=== PATIENT | female | born 1940 | race Caucasian/White ===

== ENCOUNTER → 2021-03-25 06:36 | Outpatient (CLI) | payer MEDICARE, SELFPAY ==
[2021-03-27 18:38] LABS: SARS-CoV-2 RNA PCR Negative
== END ==
PROVIDERS: PCP Internal Medicine; Visit Provider Internal Medicine
DX: R68.89 Other general symptoms and signs (principal); Z20.822 Contact with and (suspected) exposure to COVID-19
CPT/HCPCS: C9803; U0003; U0005

== ENCOUNTER 2022-04-27 13:47 | Emergency (ER) | payer MEDICARE, SELFPAY ==
[2022-04-27 14:03] VITALS: BP 165/79; PULSE 91; RESP 18; TEMP 37.1; O2SAT 99
--- NOTE | 2022-04-27 14:03 | ED.UPPEXIN ---
HPI - Extremity Injury (Upper) General Chief Complaint: Wound/Laceration Stated Complaint: fall/right elbow pain Time Seen by Provider: 04/27/22 14:03 Source: patient and RN notes reviewed Mode of arrival: ambulatory Limitations: no limitations History of Present Illness HPI narrative: 81-year-old female presents to the [facility] for complaints of a skin tear to the right elbow. Patient states that she slipped and landed on her elbow on Saturday, 3 days ago. Patient states that she called for help when she slipped and fell, the fire department came helped her up and into the house. Patient walks around with a walker. No increased pain. Full range of motion of the elbow. Skin tear noted. Related Data Home Medications Medication Instructions Recorded Confirmed amlodipine 2.5 mg tablet 2.5 mg PO DAILY 04/27/22 04/27/22 amlodipine 5 mg tablet 5 mg PO DAILY 04/27/22 04/27/22 carvedilol 25 mg tablet 25 mg PO DAILY 04/27/22 04/27/22 latanoprost 0.005 % eye drops 1 drp ophthalmic (eye) DAILY 04/27/22 04/27/22 levothyroxine 75 mcg tablet 75 mcg PO DAILY 04/27/22 04/27/22 (Euthyrox) losartan 100 mg tablet 100 mg PO DAILY 04/27/22 04/27/22 potassium chloride 10 mEq 10 meq PO DAILY 04/27/22 04/27/22 tablet,extended release pravastatin 40 mg tablet 40 mg PO DAILY 04/27/22 04/27/22 tramadol 50 mg tablet 50 mg PO DAILY 04/27/22 04/27/22 triamcinolone acetonide 0.1 % 0.1 applic topical DAILY 04/27/22 04/27/22 topical cream Allergies Allergy/AdvReac Type Severity Reaction Status Date / Time Penicillins Allergy Mild RASH Verified 09/02/19 08:24 blue dye Allergy Unknown Other Verified 04/27/22 13:55 ciprofloxacin Allergy Unknown Other Unverified 04/27/22 13:55 Iodinated Contrast Media Allergy Unknown Other Verified 04/27/22 13:55 mesalamine Allergy Unknown Other Verified 04/27/22 13:55 moxifloxacin Allergy Unknown Other Unverified 04/27/22 13:55 nitrofurantoin Allergy Unknown Other Unverified 04/27/22 13:55 NSAIDS (Non-Steroidal Allergy Unknown Other Unverified 04/27/22 13:55 Anti-Inflamma piroxicam Allergy Unknown Other Verified 04/27/22 13:55 Review of Systems Review of Systems: All systems reviewed & are unremarkable except as noted in HPI and below Constitutional: Constitutional: Reports no additional constitutional complaints, Denies chills and Denies fever(s) Eyes: Eyes: Reports no additional eye complaints ENT: Reports system reviewed and no additional complaints, except as documented Cardiovascular: Cardiovascular: Reports no additional cardiovascular complaints Respiratory: Respiratory: Reports no additional respiratory complaints Gastrointestinal: Gastrointestinal: Reports no additional gastrointestinal complaints Musculoskeletal: Musculoskeletal: Reports no additional musculoskeletal complaints Integumentary/Breasts: Skin/Breast: Reports as per HPI Comments: Skin tear right elbow Neurologic: Reports system reviewed and no additional complaints, except as documented Psychiatric: Psychiatric: Reports no additional psychiatric complaints Allergic/Immunologic: Allergic/Immunologic: Reports no additional allergic/immunologic complaints PMFSH Past Medical History Medical History (Updated 04/27/22 @ 18:48 by Audra Giraldo APRN) High cholesterol History of high blood pressure Thyroid disease Social History Social History (Updated 04/27/22 @ 18:46 by Audra Giraldo APRN) Gender identity (if verbalized by the patient): Female Comments At the time of my signature, I reviewed and agree with the nursing past medical, surgical, social, and family history. There is no relevant family history pertinent to the patient complaint. Exam Const: General: healthy appearing, no acute distress and alert Nutritional Appearance: well nourished Orientation/consciousness: patient oriented x3 Limitations: no limitations HENMT: Head: normal to inspection Ears: external ears normal General nose exam: Norm
[2022-04-27 14:16] VITALS: BP 165/79; PULSE 91; RESP 18; TEMP 37.1; O2SAT 99
[2022-04-27 14:51] VITALS: BP 114/86; PULSE 70; RESP 18; TEMP 36.7; O2SAT 96
== END 2022-04-27 14:24 | disposition home or self-care (01) ==
PROVIDERS: Emergency Provider Nurse Practitioner
DX: S51.011A Laceration without foreign body of right elbow, initial encounter (principal); W01.0XXA Fall on same level from slipping, tripping and stumbling without subsequent striking against object, initial encounter; E78.00 Pure hypercholesterolemia, unspecified; I10 Essential (primary) hypertension; E07.9 Disorder of thyroid, unspecified
CPT/HCPCS: 99212; G0463

== ENCOUNTER 2023-01-05 11:56 | Inpatient (IN) | payer MEDICARE, SELFPAY ==
[2023-01-05] VITALS (16 sets, daily range): BP systolic 152–181; BP diastolic 70–100; PULSE 68–84; RESP 14–20; O2SAT 94–100
--- NOTE | ~2023-01-05 | CT_ITS ---
EXAMINATION: CT diagnostic chest wo con DATE: 01/05/2023 14:52 INDICATION: Abnormal chest x-ray TECHNIQUE: Computed tomography (CT) of the chest was performed without intravenous contrast. The dose -length product (DLP) was 135.91 mGy-cm. Automated exposure control and iterative reconstruction tech nique were employed. COMPARISON: Chest radiograph from today FINDINGS: There is atelectasis and scarring in the right lung apex. No suspicious mass is identified. No pleural effusion or pneumothorax. The heart size is normal. There are no pathologically enlarged thoracic lymph nodes. There are changes of right mastectomy and right axillary lymph node dissection. Calcified coronary artery atherosclerosis is noted. There is a dual-lead pacemaker of the left chest wall. There is severe thoracic spondylosis. Bilateral shoulder arthroplasties are noted. There is a 3.2 x 2.2 cm cystic lesion in the tail of the pancreas. IMPRESSION: 1. Atelectasis and scarring of the right lung apex corresponding to the radiographic finding in quest ion, possibly related to radiation treatment. 2. 3.2 cm cystic lesion in the tail of the pancreas. The differential diagnosis includes pseudocyst, intraductal papillary mucinous neoplasm (IPMN), mucinous cystic neoplasm (MCN), and the less common s erous cystadenoma and neuroendocrine tumor. Correlate for history of pancreatitis. Follow-up pancreas protocol MRI or CT with and without contrast is recommended in two years Reviewed, dictated and finalized at location F. ANGE SPECIALIST IMPRESSION: 1. Atelectasis and scarring of the right lung apex corresponding to the radiogr aphic finding in question, possibly related to radiation treatment. 2. 3.2 cm cystic lesion in the tail of the pancreas. The differential diagnosis includes pseudocyst, intraductal papillary mucinous neoplasm (IPMN), mucinous cystic neoplasm (MCN), and the less common serous cystadenoma and neuroendocrin e tumor. Correlate for history of pancreatitis. Follow-up pancreas protocol MRI or CT with and without contrast is recommended in two years
--- NOTE | ~2023-01-05 | CT_ITS ---
EXAMINATION: CT brain wo con DATE: 01/05/2023 12:38 INDICATION: Confusion. TECHNIQUE: Computed tomography (CT) of the head was performed without intravenous contrast. The mA wa s adjusted according to patient size. Iterative reconstruction technique was employed. The dose-lengt h product was 605.33 mGy-cm. COMPARISON: Head CT 10/11/2014 FINDINGS: There are scattered areas of low attenuation in the cerebral white matter. There is no intr acranial hemorrhage, acute infarction, or abnormal intracranial mass lesion. The ventricles are josiah l in size. There are likely changes of ocular lens replacement surgeries. There is mucosal thickening in the paranasal sinuses. There are small bilateral mastoid effusions. IMPRESSION: 1. Moderate nonspecific cerebral white matter disease, which likely represents chronic small vessel i schemic disease, worsened from 10/11/2014. Reviewed, dictated and finalized at location A. ILL MOULDER OPERATOR IMPRESSION: 1. Moderate nonspecific cerebral white matter disease, which likely represents chronic small vessel ischemic disease, worsened from 10/11/2014.
--- NOTE | ~2023-01-05 | XR_ITS ---
EXAMINATION: XR chest 1V portable DATE: 01/05/2023 12:47 INDICATION: Confusion. TECHNIQUE: A single frontal view of the chest was obtained. COMPARISON: Chest 2 views 06/30/2019 FINDINGS: There are airspace opacities at right lung apex. No pleural effusion or pneumothorax. The h eart size is normal. There is a left chest pacer with leads in right atrium, right ventricle, and cor onary sinus. There are surgical clips in right axilla. There are bilateral shoulder arthroplasties. IMPRESSION: 1. Worsened airspace opacities at right lung apex, consistent with granulomatous disease versus pneum onia versus malignancy. Chest CT with contrast is recommended. Reviewed, dictated and finalized at location A. HEATER IMPRESSION: 1. Worsened airspace opacities at right lung apex, consistent with granulomatou s disease versus pneumonia versus malignancy. Chest CT with contrast is recomme nded.
--- NOTE | ~2023-01-05 | US_ITS ---
EXAMINATION: US carotid duplex BI DATE: 01/06/2023 15:15 INDICATION: Confusion TECHNIQUE: Grayscale, color Doppler, and pulsed Doppler images of the cervical carotid arteries were obtained. The degree of vessel stenosis is placed in one of the following categories: normal, <50%, 5 0-69%, >=70% but less than near-occlusion, near-occlusion, or total occlusion. Note that percent sten osis relative to normal distal artery lumen diameter is indirectly measured from velocity measurement s as described by Michael, et al. Radiology 2003; [id number]:[id number]. COMPARISON: 10/11/2014 FINDINGS: RIGHT: The right common carotid artery (CCA) peak systolic velocity (PSV) is 88 cm/s. The right internal car otid artery (ICA) PSV is 57 cm/s. The right ICA end-diastolic velocity (EDV) is 10 cm/s. The right IC A/CCA PSV ratio is 0.6. Grayscale and color Doppler images yield an estimate of less than 50% diamete r reduction from plaque in the ICA. The external carotid artery (ECA) PSV is 51 cm/s. There is antegr mike flow in the right vertebral artery. LEFT: The left CCA PSV is 95 cm/s. The left ICA PSV is 57 cm/s. The left ICA EDV is 6 cm/s. The left ICA/CC A PSV ratio is 0.6. Grayscale and color Doppler images yield an estimate of less than 50% diameter re duction from plaque in the ICA. The ECA PSV is 55 cm/s. There is antegrade flow in the left vertebral artery. IMPRESSION: 1. <50% stenosis in the right internal carotid artery. 2. <50% stenosis in the left internal carotid artery. Reviewed, dictated and finalized at location F. LE DISPLAY PREPARER
--- NOTE | 2023-01-05 12:03 | ECG_ITS ---
Measurements Intervals [place] Rate: 71 P: 128 MO: 144 QRS: 151 QRSD: 139 T: 120 QT: 437 QTc: 477 Interpretive Statements ATRIAL SENSE- ELECTRONIC VENTRICULAR PACEMAKER BASELINE ARTIFACT- I, III, V2 NO FURTHER INTERPRETATION IS POSSIBLE ATYPICAL ECG NO PREVIOUS ECG AVAILABLE FOR COMPARISON Electronically Signed On 01-05-2023 14:38:31 INVESTIGATIVE SHOPPER by Maury Quiles D.O.
--- NOTE | 2023-01-05 12:10 | ED.AMS ---
HPI - Altered Mental Status General Chief Complaint: Altered Mental Status Stated Complaint: confusion Time Seen by Provider: 01/05/23 12:09 Source: patient and EMS History of Present Illness HPI narrative: Patient is 82 years old white female came to the emergency room by ambulance from home with a caregiver who started her new job today to take care of the patient. She is telling me that at 930 arrived to the patient home and she was doing okay, at 10 AM patient took all her medication including tramadol, she does not know if the tramadol is a new prescription or not. At 10:30 AM patient became slightly confused,, trouble getting some words out, until coming to the emergency room. The caregiver called 911. No family member at the bedside at this time. Patient is awake, alert and oriented x4 is telling me that she been feeling awful in the last week, week, tired, trouble verbalizes what she is thinking sometime for almost 1 year. Currently denies any numbness, tingling or focal neurodeficit. Also denies any fever, chills, nausea, vomiting, chest pain, shortness of breath, headache. Related Data Home Medications Medication Instructions Recorded Confirmed amlodipine 2.5 mg tablet 2.5 mg PO DAILY 04/27/22 04/27/22 amlodipine 5 mg tablet 5 mg PO DAILY 04/27/22 04/27/22 carvedilol 25 mg tablet 25 mg PO DAILY 04/27/22 04/27/22 latanoprost 0.005 % eye drops 1 drp ophthalmic (eye) DAILY 04/27/22 04/27/22 levothyroxine 75 mcg tablet 75 mcg PO DAILY 04/27/22 04/27/22 (Euthyrox) losartan 100 mg tablet 100 mg PO DAILY 04/27/22 04/27/22 potassium chloride 10 mEq 10 meq PO DAILY 04/27/22 04/27/22 tablet,extended release pravastatin 40 mg tablet 40 mg PO DAILY 04/27/22 04/27/22 tramadol 50 mg tablet 50 mg PO DAILY 04/27/22 04/27/22 triamcinolone acetonide 0.1 % 0.1 applic topical DAILY 04/27/22 04/27/22 topical cream Allergies Allergy/AdvReac Type Severity Reaction Status Date / Time Penicillins Allergy Mild RASH Verified 09/02/19 08:24 RICK Inhibitors Allergy Unknown Unverified 05/22/22 15:25 blue dye Allergy Unknown Other Verified 04/27/22 13:55 cat dander Allergy Unknown Unverified 05/22/22 15:25 cefuroxime Allergy Unknown Unverified 05/22/22 15:25 ciprofloxacin Allergy Unknown Other Unverified 04/27/22 13:55 clindamycin Allergy Unknown Unverified 05/22/22 15:25 cornflower Allergy Unknown Unverified 05/22/22 15:25 egg Allergy Unknown Unverified 05/22/22 15:25 gabapentin Allergy Unknown Unverified 05/22/22 15:25 hydralazine Allergy Unknown Unverified 05/22/22 15:25 hydroxyzine Allergy Unknown Unverified 05/22/22 15:25 Iodinated Contrast Media Allergy Unknown Other Verified 04/27/22 13:55 Iodine and Iodide Containing Allergy Unknown Unverified 05/22/22 15:25 Produc [Iodine and Iodide Containing Products] lactase Allergy Unknown Unverified 05/22/22 15:25 mesalamine Allergy Unknown Other Verified 04/27/22 13:55 moxifloxacin Allergy Unknown Other Unverified 04/27/22 13:55 nitrofurantoin Allergy Unknown Other Unverified 04/27/22 13:55 NSAIDS (Non-Steroidal Allergy Unknown Other Unverified 04/27/22 13:55 Anti-Inflamma piroxicam Allergy Unknown Other Verified 04/27/22 13:55 wheat Allergy Unknown Unverified 05/22/22 15:25 Yeast Allergy Unknown Unverified 05/22/22 15:25 chlorhexadine Allergy Unknown Uncoded 05/22/22 15:25 chlorine Allergy Unknown Uncoded 05/22/22 15:25 dairy Allergy Unknown Uncoded 05/22/22 15:25 sulfa Allergy Unknown Uncoded 05/22/22 15:25 Review of Systems Review of Systems: All systems reviewed & are unremarkable except as noted in HPI and below PMFSH Past Medical History Medical History (Updated 01/05/23 @ 14:31 by Kadi Slater PA-C) Anxiety Cancer of right breast Status post mastectomy and chemoradiation. Depression Glaucoma Hyperlipidemia Hypertension Hypothyroidism Left bundle branch block Osteoporosis Rheumatoid arthritis Surgical History Surgical History
[2023-01-05 13:20] LABS: Basophils Absolute Auto 0.1 K/mm3 (0.0-0.1); Basophils Percent Auto 0.7 % (0.2-1.2); Eosinophils Absolute Auto 0.2 K/mm3 (0-0.3); Hematocrit 39.6 % (37.0-47.0); Hemoglobin 13.4 g/dL (12.0-15.0); Immature Granulocyte Absolute 0.04 K/mm3 (0.00-0.031); Immature Granulocyte Percent A 0.5 % (0-0.5); Lymphocytes Percent Auto 7.9 % (18.3-44.2); Mean Corpuscular HGB Conc 33.8 g/dl (32-36); Mean Corpuscular Hemoglobin 35.8 pg (26-34); Mean Corpuscular Volume 105.9 fl (80-100); Mean Platelet Volume 8.2 fl (7.4-10.4); Monocytes Percent Auto 12.7 % (2.6-8.5); Neutrophils Absolute Auto 5.8 K/mm3 (1.3-6.7); Neutrophils Percent Auto 76.2 % (45.5-73.1); Platelet Count Result 171 k/mm3 (150-375); Red Blood Count 3.74 M/mm3 (4.2-5.4); White Blood Count 7.6 K/mm3 (4.5-10.0)
[2023-01-05] MEDS: SODIUM CHLORIDE 0.9% IV 1,000 ML 500 ML IV CONT (13:24)
[2023-01-05 13:30] LABS: Alanine Aminotransferase 46 U/L (6-35); Albumin Level 3.8 g/dL (3.5-5.1); Alkaline Phosphatase 46 U/L (38-126); Anion Gap 8 mmol/L (8-16); Aspartate Amino Transferase 35 U/L (14-36); Bilirubin,Total 0.8 mg/dL (0.2-1.3); Blood Urea Nitrogen 20 mg/dL (7-17); Carbon Dioxide 25 mmol/L (22-30); Chloride 97 mmol/L (98-107); Estimated Glomerular Filt Rate > 60; Glucose 113 mg/dL (65-110); Potassium 3.5 mmol/L (3.4-5.0); Sodium 130 mmol/L (137-145)
[2023-01-05 13:40] LABS: Appearance Urine Clear (Clear); Bacteria Urine 4+ /hpf; Bilirubin Urine Negative (Negative); Blood Urine Negative (Negative); Color Urine Yellow (Yellow); Glucose Urine UA Negative (Negative); Ketones Urine Trace mg/dL (Negative); Leukocyte Esterase Ur Trace LEU/UL (Negative); Need Manual Microscopic Reviewed; Nitrate Urine Positive (Negative); Protein Urine Trace mg/dL (Negative); RBC Urine 0-2 /hpf (0-2); Specific Grav Ur 1.026 (1.001-1.035); Squamous Epithelial Cell Urine None seen /hpf (Few); WBC Urine 21-50 /hpf; pH Urine 5.5 (5.0-9.0)
[2023-01-05 13:43] LABS: Add Urine Microscopic? YES
[2023-01-05 13:53] LABS: Amphetamine Screen Urine Negative (Negative); Barbiturate Screen Urine Negative (Negative); Benzodiazepines Screen Urine Negative (Negative); Cannabinoid Screen Urine Positive (Negative); Cocaine Screen Urine Negative (Negative); Methadone Screen Urine Negative (Negative); Opiate Screen Urine Negative (Negative); Phencyclidine Screen Urine Negative (Negative)
[2023-01-05] MEDS: ASPIRIN 325 MG TABLET PO (14:26)
--- NOTE | 2023-01-05 15:10 | PC.NURSE ---
attempted to call report at this time, advised that the nurse taking this patient is unavailable and will call back for any questions regarding patient care and report. Stevie charge nurse notified
--- NOTE | 2023-01-05 15:33 | PC.NURSE ---
EDYing Don aware of patient's blood pressure while in ER. Per HELLEN Dno, no further intervention needed.
--- NOTE | 2023-01-05 15:45 | PM.IMHP ---
H&P: HPI History of Present Illness Date/Time: 01/05/23 15:45 Chief Complaint: Confusion and difficulties speaking. Narrative: This is [id number] female with history of TIA, hypertension, cardiomyopathy status post PM/AICD, arthritis, hypothyroidism, and other comorbidities who presented to the emergency department via EMS from home for evaluation of confusion and difficulties speaking. Patient provides the following history. She felt in her usual state of health this morning and welcomed a new caregiver. While showing her around the home she began having difficulties coming up with the words that she wanted to say and the caregiver thought she seemed confused when compared to how she was acting just a couple of hours prior. There were concerns for possible TIA and she was brought to the ED. With further questioning the patient admits that within an hour so of taking her carvedilol and amlodipine every morning that she feels ?a little drunk? and wobbly. She also had tramadol with her medications this morning for her chronic arthritic pain. Her symptoms resolved within a couple of hours. Blood pressure on arrival to the ED was 156/100, the rest of her vital signs were stable. CMP and CBC were stable compared to previous lab draws. Her urine was nitrate and leukocyte esterase positive with 21 to 50 wbc's and 4+ bacteria (this was a catheterized urine). She has not however had any symptoms to suggest an active urinary tract infection and she goes on to say that she has had issues with recurrent UTIs over the years and what sounds like bacteriuria. Urine drug screen was positive for cannabinoids and she does admit that she takes marijuana gummies at night to help sleep and help with her arthritic pain. Brain CT showed moderate nonspecific cerebral white matter disease, likely representing chronic small-vessel ischemic disease. Chest x-ray showed worsened airspace opacities the right lung apex which could be granulomatous disease versus pneumonia versus malignancy. She denies symptoms to suggest active pneumonia. A subsequent CT revealed that this area was likely atelectasis and scarring from previous radiation for breast cancer. A 3.2 cm cystic lesion was noted in the tail of the pancreas and with further questioning she does admit that she has intermittent issues with epigastric discomfort of which she is not very specific and occasional nausea. She is on a strict diet due to multiple allergies and states she does not eat dairy or much in the way of fried foods. She has no history of gallbladder or pancreatic disease and denies history of pancreatitis. She has lost about 20 lb in the last 6 months or so unintentionally. She has not had a mammogram for several years but has not noticed any lumps or bumps. She also denies fever, chills, sweats, sinus congestion, sore throat, chest and pleuritic pain, palpitations, shortness breath, vomiting, diarrhea, and dysuria. No vertigo, focal weakness, paresthesias, facial droop, or difficulty swallowing. She does ambulate with walker and reports that she has mild but ongoing balance issues. Review of Systems Review of Systems: Twelve systems were reviewed and are negative except for as per HPI. [facility] Past Medical History Medical History (Updated 01/05/23 @ 21:15 by Kadi Slater PA-C) Anxiety Cancer of right breast Status post mastectomy and chemoradiation. Chronic hyponatremia Collagenous colitis Depression Glaucoma Hyperlipidemia Hypertension Hypothyroidism Left bundle branch block Osteoporosis Surgical History Surgical History (Updated 01/05/23 @ 21:05 by Kadi Slater PA-C) History of arthroplasty of both shoulders History of arthroscopy of right knee History of cardiac catheterization History of dilation and curettage History of right knee joint replacement History of right mastectomy History of tonsillectomy History of umbilical hernia repair Presence of combination internal cardiac defibri
--- NOTE | 2023-01-05 16:29 | PC.NURSE ---
This patient, Alice Bass, was admitted to [facility] Surg Room 325-01. Patient/family oriented to hospital policies and general routines including ID bracelet, bed and alarms, visiting hours, pain management, procedures, bathroom and other care routines, personal items, smoking policy, room service/diet, and visiting hours. Information on how to activate the Rapid Response Team has been discussed. Patient/Family are encouraged to report perceived risks to care and to ask questions if they do not understand what they are told or what they should do.
[2023-01-05] MEDS: LATANOPROST 0.005% OP SOLN 2.5 ML BTL 1 DROP EACH EYE (21:57)
[2023-01-05] MEDS: carvediloL 25 MG TABLET PO (21:57)
[2023-01-05] MEDS: PRAVASTATIN SODIUM 20 MG TABLET 40 MG PO (21:59)
[2023-01-05] MEDS: ACETAMINOPHEN 325 MG TABLET 650 MG PO (21:59)
[2023-01-05] MEDS: LOSARTAN POTASSIUM 100 MG TABLET PO (21:59)
[2023-01-06] VITALS (10 sets, daily range): BP systolic 165–196; BP diastolic 70–86; PULSE 70–81; RESP 16–18; TEMP 36.1–36.9; O2SAT 95–97
[2023-01-06] MEDS: ACETAMINOPHEN 325 MG TABLET 650 MG PO ×3 (05:54→21:03)
[2023-01-06 06:13] LABS: Hematocrit 41.8 % (37.0-47.0); Hemoglobin 13.8 g/dL (12.0-15.0); Mean Corpuscular Hemoglobin 35.4 pg (26-34); Mean Corpuscular Volume 107.2 fl (80-100); Mean Platelet Volume 8.4 fl (7.4-10.4); Platelet Count Result 184 k/mm3 (150-375); White Blood Count 5.7 K/mm3 (4.5-10.0)
[2023-01-06 06:28] LABS: Anion Gap 7 mmol/L (8-16); Blood Urea Nitrogen 10 mg/dL (7-17); Calcium 8.1 mg/dL (8.4-10.2); Carbon Dioxide 23 mmol/L (22-30); Chloride 105 mmol/L (98-107); Cholesterol 171 mg/dL (0-200); Estimated Glomerular Filt Rate > 60; Glucose 111 mg/dL (65-110); HDL Direct 58 mg/dL; Lipase 52 U/L (23-300); Magnesium 2.3 mg/dL (1.6-2.3); Potassium 3.9 mmol/L (3.4-5.0); Sodium 135 mmol/L (137-145); Triglycerides 102 mg/dL (<150)
[2023-01-06 06:29] LABS: LDL Cholesterol Direct 82 mg/dL
[2023-01-06] MEDS: ASPIRIN 81 MG CHEWABLE TABLET PO (09:30)
[2023-01-06] MEDS: carvediloL 25 MG TABLET PO ×2 (09:30→21:38)
[2023-01-06] MEDS: amLODIPine BESYLATE 5 MG TABLET PO (09:30)
[2023-01-06] MEDS: POTASSIUM CHLORIDE 10 MEQ TABLET.ER PO (09:30)
[2023-01-06] MEDS: LEVOTHYROXINE SODIUM 75 MCG TABLET PO (09:30)
[2023-01-06] MEDS: CALCIUM/VITAMIN D 250 MG TABLET 1 TABLET PO (09:30)
[2023-01-06 10:32] LABS: Folic Acid 4.4 ng/mL (2.76->20)
--- NOTE | 2023-01-06 16:50 | PM.IMPN ---
Progress Note: A&P Assessment and Plan (1) Dysarthria: Code(s): R47.1 - Dysarthria and anarthria Status: Acute Assessment and Plan: Patient denies that she was feeling confused. Her biggest complaint was garbled speech when trying to talk. Etiology most likely related to TIA. This symptom however was different than her prior TIA symptoms. Consider also metabolic processes. Her sodium was low and her BUN was elevated so would consider dehydration. B12 level is low end of normal which also could be contributing. She may also have a UTI and currently on antibiotics. Head CT shows moderate nonspecific cerebral white matter disease. She cannot have an MRI due to her pacemaker. Carotid ultrasound shows less than 50% stenosis in the bilateral internal carotid arteries. She has an iodine allergy. Will check echocardiogram with bubble. Replace B12. Start PT/ OT and speech therapy. Continue ASA. (2) Hypertension: Code(s): I10 - Essential (primary) hypertension Status: Acute Assessment and Plan: Patient's blood pressure was reviewed on 01/06 Blood pressure remains consistently elevated. Will continue current medications at this time. Follow (3) Chronic hyponatremia: Code(s): E87.1 - Hypo-osmolality and hyponatremia Status: Acute Assessment and Plan: Na 130 on admission but better after receiving IV fluids. Off IV fluids now. Will follow (4) Hypothyroidism: Code(s): E03.9 - Hypothyroidism, unspecified Status: Acute Assessment and Plan: TSH normal. Continue levothyroxine. (5) Pancreatic cyst: Code(s): K86.2 - Cyst of pancreas Status: Acute Assessment and Plan: CT showing a cystic lesion noted on pancreas. Lipase normal. Radiologist recommends CT pancreatic protocol in 2 years. Plan ?UTI - UA noted so Rocephin started. UCx pending. Subjective Date/time seen: 01/06/23 16:50 Interval history: 82yo female with hx of TIA, HTN and CMP with PM/ICD here for difficulty speaking. patient states that she would know the answers to the questions posed by EMS but could not speak them. Her answers came out garbled. She has a history of TIA in the past. She has been off aspirin for a few months because of bruising. She did feel short of breath with conversational dyspnea talking to her son by phone earlier today but this has improved. No chest pain. Her symptoms improved on her weight to the ER. Exam Narrative: AF 98.3 165/71 73 16 95% ra Gen - NARD Chest - CTA bilaterally, nml RR CV - RRR S1/S2. Tele showing PVCs with mostly paced rhythm Abd - Soft, NT/ND, Positive BS Ext - No pedal edema Neuro - Alert and oriented x4. speech is clear. No focal weakness. Psych - Nml mood and affect Skin - Warm and dry Objective Data Vital Signs Vital Signs: Vital Signs - 24 hr 01/05/23 18:24 01/05/23 21:57 01/05/23 20:00 Temperature Pulse Rate 80 75 Respiratory Rate Blood Pressure Pulse Oximetry Oxygen Delivery Room Air 01/06/23 00:00 01/06/23 00:00 01/06/23 04:00 Temperature 97.2 F L Pulse Rate 70 81 73 Respiratory Rate 16 Blood Pressure 174/86 H Pulse Oximetry 97 Oxygen Delivery 01/06/23 07:55 01/06/23 08:00 01/06/23 08:00 Temperature 98.5 F Pulse Rate 74 74 74 Respiratory Rate 18 18 Blood Pressure 181/70 H Pulse Oximetry 96 96 Oxygen Delivery Room Air 01/06/23 12:00 01/06/23 14:41 Temperature 98.3 F Pulse Rate 72 73 Respiratory Rate 16 Blood Pressure 165/71 H Pulse Oximetry 95 Oxygen Delivery Intake/Output Intake/Output: Intake & Output 01/03/23 01/04/23 01/05/23 01/06/23 23:59 23:59 23:59 23:59 Intake Total 1790 740 Balance 1790 740 Meds/Results Medications: Active Medications Generic Name Dose Route Start Last Admin Trade Name Freq PRN Reason Stop Dose Admin Acetaminophen 650 mg 01/05/23 14:03
[2023-01-06] MEDS: CYANOCOBALAMIN INJ 1,000 MCG/ML VIAL 1000 MCG IM (19:31)
[2023-01-06] MEDS: LATANOPROST 0.005% OP SOLN 2.5 ML BTL 1 DROP EACH EYE (21:05)
[2023-01-06] MEDS: PRAVASTATIN SODIUM 20 MG TABLET 40 MG PO (21:39)
[2023-01-06] MEDS: LOSARTAN POTASSIUM 100 MG TABLET PO (21:39)
[2023-01-07] VITALS (12 sets, daily range): BP systolic 162–194; BP diastolic 76–107; PULSE 72–104; RESP 16–20; TEMP 35.8–36.8; O2SAT 96–97; BMI 25.3
[2023-01-07] MEDS: ACETAMINOPHEN 325 MG TABLET 650 MG PO ×3 (06:04→20:59)
[2023-01-07] MEDS: LEVOTHYROXINE SODIUM 75 MCG TABLET PO (06:04)
[2023-01-07] MEDS: amLODIPine BESYLATE 5 MG TABLET PO ×2 (09:02→18:42)
[2023-01-07] MEDS: CALCIUM/VITAMIN D 250 MG TABLET 1 TABLET PO (09:02)
[2023-01-07] MEDS: LIDOCAINE 5% PATCH 1 PATCH TRANSDERM (09:02)
[2023-01-07] MEDS: POTASSIUM CHLORIDE 10 MEQ TABLET.ER PO (09:03)
[2023-01-07] MEDS: CYANOCOBALAMIN 1,000 MCG TABLET 1000 MCG PO (09:03)
[2023-01-07] MEDS: ASPIRIN 81 MG CHEWABLE TABLET PO (09:03)
[2023-01-07] MEDS: carvediloL 25 MG TABLET PO ×2 (09:04→20:59)
--- NOTE | 2023-01-07 11:53 | PCSTNOTE ---
Please refer to the Bedside Swallow Evaluation in the EMR. Please note, silent aspiration cannot be ruled out at bedside.
--- NOTE | 2023-01-07 15:35 | PM.IMPN ---
Progress Note: A&P Assessment and Plan (1) Dysarthria: Code(s): R47.1 - Dysarthria and anarthria Status: Acute Assessment and Plan: Patient denies that she was feeling confused. Her biggest complaint was garbled speech when trying to talk. Etiology most likely related to TIA. This symptom however was different than her prior TIA symptoms. Consider also metabolic processes. Her sodium was low and her BUN was elevated so would consider dehydration. B12 level is low end of normal which also could be contributing. She also has a UTI that is being treated. And she took tramadol that morning and a marijuana gummy the night before. Head CT shows moderate nonspecific cerebral white matter disease. She cannot have an MRI due to her pacemaker. Carotid ultrasound shows less than 50% stenosis in the bilateral internal carotid arteries. She has an iodine allergy. Echocardiogram with bubble ordered. Suspect her symptoms are related to multifactorial process. Continue B12 replacement. Continue PT/ OT and speech therapy. Continue ASA. She and pet care associate advised not to use the tramadol and marijuana. (2) Urinary tract infection: Code(s): N39.0 - Urinary tract infection, site not specified Status: Acute Assessment and Plan: UA noted and Rocephin started on admission. UCx growing EColi that is pansensitive. Continue abx to complete a course. (3) Hypertension: Code(s): I10 - Essential (primary) hypertension Status: Acute Assessment and Plan: Patient's blood pressure was reviewed on 01/07 Blood pressure remains consistently elevated. Will advance [facility]. Follow (4) Chronic hyponatremia: Code(s): E87.1 - Hypo-osmolality and hyponatremia Status: Acute Assessment and Plan: Na 130 on admission but better after receiving IV fluids. Off IV fluids now. Will follow (5) Hypothyroidism: Code(s): E03.9 - Hypothyroidism, unspecified Status: Acute Assessment and Plan: TSH normal. Continue levothyroxine. (6) Pancreatic cyst: Code(s): K86.2 - Cyst of pancreas Status: Acute Assessment and Plan: CT showing a cystic lesion noted on pancreas. Lipase normal. Radiologist recommends CT pancreatic protocol in 2 years. Subjective Date/time seen: 01/07/23 15:35 Interval history: 82yo female with hx of TIA, HTN and CMP with PM/ICD here for difficulty speaking. No problems overnight. She is up walking to the bathroom. The patient's pet care associate arrived and did not want the patient discharged because patient lives alone and they are trying to make living arrangements. Exam Narrative: AF 162/79 88 20 97% ra Gen - NARD Chest - CTA bilaterally, nml RR CV - RRR S1/S2. Tele showing PVCs Abd - Soft, NT/ND, Positive BS Ext - No pedal edema Psych - Nml mood and affect Skin - Warm and dry Objective Data Vital Signs Vital Signs: Vital Signs - 24 hr 01/06/23 16:00 01/06/23 21:38 01/06/23 20:00 Temperature Pulse Rate 73 72 74 Respiratory Rate Blood Pressure Pulse Oximetry Oxygen Delivery 01/06/23 22:00 01/07/23 03:33 01/07/23 00:00 Temperature 97 F L 97.1 F L Pulse Rate 80 74 75 Respiratory Rate 16 18 Blood Pressure 196/84 H 194/80 H Pulse Oximetry 95 96 Oxygen Delivery 01/07/23 04:00 01/07/23 08:00 01/07/23 08:00 Temperature Pulse Rate 73 73 Respiratory Rate Blood Pressure Pulse Oximetry Oxygen Delivery Room Air 01/07/23 08:00 01/07/23 08:00 01/07/23 08:05 Temperature Pulse Rate 88 104 H Respiratory Rate Blood Pressure 162/79 H 165/107 H Pulse Oximetry Oxygen Delivery Room Air 01/07/23 08:10 01/07/23 14:00 Temperature 98.3 F Pulse Rate 94 88 Respiratory Rate 20 Blood Pressure 169/85 H 162/79 H Pulse Oximetry 97 Oxygen Delivery Intake/Output Intake/Output: Intake & Output 01/04/23 01/05/23 01/06/23 01/07/23 23:
[2023-01-07] MEDS: PRAVASTATIN SODIUM 20 MG TABLET 40 MG PO (20:58)
[2023-01-07] MEDS: LOSARTAN POTASSIUM 100 MG TABLET PO (20:58)
[2023-01-07] MEDS: LATANOPROST 0.005% OP SOLN 2.5 ML BTL 1 DROP EACH EYE (20:59)
--- NOTE | 2023-01-08 | ECHO_ITS ---
Patient Info Name: Alice Bass Age: 82 years : 1940 Gender: Female Ht: 59 in Wt: 141 lbs BSA: 1.65 m2 HR: 64 bpm BP: 194 / 80 mmHg Heart Rhythm: Sinus Rhythm Exam Date: 01/08/2023 11:00 AM Exam Location: [facility] Patient Status: Inpatient Admit Date: 01/07/2023 Staff Ordering Physician: Dedrick Duron MD Supervisor [employer]: Jose Ruff, BETZAIDA, RT Attending Provider: Dedrick Duron MD Exam Type: CA echo dop bubble study w con Study Info Indications G45.8 - Other transient cerebral ischemic attacks and related syndromes Complete two-dimensional, color flow and Doppler transthoracic echocardiogram is performed. Strain analysis performed. Summary 1. Complete two-dimensional, color flow and Doppler transthoracic echocardiogram is performed. 2. Left ventricular chamber dimension is normal. 3. Left ventricular systolic function is mildly reduced, estimated at 45-50%. 4. There is mildly increased left ventricular wall thickness. 5. Left ventricular septal wall motion is abnormal with septal motion related to pacing. 6. The left ventricular diastolic function is grade I diastolic dysfunction. 7. Global longitudinal strain is abnormal at -13 %. 8. Right ventricular systolic function is reduced. 9. Linear artifact in right ventricle suggestive of catheter(s), pacemaker lead(s), or ICD lead(s). 10. Linear artifact in the right atrium suggestive of catheter(s), pacemaker lead(s), or ICD lead(s). 11. Bubble study: No bubbles seen crossing into the left heart with rest. However, with Valsalva, few bubbles seen in left heart after >5 cardiac beats concerning for possible small intrapulmonary shunt. 12. There is moderate aortic valve calcification. 13. There is moderate aortic valve regurgitation. 14. There is mild tricuspid valve regurgitation. 15. There is mild pulmonic regurgitation. Left Ventricle Left ventricular chamber dimension is normal. Left ventricular systolic function is mildly reduced, estimated at 45-50%. There is mildly increased left ventricular wall thickness. Left ventricular septal wall motion is abnormal with septal motion related to pacing. The left ventricular diastolic function is grade I diastolic dysfunction. Global longitudinal strain is abnormal at -13 %. Right Ventricle Linear artifact in right ventricle suggestive of catheter(s), pacemaker lead(s), or ICD lead(s). Right ventricular chamber dimension is normal. Right ventricular systolic function is reduced. Left Atria Left atrial chamber dimension is normal. Right Atria Linear artifact in the right atrium suggestive of catheter(s), pacemaker lead(s), or ICD lead(s). Right atrial chamber dimension is normal. Atrial Septum Bubble study: No bubbles seen crossing into the left heart with rest. However, with Valsalva, few bubbles seen in left heart after >5 cardiac beats concerning for possible small intrapulmonary shunt. Aortic Valve The aortic valve is probable trileaflet. There is no aortic valve stenosis. There is moderate aortic valve regurgitation. There is moderate aortic valve calcification. Pulmonic Valve The pulmonic valve is not well visualized. There is mild pulmonic regurgitation. Mitral Valve There is no mitral valve stenosis. There is trace mitral valve regurgitation. The mitral valve annulus is mildly calcified. Tricuspid Valve There is mild tricuspid valve regurgitation. Pericardium/Pleural There is no pericardial effusion. Inferior V
[2023-01-08] MEDS: ACETAMINOPHEN 325 MG TABLET 650 MG PO ×2 (04:00→08:42)
[2023-01-08] MEDS: LEVOTHYROXINE SODIUM 75 MCG TABLET PO (05:02)
[2023-01-08 05:20] VITALS: BP 150/63; PULSE 70; RESP 19; TEMP 36.1; O2SAT 95
[2023-01-08 08:00] VITALS: BP 150/63; PULSE 70; RESP 19; TEMP 36.1; O2SAT 95
[2023-01-08] MEDS: ASPIRIN 81 MG CHEWABLE TABLET PO (08:41)
[2023-01-08] MEDS: CEFDINIR 300 MG CAPSULE PO (08:41)
[2023-01-08] MEDS: POTASSIUM CHLORIDE 10 MEQ TABLET.ER PO (08:42)
[2023-01-08] MEDS: CYANOCOBALAMIN 1,000 MCG TABLET 1000 MCG PO (08:43)
[2023-01-08] MEDS: CALCIUM/VITAMIN D 250 MG TABLET 1 TABLET PO (08:43)
[2023-01-08] MEDS: amLODIPine BESYLATE 5 MG TABLET 10 MG PO (08:43)
[2023-01-08] MEDS: carvediloL 25 MG TABLET PO (08:44)
[2023-01-08] MEDS: LIDOCAINE 5% PATCH 1 PATCH TRANSDERM (08:44)
--- NOTE | 2023-01-08 13:18 | PM.DS ---
DS: Admitting Diagnosis Discharge Date 01/08/23 Admitting Diagnosis difficulty speaking. DS: Discharge Diagnosis Discharge Diagnosis (1) Dysarthria: Code(s): R47.1 - Dysarthria and anarthria Status: Acute (2) Urinary tract infection: Code(s): N39.0 - Urinary tract infection, site not specified Status: Acute (3) Hypertension: Code(s): I10 - Essential (primary) hypertension Status: Acute (4) Chronic hyponatremia: Code(s): E87.1 - Hypo-osmolality and hyponatremia Status: Acute (5) Hypothyroidism: Code(s): E03.9 - Hypothyroidism, unspecified Status: Acute (6) Pancreatic cyst: Code(s): K86.2 - Cyst of pancreas Status: Acute DS: Summary Hospital Course Reason for hospitalization: 82yo female with hx of TIA, HTN and CMP with PM/ICD here for difficulty speaking. Please see H&P for details Hospital Course: Patient denied that she felt confused.? Her biggest complaint was garbled speech when trying to talk.? This symptom however was different than her prior TIA symptoms.? Her sodium was low and her BUN was elevated so probably dehydrated.? B12 level was low end of normal which also could be contributing.?B12 was replaced. UA noted and Rocephin started on admission. UCx growing EColi that was pansensitive. She also took tramadol that morning and a marijuana gummy the night before. Head CT shows moderate nonspecific cerebral white matter disease.? She cannot have an MRI due to her pacemaker.? Carotid ultrasound shows less than 50% stenosis in the bilateral internal carotid arteries.? She has an iodine allergy.? Echocardiogram with bubble pending. Suspect her symptoms are either a TIA and/or related to UTI, medications, marijuana, dehydration. She worked with PT/ OT and speech therapy. We started ASA (she had been off of ASA for a few months). She and home care assistant advised not to use the tramadol and marijuana. Na 130 on admission but better after receiving IV fluids. TSH was normal. We continued levothyroxine. CXR showed airspace opacities in the right upper lung. CT chest showing atelectasis and scarring of the right lung apex felt related to radiation treatment. CT also showed a 3.2cm cystic lesion noted on tail of the pancreas. Lipase was normal. Radiologist recommended CT pancreatic protocol in 2 years. Patient overall did well but home care assistant felt the patient was too weak to be discharged home. She was evaluated and was too independent for SNF. She was discharged to [facility] on 01/08/2023 in their respite room. Discharge instructions were discussed with patient. Status at Discharge Cognitive/behavioral status at discharge: Stable Time Spent with Patient Time attestation: Total time spent providing and/or coordinating discharge services:34 minutes Time spent: Greater than 30 minutes Exam Narrative: AF 150/63 70 19 95% ra Gen - NARD Chest - CTA bilaterally, nml RR CV - RRR S1/S2 Abd - Soft, NT/ND, Positive BS Ext - No pedal edema Psych - Nml mood and affect Skin - Warm and dry Discharge Plan Discharge Attending physician on discharge: Dedrick Duron Discharging Clinician: Dedrick Duron Anticipated Discharge Date/Time: 01/08/23 13:37 Patient Disposition: NH Skilled Nursing/Asst Living Activity: as tolerated Diet: heart healthy Discharge Instructions: Check blood pressure 1 to 2 times a day. Record for the doctor's review. Please complete your antibiotic course even if you are starting to feel well. Take precautions to avoid falls. Rise slowly from a lying or sitting position. Pause before standing or walking. Avoid NSAIDs (ibuprofen, naproxen, Aleve). Tylenol is safe to take. Follow-up with the provider at the facility Thank you for using [facility] for your health care needs. Patient Instructions: Antibiotic Form Stand Alone Forms: General Discharge Information Follow-up/Referrals:
[2023-01-08 14:00] VITALS: BP 150/70; PULSE 79; RESP 17; TEMP 36.7; O2SAT 95
== END 2023-01-08 15:45 | DRG 69 ==
LOC: ANHED 14:23 → ANH3MEDSUR 15:28
PROVIDERS: Physician Assistant; Admitting Provider Internal Medicine; Emergency Provider Emergency Medicine; PCP Internal Medicine; Visit Provider Internal Medicine
DX: G45.9 Transient cerebral ischemic attack, unspecified (principal); N39.0 Urinary tract infection, site not specified; I42.9 Cardiomyopathy, unspecified; E87.1 Hypo-osmolality and hyponatremia; K86.2 Cyst of pancreas; B96.20 Unspecified Escherichia coli [E. coli] as the cause of diseases classified elsewhere; E86.0 Dehydration; R41.0 Disorientation, unspecified; R47.1 Dysarthria and anarthria; R47.89 Other speech disturbances; T50.905A Adverse effect of unspecified drugs, medicaments and biological substances, initial encounter; T40.715A Adverse effect of cannabis, initial encounter; F41.9 Anxiety disorder, unspecified; F32.A Depression, unspecified; I44.7 Left bundle-branch block, unspecified; M06.9 Rheumatoid arthritis, unspecified; M81.0 Age-related osteoporosis without current pathological fracture; H40.9 Unspecified glaucoma; E78.5 Hyperlipidemia, unspecified; E03.9 Hypothyroidism, unspecified; I10 Essential (primary) hypertension; Z96.612 Presence of left artificial shoulder joint; Z96.611 Presence of right artificial shoulder joint; Z96.651 Presence of right artificial knee joint; Z95.810 Presence of automatic (implantable) cardiac defibrillator
CPT/HCPCS: 36415; 70450; 71045; 71250; 80048; 80053; 80061; 80307; 81001; 82607; 82746; 83690; 83735; 84443; 85025; 85027; 87077; 87086; 87186; 92610; 93005; 93880; 96360; 96361; 96365; 96366; 96372; 96375; 96376; 97165; 97530; 97535; 99285; A9270; C8929; G0378; J0696; J3420; J7030

== ENCOUNTER 2024-04-07 18:57 | Inpatient (IN) | payer MEDICARE, SELFPAY ==
[2024-04-07] VITALS (9 sets, daily range): BP systolic 133–162; BP diastolic 51–93; PULSE 87–97; RESP 16–23; TEMP 36.8; O2SAT 95–98
--- NOTE | ~2024-04-07 | XR_ITS ---
EXAM: XR knee LT min 4V DATE: 04/07/2024 21:24 HISTORY: fall, laceration PT HAS BANDAGEON TO CONTROL BLEEDING . COMPARISON: None available. FINDINGS: Decreased mineralization. Radiologically detail obscured by overlying bandage material. No fracture or dislocation. No lytic or blastic lesion. Mild tricompartmental osteoarthritic changes. N o erosion or periosteal change. Arterial calcifications. Possible soft tissue defect anterior to the patella versus compression from the bandage material. Soft tissue swelling/hematoma overlying the pat ellar tendon. IMPRESSION: No acute osseous finding in the left knee. Reviewed, dictated and finalized at location [facility].
--- NOTE | ~2024-04-07 | CT_ITS ---
CT OF left knee EXAMINATION: CT LE LT wo con DATE: 04/07/2024 21:58 INDICATION: Knee injury, fracture suspected TECHNIQUE: Computed tomography (CT) of the left knee was performed without intravenous contrast. Auto mated exposure control and iterative reconstruction technique were employed. The dose-length product was 426.63 mGy-cm. COMPARISON: X-ray left knee same date FINDINGS: Decreased mineralization. Vascular calcifications. No fracture or dislocation. Small-volume joint flu id. The patellar tendon is intact. The ACL is not well visualized. The PCL appears to be intact. The MCL and LCL appear to be intact. Anterior bandage material. Hematoma in the soft tissues anterior and lateral to the patellar tendon with significant surrounding subcutaneous stranding and scattered sub cutaneous gas. IMPRESSION: No acute osseous finding in the left knee. Possible ACL tear, presumably chronic given the lack of a significant knee joint effusion. Anterior soft tissue injury/hematoma Reviewed, dictated and finalized at location [facility]. IMPRESSION: No acute osseous finding in the left knee. Possible ACL tear, presumably chronic given the lack of a significant knee join t effusion. Anterior soft tissue injury/hematoma
--- NOTE | ~2024-04-07 | CT_ITS ---
Noncontrast CT scan of the left knee CLINICAL HISTORY: Swelling, anemia, possible hematoma TECHNIQUE: Axial noncontrast imaging of the left knee was performed. Sagittal and coronal reformatted images were constructed. Dose reduction technique was used on this scan by utilizing automated expos ure control and iterative reconstruction technique. The dose-length product (DLP) was 591.33 mGy-cm. Comparison: 04/07/2024 FINDINGS: No acute fracture or dislocation seen. There is minimal tricompartmental degenerative spurr ing. Moderate joint effusion present. There is interval decrease of hematoma superficial to the noel lar tendon extending laterally. Hematoma currently measures approximately 5.5 x 1.7 x 1.4 cm in exten t. Visualized musculature appears unremarkable. There is mild subcutaneous soft tissue edema, nonspec ific. IMPRESSION: Interval decrease of hematoma superficial to the patellar tendon extending laterally. Moderate joint effusion present. No acute fracture or dislocation seen. Reviewed, dictated and finalized at [facility]. IMPRESSION: Interval decrease of hematoma superficial to the patellar tendon extending late rally. Moderate joint effusion present. No acute fracture or dislocation seen.
--- NOTE | 2024-04-07 20:57 | ED.FALL ---
HPI - Fall General Chief Complaint: Fall Stated Complaint: fall Time Seen by Provider: 04/07/24 20:57 History of Present Illness HPI Narrative: Patient is an 83-year-old female who presents to the emergency department this evening complaining of a ground level fall. Patient sustained a left knee laceration measuring approximately 11 cm across her knee joint and a small skin tear to her right engel. Patient denies hitting her head, and is currently denying any joint pain other than the laceration to her left knee. Patient is not on any blood thinners. No distal symptoms or concerns at this time. Related Data Home Medications Medication Instructions Recorded Confirmed carvedilol 25 mg tablet 25 mg PO BID 04/27/22 09/04/23 latanoprost 0.005 % eye drops 1 drp ophthalmic (eye) HS 04/27/22 09/04/23 levothyroxine 75 mcg tablet 75 mcg PO DAILY 04/27/22 09/04/23 (Euthyrox) losartan 100 mg tablet 100 mg PO HS 04/27/22 09/04/23 potassium chloride 10 mEq 10 meq PO DAILY 04/27/22 09/04/23 tablet,extended release pravastatin 40 mg tablet 40 mg PO HS 04/27/22 09/04/23 acetaminophen 650 mg 650 mg PO Q8H 01/05/23 09/04/23 tablet,extended release calcium carbonate 250 mg-vitamin 1 tablet PO DAILY 01/05/23 09/04/23 D3 3.125 mcg (125 unit) tablet lidocaine 5 % topical patch 1 patch transdermal DAILY 01/06/23 09/04/23 Allergies Allergy/AdvReac Type Severity Reaction Status Date / Time Penicillins Allergy Mild RASH Verified 01/07/23 12:16 RICK Inhibitors Allergy Unknown Unverified 05/22/22 15:25 blue dye Allergy Unknown Other Verified 04/27/22 13:55 cat dander Allergy Unknown Unverified 05/22/22 15:25 cefuroxime Allergy Unknown Unverified 01/07/23 12:16 chlorhexidine Allergy Unknown Verified 01/07/23 07:18 ciprofloxacin Allergy Unknown Other Unverified 04/27/22 13:55 clindamycin Allergy Unknown Unverified 05/22/22 15:25 cornflower Allergy Unknown Unverified 05/22/22 15:25 egg Allergy Unknown Unverified 05/22/22 15:25 gabapentin Allergy Unknown Unverified 05/22/22 15:25 hydralazine Allergy Unknown Unverified 05/22/22 15:25 hydroxyzine Allergy Unknown Unverified 05/22/22 15:25 Iodinated Contrast Media Allergy Unknown Other Verified 04/27/22 13:55 Iodine and Iodide Containing Allergy Unknown Unverified 05/22/22 15:25 Produc [Iodine and Iodide Containing Products] lactase Allergy Unknown Unverified 05/22/22 15:25 mesalamine Allergy Unknown Other Verified 04/27/22 13:55 moxifloxacin Allergy Unknown Other Unverified 04/27/22 13:55 nitrofurantoin Allergy Unknown Other Unverified 04/27/22 13:55 NSAIDS (Non-Steroidal Allergy Unknown Other Unverified 04/27/22 13:55 Anti-Inflamma piroxicam Allergy Unknown Other Verified 04/27/22 13:55 Sulfa (Sulfonamide Allergy Unknown Verified 01/07/23 07:18 Antibiotics) wheat Allergy Unknown Unverified 05/22/22 15:25 Yeast Allergy Unknown Unverified 05/22/22 15:25 chlorine Allergy Unknown Uncoded 05/22/22 15:25 dairy Allergy Unknown Uncoded 05/22/22 15:25 Review of Systems Review of Systems: All systems are reviewed and are negative unless stated otherwise in the HPI. PMFSH Past Medical History Medical History Anxiety Cancer of right breast Status post mastectomy and chemoradiation. Chronic hyponatremia Collagenous colitis Depression Glaucoma Hyperlipidemia Hypertension Hypothyroidism Left bundle branch block Osteoporosis Surgical History Surgical History History of arthroplasty of both shoulders History of arthroscopy of right knee History of cardiac catheterization History of dilation and curettage History of right knee joint replacement History of right mastectomy History of tonsillectomy History of umbilical hernia repair Presence of combination internal cardiac defibrillator (ICD) and pacemaker Family History Family History (Reviewe
[2024-04-08] VITALS (11 sets, daily range): BP systolic 134–157; BP diastolic 59–101; PULSE 73–99; RESP 13–18; TEMP 36.2–37.4; O2SAT 93–98
--- NOTE | 2024-04-08 00:10 | PC.NURSE ---
Upon discharge patient states she is too weak to go back to [facility]. Patient has nurse rehabilitation case coordinator Jess at her side and both voice concern for patient being unable to take care of herself when back at the assisted living.
[2024-04-08 00:57] LABS: Basophils Absolute Auto 0.1 K/mm3 (0.0-0.1); Basophils Percent Auto 0.7 % (0.2-1.2); Eosinophils Absolute Auto 0.6 K/mm3 (0-0.3); Eosinophils Percent Auto 5.1 % (0-4.4); Hematocrit 32.6 % (37.0-47.0); Hemoglobin 10.6 g/dL (12.0-15.0); Immature Granulocyte Absolute 0.11 K/mm3 (0.00-0.031); Lymphocytes Absolute Auto 1.11 K/mm3 (0.9-3.2); Lymphocytes Percent Auto 9.7 % (18.3-44.2); Mean Corpuscular HGB Conc 32.5 g/dl (32-36); Mean Corpuscular Hemoglobin 33.2 pg (26-34); Mean Corpuscular Volume 102.2 fl (80-100); Mean Platelet Volume 8.5 fl (7.4-10.4); Monocytes Absolute Auto 1.4 K/mm3 (0.1-0.6); Monocytes Percent Auto 12.1 % (2.6-8.5); Neutrophils Absolute Auto 8.2 K/mm3 (1.3-6.7); Neutrophils Percent Auto 71.4 % (45.5-73.1); Platelet Count Result 249 k/mm3 (150-375); Red Blood Count 3.19 M/mm3 (4.2-5.4); Red Cell Distribution Width 13.2 % (11.5-14.5); White Blood Count 11.5 K/mm3 (4.5-10.0)
[2024-04-08 01:07] LABS: Alanine Aminotransferase 24 U/L (6-35); Alkaline Phosphatase 56 U/L (38-126); Anion Gap 8 mmol/L (4-12); Aspartate Amino Transferase 31 U/L (14-36); Bilirubin,Total 0.7 mg/dL (0.2-1.3); Blood Urea Nitrogen 26 mg/dL (7-17); Calcium 8.5 mg/dL (8.4-10.2); Carbon Dioxide 23 mmol/L (22-30); Chloride 99 mmol/L (98-107); Estimated Glomerular Filt Rate > 60; Glucose 153 mg/dL (65-110); Sodium 130 mmol/L (137-145)
--- NOTE | 2024-04-08 03:52 | ADMGEN ---
This patient, Alice Bass, was admitted to [facility] Surg Room 322-02. Patient/family oriented to hospital policies and general routines including ID bracelet, bed and alarms, visiting hours, pain management, procedures, bathroom and other care routines, personal items, smoking policy, room service/diet, and visiting hours. Information on how to activate the Rapid Response Team has been discussed. Patient/Family are encouraged to report perceived risks to care and to ask questions if they do not understand what they are told or what they should do.
[2024-04-08 09:31] LABS: Iron 70 ug/dL (37-170)
[2024-04-08] MEDS: POTASSIUM CHLORIDE 10 MEQ ER TABLET PO (09:41)
[2024-04-08] MEDS: DULoxetine HCL 30 MG CAPSULE.DR PO (09:41)
[2024-04-08] MEDS: CALCIUM CARBONATE (OSCAL) 500 MG TABLET PO (09:41)
[2024-04-08] MEDS: CHOLECALCIFEROL 1,000 UNITS TABLET 2000 UNITS PO (09:41)
[2024-04-08] MEDS: ACETAMINOPHEN 500 MG TABLET 1000 MG PO ×2 (09:41→17:26)
[2024-04-08] MEDS: LEVOTHYROXINE SODIUM 75 MCG TABLET PO (09:41)
[2024-04-08] MEDS: CYANOCOBALAMIN 1,000 MCG TABLET 1000 MCG PO (09:41)
[2024-04-08 09:42] LABS: Percent Iron Saturation 22 % (20-50)
[2024-04-08] MEDS: carvediloL 25 MG TABLET PO ×2 (09:42→17:26)
[2024-04-08] MEDS: amLODIPine BESYLATE 5 MG TABLET 10 MG PO (09:42)
--- NOTE | 2024-04-08 10:14 | PM.IMHP ---
H&P: HPI History of Present Illness Date/Time: 04/08/24 10:14 Chief Complaint: Weakness, multiple falls, large left knee laceration/skin tear Narrative: This is an 83-year-old female patient past history of hypertension hypothyroidism hyperlipidemia glaucoma depression chronic hyponatremia anxiety breast cancer osteoporosis collagenous colitis was admitted to the hospital after sustaining a fall at assisted living facility. Patient reports that she has been getting weaker over the last month or more and that the assisted living facility is attempting to get home health for therapy for over a month. During this time patient has continued to have increased generalized weakness and has had more frequent falls. Last night patient fell landing on her left knee and sustained a very large laceration/skin tears overlying the left knee. Patient was taken to the emergency department and repair was attempted in the ER with multiple sutures trying to use the flap to skin as a physiologic bandage. Unfortunately there is significant swelling and overall tension along this area and some of the sutures have ripped through the lower border of skin. The x-ray and then CT scan were negative for fracture. There does appear to be a hematoma on CT scan which is likely the reason the wound edges cannot remain well reapproximated. Wound Care was consulted. Patient was admitted to hospital for physical therapy occupational therapy assessment for possible placement SNF for rehab. Patient denies any other complaints at this time. Review of Systems Review of Systems: All systems reviewed & are unremarkable except as noted in HPI and below PMFSH Past Medical History Medical History Anxiety Cancer of right breast Status post mastectomy and chemoradiation. Chronic hyponatremia Collagenous colitis Depression Glaucoma Hyperlipidemia Hypertension Hypothyroidism Left bundle branch block Osteoporosis Surgical History Surgical History History of arthroplasty of both shoulders History of arthroscopy of right knee History of cardiac catheterization History of dilation and curettage History of right knee joint replacement History of right mastectomy History of tonsillectomy History of umbilical hernia repair Presence of combination internal cardiac defibrillator (ICD) and pacemaker Family History Family History Mother Pancreatic cancer Father Heart disease Other Diabetes mellitus Hypertension Rheumatoid arthritis Social History Social History Social History: Healthcare power of employment law attorney: Ankit Bass, son. Code status: Full code. Smoking status: Never smoker Alcohol intake: never Substance use: never Do You Feel Safe in your Home?: Yes Lack of Transportation: No Lack of Food: Never True Current Housing: I Have Housing Concerned About Future Housing: No Difficulty Paying Gas/Electric Bills: No Difficulty Paying for Meds: No Currently Unemployed: No Education: High School Diploma/GED Difficulty w/ Childcare or Family Care: No Additional living arrangements comments: Lives alone in [place]. Son lives out of state. Spiritual care concerns: No Meds Home Medications and Allergies Home Medications Medication Instructions Recorded Confirmed Type carvedilol 25 mg tablet 25 mg PO BID 04/27/22 04/08/24 History latanoprost 0.005 % eye drops 1 drp ophthalmic (eye) HS 04/27/22 04/08/24 History levothyroxine 75 mcg tablet 75 mcg PO DAILY 04/27/22 04/08/24 History (Euthyrox) losartan 100 mg tablet 100 mg PO HS 04/27/22 04/08/24 History potassium chloride 10 mEq 10 meq PO DAILY 04/27/22 04/08/24 History tablet,extended release pravastatin 40 mg tablet 40 mg PO HS
[2024-04-08 10:23] LABS: Folic Acid 2.8 ng/mL (2.76->20)
--- NOTE | 2024-04-08 10:30 | PC.NURSE ---
RN spoke with [facility] patient's son and gave him an update on patient.
--- NOTE | 2024-04-08 10:41 | PCOTNOTE ---
Spoke with hospitalist, Sergio Nice, who confirmed pt. awaiting consult from surgery to address LE laceration, and is in agreement to order knee immobilized, prior to pt. participating in therapy services. Will update nurse. Following.
--- NOTE | 2024-04-08 11:26 | PC.NURSE ---
RN spoke with [facility] patient's case assembler via telephone. RN gave her an update on patient.
[2024-04-08 13:06] LABS: Appearance Urine Clear (Clear); Bacteria Urine None Seen /hpf; Bilirubin Urine Negative (Negative); Blood Urine Negative (Negative); Color Urine Yellow (Yellow); Glucose Urine UA Negative (Negative); Ketones Urine Negative (Negative); Leukocyte Esterase Ur Negative LEU/UL (Negative); Need Manual Microscopic Reviewed; Nitrate Urine Negative (Negative); Non Pathogenic Casts 0-2; Protein Urine Trace mg/dL (Negative); RBC Urine 0-2 /hpf (0-2); Specific Grav Ur 1.019 (1.001-1.035); Squamous Epithelial Cell Urine None Seen /hpf (Few); Urobilinogen Urine 0.2 mg/dL (<2.0); WBC Urine 0-5 /hpf (0-3); pH Urine 5.5 (5.0-9.0)
[2024-04-08 13:23] LABS: Add Urine Microscopic? YES
[2024-04-08] MEDS: cloNIDine HCL 0.1 MG TABLET PO ×2 (13:42→20:58)
[2024-04-08] MEDS: traMADol HCL (*CRX) 50 MG TABLET PO ×2 (13:43→20:58)
[2024-04-08] MEDS: ceFAZolin 1 GM/NS 50 ML 1 GM/50 ML BAG IVPB ×2 (13:44→20:58)
[2024-04-08] MEDS: LORATADINE 10 MG TABLET PO (20:58)
[2024-04-08] MEDS: PRAVASTATIN SODIUM 20 MG TABLET 40 MG PO (20:58)
[2024-04-08] MEDS: LOSARTAN POTASSIUM 100 MG TABLET PO (20:58)
[2024-04-08] MEDS: LATANOPROST 0.005% OP SOLN 2.5 ML BTL 1 DROP EACH EYE (21:59)
[2024-04-09] VITALS (7 sets, daily range): BP systolic 130–155; BP diastolic 46–67; PULSE 77–80; RESP 16; TEMP 36.7–37.1; O2SAT 89–96
[2024-04-09] MEDS: LEVOTHYROXINE SODIUM 75 MCG TABLET PO (06:07)
[2024-04-09 06:13] LABS: Basophils Absolute Auto 0.1 K/mm3 (0.0-0.1); Basophils Percent Auto 0.5 % (0.2-1.2); Eosinophils Absolute Auto 0.6 K/mm3 (0-0.3); Eosinophils Percent Auto 6.2 % (0-4.4); Hematocrit 25.2 % (37.0-47.0); Hemoglobin 8.2 g/dL (12.0-15.0); Immature Granulocyte Absolute 0.06 K/mm3 (0.00-0.031); Immature Granulocyte Percent A 0.6 % (0-0.5); Lymphocytes Absolute Auto 0.75 K/mm3 (0.9-3.2); Lymphocytes Percent Auto 7.8 % (18.3-44.2); Mean Corpuscular HGB Conc 32.5 g/dl (32-36); Mean Corpuscular Hemoglobin 33.9 pg (26-34); Mean Corpuscular Volume 104.1 fl (80-100); Mean Platelet Volume 8.7 fl (7.4-10.4); Monocytes Absolute Auto 1.1 K/mm3 (0.1-0.6); Monocytes Percent Auto 11.7 % (2.6-8.5); Neutrophils Percent Auto 73.2 % (45.5-73.1); Platelet Count Result 148 k/mm3 (150-375); Red Blood Count 2.42 M/mm3 (4.2-5.4); Red Cell Distribution Width 13.1 % (11.5-14.5); White Blood Count 9.6 K/mm3 (4.5-10.0)
[2024-04-09 07:01] LABS: Alanine Aminotransferase 16 U/L (6-35); Albumin Level 3.1 g/dL (3.5-5.1); Alkaline Phosphatase 53 U/L (38-126); Anion Gap 3 mmol/L (4-12); Aspartate Amino Transferase 24 U/L (14-36); Bilirubin,Total 0.5 mg/dL (0.2-1.3); Blood Urea Nitrogen 14 mg/dL (7-17); Carbon Dioxide 23 mmol/L (22-30); Chloride 96 mmol/L (98-107); Estimated Glomerular Filt Rate > 60; Glucose 95 mg/dL (65-110); Magnesium 1.9 mg/dL (1.6-2.3); Potassium 3.6 mmol/L (3.4-5.0); Sodium 122 mmol/L (137-145)
[2024-04-09] MEDS: CALCIUM CARBONATE (OSCAL) 500 MG TABLET PO (08:04)
[2024-04-09] MEDS: amLODIPine BESYLATE 5 MG TABLET 10 MG PO (08:04)
[2024-04-09] MEDS: CYANOCOBALAMIN 1,000 MCG TABLET 1000 MCG PO (08:04)
[2024-04-09] MEDS: DULoxetine HCL 30 MG CAPSULE.DR PO (08:04)
[2024-04-09] MEDS: POTASSIUM CHLORIDE 10 MEQ ER TABLET PO (08:04)
[2024-04-09] MEDS: carvediloL 25 MG TABLET PO ×2 (08:04→18:01)
[2024-04-09] MEDS: ASPIRIN 81 MG CHEWABLE TABLET PO (08:04)
[2024-04-09] MEDS: ACETAMINOPHEN 500 MG TABLET 1000 MG PO ×2 (08:04→20:54)
[2024-04-09] MEDS: CHOLECALCIFEROL 1,000 UNITS TABLET 2000 UNITS PO (08:04)
[2024-04-09] MEDS: ceFAZolin 1 GM/NS 50 ML 1 GM/50 ML BAG IVPB ×2 (08:05→20:56)
--- NOTE | 2024-04-09 08:58 | PM.IMPN ---
Progress Note: A&P Assessment and Plan (1) Laceration: Status: Acute (2) Debility: Code(s): R53.81 - Other malaise Status: Acute (3) Chronic hyponatremia: Code(s): E87.1 - Hypo-osmolality and hyponatremia Status: Acute (4) Hypothyroidism: Code(s): E03.9 - Hypothyroidism, unspecified Status: Acute Plan Laceration left knee. Partial. By suture in the emergency room. Wound Care consult. Gait instability ordering PT OT eval and treat. Hypo natremia will continue to monitor. Gait Instability Service to Physical Therapy Service to Home Care (PT) Home exercise program Instruction in assistive device Reduction in Polypharmacy, Minimize the use of high-risk medications, and Sedatives, Diuretics, Antidepressants, Narcotics, Anti-hypertensives, and Anti-anxiety Patient is at risk. Counseled accordingly on risk reduction.as above ANEMIA Hgb acute blood loss. No reports of bleeding Hgb f/U daily H&H 8.2 -25.2 Tranfuse if hemoglobin less than 7 GI has consulted may need for possible EGD and colonoscopy Hyponatremia. Possible cause is fluid overload versus poor sodium intake. Will switch patient to some normal saline monitor electrolytes Subjective Date/time seen: 04/09/24 08:58 Interval history: Patient was admitted last night with laceration of the neck did knee with known acute blood loss anemia and diarrhea with low-sodium and doing well denies any chest pain no shortness of breath fever chills nausea vomiting had a few episodes of loose stools this more Review of Systems Review of Systems: All systems reviewed & are unremarkable except as noted in HPI and below Exam Narrative: General: Alert, awake, afebrile, in no acute distress. HEENT: PERRL, no rhinorrhea, no post nasal drip, oropharynx clear. Cardiovascular: Regular rate and rhythm, no murmurs, rubs or gallops Respiratory: Clear to auscultation bilaterally, no tachypnea, no wheezing, no rhonchi, no rubs, no respiratory distress. Abdomen: Soft, nontender, nondistended, no rebound, no guarding, no peritoneal signs. Musculoskeletal: No joint swelling or deformity, normal muscle tone. Skin: Status post laceration repair attempt some of this sutures have ripped through the distal skin tear flap. Neurological: Alert and oriented to person, place, and time. Follows all commands. No focal deficits, speech is clear and fluent. Objective Data Vital Signs Vital Signs: Vital Signs - 24 hr 04/08/24 09:42 04/08/24 09:40 04/08/24 09:41 Temperature Pulse Rate 99 Respiratory Rate Blood Pressure 134/101 H Pulse Oximetry Oxygen Delivery Room Air 04/08/24 10:59 04/08/24 13:40 04/08/24 14:45 Temperature 36.2 C L Pulse Rate 95 Respiratory Rate 16 Blood Pressure 157/76 H Pulse Oximetry 94 93 Oxygen Delivery Room Air 04/08/24 15:25 04/08/24 14:00 04/08/24 17:26 Temperature 36.3 C L Pulse Rate 83 84 Respiratory Rate 18 Blood Pressure 148/69 H Pulse Oximetry 95 Oxygen Delivery Room Air 04/08/24 17:25 04/08/24 21:39 04/08/24 20:00 Temperature 37.4 C Pulse Rate 81 81 Respiratory Rate 16 16 Blood Pressure 137/59 L 135/69 Pulse Oximetry 94 94 Oxygen Delivery Room Air 04/08/24 21:51 04/09/24 05:55 04/09/24 08:04 Temperature 36.7 C Pulse Rate 78 77 Respiratory Rate 16 Blood Pressure 155/67 H Pulse Oximetry 94 93 Oxygen Delivery Room Air 04/09/24 08:00 04/09/24 08:11 Temperature Pulse Rate 77 Respiratory Rate Blood Pressure 130/58 L Pulse Oximetry 92 Oxygen Delivery Room Air Intake/Output Intake/Output: Intake & Output 04/06/24 04/07/24 04/08/24 04/09/24 23:59 23:59 23:59 23:59 Intake Total 1080 Output Total 100 Balance 980 Meds/Results Medications: Active Medications Generic Name Dose Route Start Last Admin Trade Name Freq PRN Reason Stop Dose Admin Acetaminophen 1,000 m
[2024-04-09] MEDS: SODIUM CHLORIDE 0.9% IV 1,000 ML 100 ML IV CONT ×2 (11:32→23:31)
[2024-04-09] MEDS: traMADol HCL (*CRX) 50 MG TABLET PO (18:01)
[2024-04-09] MEDS: LOSARTAN POTASSIUM 100 MG TABLET PO (20:55)
[2024-04-09] MEDS: PRAVASTATIN SODIUM 20 MG TABLET 40 MG PO (20:55)
[2024-04-09] MEDS: cloNIDine HCL 0.1 MG TABLET PO (20:55)
[2024-04-09] MEDS: LORATADINE 10 MG TABLET PO (20:55)
[2024-04-09] MEDS: LATANOPROST 0.005% OP SOLN 2.5 ML BTL 1 DROP EACH EYE (20:57)
[2024-04-10] MEDS: traMADol HCL (*CRX) 50 MG TABLET PO (04:43)
[2024-04-10] MEDS: LEVOTHYROXINE SODIUM 75 MCG TABLET PO (05:26)
[2024-04-10 05:57] LABS: Basophils Percent Auto 0.4 % (0.2-1.2); Eosinophils Absolute Auto 0.6 K/mm3 (0-0.3); Eosinophils Percent Auto 7.4 % (0-4.4); Hematocrit 22.5 % (37.0-47.0); Hemoglobin 7.4 g/dL (12.0-15.0); Immature Granulocyte Absolute 0.05 K/mm3 (0.00-0.031); Immature Granulocyte Percent A 0.7 % (0-0.5); Lymphocytes Absolute Auto 0.52 K/mm3 (0.9-3.2); Mean Corpuscular HGB Conc 32.9 g/dl (32-36); Mean Corpuscular Hemoglobin 33.3 pg (26-34); Mean Corpuscular Volume 101.4 fl (80-100); Mean Platelet Volume 8.7 fl (7.4-10.4); Monocytes Percent Auto 12.8 % (2.6-8.5); Neutrophils Absolute Auto 5.3 K/mm3 (1.3-6.7); Neutrophils Percent Auto 71.7 % (45.5-73.1); Platelet Count Result 161 k/mm3 (150-375); Red Blood Count 2.22 M/mm3 (4.2-5.4); Red Cell Distribution Width 12.9 % (11.5-14.5); White Blood Count 7.4 K/mm3 (4.5-10.0)
[2024-04-10 06:00] VITALS: BP 145/54; PULSE 76; RESP 20; TEMP 36.7; O2SAT 90
[2024-04-10 06:23] LABS: Alanine Aminotransferase 12 U/L (6-35); Alkaline Phosphatase 57 U/L (38-126); Anion Gap 3 mmol/L (4-12); Aspartate Amino Transferase 19 U/L (14-36); Bilirubin,Total 0.5 mg/dL (0.2-1.3); Blood Urea Nitrogen 7 mg/dL (7-17); Calcium 7.5 mg/dL (8.4-10.2); Carbon Dioxide 23 mmol/L (22-30); Chloride 97 mmol/L (98-107); Estimated Glomerular Filt Rate > 60; Glucose 93 mg/dL (65-110); Magnesium 1.7 mg/dL (1.6-2.3); Potassium 3.3 mmol/L (3.4-5.0); Sodium 123 mmol/L (137-145)
[2024-04-10] MEDS: LIDOCAINE 5% PATCH 1 PATCH TRANSDERM (09:06)
[2024-04-10] MEDS: ceFAZolin 1 GM/NS 50 ML 1 GM/50 ML BAG IVPB ×2 (09:08→21:01)
[2024-04-10] MEDS: POTASSIUM CHLORIDE 10 MEQ ER TABLET PO (09:09)
[2024-04-10 09:10] VITALS: PULSE 80
[2024-04-10] MEDS: amLODIPine BESYLATE 5 MG TABLET 10 MG PO (09:10)
[2024-04-10] MEDS: ACETAMINOPHEN 500 MG TABLET 1000 MG PO (09:10)
[2024-04-10] MEDS: CHOLECALCIFEROL 1,000 UNITS TABLET 2000 UNITS PO (09:10)
[2024-04-10] MEDS: ASPIRIN 81 MG CHEWABLE TABLET PO (09:10)
[2024-04-10] MEDS: carvediloL 25 MG TABLET PO ×2 (09:10→17:41)
[2024-04-10] MEDS: CYANOCOBALAMIN 1,000 MCG TABLET 1000 MCG PO (09:11)
[2024-04-10] MEDS: CALCIUM CARBONATE (OSCAL) 500 MG TABLET PO (09:11)
--- NOTE | 2024-04-10 10:15 | PM.IMPN ---
Progress Note: A&P Assessment and Plan (1) Laceration: Status: Acute (2) Debility: Code(s): R53.81 - Other malaise Status: Acute (3) Chronic hyponatremia: Code(s): E87.1 - Hypo-osmolality and hyponatremia Status: Acute (4) Hypothyroidism: Code(s): E03.9 - Hypothyroidism, unspecified Status: Acute (5) Rheumatoid arthritis: Code(s): M06.9 - Rheumatoid arthritis, unspecified Status: Acute Assessment and Plan: See below regarding tele all (6) Hypertension: Code(s): I10 - Essential (primary) hypertension Status: Acute Assessment and Plan: Blood pressures reviewed, diastolic pressures have been on the lower side. Will decrease amlodipine to 5 mg daily starting 04/11. Plan Laceration left knee. Partial repair By suture in the emergency room. Wound Care consult. Gait instability ordering PT OT eval and treat. Knee immobilizer in place IV cefazolin 1g Q12H due to large left knee wound--patient allergic to most oral ABX for infection prophylaxis Gait Instability Service to Physical Therapy Service to Home Care (PT) Home exercise program Instruction in assistive device Reduction in Polypharmacy, Minimize the use of high-risk medications, and Sedatives, Diuretics, Antidepressants, Narcotics, Anti-hypertensives, and Anti-anxiety Patient is at risk. Counseled accordingly on risk reduction.as above ANEMIA Hgb acute blood loss. No reports of bleeding except left knee Hgb f/U daily H&H 13.8 01/2023-->10.6 on admit-->8.2 yesterday-->7.4 today Transfuse if hemoglobin less than 7 GI has consulted may need for possible EGD and colonoscopy Hyponatremia, Chronic Possible cause is fluid overload versus poor sodium intake. On admit 130-->122-->123 On IV normal saline-->stopped this afternoon. Add Na tabs 1000mg BID Time Spent With Patient Time: Long time spent at bedside reviewing allergies medications and patient's unique timing of taking her medicines. Patient has history of arthritis takes Tylenol 1 g and tramadol 50 mg together every 4 hours at the start of the day and then no doses in the evening and overnight until the next morning Will only participate with therapy after 3:00 p.m. due to chronic arthritis pain Pending SNF placement--[facility] has accepted Time with patient: Greater than 35 minutes Subjective Date/time seen: 04/10/24 08:45 Interval history: Patient reports chronic arthritis pain affecting both hands and both legs. Patient denies fever. She reports that she must have afternoon therapy due to arthritis pain limiting mobility earlier in the day. Patient takes her medications at abnormal intervals. I spoke to nursing staff and will allow patient to follow home dosing on her medications. Review of Systems Review of Systems: All systems reviewed & are unremarkable except as noted in HPI and below Exam Narrative: General: Alert, awake, afebrile, in no acute distress. HEENT: PERRL, no rhinorrhea, no post nasal drip, oropharynx clear. Cardiovascular: Regular rate and rhythm, no murmurs, rubs or gallops Respiratory: Clear to auscultation bilaterally, no tachypnea, no wheezing, no rhonchi, no rubs, no respiratory distress. Abdomen: Soft, nontender, nondistended, no rebound, no guarding, no peritoneal signs. Musculoskeletal: No joint swelling or deformity, normal muscle tone. Skin: Status post laceration repair attempt some of this sutures have ripped through the distal skin tear flap. Very large, complex left knee laceration/skin tear with partial repair. Dressing clean, dry, intact. Neurological: Alert and oriented to person, place, and time. Follows all commands. No focal deficits, speech is clear and fluent. Objective Data Vital Signs Vital Signs: Vital Signs - 24 hr 04/09/24 18:01 04/09/24 18:00 04/09/24 21:00 Temperature 37.1 C Pulse Rate 80 80 Respiratory Rate 16 Blood Pressure
[2024-04-10 13:50] VITALS: BP 116/43; PULSE 72; RESP 16; TEMP 36.6; O2SAT 93
[2024-04-10] MEDS: cloNIDine HCL 0.1 MG TABLET PO ×2 (15:25→21:01)
[2024-04-10] MEDS: SODIUM CHLORIDE 0.9% IV 1,000 ML 100 ML IV CONT (15:26)
[2024-04-10 17:41] VITALS: PULSE 78
[2024-04-10] MEDS: DULoxetine HCL 30 MG CAPSULE.DR PO (17:41)
[2024-04-10] MEDS: SODIUM CHLORIDE 1 GM TABLET PO (17:42)
[2024-04-10] MEDS: LATANOPROST 0.005% OP SOLN 2.5 ML BTL 1 DROP EACH EYE (21:01)
[2024-04-10] MEDS: LOSARTAN POTASSIUM 100 MG TABLET PO (21:01)
[2024-04-10] MEDS: PRAVASTATIN SODIUM 20 MG TABLET 40 MG PO (21:01)
[2024-04-10] MEDS: LORATADINE 10 MG TABLET PO (21:01)
[2024-04-10 21:14] VITALS: BP 140/50; PULSE 74; RESP 12; TEMP 36.9; O2SAT 96
[2024-04-11] VITALS (7 sets, daily range): BP systolic 114–131; BP diastolic 43–53; PULSE 69–80; RESP 12–20; TEMP 36.3–37.1; O2SAT 93–96
[2024-04-11] MEDS: LEVOTHYROXINE SODIUM 75 MCG TABLET PO (05:39)
[2024-04-11] MEDS: traMADol HCL (*CRX) 50 MG TABLET PO ×2 (05:43→20:06)
[2024-04-11 06:22] LABS: Basophils Percent Auto 0.3 % (0.2-1.2); Eosinophils Absolute Auto 0.5 K/mm3 (0-0.3); Eosinophils Percent Auto 7.3 % (0-4.4); Immature Granulocyte Absolute 0.04 K/mm3 (0.00-0.031); Immature Granulocyte Percent A 0.6 % (0-0.5); Lymphocytes Absolute Auto 0.45 K/mm3 (0.9-3.2); Mean Corpuscular HGB Conc 33.8 g/dl (32-36); Mean Corpuscular Hemoglobin 34.7 pg (26-34); Mean Corpuscular Volume 102.6 fl (80-100); Mean Platelet Volume 8.8 fl (7.4-10.4); Monocytes Absolute Auto 0.8 K/mm3 (0.1-0.6); Monocytes Percent Auto 12.2 % (2.6-8.5); Neutrophils Absolute Auto 4.7 K/mm3 (1.3-6.7); Neutrophils Percent Auto 72.6 % (45.5-73.1); Platelet Count Result 148 k/mm3 (150-375); Red Blood Count 1.96 M/mm3 (4.2-5.4); White Blood Count 6.5 K/mm3 (4.5-10.0)
[2024-04-11 06:33] LABS: Hematocrit 20.1 % (37.0-47.0); Hemoglobin 6.8 g/dL (12.0-15.0)
[2024-04-11 06:36] LABS: Alanine Aminotransferase 9 U/L (6-35); Albumin Level 2.8 g/dL (3.5-5.1); Alkaline Phosphatase 57 U/L (38-126); Anion Gap 3 mmol/L (4-12); Aspartate Amino Transferase 17 U/L (14-36); Bilirubin,Total 0.4 mg/dL (0.2-1.3); Blood Urea Nitrogen 6 mg/dL (7-17); Calcium 7.5 mg/dL (8.4-10.2); Carbon Dioxide 22 mmol/L (22-30); Chloride 97 mmol/L (98-107); Estimated Glomerular Filt Rate > 60; Glucose 92 mg/dL (65-110); Magnesium 1.8 mg/dL (1.6-2.3); Potassium 3.5 mmol/L (3.4-5.0); Sodium 122 mmol/L (137-145)
--- NOTE | 2024-04-11 07:36 | PM.IMPN ---
Progress Note: A&P Assessment and Plan (1) Laceration: Status: Acute (2) Debility: Code(s): R53.81 - Other malaise Status: Acute (3) Chronic hyponatremia: Code(s): E87.1 - Hypo-osmolality and hyponatremia Status: Acute (4) Hypothyroidism: Code(s): E03.9 - Hypothyroidism, unspecified Status: Acute (5) Rheumatoid arthritis: Code(s): M06.9 - Rheumatoid arthritis, unspecified Status: Acute Assessment and Plan: See below regarding tele all (6) Hypertension: Code(s): I10 - Essential (primary) hypertension Status: Acute Assessment and Plan: Blood pressures reviewed, diastolic pressures have been on the lower side. Will decrease amlodipine to 5 mg daily starting 04/11. Plan Laceration left knee. Partial repair By suture in the emergency room. Wound Care consult. Gait instability ordering PT OT eval and treat. Knee immobilizer in place IV cefazolin 1g Q12H due to large left knee wound--patient allergic to most oral ABX for infection prophylaxis Gait Instability Service to Physical Therapy Service to Home Care (PT) Home exercise program Instruction in assistive device Reduction in Polypharmacy, Minimize the use of high-risk medications, and Sedatives, Diuretics, Antidepressants, Narcotics, Anti-hypertensives, and Anti-anxiety Patient is at risk. Counseled accordingly on risk reduction.as above ANEMIA Hgb acute blood loss-->iron studies/B12/folate normal No reports of bleeding except left knee daily H&H 13.8 01/2023-->10.6 on admit-->8.2 -->7.4-->6.8 today 1 unit PRBCs transfused Transfuse if hemoglobin less than 7 GI has been consulted, may need for possible EGD and colonoscopy Stopped aspirin 04/11 after dose given for the day Pantoprazole 40 mg BID ordered IV Hyponatremia, Chronic Possible cause is fluid overload versus poor sodium intake. On admit 130-->122-->123-->122 Na tabs 1000mg BID Time Spent With Patient Time with patient: Greater than 35 minutes Subjective Date/time seen: 04/11/24 07:36 Interval history: IV fluids discontinued yesterday. Hemoglobin dropped to 6.8 this morning. Left knee wound dressing changed by cage shift manager RN who stated mild oozing but not quite saturated ABD pad dressing. No other source known for blood loss. GI has been consulted, patient may need scopes. No stool yet to Hemoccult. RN aware of need to do such. Review of Systems Review of Systems: All systems reviewed & are unremarkable except as noted in HPI and below Exam Narrative: General: Alert, awake, afebrile, in no acute distress. HEENT: PERRL, no rhinorrhea, no post nasal drip, oropharynx clear. Cardiovascular: Regular rate and rhythm, no murmurs, rubs or gallops Respiratory: Clear to auscultation bilaterally, no tachypnea, no wheezing, no rhonchi, no rubs, no respiratory distress. Abdomen: Soft, nontender, nondistended, no rebound, no guarding, no peritoneal signs. Musculoskeletal: No joint swelling or deformity, normal muscle tone. Skin: Status post laceration repair attempt some of this sutures have ripped through the distal skin tear flap. Very large, complex left knee laceration/skin tear with partial repair. Dressing clean, dry, intact. Neurological: Alert and oriented to person, place, and time. Follows all commands. No focal deficits, speech is clear and fluent. Objective Data Vital Signs Vital Signs: Vital Signs - 24 hr 04/10/24 09:10 04/10/24 08:00 04/10/24 13:50 Temperature 36.6 C Pulse Rate 80 72 Respiratory Rate 16 Blood Pressure 116/43 L Pulse Oximetry 93 Oxygen Delivery Room Air 04/10/24 17:41 04/10/24 21:14 04/11/24 05:21 Temperature 36.9 C 36.3 C L Pulse Rate 78 74 76 Respiratory Rate 12 12 Blood Pressure 140/50 L 129/47 L Pulse Oximetry 96 95 Oxygen Delivery Intake/Output Intake/Output: Intake & Output 04/08/24 04/09/24 04/10/24 04/11/24 23:59 23:59
[2024-04-11] MEDS: SODIUM CHLORIDE 1 GM TABLET PO ×2 (09:42→16:48)
[2024-04-11] MEDS: carvediloL 25 MG TABLET PO ×2 (09:42→16:48)
[2024-04-11] MEDS: CYANOCOBALAMIN 1,000 MCG TABLET 1000 MCG PO (09:42)
[2024-04-11] MEDS: ASPIRIN 81 MG CHEWABLE TABLET PO (09:43)
[2024-04-11] MEDS: CHOLECALCIFEROL 1,000 UNITS TABLET 2000 UNITS PO (09:43)
[2024-04-11] MEDS: ceFAZolin 1 GM/NS 50 ML 1 GM/50 ML BAG IVPB ×2 (09:43→20:07)
[2024-04-11] MEDS: POTASSIUM CHLORIDE 10 MEQ ER TABLET PO (09:43)
[2024-04-11] MEDS: PANTOPRAZOLE SODIUM IV 40 MG VIAL IV PUSH ×3 (09:43→20:07)
[2024-04-11] MEDS: CALCIUM CARBONATE (OSCAL) 500 MG TABLET PO (09:43)
[2024-04-11] MEDS: SODIUM CHLORIDE 0.9% IV 250 ML 30 ML IV CONT (09:43)
[2024-04-11] MEDS: amLODIPine BESYLATE 5 MG TABLET PO (09:44)
[2024-04-11] MEDS: cloNIDine HCL 0.1 MG TABLET PO ×2 (11:51→20:07)
[2024-04-11] MEDS: ACETAMINOPHEN 500 MG TABLET 1000 MG PO ×2 (11:56→20:06)
[2024-04-11 14:43] LABS: Hematocrit 22.2 % (37.0-47.0); Hemoglobin 7.5 g/dL (12.0-15.0)
--- NOTE | 2024-04-11 15:18 | WPDGICN ---
Assessment and Plan Assessment and plan (1) Symptomatic anemia: Code(s): D64.9 - Anemia, unspecified Status: Acute Assessment and Plan: no overt gib here after a fall with laceration and hematoma leg- this can explain part of anemia at this point of time she is not sure about getting scope, she says that would like to check with her other doctors , she would rather wait will talk to patient again tomorrow but it seems that she is not ready to give consent for scopes (2) Hematoma of leg: Code(s): S80.10XA - Contusion of unspecified lower leg, initial encounter Status: Acute Assessment and Plan: reviewed CT scan leg (3) Fall from ground level: Code(s): W18.30XA - Fall on same level, unspecified, initial encounter Status: Acute (4) Laceration: Status: Acute (5) Chronic hyponatremia: Code(s): E87.1 - Hypo-osmolality and hyponatremia Status: Acute Assessment and Plan: by primary GI Consult Note Consult date/time: 04/11/24 15:18 Reason for consult: symptomatic anemia HPI: Alice Bass is a 83 year old female with history of TIA, hypertension, cardiomyopathy status post PM/AICD, arthritis, chronic hyponatremia, breast cancer, collagenous colitis was admitted to the hospital 3 days ago after sustaining a fall at assisted living facility. She reports generalized weakness with falls, day of admission she says that trip over using her walker at her apartment. Then sustained a large laceration/skin tears overlying the left knee and treated with sutures, CT scan revealed hematoma at site. Noted dropping hgb from 10.6 to 6.8 and given blood transfusion, patient is not aware of dark stools and denies obvious GIB but she does not seem to be very credible with her history. She says that had colonoscopy years ago. Review of Systems Constitutional: Constitutional: Reports weakness Eyes: Eyes: Denies blurry vision ENT: Reports Normal hearing present Cardiovascular: Cardiovascular: Denies chest pain Respiratory: Respiratory: Denies cough Gastrointestinal: Gastrointestinal: Denies abdominal pain Musculoskeletal: Musculoskeletal: Reports arthralgias Integumentary/Breasts: Comments: skin abrasion Neurologic: Comments: falls Psychiatric: Psychiatric: Denies homicidal ideation [facility] Past Medical History Medical History (Updated 04/11/24 @ 15:26 by Jabier Cordero MD) Anxiety Cancer of right breast Status post mastectomy and chemoradiation. Chronic hyponatremia Collagenous colitis Depression Glaucoma Hematoma of leg Hyperlipidemia Hypertension Hypothyroidism Left bundle branch block Osteoporosis Symptomatic anemia Surgical History Surgical History History of arthroplasty of both shoulders History of arthroscopy of right knee History of cardiac catheterization History of dilation and curettage History of right knee joint replacement History of right mastectomy History of tonsillectomy History of umbilical hernia repair Presence of combination internal cardiac defibrillator (ICD) and pacemaker Family History Family History Mother Pancreatic cancer Father Heart disease Other Diabetes mellitus Hypertension Rheumatoid arthritis Social History Social History Social History: Healthcare power of quality facilitator: Ankit Bass, son. Code status: Full code. Smoking status: Never smoker Alcohol intake: never Substance use: never Do You Feel Safe in your Home?: Yes Lack of Transportation: No Lack of Food: Never True Current Housing: I Have Housing Concerned About Future Housing: No Difficulty Paying Gas/Electric Bills: No Difficulty Paying for Meds: No Currently Unemployed: No Education: High School Diplo
[2024-04-11] MEDS: DULoxetine HCL 30 MG CAPSULE.DR PO (16:48)
[2024-04-11] MEDS: PRAVASTATIN SODIUM 20 MG TABLET 40 MG PO (20:06)
[2024-04-11] MEDS: LORATADINE 10 MG TABLET PO (20:06)
[2024-04-11] MEDS: LOSARTAN POTASSIUM 100 MG TABLET PO (20:06)
[2024-04-11] MEDS: LATANOPROST 0.005% OP SOLN 2.5 ML BTL 1 DROP EACH EYE (20:07)
[2024-04-11] MEDS: SODIUM CHLORIDE 0.9% IV 100 ML 10 ML (21:25)
[2024-04-12 04:37] VITALS: BP 146/52; PULSE 83; RESP 18; TEMP 36.8; O2SAT 91
[2024-04-12] MEDS: traMADol HCL (*CRX) 50 MG TABLET PO (05:00)
[2024-04-12] MEDS: LEVOTHYROXINE SODIUM 75 MCG TABLET PO (05:57)
[2024-04-12 06:29] LABS: Basophils Percent Auto 0.5 % (0.2-1.2); Eosinophils Absolute Auto 0.5 K/mm3 (0-0.3); Eosinophils Percent Auto 8.2 % (0-4.4); Hematocrit 26.1 % (37.0-47.0); Hemoglobin 8.6 g/dL (12.0-15.0); Immature Granulocyte Absolute 0.06 K/mm3 (0.00-0.031); Immature Granulocyte Percent A 0.9 % (0-0.5); Lymphocytes Absolute Auto 0.45 K/mm3 (0.9-3.2); Mean Corpuscular Hemoglobin 32.6 pg (26-34); Mean Corpuscular Volume 98.9 fl (80-100); Mean Platelet Volume 8.8 fl (7.4-10.4); Monocytes Absolute Auto 0.9 K/mm3 (0.1-0.6); Monocytes Percent Auto 13.1 % (2.6-8.5); Neutrophils Absolute Auto 4.6 K/mm3 (1.3-6.7); Neutrophils Percent Auto 70.3 % (45.5-73.1); Platelet Count Result 182 k/mm3 (150-375); Red Blood Count 2.64 M/mm3 (4.2-5.4); Red Cell Distribution Width 15.2 % (11.5-14.5); White Blood Count 6.5 K/mm3 (4.5-10.0)
[2024-04-12 06:47] LABS: Alanine Aminotransferase 8 U/L (6-35); Albumin Level 2.9 g/dL (3.5-5.1); Alkaline Phosphatase 60 U/L (38-126); Anion Gap 3 mmol/L (4-12); Aspartate Amino Transferase 18 U/L (14-36); Bilirubin,Total 0.6 mg/dL (0.2-1.3); Blood Urea Nitrogen 7 mg/dL (7-17); Calcium 7.5 mg/dL (8.4-10.2); Carbon Dioxide 24 mmol/L (22-30); Chloride 97 mmol/L (98-107); Estimated Glomerular Filt Rate > 60; Glucose 92 mg/dL (65-110); Magnesium 1.8 mg/dL (1.6-2.3); Potassium 3.5 mmol/L (3.4-5.0); Sodium 124 mmol/L (137-145)
[2024-04-12 09:06] VITALS: PULSE 89
[2024-04-12] MEDS: SODIUM CHLORIDE 1 GM TABLET PO ×2 (09:06→17:10)
[2024-04-12] MEDS: amLODIPine BESYLATE 5 MG TABLET PO (09:06)
[2024-04-12] MEDS: carvediloL 25 MG TABLET PO ×2 (09:06→17:09)
[2024-04-12] MEDS: CHOLECALCIFEROL 1,000 UNITS TABLET 2000 UNITS PO (09:07)
[2024-04-12] MEDS: ACETAMINOPHEN 500 MG TABLET 1000 MG PO ×2 (09:07→17:09)
[2024-04-12] MEDS: POTASSIUM CHLORIDE 10 MEQ ER TABLET PO (09:07)
[2024-04-12] MEDS: LIDOCAINE 5% PATCH 1 PATCH TRANSDERM (09:07)
[2024-04-12] MEDS: CYANOCOBALAMIN 1,000 MCG TABLET 1000 MCG PO (09:09)
[2024-04-12] MEDS: CALCIUM CARBONATE (OSCAL) 500 MG TABLET PO (09:09)
[2024-04-12] MEDS: ceFAZolin 1 GM/NS 50 ML 1 GM/50 ML BAG IVPB ×2 (09:09→20:56)
--- NOTE | 2024-04-12 09:28 | PM.IMPN ---
Progress Note: A&P Assessment and Plan (1) Laceration: Status: Acute Assessment and Plan: With hematoma (2) Debility: Code(s): R53.81 - Other malaise Status: Acute (3) Chronic hyponatremia: Code(s): E87.1 - Hypo-osmolality and hyponatremia Status: Acute (4) Hypothyroidism: Code(s): E03.9 - Hypothyroidism, unspecified Status: Acute (5) Rheumatoid arthritis: Code(s): M06.9 - Rheumatoid arthritis, unspecified Status: Acute Assessment and Plan: See below regarding tele all (6) Hypertension: Code(s): I10 - Essential (primary) hypertension Status: Acute Assessment and Plan: Blood pressures reviewed, diastolic pressures have been on the lower side. Will decrease amlodipine to 5 mg daily starting 04/11. Plan Laceration left knee. Partial repair By suture in the emergency room. Wound Care consult. Gait instability ordering PT OT eval and treat. Knee immobilizer in place IV cefazolin 1g Q12H due to large left knee wound--patient allergic to most oral ABX for infection prophylaxis CT ordered for reassessment of hematoma Gait Instability Service to Physical Therapy Service to Home Care (PT) Home exercise program Instruction in assistive device Reduction in Polypharmacy, Minimize the use of high-risk medications, and Sedatives, Diuretics, Antidepressants, Narcotics, Anti-hypertensives, and Anti-anxiety Patient is at risk. Counseled accordingly on risk reduction.as above ANEMIA Hgb acute blood loss-->iron studies/B12/folate normal No reports of bleeding except left knee daily H&H 13.8 01/2023-->10.6 on admit-->8.2 -->7.4-->6.8 today 1 unit PRBCs transfused Transfuse if hemoglobin less than 7 Stopped aspirin 04/11 after dose given for the day Pantoprazole 40 mg BID ordered IV GI saw patient yesterday, patient uncertain about consenting for scopes Occult stool positive today, denies abdominal pain Hyponatremia, Chronic Possible cause is fluid overload versus poor sodium intake. On admit 130-->122-->123-->122-->124 Na tabs 1000mg BID Time Spent With Patient Time with patient: Greater than 35 minutes Subjective Date/time seen: 04/12/24 09:28 Interval history: Patient reports that her arthritis pain in her hands hurts more than her left leg. She complains of increased swelling to the left knee. Hemoglobin improved after blood transfusion. Stool guaiac is positive. GI saw patient yesterday and she wanted to defer decision making regarding scopes. Plan to repeat CT scan left knee to determine if hematoma could account for majority blood loss anemia. Review of Systems Review of Systems: All systems reviewed & are unremarkable except as noted in HPI and below Exam Narrative: General: Alert, awake, afebrile, in no acute distress. HEENT: PERRL, no rhinorrhea, no post nasal drip, oropharynx clear. Cardiovascular: Regular rate and rhythm, no murmurs, rubs or gallops Respiratory: Clear to auscultation bilaterally, no tachypnea, no wheezing, no rhonchi, no rubs, no respiratory distress. Abdomen: Soft, nontender, nondistended, no rebound, no guarding, no peritoneal signs. Musculoskeletal: No joint swelling or deformity, normal muscle tone. Skin: Status post laceration repair attempt some of this sutures have ripped through the distal skin tear flap. Very large, complex left knee laceration/skin tear with partial repair. Dressing clean, dry, intact. Increased swelling noted left knee. Neurological: Alert and oriented to person, place, and time. Follows all commands. No focal deficits, speech is clear and fluent. Objective Data Vital Signs Vital Signs: Vital Signs - 24 hr 04/11/24 10:28 04/11/24 10:45 04/11/24 11:01 Temperature 36.8 C 36.8 C 36.8 C Pulse Rate 75 75 77 Respiratory Rate 18 18 20 Blood Pressure 131/53 L 131/53 L 127/50 L Pulse Oximetry 93 93 94 Oxygen Delivery 04/11/24 09:42 04/11/24 13:2
[2024-04-12] MEDS: PANTOPRAZOLE SODIUM IV 40 MG VIAL IV PUSH ×2 (09:40→20:53)
[2024-04-12 12:39] LABS: IFOB Positive Control Positive; Immunochemical Fecal Occult Bl Positive (N)
[2024-04-12] MEDS: cloNIDine HCL 0.1 MG TABLET PO ×2 (12:56→20:53)
--- NOTE | 2024-04-12 14:05 | WPDGIPROGNO ---
Progress Note: A&P Assessment and Plan (1) Symptomatic anemia: Code(s): D64.9 - Anemia, unspecified Status: Acute Assessment and Plan: patient does not want to get scopes at this time, she says that would like to discuss with her doctor who diagnosed her with collagenous colitis when had her last colonoscopy with biopsies she had occult blood in stools- if she changes her mind then we can proceed with egd and colonoscopy while she is here otherwise she can follow-up with her doctor will follow only as needed (2) Occult blood positive stool: Code(s): R19.5 - Other fecal abnormalities Status: Acute Assessment and Plan: refusing scopes (3) Colitis, collagenous: Code(s): K52.831 - Collagenous colitis Status: Acute (4) Hematoma of leg: Code(s): S80.10XA - Contusion of unspecified lower leg, initial encounter Status: Acute (5) Laceration: Status: Acute (6) Fall from ground level: Code(s): W18.30XA - Fall on same level, unspecified, initial encounter Status: Acute Subjective Date/time seen: 04/12/24 14:05 Interval history: no changes, participating with physical therapy, she is eating no signs of overt gib Review of Systems Review of Systems: All systems reviewed & are unremarkable except as noted in HPI and below Exam Narrative: General: Alert, awake, afebrile, in no acute distress. HEENT: PERRL neck: supple Cardiovascular: Regular rate and rhythm, no murmurs Respiratory: Clear to auscultation bilaterally, no rhonchi. Abdomen: Soft, nontender, nondistended, no rebound, no guarding. Musculoskeletal: No joint swelling. Skin: Status post laceration, noted large left knee laceration/skin tear. Dressing in place. Neurological: Alert and oriented to person, place, and time. Follows all commands. No focal deficits, speech is clear and fluent. Objective Data Vital Signs Vital Signs: Vital Signs - 24 hr 04/11/24 19:49 04/12/24 04:37 04/12/24 09:06 Temperature 98.6 F 98.3 F Pulse Rate 80 83 89 Respiratory Rate 16 18 Blood Pressure 116/43 L 146/52 H Pulse Oximetry 96 91 Oxygen Delivery 04/12/24 08:00 Temperature Pulse Rate Respiratory Rate Blood Pressure Pulse Oximetry Oxygen Delivery Room Air Intake/Output Intake/Output: Intake & Output 04/09/24 04/10/24 04/11/24 04/12/24 23:59 23:59 23:59 23:59 Intake Total 1400 1640 2631 437 Output Total 1075 750 500 Balance 5854 766 3611 -63 Meds/Results Medications: Active Medications Generic Name Dose Route Start Last Admin Trade Name Freq PRN Reason Stop Dose Admin Acetaminophen 1,000 mg 04/08/24 06:23 04/12/24 09:07 Acetaminophen 500 Mg Tablet PO 1,000 mg TID PRN Administration Pain 1-3 Amlodipine Besylate 5 mg 04/11/24 09:00 04/12/24 09:06 Amlodipine Besylate 5 Mg Tablet PO 5 mg DAILY DEBRA Administration Calcium Carbonate 500 mg 04/08/24 09:00 04/12/24 09:09 Calcium Carbonate (Oscal) 500 Mg Tablet PO 05/08/24 08:59 500 mg DAILY DEBRA Administration Carvedilol 25 mg 04/08/24 08:00 04/12/24 09:06 Carvedilol 25 Mg Tablet PO 25 mg BIDWM DEBRA Administration Clonidine HCl 0.1 mg 04/08/24 12:30 04/12/24 12:56 Clonidine Hcl 0.1 Mg Tablet PO 0.1 mg BID@1230,2000 DEBRA Administration Cyanocobalamin 1,000 mcg 04/08/24 09:00 04/12/24 09:09 Cyanocobalamin 1,000 Mcg Tablet PO 1,000 mcg QAM DEBRA Administration Duloxetine HCl 30 mg 04/10/24 17:00 04/11/24 16:48 Duloxetine Hcl 30 Mg Capsule.Dr PO 30 mg DAILY@1700 DEBRA Administration Famotidine 20 mg 04/08/24 06:23 Famotidine 20 Mg Tablet PO BID PRN Heartburn Furosemide 20 mg 04/08/24 06:23 Furosemide 20 Mg Tablet PO BID PRN edema Cefazolin Sodium 1 gm in 50 mls @ 100 mls/hr 04/08/24 13:00 04/12/24 09:39 Ancef 1 Gm/Ns 50 Ml IVPB Infused Q12HR DEBRA Infusion Latanoprost 1 drop 04/08/24
[2024-04-12 14:38] VITALS: BP 117/48; PULSE 73; RESP 18; TEMP 36.3; O2SAT 96
[2024-04-12 17:09] VITALS: PULSE 78
[2024-04-12] MEDS: DULoxetine HCL 30 MG CAPSULE.DR PO (17:09)
[2024-04-12 19:59] VITALS: BP 141/54; PULSE 72; RESP 16; TEMP 36.6; O2SAT 92
[2024-04-12] MEDS: LORATADINE 10 MG TABLET PO (20:53)
[2024-04-12] MEDS: PRAVASTATIN SODIUM 20 MG TABLET 40 MG PO (20:53)
[2024-04-12] MEDS: LOSARTAN POTASSIUM 100 MG TABLET PO (20:53)
[2024-04-12] MEDS: LATANOPROST 0.005% OP SOLN 2.5 ML BTL 1 DROP EACH EYE (21:18)
[2024-04-13 04:38] VITALS: BP 159/57; PULSE 80; RESP 16; TEMP 36.9; O2SAT 92
[2024-04-13 06:38] LABS: Basophils Percent Auto 0.4 % (0.2-1.2); Eosinophils Absolute Auto 0.6 K/mm3 (0-0.3); Eosinophils Percent Auto 9.2 % (0-4.4); Hematocrit 25.7 % (37.0-47.0); Hemoglobin 8.6 g/dL (12.0-15.0); Immature Granulocyte Absolute 0.04 K/mm3 (0.00-0.031); Immature Granulocyte Percent A 0.6 % (0-0.5); Immature Platelet Fraction Pct 2.9 % (0.9-11.2); Lymphocytes Absolute Auto 0.47 K/mm3 (0.9-3.2); Mean Corpuscular HGB Conc 33.5 g/dl (32-36); Mean Corpuscular Hemoglobin 32.8 pg (26-34); Mean Corpuscular Volume 98.1 fl (80-100); Mean Platelet Volume 9.3 fl (7.4-10.4); Monocytes Absolute Auto 0.9 K/mm3 (0.1-0.6); Monocytes Percent Auto 13.2 % (2.6-8.5); Neutrophils Absolute Auto 4.7 K/mm3 (1.3-6.7); Neutrophils Percent Auto 69.6 % (45.5-73.1); Platelet Count Result 208 k/mm3 (150-375); Red Blood Count 2.62 M/mm3 (4.2-5.4); Red Cell Distribution Width 14.7 % (11.5-14.5); White Blood Count 6.7 K/mm3 (4.5-10.0)
[2024-04-13] MEDS: traMADol HCL (*CRX) 50 MG TABLET PO ×3 (06:45→18:13)
[2024-04-13] MEDS: LEVOTHYROXINE SODIUM 75 MCG TABLET PO (06:45)
[2024-04-13 06:54] LABS: Alanine Aminotransferase 7 U/L (6-35); Albumin Level 2.9 g/dL (3.5-5.1); Alkaline Phosphatase 60 U/L (38-126); Anion Gap 3 mmol/L (4-12); Aspartate Amino Transferase 17 U/L (14-36); Bilirubin,Total 0.6 mg/dL (0.2-1.3); Blood Urea Nitrogen 8 mg/dL (7-17); Calcium 7.5 mg/dL (8.4-10.2); Carbon Dioxide 21 mmol/L (22-30); Chloride 97 mmol/L (98-107); Estimated Glomerular Filt Rate > 60; Glucose 93 mg/dL (65-110); Magnesium 1.9 mg/dL (1.6-2.3); Potassium 3.7 mmol/L (3.4-5.0); Sodium 121 mmol/L (137-145)
[2024-04-13 08:00] VITALS: PULSE 80; RESP 16; O2SAT 92
[2024-04-13] MEDS: CYANOCOBALAMIN 1,000 MCG TABLET 1000 MCG PO (10:00)
[2024-04-13] MEDS: POTASSIUM CHLORIDE 10 MEQ ER TABLET PO (10:00)
[2024-04-13] MEDS: SODIUM CHLORIDE 1 GM TABLET PO ×3 (10:00→18:11)
[2024-04-13] MEDS: amLODIPine BESYLATE 5 MG TABLET PO (10:00)
[2024-04-13] MEDS: CALCIUM CARBONATE (OSCAL) 500 MG TABLET PO (10:00)
[2024-04-13] MEDS: carvediloL 25 MG TABLET PO ×2 (10:00→18:10)
[2024-04-13] MEDS: ceFAZolin 1 GM/NS 50 ML 1 GM/50 ML BAG IVPB (10:01)
[2024-04-13] MEDS: CHOLECALCIFEROL 1,000 UNITS TABLET 2000 UNITS PO (10:01)
[2024-04-13] MEDS: PANTOPRAZOLE SODIUM IV 40 MG VIAL IV PUSH ×2 (10:01→20:21)
[2024-04-13] MEDS: LIDOCAINE 5% PATCH 1 PATCH TRANSDERM (10:02)
--- NOTE | 2024-04-13 10:52 | PM.IMPN ---
Progress Note: A&P Assessment and Plan (1) Laceration: Status: Acute Assessment and Plan: With hematoma (2) Debility: Code(s): R53.81 - Other malaise Status: Acute (3) Chronic hyponatremia: Code(s): E87.1 - Hypo-osmolality and hyponatremia Status: Acute (4) Hypothyroidism: Code(s): E03.9 - Hypothyroidism, unspecified Status: Acute (5) Rheumatoid arthritis: Code(s): M06.9 - Rheumatoid arthritis, unspecified Status: Acute Assessment and Plan: See below regarding tele all (6) Hypertension: Code(s): I10 - Essential (primary) hypertension Status: Acute Assessment and Plan: Blood pressures reviewed, diastolic pressures have been on the lower side. Will decrease amlodipine to 5 mg daily starting 04/11. Plan Laceration left knee. Partial repair By suture in the emergency room. Wound Care consult. Gait instability ordering PT OT eval and treat. Knee immobilizer in place IV cefazolin 1g Q12H due to large left knee wound--patient allergic to most oral ABX for infection prophylaxis CT ordered for reassessment of hematoma -CT shows improving hematoma but joint effusion present. Orthopedics was consulted no intervention at this time. Gait Instability Service to Physical Therapy Service to Home Care (PT) Home exercise program Instruction in assistive device Reduction in Polypharmacy, Minimize the use of high-risk medications, and Sedatives, Diuretics, Antidepressants, Narcotics, Anti-hypertensives, and Anti-anxiety Patient is at risk. Counseled accordingly on risk reduction.as above Scheduling Tylenol and adding prednisone for hand pain which is limiting her ability to participate in therapy. ANEMIA Hgb acute blood loss-->iron studies/B12/folate normal No reports of bleeding except left knee daily H&H 13.8 01/2023-->10.6 on admit-->8.2 -->7.4-->6.8-->8.6-->8.6 1 unit PRBCs transfused Transfuse if hemoglobin less than 7 Stopped aspirin 04/11 after dose given for the day Pantoprazole 40 mg BID ordered IV GI saw patient yesterday, patient uncertain about consenting for scopes Occult stool positive, denies abdominal pain--declining scopes at this time Hyponatremia, Chronic Possible cause is fluid overload versus poor sodium intake. On admit 130-->122-->123-->122-->124-->121 Na tabs 1000mg BID 04/13: Increased sodium tabs 1000 mg TID Time Spent With Patient Time with patient: Greater than 35 minutes Subjective Date/time seen: 04/13/24 10:52 Interval history: Wound visualize today, appears to be stable continue once daily dressing changes with Xeroform, gauze and light compression Velasquez wrap continue knee immobilizer. Patient complaining of hands hurting causing her not to be able to participate as much with therapy as she would like. She does have history of rheumatoid arthritis. We will schedule Tylenol every 4 hours starting at 5:00 a.m. as patient prefers to take it and we will also initiate a prednisone burst. Patient also complained of a slight sore throat mild erythema noted to the uvula no swelling. Will allow Chloraseptic drops and patient will be receiving steroids. Does not appear infected. Will stop IV antibiotics as well. Patient will go to [facility] for SNF awaiting insurance authorization. Review of Systems Review of Systems: All systems reviewed & are unremarkable except as noted in HPI and below Exam Narrative: General: Alert, awake, afebrile, in no acute distress. HEENT: PERRL, no rhinorrhea, no post nasal drip, oropharynx clear. Cardiovascular: Regular rate and rhythm, no murmurs, rubs or gallops Respiratory: Clear to auscultation bilaterally, no tachypnea, no wheezing, no rhonchi, no rubs, no respiratory distress. Abdomen: Soft, nontender, nondistended, no rebound, no guarding, no peritoneal signs. Musculoskeletal: No joint swelling or deformity, normal muscle tone. Skin: Status post lacer
--- NOTE | 2024-04-13 12:22 | PM.CNOR ---
Assessment and Plan Assessment and plan (1) Hematoma of leg: Code(s): S80.10XA - Contusion of unspecified lower leg, initial encounter Status: Acute Assessment and Plan: Patient has had a significant skin tear to the anterior aspect of the left knee following a fall 6 days ago. Tissues still looks good. The skin flap that was states back still appears to be viable. She has been on Ancef for several doses this has been DC that this point. The hematoma that was present around the knee seen on the CT scan as dissipated the lower extremity. There is no definite superficial hematoma notable today. I am going to consult Plastic surgery, if the skin flap dies or if the open area in the medial aspect the knee does not heal properly she may need to have skin grafts done. She does have a total knee arthroplasty on her right knee and therefore this wound needs to be followed carefully to prevent any type of infection from happening. Especially any necrosis of the tissue which could cause infection and ultimately infecting her right total knee arthroplasty. Wound Care has been consulted. Again I will consult Plastic surgery her any additional wound care treatments. I recommend she continue with the immobilizer full-time as well as dressing changes. History of Present Illness HPI Consult date: 04/13/24 Chief complaint: Weakness, Fall risk Narrative: 83-year-old female that we are asked to consult due to an injury to her left anterior knee. Patient fell at home 6 days ago. She landed on un padded carpet she states. She tripped over a walker landing directly onto the left knee. She is brought to the emergency room. Patient had a large hematoma apparently the anterior left knee. She also had a significant skin tear of the anterior aspect of the knee. This skin tear involves the entire with of the knee. Emergency room was able to stitch back the lateral 1/2. The medial aspect of the knee particularly the vastus medialis area skin was completely torn off. Apparently when this occurred patient developed a significant hematoma underneath this skin and soft tissue area. After patient was staged she was placed in a knee immobilizer. She also has a soft dressing over the area. Patient has been on prophylactic antibiotic because the skin tear. She did develop cellulitis from skin tear on her upper extremity in the past. Patient is only on a baby aspirin daily and no other stronger anticoagulants. [facility] Past Medical History Medical History (Updated 04/12/24 @ 14:06 by Jabier Cordero MD) Anxiety Cancer of right breast Status post mastectomy and chemoradiation. Chronic hyponatremia Collagenous colitis Depression Glaucoma Hematoma of leg Hyperlipidemia Hypertension Hypothyroidism Left bundle branch block Occult blood positive stool Osteoporosis Symptomatic anemia Surgical History Surgical History History of arthroplasty of both shoulders History of arthroscopy of right knee History of cardiac catheterization History of dilation and curettage History of right knee joint replacement History of right mastectomy History of tonsillectomy History of umbilical hernia repair Presence of combination internal cardiac defibrillator (ICD) and pacemaker Family History Family History Mother Pancreatic cancer Father Heart disease Other Diabetes mellitus Hypertension Rheumatoid arthritis Social History Social History Social History: 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 Code status: Full code. Smoking status: Never smoker Alcohol intake: never Substance use: never Do You Feel Safe in your Home?: Yes Lack of Transportation: No Lack of Food: Never True Current Housing: I Have Housing Concerned About Future Housin
[2024-04-13] MEDS: ACETAMINOPHEN 500 MG TABLET 1000 MG PO (13:13)
[2024-04-13] MEDS: cloNIDine HCL 0.1 MG TABLET PO ×2 (13:13→20:25)
[2024-04-13 14:00] VITALS: BP 130/55; PULSE 80; RESP 16; TEMP 36.4; O2SAT 93
--- NOTE | 2024-04-13 16:52 | WPDCN ---
Assessment and Plan Assessment and plan (1) Laceration: Status: Acute Assessment and Plan: 83yo female with left knee skin tear and laceration after fall that appears to be healing reviwed impression and Dx and hopeful expectaiton for continued healing with conservative wound care and no surgical intervention indicated at this time Plan:1) recommend continued wound cleaning and coverage with abx ointment and non-adherent dressing, gauze and knee binder 2) LE elevation to reduce swelling 3) abx per primary 4) reconsult if needed HPI Data of Consult Date/Time: 04/13/24 16:52 Requesting Physician: Leslie King DO Primary Care Provider: Gokul Mujica, Consult Narrative Narrative: Alice Bass is a 83 year old female admitted after fall with left knee laceration and skin tear. patient has history of right knee arthroplasty and palstics consulted for eval of wound care and to be aware in case left knee wound skin flap isn't viable. [facility] Past Medical History Medical History (Updated 04/12/24 @ 14:06 by Jabier Cordero MD) Anxiety Cancer of right breast Status post mastectomy and chemoradiation. Chronic hyponatremia Collagenous colitis Depression Glaucoma Hematoma of leg Hyperlipidemia Hypertension Hypothyroidism Left bundle branch block Occult blood positive stool Osteoporosis Symptomatic anemia Surgical History Surgical History History of arthroplasty of both shoulders History of arthroscopy of right knee History of cardiac catheterization History of dilation and curettage History of right knee joint replacement History of right mastectomy History of tonsillectomy History of umbilical hernia repair Presence of combination internal cardiac defibrillator (ICD) and pacemaker Family History Family History Mother Pancreatic cancer Father Heart disease Other Diabetes mellitus Hypertension Rheumatoid arthritis Social History Social History Social History: Healthcare power of insurance attorney: Ankit Bass, son. Code status: Full code. Smoking status: Never smoker Alcohol intake: never Substance use: never Do You Feel Safe in your Home?: Yes Lack of Transportation: No Lack of Food: Never True Current Housing: I Have Housing Concerned About Future Housing: No Difficulty Paying Gas/Electric Bills: No Difficulty Paying for Meds: No Currently Unemployed: No Education: High School Diploma/GED Difficulty w/ Childcare or Family Care: No Additional living arrangements comments: Lives alone in [place]. Son lives out of state. Spiritual care concerns: No Meds Home Medications and Allergies Home Medications Medication Instructions Recorded Confirmed Type carvedilol 25 mg tablet 25 mg PO BID 04/27/22 04/08/24 History latanoprost 0.005 % eye drops 1 drp ophthalmic (eye) HS 04/27/22 04/08/24 History levothyroxine 75 mcg tablet 75 mcg PO DAILY 04/27/22 04/08/24 History (Euthyrox) losartan 100 mg tablet 100 mg PO HS 04/27/22 04/08/24 History potassium chloride 10 mEq 10 meq PO DAILY 04/27/22 04/08/24 History tablet,extended release pravastatin 40 mg tablet 40 mg PO HS 04/27/22 04/08/24 History lidocaine 5 % topical patch 1 patch transdermal DAILY 01/06/23 04/08/24 History amlodipine 5 mg tablet 10 mg PO DAILY #1 tablet 01/08/23 04/08/24 Rx aspirin 81 mg chewable tablet 81 mg PO DAILY@0800 #30 tabs 01/08/23 04/08/24 Rx ([facility]) cyanocobalamin (vitamin B-12) 1,000 mcg PO QAM #30 tabs 01/08/23 04/08/24 Rx 1,000 mcg tablet (Vitamin B-12) tramadol 50 mg tablet 50 mg PO TID PRN pain #90 tabs 08/30/23 04/08/24 Rx acetaminophen 500 mg tablet 1,000 mg PO TID PRN Pain 04/08/24 04/08/24 History azelastine 137 mcg (0.1 %) nasal See Rx In
[2024-04-13] MEDS: DULoxetine HCL 30 MG CAPSULE.DR PO (18:10)
[2024-04-13] MEDS: predniSONE 20 MG TABLET 60 MG PO (18:10)
[2024-04-13] MEDS: LOSARTAN POTASSIUM 100 MG TABLET PO (20:21)
[2024-04-13] MEDS: PRAVASTATIN SODIUM 20 MG TABLET 40 MG PO (20:21)
[2024-04-13] MEDS: LORATADINE 10 MG TABLET PO (20:21)
[2024-04-13] MEDS: LATANOPROST 0.005% OP SOLN 2.5 ML BTL 1 DROP EACH EYE (20:22)
[2024-04-13 21:14] VITALS: BP 150/63; PULSE 80; RESP 18; TEMP 36.7; O2SAT 93
[2024-04-14 04:59] VITALS: BP 137/61; PULSE 73; RESP 18; TEMP 36.6; O2SAT 95
[2024-04-14] MEDS: LEVOTHYROXINE SODIUM 75 MCG TABLET PO (06:40)
[2024-04-14 06:45] LABS: Basophils Percent Auto 0.3 % (0.2-1.2); Eosinophils Absolute Auto 0.8 K/mm3 (0-0.3); Hematocrit 26.7 % (37.0-47.0); Hemoglobin 8.6 g/dL (12.0-15.0); Immature Granulocyte Absolute 0.05 K/mm3 (0.00-0.031); Immature Granulocyte Percent A 0.8 % (0-0.5); Lymphocytes Absolute Auto 0.53 K/mm3 (0.9-3.2); Lymphocytes Percent Auto 8.1 % (18.3-44.2); Mean Corpuscular HGB Conc 32.2 g/dl (32-36); Mean Corpuscular Volume 99.3 fl (80-100); Mean Platelet Volume 8.8 fl (7.4-10.4); Monocytes Absolute Auto 0.9 K/mm3 (0.1-0.6); Monocytes Percent Auto 13.7 % (2.6-8.5); Neutrophils Absolute Auto 4.3 K/mm3 (1.3-6.7); Neutrophils Percent Auto 65.1 % (45.5-73.1); Platelet Count Result 221 k/mm3 (150-375); Red Blood Count 2.69 M/mm3 (4.2-5.4); Red Cell Distribution Width 14.7 % (11.5-14.5); White Blood Count 6.6 K/mm3 (4.5-10.0)
[2024-04-14 07:05] LABS: Alanine Aminotransferase 7 U/L (6-35); Albumin Level 2.9 g/dL (3.5-5.1); Alkaline Phosphatase 58 U/L (38-126); Anion Gap 3 mmol/L (4-12); Aspartate Amino Transferase 16 U/L (14-36); Bilirubin,Total 0.6 mg/dL (0.2-1.3); Blood Urea Nitrogen 11 mg/dL (7-17); Calcium 7.7 mg/dL (8.4-10.2); Carbon Dioxide 22 mmol/L (22-30); Chloride 97 mmol/L (98-107); Estimated Glomerular Filt Rate > 60; Glucose 92 mg/dL (65-110); Magnesium 1.9 mg/dL (1.6-2.3); Potassium 3.9 mmol/L (3.4-5.0); Sodium 122 mmol/L (137-145)
[2024-04-14 07:51] LABS: Glucose Point of Care 90 mg/dl (65-105)
[2024-04-14] MEDS: LIDOCAINE 5% PATCH 1 PATCH TRANSDERM (08:23)
[2024-04-14] MEDS: PANTOPRAZOLE SODIUM IV 40 MG VIAL IV PUSH (08:24)
[2024-04-14] MEDS: predniSONE 20 MG TABLET 60 MG PO (08:24)
[2024-04-14] MEDS: ACETAMINOPHEN 500 MG TABLET 1000 MG PO ×2 (08:24→12:23)
[2024-04-14] MEDS: CHOLECALCIFEROL 1,000 UNITS TABLET 2000 UNITS PO (08:24)
[2024-04-14] MEDS: SODIUM CHLORIDE 1 GM TABLET PO ×3 (08:24→17:24)
[2024-04-14 08:25] VITALS: PULSE 80
[2024-04-14] MEDS: carvediloL 25 MG TABLET PO ×2 (08:25→17:23)
[2024-04-14] MEDS: CALCIUM CARBONATE (OSCAL) 500 MG TABLET PO (08:25)
[2024-04-14] MEDS: CYANOCOBALAMIN 1,000 MCG TABLET 1000 MCG PO (08:25)
[2024-04-14] MEDS: amLODIPine BESYLATE 5 MG TABLET PO (08:26)
[2024-04-14] MEDS: POTASSIUM CHLORIDE 10 MEQ ER TABLET PO (08:26)
--- NOTE | 2024-04-14 12:09 | PM.IMPN ---
Subjective Date/time seen: 04/14/24 12:09 Objective Data Vital Signs Vital Signs: Vital Signs - 24 hr 04/13/24 14:00 04/13/24 21:14 04/14/24 04:59 Temperature 36.4 C 36.7 C 36.6 C Pulse Rate 80 80 73 Respiratory Rate 16 18 18 Blood Pressure 130/55 L 150/63 H 137/61 Pulse Oximetry 93 93 95 Oxygen Delivery 04/14/24 08:25 04/14/24 08:20 Temperature Pulse Rate 80 Respiratory Rate Blood Pressure Pulse Oximetry Oxygen Delivery Room Air Intake/Output Intake/Output: Intake & Output 04/11/24 04/12/24 04/13/24 04/14/24 23:59 23:59 23:59 23:59 Intake Total 2631 587 1000 340 Output Total 750 900 650 Balance 1881 -313 350 340 Meds/Results Medications: Active Medications Generic Name Dose Route Start Last Admin Trade Name Freq PRN Reason Stop Dose Admin Acetaminophen 1,000 mg 04/13/24 13:00 04/14/24 08:24 Acetaminophen 500 Mg Tablet PO 1,000 mg 0500,0900,1300 DEBRA Administration Amlodipine Besylate 5 mg 04/11/24 09:00 04/14/24 08:26 Amlodipine Besylate 5 Mg Tablet PO 5 mg DAILY DEBRA Administration Benzocaine 1 lozenge 04/13/24 13:55 Benzocaine/Menthol (*Bkc) 18 Ea Lozenge PO PRN PRN Sore Throat Calcium Carbonate 500 mg 04/08/24 09:00 04/14/24 08:25 Calcium Carbonate (Oscal) 500 Mg Tablet PO 05/08/24 08:59 500 mg DAILY DEBRA Administration Carvedilol 25 mg 04/08/24 08:00 04/14/24 08:25 Carvedilol 25 Mg Tablet PO 25 mg BIDWM DEBRA Administration Clonidine HCl 0.1 mg 04/08/24 12:30 04/13/24 20:25 Clonidine Hcl 0.1 Mg Tablet PO 0.1 mg BID@1230,2000 DEBRA Administration Cyanocobalamin 1,000 mcg 04/08/24 09:00 04/14/24 08:25 Cyanocobalamin 1,000 Mcg Tablet PO 1,000 mcg QAM DEBRA Administration Duloxetine HCl 30 mg 04/10/24 17:00 04/13/24 18:10 Duloxetine Hcl 30 Mg Capsule.Dr PO 30 mg DAILY@1700 DEBRA Administration Famotidine 20 mg 04/08/24 06:23 Famotidine 20 Mg Tablet PO BID PRN Heartburn Furosemide 20 mg 04/08/24 06:23 Furosemide 20 Mg Tablet PO BID PRN edema Latanoprost 1 drop 04/08/24 21:00 04/13/24 20:22 Latanoprost 0.005% Op Soln 2.5 Ml Btl EACH EYE 1 drop HS DEBRA Administration Levothyroxine Sodium 75 mcg 04/08/24 07:00 04/14/24 06:40 Levothyroxine Sodium 75 Mcg Tablet PO 75 mcg DAILY@0630 DEBRA Administration Lidocaine 1 patch 04/08/24 09:00 04/14/24 08:23 Lidocaine 5% Patch TRANSDERM 1 patch DAILY DEBRA Administration Loratadine 10 mg 04/08/24 21:00 04/13/24 20:21 Loratadine 10 Mg Tablet PO 05/08/24 20:59 10 mg HS DEBRA Administration Losartan Potassium 100 mg 04/08/24 21:00 04/13/24 20:21 Losartan Potassium 100 Mg Tablet PO 100 mg HS DEBRA Administration Pantoprazole Sodium 40 mg 04/11/24 09:00 04/14/24 08:24 Pantoprazole Sodium Iv 40 Mg Vial IV PUSH 40 mg Q12HR DEBRA Administration Potassium Chloride 10 meq 04/08/24 09:00 04/14/24 08:26 Potassium Chloride 10 Meq Er Tablet PO 10 meq DAILY DEBRA Administration Pravastatin Sodium 40 mg 04/08/24 21:00 04/13/24 20:21 Pravastatin Sodium 20 Mg Tablet PO 40 mg HS DEBRA Administration Prednisone 60 mg 04/14/24 08:00 04/14/24 08:24 Prednisone 20 Mg Tablet PO 04/17/24 12:00 60 mg DAILY@0800 DEBRA Administration Psyllium Hydrophilic Mucilloid 1 packet 04/08/24 13:38 Psyllium Powder Packet PO DAILY PRN Constipation Sodium Chloride 1 gm 04/13/24 09:00 04/14/24 08:24 Sodium Chloride 1 Gm Tablet PO 1 gm TID DEBRA Administration Tramadol HCl 50 mg 04/08/24 06:23 04/13/24 18:13 Tramadol Hcl (*Crx) 50 Mg Tablet PO 50 mg TID PRN Administration pain 4-6 Vitamin D 2,000 units 04/08/24 09:00 04/14/24 08:24 Cholecalciferol 1,000 Units Tablet PO 2,000 units DAILY DEBRA Administration Radiology Results: ITS Impressions Knee X-Ray 04/07/24 21:32 IMPRESSION: No acute osseous finding in
[2024-04-14] MEDS: cloNIDine HCL 0.1 MG TABLET PO (12:23)
--- NOTE | 2024-04-14 13:29 | PM.DS ---
DS: Admitting Diagnosis Discharge Date 04/14/2024 Admitting Diagnosis Laceration, fall from ground level, chronic hyponatremia, debility DS: Discharge Diagnosis Discharge Diagnosis (1) Laceration: Status: Acute (2) Debility: Code(s): R53.81 - Other malaise Status: Acute (3) Chronic hyponatremia: Code(s): E87.1 - Hypo-osmolality and hyponatremia Status: Acute (4) Hypothyroidism: Code(s): E03.9 - Hypothyroidism, unspecified Status: Acute (5) Rheumatoid arthritis: Code(s): M06.9 - Rheumatoid arthritis, unspecified Status: Acute (6) Hypertension: Code(s): I10 - Essential (primary) hypertension Status: Acute (7) Chronic anemia: Code(s): D64.9 - Anemia, unspecified Status: Acute (8) Occult blood positive stool: Code(s): R19.5 - Other fecal abnormalities Status: Acute (9) Colitis, collagenous: Code(s): K52.831 - Collagenous colitis Status: Acute DS: Summary Hospital Course Hospital Course: this is an 83-year-old female patient with a past history of rheumatoid arthritis, hypertension, hypo thyroidism, chronic pain and multiple allergies who was admitted to the hospital after sustaining a fall a ground level at home with a resultant very large left knee laceration. In the emergency department patient had partial repair of laceration using thin skin as a physiologic dressing over a large portion of open wound. Some of the sutures actually each ripped through this then skin leaving about half of the wound uncovered. CT scan performed at that time showed possible ACL injury which seemed like it might be chronic because there was no large accompanied joint effusion. patient had a decent amount of blood loss at that time from the bleeding wound as well as bruising and swelling in the lower extremity. Patient's blood count had trended downward as well as sodium had dropped to the low 120s. Patient has a history of chronic hyponatremia any time she is ill or injured. Gastroenterology was consulted as hemoglobin dropped all the way down to 6.8. Patient did receive 1 unit PRBCs. There was positive occult blood in stool but not grossly bloody or melanotic. Patient was offered EGD and colonoscopy but she declined and hemoglobin remained stable post transfusion for 3 days. Likewise, sodium remained low ranging from 121-124 without neurologic disturbance. 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 patient is on a fluid restriction diet 1800 mL and receiving sodium tabs 1 g t.i.d.. This sodium has remained stable throughout patient's hospitalization. This care will be continued at SNF. Length of stay was prolonged awaiting insurance approval for SNF. On day of discharge patient had some concerns that her sodium level was still low and her urine output was low. I discussed pathophysiology of SIADH and treatment pattern was going forward the same as what she was receiving in the hospital. I also initiated some prednisone for patient has rheumatoid arthritis in her hands and she has already gained significant more mobility since initiating on 04/13. Will just provide a burst of 5 days at 60 mg and request primary care be contacted if this needs to be extended at the facility. We worked diligently with patient to allow her access to her medications at her usual dosing times which are contrary to standard medication delivery times at this facility. With these accommodations patient was able to maintain adequate pain control with home doses of Tylenol and tramadol. The prednisone was added due to pain and swelling in patient's fingers and hands. No sign of infection in the wound or elsewhere. Patient did receive prophylactic IV antibiotics without allergic reaction and she has numerous allergies. These IV antibiotics were provided due to the extent of the wound and th
[2024-04-14 14:00] VITALS: BP 113/59; PULSE 79; RESP 20; TEMP 36.2; O2SAT 95
[2024-04-14] MEDS: traMADol HCL (*CRX) 50 MG TABLET PO (15:41)
[2024-04-14 16:28] LABS: SARS-CoV-2 RNA PCR Negative (Negative)
[2024-04-14 17:23] VITALS: PULSE 90
[2024-04-14] MEDS: DULoxetine HCL 30 MG CAPSULE.DR PO (17:24)
== END 2024-04-14 18:20 | DRG 605 ==
LOC: ANHED 04-08 01:24 → ANH3MEDSUR 04-08 04:46
PROVIDERS: Admitting Provider Internal Medicine; Emergency Provider Emergency Medicine; PCP Internal Medicine; Visit Provider Nurse Practitioner
DX: S81.012A Laceration without foreign body, left knee, initial encounter (principal); E87.1 Hypo-osmolality and hyponatremia; D62 Acute posthemorrhagic anemia; R53.81 Other malaise; R26.89 Other abnormalities of gait and mobility; S80.12XA Contusion of left lower leg, initial encounter; W18.30XA Fall on same level, unspecified, initial encounter; F41.9 Anxiety disorder, unspecified; K52.831 Collagenous colitis; F32.A Depression, unspecified; H40.9 Unspecified glaucoma; E78.5 Hyperlipidemia, unspecified; M06.9 Rheumatoid arthritis, unspecified; I10 Essential (primary) hypertension; E03.9 Hypothyroidism, unspecified; I44.7 Left bundle-branch block, unspecified; M81.0 Age-related osteoporosis without current pathological fracture; Z96.612 Presence of left artificial shoulder joint; Z96.611 Presence of right artificial shoulder joint; Z96.651 Presence of right artificial knee joint; Z85.3 Personal history of malignant neoplasm of breast; Z95.810 Presence of automatic (implantable) cardiac defibrillator
CPT/HCPCS: 12005; 36415; 36430; 73564; 73700; 80053; 81001; 82274; 82607; 82728; 82746; 82948; 83540; 83550; 83735; 84443; 85014; 85018; 85025; 85055; 86850; 86900; 86901; 86920; 87635; 96365; 97110; 97116; 97161; 97166; 97530; 97535; 99285; A9270; C9113; G0378; J0690; J7030; J7050; J7512; L1830; P9016

== ENCOUNTER 2024-09-15 13:49 | Observation (INO) | payer MEDICARE, SELFPAY ==
--- NOTE | ~2024-09-15 | US_ITS ---
EXAMINATION: US carotid duplex BI DATE: 09/17/2024 14:57 INDICATION: Syncope. TECHNIQUE: Grayscale, color Doppler, and pulsed Doppler images of the cervical carotid arteries were obtained. The degree of vessel stenosis is placed in one of the following categories: normal, <50%, 5 0-69%, >=70% but less than near-occlusion, near-occlusion, or total occlusion. Note that percent sten osis relative to normal distal artery lumen diameter is indirectly measured from velocity measurement s as described by Michael, et al. Radiology 2003; 229:340-346. COMPARISON: Ultrasound 01/06/2023 FINDINGS: RIGHT: The right common carotid artery (CCA) peak systolic velocity (PSV) is 77 cm/s. The right internal car otid artery (ICA) PSV is 73 cm/s. The right ICA end-diastolic velocity (EDV) is 5 cm/s. The right ICA /CCA PSV ratio is 0.9. Grayscale and color Doppler images yield an estimate of <50% diameter reductio n from plaque in the ICA. There is antegrade flow in the right vertebral artery. LEFT: The left CCA PSV is 118 cm/s. The left ICA PSV is 103 cm/s. The left ICA EDV is 20 cm/s. The left ICA /CCA PSV ratio is 0.9. Grayscale and color Doppler images yield an estimate of <50% diameter reductio n from plaque in the ICA. There is antegrade flow in the left vertebral artery. IMPRESSION: 1. <50% stenosis in the right internal carotid artery. 2. <50% stenosis in the left internal carotid artery. Reviewed, dictated and finalized at location A. DING SPECIALIST
--- NOTE | ~2024-09-15 | CT_ITS ---
EXAMINATION: CT cervical spine wo con DATE: 09/15/2024 14:31 INDICATION: Neck injury. Fall. TECHNIQUE: Computed tomography (CT) of the cervical spine was performed without intravenous contrast. Automated exposure control and iterative reconstruction technique were employed. The dose-length pro duct was 297.84 mGy-cm. COMPARISON: CT cervical spine 08/10/2005 FINDINGS: There is 3 mm anterolisthesis of C4 on C5 and 2 mm anterolisthesis of C6 on C7 and C7 on T1 . There is 10 degrees dextroscoliosis of lower cervical spine. Vertebral body heights are normal. The re is severely decreased disc height from C4 to C5 through C6-C7. The following disc levels are speci fically discussed: C2-C3: There is no uncovertebral joint osteoarthritis. There is mild right and moderate left facet link int osteoarthritis. There is no neural foraminal stenosis. There is no central canal stenosis. C3-C4: There is no uncovertebral joint osteoarthritis. There is moderate bilateral facet joint osteoa rthritis. There is no neural foraminal stenosis. There is no central canal stenosis. C4-C5: There is severe right and mild left uncovertebral joint osteoarthritis. There is severe bilate ral facet joint osteoarthritis. There is mild bilateral neural foraminal stenosis. There is mild cent ral canal stenosis. C5-C6: There is severe bilateral uncovertebral joint osteoarthritis. There is severe bilateral facet joint osteoarthritis. There is mild bilateral neural foraminal stenosis. There is no central canal st enosis. C6-C7: There is mild right and moderate left uncovertebral joint osteoarthritis. There is severe bila teral facet joint osteoarthritis. There is mild bilateral neural foraminal stenosis. There is mild ce ntral canal stenosis. C7-T1: There is no uncovertebral joint osteoarthritis. There is moderate bilateral facet joint osteoa rthritis. There is mild left neural foraminal stenosis. There is no central canal stenosis. IMPRESSION: 1. No fracture. 2. Severe cervical spondylosis. Reviewed, dictated and finalized at location A. D DEVELOPMENT ASSOCIATE TEACHER
--- NOTE | ~2024-09-15 | US_ITS ---
EXAMINATION: US abdomen complete DATE: 09/18/2024 09:27 INDICATION: Splenomegaly TECHNIQUE: Multiple grayscale and Doppler ultrasound images of the abdomen were obtained. COMPARISON: None FINDINGS: The pancreatic head and body are normal in appearance. The pancreatic tail is not visualized. Visual ized proximal to mid abdominal aorta is normal measuring 1.7 cm in maximal AP diameter. The visualize d proximal inferior vena cava is normal. Liver has normal echogenicity and contour, with a smooth adonis face. No liver lesion identified. No intrahepatic biliary duct dilation suspected. Portal venous flow was seen in the hepatopetal, normal direction and has normal Doppler waveform. The gallbladder is no rmal in appearance. There is no cholelithiasis. The common bile duct measures 3 mm, which is normal. Sonographic Ruff sign was reported as negative by the press cutter. There is normal renal contour a nd echogenicity bilaterally. The right kidney measures 9.1 x 3.7 x 4.2 cm and the left 10.3 x 4.6 x 4 .1 cm. There are no focal renal lesions identified. There is no hydronephrosis. Normal spleen measu ring 7.8 cm maximal length. IMPRESSION: 1. Normal abdominal ultrasound. Specifically the spleen is normal in size and appearance. Reviewed, dictated and finalized at location B. RMATION MANAGER IMPRESSION: 1. Normal abdominal ultrasound. Specifically the spleen is normal in size and a ppearance.
--- NOTE | ~2024-09-15 | XR_ITS ---
EXAMINATION: XR knee RT min 4V DATE: 09/15/2024 14:52 INDICATION: Right knee pain post fall TECHNIQUE: Anteroposterior, 2 oblique and crosstable lateral views of the right knee were obtained COMPARISON: None. FINDINGS: Right total knee arthroplasty without patellar resurfacing which appears well seated in near anatomic alignment. No periprosthetic lucency to suggest loosening or infection. No fracture. Multiple more w ell-defined loose osteochondral bodies and more extensive and amorphous appearing calcific density in the soft tissues surrounding the knee suggestive of tumoral calcinosis. Scattered vascular calcifica tions. No definitive joint effusion. IMPRESSION: 1. Right total knee arthroplasty in near-anatomic alignment with no acute osseous abnormality. 2. Multiple loose osteochondral bodies and extensive more amorphous dystrophic calcification in the s oft tissues surrounding the right knee suggestive of tumoral calcinosis. Reviewed, dictated and finalized at location B. PSYCHOTHERAPIST OR THERAPIST IMPRESSION: 1. Right total knee arthroplasty in near-anatomic alignment with no acute osseo us abnormality. 2. Multiple loose osteochondral bodies and extensive more amorphous dystrophic calcification in the soft tissues surrounding the right knee suggestive of tumo ral calcinosis.
--- NOTE | ~2024-09-15 | CT_ITS ---
EXAMINATION: CT brain wo con DATE: 09/15/2024 14:31 INDICATION: Fall. TECHNIQUE: Computed tomography (CT) of the head was performed without intravenous contrast. The mA wa s adjusted according to patient size. Iterative reconstruction technique was employed. The dose-lengt h product was 908.00 mGy-cm. COMPARISON: Head CT 01/05/2023 FINDINGS: There are scattered areas of low attenuation in the cerebral white matter. There is no intr acranial hemorrhage, acute infarction, or abnormal intracranial mass lesion. The ventricles are josiah l in size. There are likely changes of ocular lens replacement surgeries. There is mucosal thickening in the paranasal sinuses. The mastoid air cells are normal. IMPRESSION: 1. Stable moderate nonspecific cerebral white matter disease, which likely represents chronic small v essel ischemic disease. Reviewed, dictated and finalized at location A. MATIC FABRIC CUTTER IMPRESSION: 1. Stable moderate nonspecific cerebral white matter disease, which likely repr esents chronic small vessel ischemic disease.
--- NOTE | ~2024-09-15 | XR_ITS ---
EXAMINATION: XR knee LT min 4V DATE: 09/15/2024 14:52 INDICATION: Fall TECHNIQUE: Anteroposterior, 2 oblique and crosstable lateral views of the left knee were obtained COMPARISON: None. FINDINGS: Alignment is normal. No fracture. Mild osteoarthritis at the medial and patellofemoral compartments of the left knee. Small left knee joint effusion. Vascular calcifications. IMPRESSION: 1. Mild medial and patellofemoral osteoarthritis. No acute osseous abnormality. 2. Small left knee joint effusion. Reviewed, dictated and finalized at location B. NESS INTELLIGENCE DIRECTOR
--- NOTE | ~2024-09-15 | XR_ITS ---
SINGLE AP VIEW PELVIS Ordering provider: Carrie John History: . fall . Comparison: None. FINDINGS: BONES: No acute fracture or dislocation. Sclerotic changes seen in the right femoral head toward righ t acetabulum HIP JOINT SPACES: Normal. SACROILIAC JOINT SPACES/LUMBAR SPINE: The sacroiliac joint spaces are normal. Mild degenerative gallagher es of the visualized lower lumbar spine. PUBIC SYMPHYSIS: Normal. SOFT TISSUES: Radiopaque shadows in the upper abdomen most likely indications. IMPRESSION: No acute osseous abnormality pelvis. Reviewed, dictated and finalized at location A. NT DEVELOPMENT ANALYST
--- NOTE | ~2024-09-15 | XR_ITS ---
XR chest 2V Ordering provider: Carrie John PA-C History: 83 years Female with . fall . Comparison: None. FINDINGS: MEDIASTINUM: The cardiac silhouette is not enlarged. Left bipolar pacemaker. LUNGS: No infiltrates, effusions or pneumothorax. OTHER: No free air under the diaphragm. Severe kyphosis. Levoscoliosis. Degenerative spine. Bilateral shoulder arthroplasty. IMPRESSION: No acute cardiopulmonary pathology. Reviewed, dictated and finalized at location A. YST COMPETITIVE INTELLIGENCE
--- NOTE | ~2024-09-15 | XR_ITS ---
XR hand LT min 3V Ordering provider: Carrie John History: . fall . Comparison: None. FINDINGS: BONES: No acute fracture or dislocation. Osteopenia of the bones. JOINT SPACES: Narrowing of the proximal and distal interphalangeal joints. Minimal medial subluxation at the level of the proximal interphalangeal joint of the little finger. Osteoarthritic changes of the first carpometacarpal joint. SOFT TISSUES: Unremarkable. IMPRESSION: No acute osseous abnormality left hand. Osteoarthritic changes of the proximal and distal interphalangeal joint. Minimal medial subluxation a t the level of the proximal interphalangeal joint of the little finger. Reviewed, dictated and finalized at location A. DSTITCH LINING FELLER IMPRESSION: No acute osseous abnormality left hand. Osteoarthritic changes of the proximal and distal interphalangeal joint. Minima l medial subluxation at the level of the proximal interphalangeal joint of the little finger.
[2024-09-15 13:57] VITALS: BP 140/86; PULSE 74; RESP 16; TEMP 36.4; O2SAT 97
--- NOTE | 2024-09-15 14:03 | ED_ITS ---
HPI - Fall General Chief Complaint: Fall <Carrie John PA-C - Last Filed: 09/16/24 09:32> Stated Complaint: fall <Carrie John PA-C - Last Filed: 09/16/24 09:32> Time Seen by Provider: 09/15/24 14:03 <Carrie John PA-C - Last Filed: 09/16/24 09:32> Focused HPI: This is a 83 year old female that presents to the ER for a fall today in her bedroom. Reports she hit her head. She is unsure if she lost consciousness. Reports skin tears to the bilateral knees, left hand. She is up to date on tetanus vaccination. No other injuries or focal complaints. GENERAL: Elderly, well-nourished, and in no acute distress. HEAD: Normocephalic, atraumatic. CHEST: Clear to auscultation. ?No respiratory distress. HEART: Regular rate and rhythm.? NEURO: ?Alert and oriented x3. Patient screened in triage and initial orders placed.? ?Additional care and disposition to be based upon?diagnostic testing and treatment. <Carrie John PA-C - Last Filed: 09/16/24 09:32> History of Present Illness HPI Narrative: 83-year-old female with history of dementia, JAVIER, hypothyroidism, hypertension, hyponatremia presents to the emergency department via EMS from [facility] with private personal care attendant at bedside for a ground level fall. Patient states she was in her bedroom trying to put clothes away in her closet when she lost her balance and fell. She did hit her head but is unsure she lost consciousness. She presents with a large laceration to the anterior aspect of her right knee and several skin tears to her extremities. Per chart review her Tdap is up-to-date as of 2022. Patient denies chest pain or shortness of breath, headache or other complaints. Per patient's case man ager at bedside the patient has had several frequent falls, increasing in frequency with time. Her last fall was yesterday for which is evaluated in outside hospital. She is not anticoagulated. Her son and [id number] are at bedside who agree the patient should be upgraded to shelter staff from her current [facility] given her repeated frequent falls. Patient's personal care attendant at bedside states patient is at her baseline mental status which is A&O x2. <Elisabeth Bush PA-C - Last Filed: 09/15/24 23:10> Related Data Home Medications: Home Medications Medication Instructions Recorded Confirmed carvedilol 25 mg tablet 25 mg PO BID 04/27/22 09/15/24 latanoprost 0.005 % eye drops 1 drp ophthalmic (eye) HS 04/27/22 09/15/24 levothyroxine 75 mcg tablet 75 mcg PO DAILY 04/27/22 09/15/24 (Euthyrox) losartan 100 mg tablet 100 mg PO DAILY 04/27/22 09/15/24 potassium chloride 10 mEq 10 meq PO DAILY 04/27/22 09/15/24 tablet,extended release pravastatin 40 mg tablet 40 mg PO DAILY 04/27/22 09/15/24 lidocaine 5 % topical patch 1 patch transdermal DAILY 01/06/23 09/15/24 cholecalciferol (vitamin D3) 50 2,000 unit PO DAILY 04/08/24 09/15/24 mcg (2,000 unit) tablet furosemide 20 mg tablet (Lasix) 20 mg PO BID PRN edema 04/08/24 09/15/24 loperamide 2 mg capsule 2 mg PO Q6H PRN Diarrhea 04/08/24 09/15/24 psyllium 1 packet PO DAILY 04/08/24 09/15/24 acetaminophen 500 mg tablet 1,000 mg PO TID 09/15/24 09/15/24 amlodipine 2.5 mg tablet 2.5 mg PO DAILY 09/15/24 09/15/24 betamethasone dipropionate 0.05 % 1 applic topical BID 09/15/24 09/15/24 topical cream budesonide 3 mg 3 mg PO DAILY 09/15/24 09/16/24 capsule,delayed,extended release calcium carb-vitamin D3 ER 600 mg 1 tablet PO DAILY 09/15/24 09/15/24 (1,500 mg)-500 unit tablet,ER 24 hr diclofenac sodium 1 % topical gel 2 g topical QID 09/15/24 09/15/24 epinephrine 0.3 mg/0.3 mL 0.3 mg IM PRN PRN Allergic Reaction 09/15/24 09/15/24 injection, auto-injector tramadol 50 mg tablet 50 mg PO BID PRN pain 09/15/24 09/15/24 triamcinolone acetonide 0.1 % 1 applic topical BID 09/15/24 09/15/24 topical cream <Carrie John PA-C - Last Filed: 09/16/24 09:32> Allergies/Adverse Reactions: Allergies Allergy/AdvReac Type Severity Reaction Status Date / Time Penicillins Allergy Mild RASH Verified 05/21/24 11:46 RICK Inhibitors Allergy Unknown Cough Verified 05/21/24 11:46 blue dye Allergy Unknown Other Verified 05/21/24 11:46 cat dander Allergy Unknown Unknown Verified 05/21/24 11:46 cefuroxime Allergy Unknown Unknown Verified 05/21/24 11:46 chlorhexidine Allergy Unknown Unknown Verified 05/21/24 11:46 ciprofloxacin Allergy Unknown Other Verified 05/21/24 11:46 clindamycin Allergy Unknown Unknown Verified 05/21/24 11:46 cornflower Allergy Unknown Unknown Verified 05/21/24 11:46 egg Allergy Unknown Unknown Verified 05/21/24 11:46 gabapentin Allergy Unknown Unknown Verified 05/21/24 11:46 hydralazine Allergy Unknown Unknown Verified 05/21/24 11:46 hydroxyzine Allergy Unknown Unknown Verified 05/21/24 11:46 Iodinated Contrast Media Allergy Unknown Other Verified 05/21/24 11:46 Iodine and Iodide Containing Allergy Unknown Unknown Verified 05/21/24 11:46 Produc [Iodine and Iodide Containing Products] lactase Allergy Unknown Unknown Verified 05/21/24 11:46 mesalamine Allergy Unknown Other Verified 05/21/24 11:46 moxifloxacin Allergy Unknown Other Verified 05/21/24 11:46 nitrofurantoin Allergy Unknown Other Verified 05/21/24 11:46 NSAIDS (Non-Steroidal Allergy Unknown Other Verified 05/21/24 11:46 Anti-Inflamma piroxicam Allergy Unknown Other Verified 05/21/24 11:46 Sulfa (Sulfonamide Allergy Unknown Unknown Verified 05/21/24 11:46 Antibiotics) wheat Allergy Unknown Unknown Verified 05/21/24 11:46 Yeast Allergy Unknown Unknown Verified 05/21/24 11:46 lactose Allergy Unknown Verified 09/15/24 23:15 [id number] Allergy Unknown Unknown Uncoded 09/15/24 23:15 chlorine Allergy Unknown Unknown Uncoded 05/21/24 11:46 dairy Allergy Unknown Unknown Uncoded 05/21/24 11:46 <Carrie John PA-C - Last Filed: 09/16/24 09:32> Review of Systems Review of Systems: All systems reviewed & are unremarkable except as noted in HPI and below <Elisabeth Bush PA-C - Last Filed: 09/15/24 23:10> [facility] Past Medical History Medical History: Medical History (Updated 09/16/24 @ 17:28 by Mel Florez APRN) Anxiety Cancer of right breast Status post mastectomy and chemoradiation. Chronic hyponatremia Collagenous colitis Depression Glaucoma Hematoma of leg Hyperlipidemia Hypertension Hypothyroidism Left bundle branch block Occult blood positive stool Osteoporosis Symptomatic anemia <Carrie John PA-C - Last Filed: 09/16/24 09:32> Surgical History Surgical History: Surgical History History of arthroplasty of both shoulders History of arthroscopy of right knee History of cardiac catheterization History of dilation and curettage History of right knee joint replacement History of right mastectomy History of tonsillectomy History of umbilical hernia repair Presence of combination internal cardiac defibrillator (ICD) and pacemaker <Carrie John PA-C - Last Filed: 09/16/24 09:32> Family History Family History: Family History Mother Pancreatic cancer Father Heart disease Other Diabetes mellitus Hypertension Rheumatoid arthritis <Carrie John PA-C - Last Filed: 09/16/24 09:32> Social History Social History: Social History Social History: Healthcare power of deputy attorney general: Ankit Bass, son. Code status: Full code. Smoking status: Never smoker Alcohol intake: never Substance use: never Do You Feel Safe in your Home?: Yes Lack of Transportation: No Lack of Food: Never True Current Housing: I Have Housing Concerned About Future Housing: No Difficulty Paying Gas/Electric Bills: No Difficulty Paying for Meds: No Currently Unemployed: No Education: High School Diploma/GED Difficulty w/ Childcare or Family Care: No Additional living arrangements comments: Lives alone in [place]. Son lives out of state. Spiritual care concerns: No <Carrie John PA-C - Last Filed: 09/16/24 09:32> Exam Narrative: GENERAL: Well-appearing, well-nourished, and in no acute distress. HEAD: Normocephalic, atraumatic. EYES: PERRLA and EOMI. ENT: Nares clear, no rhinorrhea or epistaxis. Mucous membranes moist. NECK: No midline cervical spinous tenderness, step-offs or deformities BACK: No midline thoracolumbar spinous tenderness, step-offs or deformities CHEST: Clear to auscultation. No respiratory distress. HEART: Regular rate and rhythm. No murmur heard. Normal peripheral pulses. ABDOMEN: Soft, nontender, nondistended, normal active bowel sounds. EXTREMITIES: Normal range of motion. No edema. No significant tenderness to bilateral upper lower extremities palpation SKIN: 10 x 3 cm L-shaped laceration to the inferior to the right knee, bleeding controlled. No deep structures or foreign bodies visualized. Patient has full active range of motion of knee. DP pulse 2 +. Sensation intact. Small superficial skin tears to the distal left femur and left knee with overlying Steri-Strips. Bleeding controlled. No deep structures or foreign bodies visualized. Skin tear to the dorsum of the left hand with overlying Steri- Strips, bleeding controlled, no deep structures or foreign bodies visualized. Patient has significant ecchymosis to the dorsum of the left hand and forearm with significant areas of ecchymosis to bilateral lower extremities at different stages of healing. NEURO: No focal deficits. Alert and oriented x2. Moving all extremities spontaneously <Elisabeth Bush PA-C - Last Filed: 09/15/24 23:10> Course PHYSICIAN OFFICE CLIN ASST/PA Physician Supervision I was informed by the PA the patient would be admitted due to frequent falls and possible need for shelter placement after PT OT assessment. I was available for consultation while in the emergency department did poli goncalves examine patient was not directly involved in the care. <Suni Osborn MD - Last Filed: 09/16/24 17:46> Vital Signs Vital signs: Vital Signs Temperature 97.6 F 09/15/24 13:57 Pulse Rate 74 09/15/24 13:57 Respiratory Rate 16 09/15/24 13:57 Blood Pressure 140/86 09/15/24 13:57 Pulse Oximetry 97 09/15/24 13:57 Oxygen Delivery Room Air 09/15/24 13:57 Temperature 96.8 F L 09/16/24 04:25 Pulse Rate 72 09/16/24 09:08 Respiratory Rate 18 09/16/24 04:25 Blood Pressure 158/80 H 09/16/24 04:25 Pulse Oximetry 94 09/16/24 10:38 Oxygen Delivery Room Air 09/16/24 10:38 <Carrie John PA-C - Last Filed: 09/16/24 09:32> Vital Signs Temperature 97.6 F 09/15/24 13:57 Pulse Rate 74 09/15/24 13:57 Respiratory Rate 16 09/15/24 13:57 Blood Pressure 140/86 09/15/24 13:57 Pulse Oximetry 97 09/15/24 13:57 Oxygen Delivery Room Air 09/15/24 13:57 Temperature 96.8 F L 09/16/24 04:25 Pulse Rate 72 09/16/24 09:08 Respiratory Rate 18 09/16/24 04:25 Blood Pressure 158/80 H 09/16/24 04:25 Pulse Oximetry 94 09/16/24 10:38 Oxygen Delivery Room Air 09/16/24 10:38 <Elisabeth Bush PA-C - Last Filed: 09/15/24 23:10> Vital Signs Temperature 97.6 F 09/15/24 13:57 Pulse Rate 74 09/15/24 13:57 Respiratory Rate 16 09/15/24 13:57 Blood Pressure 140/86 09/15/24 13:57 Pulse Oximetry 97 09/15/24 13:57 Oxygen Delivery Room Air 09/15/24 13:57 Temperature 96.8 F L 09/16/24 04:25 Pulse Rate 72 09/16/24 09:08 Respiratory Rate 18 09/16/24 04:25 Blood Pressure 158/80 H 09/16/24 04:25 Pulse Oximetry 94 09/16/24 10:38 Oxygen Delivery Room Air 09/16/24 10:38 <Suni Osborn MD - Last Filed: 09/16/24 17:46> Procedures Laceration Laceration 1: Date: 09/15/24 <Elisabeth Bush PA-C - Last Filed: 09/15/24 23:10> Time: 23:06 <SYBIL South Last Filed: 09/15/24 23:10> Site: lower extremity <SYBIL South Last Filed: 09/15/24 23:10> Side (If applicable): right <SYBIL South Last Filed: 09/15/24 23:10> Size (cm): 10 <SYBIL South Last Filed: 09/15/24 23:10> Description: irregular <SYBIL South Last Filed: 09/15/24 23:10> Depth: simple, single layer <SYBIL South Last Filed: 09/15/24 23:10> Local Anesthetic: lidocaine 1% and with epi <Elisabeth Bush PA-C Last Filed: 09/15/24 23:10> Amount of anesthesia used (mL): 15 <Elisabeth Bush PA-C - Last Filed: 09/15/24 23:10> Pre-repair: wound explored, irrigated and irrigated extensively <SYBIL South Last Filed: 09/15/24 23:10> ====== Skin Level ======: Skin layer closed with: nylon <SYBIL South Last Filed: 09/15/24 23:10> Size (cm): 4-0 <SYBIL South Last Filed: 09/15/24 23:10> Number of sutures: 11 <SYBIL South Last Filed: 09/15/24 23:10> Technique: simple, interrupted <SYBIL South Last Filed: 09/15/24 23:10> ====== Subcutaneous Layer ======: ====== Muscle Layer ======: ====== Tendon Layer ======: MDM - Fall MDM Narrative Medical decision making narrative: 83-year-old female with history of frequent falls presents emergency department for a ground level fall that occurred earlier today at her assisted living facility. See HPI for further history. Vitals are stable. Exam is significant for the above. Basic labs obtained which show no leukocytosis, increase in her hemoglobin from 8.6-11, thrombocytopenia of 77 which appears new. Chemistries with mild hyponatremia of 133 and BUN of 23, otherwise unremarkable. UA without UTI. CT brain shows stable moderate nonspecific cerebral white matter disease which likely represents chronic small vessel ischemic disease. CT cervical spine shows no fracture, severe cervical spondylosis. Chest x-ray shows no acute cardiopulmonary findings. Right knee x-ray shows total right knee arthroplasty near anatomic alignment with no acute osseous findings. Her multiple loose osteochondral bodies and extensive more in for fist dystrophic calcifications soft tissue surrounding the right knee suggestive of tumoral calcinosis. Left knee x-ray shows mild medial and patellofemoral osteoarthritis no acute osseous findings his left knee joint effusion. Pelvis x-ray showed no acute osseous findings. Left hand x-ray shows no acute osseous findings. There is osteoarthritic ch anges of the proximal distal interphalangeal joints with minimal medial subluxation of the level of the proximal interphalangeal joint of the little finger. Patient has no tenderness to this region on exam has full active range of motion of the finger without difficulty. Patient and family updated on workup. Lacerations were irrigated extensively. The largest laceration beneath the right knee was closed with sutures and Steri- Strips and given the location of the laceration the patient was placed in knee immobilizer to prevent skin tearing. Remainder lacerations irrigated and closed with Steri-Strips without complications. Plan to admit the patient to the hospitalist for shelter placement. Family is agreeable with this. Discussed the case with the hospitalist, Dr. King, agrees with the plan for admission. <Elisabeth Bush PA-C - Last Filed: 09/15/24 23:10> Lab Data Result diagrams: 09/15/24 18:11 09/15/24 18:11 <Carrie John PA-C - Last Filed: 09/16/24 09:32> Labs: Lab Results 09/15/24 09/15/24 Range/Units 18:11 21:26 WBC 7.3 (4.5-10.0) K/mm3 RBC 3.29 L (4.2-5.4) M/mm3 Hgb 11.0 L (12.0-15.0) g/dL Hct 33.3 L (37.0-47.0) % MCV 101.2 H (80-100) fl MCH 33.4 (26-34) pg MCHC 33.0 (32-36) g/dl RDW 13.1 (11.5-14.5) % Plt Count 77 L D (150-375) k/mm3 MPV 10.4 (7.4-10.4) fl Immature Gran % (Auto) 0.7 H (0-0.5) % Neut % (Auto) 73.7 H (45.5-73.1) % Lymph % (Auto) 9.7 L (18.3-44.2) % Kaufman % (Auto) 15.0 H (2.6-8.5) % Eos % (Auto) 0.8 (0-4.4) % Baso % (Auto) 0.1 L (0.2-1.2) % Lymph # (Auto) 0.71 L (0.9-3.2) K/mm3 Kaufman # (Auto) 1.1 H (0.1-0.6) K/mm3 Eos # (Auto) 0.1 (0-0.3) K/mm3 Baso # (Auto) 0.0 (0.0-0.1) K/mm3 Abs Immat Gran (auto) 0.05 H (0.00-0.031) K/mm3 Absolute Neuts (auto) 5.4 (1.3-6.7) K/mm3 Absolute Nucleated RBC 0.000 (0.0-0.012) K/mm3 Nucleated RBC % 0.0 (0.0-0.2) % Platelet Estimate Decreased (Adequate) % Immature Plt Fraction 4.1 (0.9-11.2) % Schistocytes None seen Sodium 133 L (137-145) mmol/L Potassium 4.5 (3.4-5.0) mmol/L Chloride 98 (98-107) mmol/L Carbon Dioxide 30 (22-30) mmol/L Anion Gap 5 (4-12) mmol/L BUN 23 H D (7-17) mg/dL Creatinine 0.80 (0.7-1.0) mg/dL Estim Creat Clear Calc Not Reportable Estimated GFR > 60 (59 - ) Glucose 115 H (65-110) mg/dL Calcium 10.0 (8.4-10.2) mg/dL Total Bilirubin 0.7 (0.2-1.3) mg/dL AST 18 (14-36) U/L ALT 18 (6-35) U/L Alkaline Phosphatase 50 (38-126) U/L Total Protein 6.0 L (6.3-8.2) g/dL Albumin 3.9 (3.5-5.1) g/dL Urine Color Yellow (Yellow) Urine Appearance Cloudy H (Clear) Urine pH 7.0 (5.0-9.0) Ur Specific Clutier 1.021 (1.001-1.035) Urine Protein Negative (Negative) mg/dL Urine Glucose (UA) Negative (Negative) mg/dL Urine Ketones Negative (Negative) mg/dL Ur Blood (Man) Negative (Negative) Urine Nitrate Negative (Negative) Urine Bilirubin Negative (Negative) Urine Urobilinogen 1.0 (<2.0) mg/dL Add Ur Microanalysis Reviewed Leukocyte Esterase Rfl Negative (Negative) LETICIA/UL Urine RBC 0-2 (0-2) /hpf Urine WBC 0-5 (0-3) /hpf Ur Squamous Epith Cells None seen (Few) /hpf Calcium Oxalate Crystal Present (None) /hpf Urine Bacteria None seen /hpf Urine Casts 0-2 <Carrie John PA-C - Last Filed: 09/16/24 09:32> Lab Results 09/15/24 09/15/24 Range/Units 18:11 21:26 WBC 7.3 (4.5-10.0) K/mm3 RBC 3.29 L (4.2-5.4) M/mm3 Hgb 11.0 L (12.0-15.0) g/dL Hct 33.3 L (37.0-47.0) % MCV 101.2 H (80-100) fl MCH 33.4 (26-34) pg MCHC 33.0 (32-36) g/dl RDW 13.1 (11.5-14.5) % Plt Count 77 L D (150-375) k/mm3 MPV 10.4 (7.4-10.4) fl Immature Gran % (Auto) 0.7 H (0-0.5) % Neut % (Auto) 73.7 H (45.5-73.1) % Lymph % (Auto) 9.7 L (18.3-44.2) % Kaufman % (Auto) 15.0 H (2.6-8.5) % Eos % (Auto) 0.8 (0-4.4) % Baso % (Auto) 0.1 L (0.2-1.2) % Lymph # (Auto) 0.71 L (0.9-3.2) K/mm3 Kaufman # (Auto) 1.1 H (0.1-0.6) K/mm3 Eos # (Auto) 0.1 (0-0.3) K/mm3 Baso # (Auto) 0.0 (0.0-0.1) K/mm3 Abs Immat Gran (auto) 0.05 H (0.00-0.031) K/mm3 Absolute Neuts (auto) 5.4 (1.3-6.7) K/mm3 Absolute Nucleated RBC 0.000 (0.0-0.012) K/mm3 Nucleated RBC % 0.0 (0.0-0.2) % Platelet Estimate Decreased (Adequate) % Immature Plt Fraction 4.1 (0.9-11.2) % Schistocytes None seen Sodium 133 L (137-145) mmol/L Potassium 4.5 (3.4-5.0) mmol/L Chloride 98 (98-107) mmol/L Carbon Dioxide 30 (22-30) mmol/L Anion Gap 5 (4-12) mmol/L BUN 23 H D (7-17) mg/dL Creatinine 0.80 (0.7-1.0) mg/dL Estim Creat Clear Calc Not Reportable Estimated GFR > 60 (59 - ) Glucose 115 H (65-110) mg/dL Calcium 10.0 (8.4-10.2) mg/dL Total Bilirubin 0.7 (0.2-1.3) mg/dL AST 18 (14-36) U/L ALT 18 (6-35) U/L Alkaline Phosphatase 50 (38-126) U/L Total Protein 6.0 L (6.3-8.2) g/dL Albumin 3.9 (3.5-5.1) g/dL Urine Color Yellow (Yellow) Urine Appearance Cloudy H (Clear) Urine pH 7.0 (5.0-9.0) Ur Specific Clutier 1.021 (1.001-1.035) Urine Protein Negative (Negative) mg/dL Urine Glucose (UA) Negative (Negative) mg/dL Urine Ketones Negative (Negative) mg/dL Ur Blood (Man) Negative (Negative) Urine Nitrate Negative (Negative) Urine Bilirubin Negative (Negative) Urine Urobilinogen 1.0 (<2.0) mg/dL Add Ur Microanalysis Reviewed Leukocyte Esterase Rfl Negative (Negative) LETICIA/UL Urine RBC 0-2 (0-2) /hpf Urine WBC 0-5 (0-3) /hpf Ur Squamous Epith Cells None seen (Few) /hpf Calcium Oxalate Crystal Present (None) /hpf Urine Bacteria None seen /hpf Urine Casts 0-2 <Elisabeth Bush PA-C - Last Filed: 09/15/24 23:10> Lab Results 09/15/24 09/15/24 Range/Units 18:11 21:26 WBC 7.3 (4.5-10.0) K/mm3 RBC 3.29 L (4.2-5.4) M/mm3 Hgb 11.0 L (12.0-15.0) g/dL Hct 33.3 L (37.0-47.0) % MCV 101.2 H (80-100) fl MCH 33.4 (26-34) pg MCHC 33.0 (32-36) g/dl RDW 13.1 (11.5-14.5) % Plt Count 77 L D (150-375) k/mm3 MPV 10.4 (7.4-10.4) fl Immature Gran % (Auto) 0.7 H (0-0.5) % Neut % (Auto) 73.7 H (45.5-73.1) % Lymph % (Auto) 9.7 L (18.3-44.2) % Kaufman % (Auto) 15.0 H (2.6-8.5) % Eos % (Auto) 0.8 (0-4.4) % Baso % (Auto) 0.1 L (0.2-1.2) % Lymph # (Auto) 0.71 L (0.9-3.2) K/mm3 Kaufman # (Auto) 1.1 H (0.1-0.6) K/mm3 Eos # (Auto) 0.1 (0-0.3) K/mm3 Baso # (Auto) 0.0 (0.0-0.1) K/mm3 Abs Immat Gran (auto) 0.05 H (0.00-0.031) K/mm3 Absolute Neuts (auto) 5.4 (1.3-6.7) K/mm3 Absolute Nucleated RBC 0.000 (0.0-0.012) K/mm3 Nucleated RBC % 0.0 (0.0-0.2) % Platelet Estimate Decreased (Adequate) % Immature Plt Fraction 4.1 (0.9-11.2) % Schistocytes None seen Sodium 133 L (137-145) mmol/L Potassium 4.5 (3.4-5.0) mmol/L Chloride 98 (98-107) mmol/L Carbon Dioxide 30 (22-30) mmol/L Anion Gap 5 (4-12) mmol/L BUN 23 H D (7-17) mg/dL Creatinine 0.80 (0.7-1.0) mg/dL Estim Creat Clear Calc Not Reportable Estimated GFR > 60 (59 - ) Glucose 115 H (65-110) mg/dL Calcium 10.0 (8.4-10.2) mg/dL Total Bilirubin 0.7 (0.2-1.3) mg/dL AST 18 (14-36) U/L ALT 18 (6-35) U/L Alkaline Phosphatase 50 (38-126) U/L Total Protein 6.0 L (6.3-8.2) g/dL Albumin 3.9 (3.5-5.1) g/dL Urine Color Yellow (Yellow) Urine Appearance Cloudy H (Clear) Urine pH 7.0 (5.0-9.0) Ur Specific Clutier 1.021 (1.001-1.035) Urine Protein Negative (Negative) mg/dL Urine Glucose (UA) Negative (Negative) mg/dL Urine Ketones Negative (Negative) mg/dL Ur Blood (Man) Negative (Negative) Urine Nitrate Negative (Negative) Urine Bilirubin Negative (Negative) Urine Urobilinogen 1.0 (<2.0) mg/dL Add Ur Microanalysis Reviewed Leukocyte Esterase Rfl Negative (Negative) LETICIA/UL Urine RBC 0-2 (0-2) /hpf Urine WBC 0-5 (0-3) /hpf Ur Squamous Epith Cells None seen (Few) /hpf Calcium Oxalate Crystal Present (None) /hpf Urine Bacteria None seen /hpf Urine Casts 0-2 <Suni Osborn MD - Last Filed: 09/16/24 17:46> Imaging Data Radiologist's impression: ITS Impressions Head CT 09/15/24 14:38 IMPRESSION: 1. Stable moderate nonspecific cerebral white matter disease, which likely represents chronic small vessel ischemic disease. Cervical Spine CT 09/15/24 14:40 IMPRESSION: 1. No fracture. 2. Severe cervical spondylosis. Chest X-Ray 09/15/24 14:58 IMPRESSION: No acute cardiopulmonary pathology. Knee X-Ray 09/15/24 15:00 IMPRESSION: 1. Right total knee arthroplasty in near-anatomic alignment with no acute osseous abnormality. 2. Multiple loose osteochondral bodies and extensive more amorphous dystrophic calcification in the soft tissues surrounding the right knee suggestive of tumoral calcinosis. Hand X-Ray 09/15/24 15:04 IMPRESSION: No acute osseous abnormality left hand. Osteoarthritic changes of the proximal and distal interphalangeal joint. Minimal medial subluxation at the level of the proximal interphalangeal joint of the li ttle finger. Knee X-Ray 09/15/24 15:04 IMPRESSION: 1. Mild medial and patellofemoral osteoarthritis. No acute osseous abnormality. 2. Small left knee joint effusion. Pelvis X-Ray 09/15/24 15:06 IMPRESSION: No acute osseous abnormality pelvis. ADDENDUM: 09/15/24 1516 Radiopaque shadows in the upper abdomen most likely medications. Sclerotic changes in the right femoral head and right acetabulum. <Carrie John PA-C - Last Filed: 09/16/24 09:32> Critical Care Time Critical Care Time Critical Care Time: No <Carrie John PA-C - Last Filed: 09/16/24 09:32> Discharge Plan Discharge Clinical Impression: Frequent falls, Laceration <Carrie John PA-C - Last Filed: 09/16/24 09:32> Patient Disposition: Still a Patient <Carrie John PA-C - Last Filed: 09/16/24 09:32> Condition: Stable <Carrie John PA-C - Last Filed: 09/16/24 09:32>
[2024-09-15 17:00] VITALS: BP 173/77; PULSE 66; RESP 16; TEMP 36.3; O2SAT 96
[2024-09-15 18:20] LABS: Basophils Percent Auto 0.1 % (0.2-1.2); Eosinophils Absolute Auto 0.1 K/mm3 (0-0.3); Eosinophils Percent Auto 0.8 % (0-4.4); Hematocrit 33.3 % (37.0-47.0); Immature Granulocyte Absolute 0.05 K/mm3 (0.00-0.031); Immature Granulocyte Percent A 0.7 % (0-0.5); Immature Platelet Fraction Pct 4.1 % (0.9-11.2); Lymphocytes Absolute Auto 0.71 K/mm3 (0.9-3.2); Lymphocytes Percent Auto 9.7 % (18.3-44.2); Mean Corpuscular Hemoglobin 33.4 pg (26-34); Mean Corpuscular Volume 101.2 fl (80-100); Mean Platelet Volume 10.4 fl (7.4-10.4); Monocytes Absolute Auto 1.1 K/mm3 (0.1-0.6); Neutrophils Absolute Auto 5.4 K/mm3 (1.3-6.7); Neutrophils Percent Auto 73.7 % (45.5-73.1); Platelet Count Result 77 k/mm3 (150-375); Red Blood Count 3.29 M/mm3 (4.2-5.4); Red Cell Distribution Width 13.1 % (11.5-14.5); White Blood Count 7.3 K/mm3 (4.5-10.0)
[2024-09-15 18:35] LABS: Alanine Aminotransferase 18 U/L (6-35); Albumin Level 3.9 g/dL (3.5-5.1); Alkaline Phosphatase 50 U/L (38-126); Anion Gap 5 mmol/L (4-12); Aspartate Amino Transferase 18 U/L (14-36); Bilirubin,Total 0.7 mg/dL (0.2-1.3); Blood Urea Nitrogen 23 mg/dL (7-17); Carbon Dioxide 30 mmol/L (22-30); Chloride 98 mmol/L (98-107); Estimated Glomerular Filt Rate > 60; Glucose 115 mg/dL (65-110); Potassium 4.5 mmol/L (3.4-5.0); Sodium 133 mmol/L (137-145)
[2024-09-15 18:55] LABS: Platelet Estimate Decreased (Adequate)
[2024-09-15 18:56] LABS: Schistocytes None Seen
[2024-09-15 19:06] VITALS: BP 163/68; PULSE 70; RESP 16; O2SAT 97
[2024-09-15] MEDS: LIDO 1%/EPINEPHRINE 1:100,000 20 ML VIAL 10 ML INFILTRATE (21:01)
[2024-09-15 21:52] LABS: Add Urine Microscopic? YES; Appearance Urine Cloudy (Clear); Bacteria Urine None Seen /hpf; Bilirubin Urine Negative (Negative); Blood Urine Negative (Negative); Calcium Oxalate Crystals Urine Present /hpf; Color Urine Yellow (Yellow); Glucose Urine UA Negative (Negative); Ketones Urine Negative (Negative); Leukocyte Esterase Ur Negative LEU/UL (Negative); Need Manual Microscopic Reviewed; Nitrate Urine Negative (Negative); Non Pathogenic Casts 0-2; Protein Urine Negative (Negative); RBC Urine 0-2 /hpf (0-2); Specific Grav Ur 1.021 (1.001-1.035); Squamous Epithelial Cell Urine None Seen /hpf (Few); WBC Urine 0-5 /hpf (0-3)
[2024-09-15 22:34] VITALS: BP 158/74; PULSE 65; RESP 13; O2SAT 98
[2024-09-15 23:50] VITALS: BMI 22.3
[2024-09-16] VITALS (10 sets, daily range): BP systolic 145–202; BP diastolic 70–92; PULSE 62–80; RESP 12–18; TEMP 36–36.5; O2SAT 93–99
--- NOTE | 2024-09-16 | ECHO_ITS ---
Patient Info Name: Alice Bass Age: 83 years : 1940 Gender: Female Ht: 60 in Wt: 174 lbs BSA: 1.86 m2 HR: 72 bpm BP: 158 / 80 mmHg Heart Rhythm: Sinus Rhythm Technical Quality: Fair Exam Date: 09/16/2024 3:40 PM Exam Location: Echo Lab Patient Status: Outpatient Admit Date: 09/15/2024 Staff Ordering Physician: Mel Florez APRN Lightning Rod Erector: Delores Martinez RDCS Attending Provider: Mel Florez APRN Referring Physician: Vikki PARKER; Exam Type: CA echo doppler w bubble study Study Info Indications - stroke Complete two-dimensional, color flow and Doppler transthoracic echocardiogram is performed with agitated saline. Contrast/Agitated Saline Contrast/Ag. Saline: Agitated Saline Amount: 20.00 ml Existing IV Access: Yes IV Access Condition: patent with no signs of infiltration Summary 1. Left ventricular chamber dimension is normal. 2. Left ventricular systolic function is normal, estimated at 60-65%. 3. There is mildly increased left ventricular wall thickness. 4. The left ventricular diastolic function is grade I diastolic dysfunction. 5. Left atrial chamber dimension is mildly enlarged. 6. Pacemaker wires are noted in the right atrium. Hyperechoic densit within the right atrium likely related to pacemaker wires but cannot exclude other mass or thrombus. 7. There is mild aortic valve stenosis with a peak velocity of 203 cm/s, mean gradient of 8 mmHg, and aortic valve area of 1.5 cm2. 8. There is mild aortic valve regurgitation. 9. There is moderate aortic valve calcification. 10. There is mild mitral valve regurgitation. 11. The mitral valve has thickened leaflets. 12. There is mild tricuspid valve regurgitation. 13. Intact interatrial septum visualized by color flow and agitated saline imaging. Left Ventricle Left ventricular chamber dimension is normal. Left ventricular systolic function is normal, estimated at 60-65%. There is mildly increased left ventricular wall thickness. The left ventricular diastolic function is grade I diastolic dysfunction. Right Ventricle Right ventricular chamber dimension is normal. Right ventricular systolic function is normal. Linear artifact in right ventricle suggestive of catheter(s), pacemaker lead(s), or ICD lead(s). Left Atria Left atrial chamber dimension is mildly enlarged. Right Atria Pacemaker wires are noted in the right atrium. Hyperechoic densit within the right atrium likely related to pacemaker wires but cannot exclude other mass or thrombus. Right atrial chamber dimension is normal. Atrial Septum Intact interatrial septum visualized by color flow and agitated saline imaging. Aortic Valve The aortic valve is trileaflet. There is mild aortic valve stenosis with a peak velocity of 203 cm/s, mean gradient of 8 mmHg, and aortic valve area of 1.5 cm2. There is mild aortic valve regurgitation. There is moderate aortic valve calcification. Pulmonic Valve The pulmonic valve is normal. There is no pulmonic valve stenosis. There is trace pulmonic regurgitation. Mitral Valve The mitral valve has thickened leaflets. There is no mitral valve stenosis. There is mild mitral valve regurgitation. Tricuspid Valve The tricuspid valve leaflets are normal. There is no significant tricuspid valve stenosis. There is mild tricuspid valve regurgitation. No pulmonary hypertension, estimated pulmonary arterial systolic pressure is 33 mmHg. Pericardium/Pleural The pericardium appears normal. Inferior Vena Cava Normal inferior vena cava with >50% collapse upon inspiration consistent with normal right atrial pressure, 10 mmHg. Aorta The aortic root size at the sinus of Valsalva is normal. Left Ventricular Outflow Tract Name Value Normal LVOT 2D LVOT Diameter 2.0 cm LVOT Doppler LVOT Peak Gradient 5 mmHg LVOT Mean Gradient 2 mmHg LVOT VTI 17 cm LVOT VTI/AV VTI Ratio 0.5 LVOT Stroke Volume 53 ml LVOT CO 4.2 l/min LVOT CI 2.3 l/min/m2 Pulmonic Valve Name Value Normal RVOT Doppler RVOT Peak Gradient 2 mmHg PV Doppler PV Peak Gradient 3 mmHg Mitral Valve Name Value Normal MV Doppler MV Decel Dickenson 873 cm/s2 MV PHT 22 ms MV Area (PHT) 10.0 cm2 4.0-5.0 MV Diastolic Function MV E Peak Velocity 66 cm/s MV A Peak Velocity 122 cm/s MV E/A 0.5 MV Decel Time 76 ms MV Annular TDI MV E/e' (Septal) 23.2 <=8.0 MV E/e' (Lateral) 18.9 <=8.0 MV E/e' (Average) 21.1 Tricuspid Valve Name Value Normal TV Regurgitation Doppler TR Peak Velocity 242 cm/s TR Peak Gradient 21 mmHg Estimated PAP/RSVP RA Pressure 10 mmHg <=5 PA Systolic Pressure 33 mmHg <36 RV Systolic Pressure 33 mmHg <36 Aorta Name Value Normal Ascending Aorta Ao Root Diameter (MM) 2.7 cm Ao Root Diam Index (MM) 1.4 cm/m2 Aortic Valve Name Value Normal AV Doppler AV Peak Velocity 203 cm/s AV Peak Gradient 16 mmHg AV Mean Gradient 8 mmHg AV VTI 36 cm AV Area (Cont Eq VTI) 1.5 cm2 >=3.0 AV Area (Cont Eq Celestine) 1.7 cm2 AV Regurgitation 2D LVOT Area 3.2 cm2 AV Regurgitation Doppler AR Decel Time 1,596 ms AR Decel Dickenson 296 cm/s2 AR PHT 463 ms Ventricles Name Value Normal LV Dimensions 2D/MM IVS Diastolic Thickness (2D) 1.1 cm 0.6-1.0 LVID Diastole (2D) 4.1 cm 3.8-5.2 LVIW Diastolic Thickness (2D) 1.1 cm 0.6-0.9 LVID Systole (2D) 2.8 cm 2.2-3.5 LVOT Diameter 2.0 cm LV Mass (2D Cubed) 148.47 g 67.00-162.00 LV Mass Index (2D Cubed) 80 g/m2 43-95 Relative Wall Thickness (2D) 0.52 LV Fractional Shortening/Ejection Fraction 2D/MM LV Fractional Shortening (2D) 32 % 27-45 LV EF (2D Teicholz) 60 % 54-74 LV Diastolic Volume (4C MOD) 66 ml LV EF (4C MOD) 58 % LV Diastolic Volume (2C MOD) 63 ml LV EF (2C MOD) 61 % LV Diastolic Volume (BP MOD) 66 ml 46-106 LV Diastolic Volume Index (BP MOD) 35 ml/m2 29-61 LV Systolic Volume (BP MOD) 27 ml 14-42 LV Systolic Volume Index (BP MOD) 14 ml/m2 8-24 LV EF (BP MOD) 60 % 54-74 LV Diastolic Length (4C) 9.1 cm LV Systolic Length (4C) 7.6 cm LV Stroke Volume (4C MOD) 38 ml Atria Name Value Normal LA Dimensions LA Dimension (MM) 4.4 cm 2.7-3.8 LA Volume (4C A-L) 59 ml LA Volume (BP A-L) 54 ml RA Dimensions RA Area (4C) 8.9 cm2 <=18.0 Report Signatures
--- NOTE | 2024-09-16 00:45 | ADMGEN ---
This patient, Alice Bass, was admitted to [facility] Surg Room 332-02. Patient/family oriented to hospital policies and general routines including ID bracelet, bed and alarms, visiting hours, pain management, procedures, bathroom and other care routines, personal items, smoking policy, room service/diet, and visiting hours. Information on how to activate the Rapid Response Team has been discussed. Patient/Family are encouraged to report perceived risks to care and to ask questions if they do not understand what they are told or what they should do.
[2024-09-16] MEDS: METOPROLOL TARTRATE INJ 5 MG/5 ML VIAL IV PUSH (03:19)
[2024-09-16] MEDS: LEVOTHYROXINE SODIUM 75 MCG TABLET PO (05:41)
[2024-09-16] MEDS: ASPIRIN 81 MG CHEWABLE TABLET PO (09:08)
[2024-09-16] MEDS: carvediloL 25 MG TABLET PO ×2 (09:08→21:48)
[2024-09-16] MEDS: LOSARTAN POTASSIUM 100 MG TABLET PO (09:09)
[2024-09-16] MEDS: CHOLECALCIFEROL 1,000 UNITS TABLET 2000 UNITS PO (09:09)
[2024-09-16] MEDS: PRAVASTATIN SODIUM 20 MG TABLET 40 MG PO (09:09)
[2024-09-16] MEDS: CALCIUM/VITAMIN D 500 MG/5 MCG (200 I.U.) TABLET PO (09:09)
[2024-09-16] MEDS: PSYLLIUM POWDER PACKET 1 PACKET PO (09:20)
--- NOTE | 2024-09-16 11:17 | P.HP_ITS ---
H&P: HPI History of Present Illness Date/Time: 09/16/24 11:17 Chief Complaint: Frequent falls Narrative: This is an 83-year-old female with a significant past medical history of anxiety, breast cancer, depression, glaucoma, hyperlipidemia, hypertension, hypothyroidism, osteoporosis who presented to the hospital for evaluation after a ground level fall today while in her bedroom. Patient reports the following history of presenting illness. She states she was in her bedroom tried to put clothes away and her closet when she lost balance and fell. She reports she hit her head but was unsure if she lost consciousness. she reports this isn't the 1st fall and that she has had 4 other times where she has fallen recently. She normally ambulates with a walker and did have her walker with her at the time of her fall. The way she was describing where she was in the room and her trying to reach up to the closet it sounded she was not in a very good safe position. she does not remember if she was lightheaded or dizzy or if she tripped and fell. She also reports that she bruises very easily and that she has been developing these hematomas which she was seen over at [facility]. Unsure if she actually got worked up with Hematology. She does have thrombocytopenia on labs and is only on a baby aspirin. She did report at 1 time she you had vitamin B12 deficiency requiring injections and then was switched over to oral vitamin B12. After review of her medication list I do not see that she is on vitamin B12 anymore. When talking with her she would repeat herself constantly explaining over an over her falls not knowing that she is already explained her cells. when talking it was hard for her to find words and she seemed a little bit confused about timing as well. She also expressed that she was being held against her will and thought that her son was trying to keep her on bed rest and asked if this was legal or not. After explaining to her that she was in the hospital she agreed that she was there and then started in telling me the reason why she was there. She did have a large laceration to the anterior aspect of her right knee and several skin tears on her left knee and hand. She is up-to-date on her Tdap which she received last year in 2022. She denies Any fever, chills, nausea, vomiting, abdominal pain, chest pain, shortness a breath. She does report that she was recently on antibiotics for urinary tract infection and currently has diarrhea. Workup in the hospital included a head CT which showed stable moderate nonspecific cerebral white matter disease representing chronic small- vessel ischemic disease. Cervical spine CT was negative for fracture, showed severe cervical spondylosis. Chest x-ray was negative. Right knee x-ray showing a right total knee arthroplasty in near anatomic alignment with no acute osseous abnormality, multiple loose osteochondral bodies an extensive amorphous dystrophic calcification in the soft tissues surrounding the right knee suggestive of tumoral calcinosis. Left knee x-ray showed mild medial and patellofemoral osteoarthritis, no acute osseous abnormality, small left knee joint effusion. Pelvis x-ray was negative for any acute osseous abnormality. Initial labs showed a white blood cell count of 7.3, hemoglobin 11.0, platelet count 77, sodium 133. UA was obtained which showed a cloudy appearance otherwise negative. Patient was given Tylenol, Ultram, and morphine while in the ED. Review of Systems Review of Systems: All systems reviewed & are unremarkable except as noted in HPI and below Constitutional: Constitutional: Reports as per HPI and Reports no additional constitutional complaints Eyes: Eyes: Reports as per HPI and Reports no additional eye complaints ENT: Reports system reviewed and no additional complaints, except as documented and Reports as per HPI Cardiovascular: Cardiovascular: Reports as per HPI and Reports no additional cardiovascular complaints Respiratory: Respiratory: Reports as per HPI and Reports no additional respiratory complaints Gastrointestinal: Gastrointestinal: Reports as per HPI and Reports no additional gastrointestinal complaints Genitourinary: Genitourinary: Reports no additional female genitourinary complaints and Reports as per HPI Musculoskeletal: Musculoskeletal: Reports no additional musculoskeletal complaints and Reports as per HPI Integumentary/Breasts: Skin/Breast: Reports system reviewed and no additional complaints, except as docu and Reports as per HPI Neurologic: Reports system reviewed and no additional complaints, except as documented and Reports as per HPI Psychiatric: Psychiatric: Reports no additional psychiatric complaints and Reports as per HPI [facility] Past Medical History Medical History (Updated 09/16/24 @ 17:28 by Mel Florez APRN) Anxiety Cancer of right breast Status post mastectomy and chemoradiation. Chronic hyponatremia Collagenous colitis Depression Glaucoma Hematoma of leg Hyperlipidemia Hypertension Hypothyroidism Left bundle branch block Occult blood positive stool Osteoporosis Symptomatic anemia Surgical History Surgical History History of arthroplasty of both shoulders History of arthroscopy of right knee History of cardiac catheterization History of dilation and curettage History of right knee joint replacement History of right mastectomy History of tonsillectomy History of umbilical hernia repair Presence of combination internal cardiac defibrillator (ICD) and pacemaker Family History Family History Mother Pancreatic cancer Father Heart disease Other Diabetes mellitus Hypertension Rheumatoid arthritis Social History Social History Social History: Healthcare power of trademark attorney: Ankit Bass, son. Code status: Full code. Smoking status: Never smoker Alcohol intake: never Substance use: never Do You Feel Safe in your Home?: Yes Lack of Transportation: No Lack of Food: Never True Current Housing: I Have Housing Concerned About Future Housing: No Difficulty Paying Gas/Electric Bills: No Difficulty Paying for Meds: No Currently Unemployed: No Education: High School Diploma/GED Difficulty w/ Childcare or Family Care: No Additional living arrangements comments: Lives alone in [place]. Son lives out of state. Spiritual care concerns: No Meds Home Medications and Allergies Home Medications Medication Instructions Recorded Confirmed Type carvedilol 25 mg tablet 25 mg PO BID 04/27/22 09/15/24 History latanoprost 0.005 % eye drops 1 drp ophthalmic (eye) HS 04/27/22 09/15/24 History levothyroxine 75 mcg tablet 75 mcg PO DAILY 04/27/22 09/15/24 History (Euthyrox) losartan 100 mg tablet 100 mg PO DAILY 04/27/22 09/15/24 History potassium chloride 10 mEq 10 meq PO DAILY 04/27/22 09/15/24 History tablet,extended release pravastatin 40 mg tablet 40 mg PO DAILY 04/27/22 09/15/24 History lidocaine 5 % topical patch 1 patch transdermal DAILY 01/06/23 09/15/24 History aspirin 81 mg chewable tablet 81 mg PO DAILY@0800 #30 tabs 01/08/23 09/15/24 Rx (Children's Aspirin) cholecalciferol (vitamin D3) 50 2,000 unit PO DAILY 04/08/24 09/15/24 History mcg (2,000 unit) tablet furosemide 20 mg tablet (Lasix) 20 mg PO BID PRN edema 04/08/24 09/15/24 History loperamide 2 mg capsule 2 mg PO Q6H PRN Diarrhea 04/08/24 09/15/24 History psyllium 1 packet PO DAILY 04/08/24 09/15/24 History acetaminophen 500 mg tablet 1,000 mg PO TID 09/15/24 09/15/24 History amlodipine 2.5 mg tablet 2.5 mg PO DAILY 09/15/24 09/15/24 History betamethasone dipropionate 0.05 % 1 applic topical BID 09/15/24 09/15/24 History topical cream budesonide 3 mg 3 mg PO DAILY 09/15/24 09/16/24 History capsule,delayed,extended release calcium carb-vitamin D3 ER 600 mg 1 tablet PO DAILY 09/15/24 09/15/24 History (1,500 mg)-500 unit tablet,ER 24 hr diclofenac sodium 1 % topical gel 2 g topical QID 09/15/24 09/15/24 History epinephrine 0.3 mg/0.3 mL 0.3 mg IM PRN PRN Allergic Reaction 09/15/24 09/15/24 History injection, auto-injector tramadol 50 mg tablet 50 mg PO BID PRN pain 09/15/24 09/15/24 History triamcinolone acetonide 0.1 % 1 applic topical BID 09/15/24 09/15/24 History topical cream Allergies Allergy/AdvReac Type Severity Reaction Status Date / Time Penicillins Allergy Mild RASH Verified 05/21/24 11:46 RICK Inhibitors Allergy Unknown Cough Verified 05/21/24 11:46 blue dye Allergy Unknown Other Verified 05/21/24 11:46 cat dander Allergy Unknown Unknown Verified 05/21/24 11:46 cefuroxime Allergy Unknown Unknown Verified 05/21/24 11:46 chlorhexidine Allergy Unknown Unknown Verified 05/21/24 11:46 ciprofloxacin Allergy Unknown Other Verified 05/21/24 11:46 clindamycin Allergy Unknown Unknown Verified 05/21/24 11:46 cornflower Allergy Unknown Unknown Verified 05/21/24 11:46 egg Allergy Unknown Unknown Verified 05/21/24 11:46 gabapentin Allergy Unknown Unknown Verified 05/21/24 11:46 hydralazine Allergy Unknown Unknown Verified 05/21/24 11:46 hydroxyzine Allergy Unknown Unknown Verified 05/21/24 11:46 Iodinated Contrast Media Allergy Unknown Other Verified 05/21/24 11:46 Iodine and Iodide Containing Allergy Unknown Unknown Verified 05/21/24 11:46 Produc [Iodine and Iodide Containing Products] lactase Allergy Unknown Unknown Verified 05/21/24 11:46 mesalamine Allergy Unknown Other Verified 05/21/24 11:46 moxifloxacin Allergy Unknown Other Verified 05/21/24 11:46 nitrofurantoin Allergy Unknown Other Verified 05/21/24 11:46 NSAIDS (Non-Steroidal Allergy Unknown Other Verified 05/21/24 11:46 Anti-Inflamma piroxicam Allergy Unknown Other Verified 05/21/24 11:46 Sulfa (Sulfonamide Allergy Unknown Unknown Verified 05/21/24 11:46 Antibiotics) wheat Allergy Unknown Unknown Verified 05/21/24 11:46 Yeast Allergy Unknown Unknown Verified 05/21/24 11:46 lactose Allergy Unknown Verified 09/15/24 23:15 [id number] Allergy Unknown Unknown Uncoded 09/15/24 23:15 chlorine Allergy Unknown Unknown Uncoded 05/21/24 11:46 dairy Allergy Unknown Unknown Uncoded 05/21/24 11:46 Vital Signs Vital Signs - 24 hr 09/15/24 13:57 09/15/24 17:00 09/15/24 19:06 Temperature 97.6 F 97.3 F L Pulse Rate 74 66 70 Respiratory Rate 16 16 16 Blood Pressure 140/86 173/77 H 163/68 H Pulse Oximetry 97 96 97 Oxygen Delivery Room Air 09/15/24 22:34 09/16/24 00:09 09/16/24 00:09 Temperature 97.7 F Pulse Rate 65 68 68 Respiratory Rate 13 16 16 Blood Pressure 158/74 H 160/70 H 160/70 H Pulse Oximetry 98 99 99 Oxygen Delivery 09/16/24 00:10 09/16/24 03:19 09/16/24 02:30 Temperature 97.2 F L Pulse Rate 64 62 Respiratory Rate 18 Blood Pressure 202/74 H 190/80 H Pulse Oximetry 93 Oxygen Delivery 09/16/24 04:25 09/16/24 04:25 09/16/24 04:25 Temperature 96.8 F L 96.8 F L 96.8 F L Pulse Rate 65 67 73 Respiratory Rate 18 18 18 Blood Pressure 190/92 H 190/80 H 170/76 H Pulse Oximetry 97 98 98 Oxygen Delivery 09/16/24 04:25 09/16/24 09:08 09/16/24 10:38 Temperature 96.8 F L Pulse Rate 80 72 Respiratory Rate 18 Blood Pressure 158/80 H Pulse Oximetry 94 94 Oxygen Delivery Room Air Exam Narrative: General: In no acute distress, well nourished Head: atraumatic Eyes: PERRLA, sclera clear ENT: moist mucous membranes, nasal passages clear Neck: supple, no JVD, no adenopathy, trachea midline Cardiac: Normal S1 and S2. Murmur noted. No gallops or friction rubs, peripheral pulses intact. Respiratory: Lungs clear to auscultation, no adventitious lung sounds, currently on room air Gastrointestinal: soft, non-distended, non-tender, normoactive bowel sounds. incontinent : Collins catheter in place, incontinent at baseline wears depends Extremities: right lower extremity knee immobilizer in place, mild ankle swelling, limited range of motion of right leg Skin: multiple areas of bruising with different variation of color, left arm and hand ecchymosis with skin tear on top of her left hand, left knee swelling lateral side below the knee left foot has a scabbed area on top, right ankle ecchymosis. Skin tear noted to the left knee with Steri-Strips on the medial side Neuro: Alert and oriented x3, she denies any vision changes, lightheadedness, dizziness. When conversing with her she repeats her self, talks in circles, has trouble recalling words or events in the past Psych: normal mood, normal affect, interactive H&P: Results Labs Labs: Short CBC 09/15/24 Range/Units 18:11 WBC 7.3 (4.5-10.0) K/mm3 Hgb 11.0 L (12.0-15.0) g/dL Hct 33.3 L (37.0-47.0) % Plt Count 77 L D (150-375) k/mm3 BMP 09/15/24 18:11 Sodium 133 L Potassium 4.5 Chloride 98 Carbon Dioxide 30 BUN 23 H D Creatinine 0.80 Glucose 115 H Calcium 10.0 Liver Function 09/15/24 Range/Units 18:11 Total Bilirubin 0.7 (0.2-1.3) mg/dL AST 18 (14-36) U/L ALT 18 (6-35) U/L Alkaline Phosphatase 50 (38-126) U/L Albumin 3.9 (3.5-5.1) g/dL Urine 09/15/24 Range/Units 21:26 Urine Color Yellow (Yellow) Urine Appearance Cloudy H (Clear) Urine pH 7.0 (5.0-9.0) Ur Specific [place]wood 1.021 (1.001-1.035) Urine Protein Negative (Negative) mg/dL Urine Glucose (UA) Negative (Negative) mg/dL Imaging CT scan - head: Radiologist's impression: EXAMINATION: CT brain wo con DATE: 09/15/2024 14:31 INDICATION: Fall. TECHNIQUE: Computed tomography (CT) of the head was performed without intrav enous contrast. The mA was adjusted according to patient size. Iterative reconstruction technique was employed. The dose-length product was 908.00 mGy- cm. COMPARISON: Head CT 01/05/2023 FINDINGS: There are scattered areas of low attenuation in the cerebral white matter. There is no intracranial hemorrhage, acute infarction, or abnormal intracranial mass lesion. The ventricles are normal in size. There are likely changes of ocular lens replacement surgeries. There is mucosal thickening in the paranasal sinuses. The mastoid air cells are normal. IMPRESSION: 1. Stable moderate nonspecific cerebral white matter disease, which likely represents chronic small vessel ischemic disease. Reviewed, dictated and finalized at location A. NE SERVICE [employer]ATION ATTENDANT Cervical spine CT: Radiologist's impression: EXAMINATION: CT cervical spine wo con DATE: 09/15/2024 14:31 INDICATION: Neck injury. Fall. TECHNIQUE: Computed tomography (CT) of the cervical spine was performed without intravenous contrast. Automated exposure control and iterative reconstruction technique were employed. The dose-length product was 297.84 mGy-cm. COMPARISON: CT cervical spine 08/10/2005 FINDINGS: There is 3 mm anterolisthesis of C4 on C5 and 2 mm anterolisthesis of C6 on C7 and C7 on T1. There is 10 degrees dextroscoliosis of lower cervical spine. Vertebral body heights are normal. There is severely decreased disc height from C4 to C5 through C6-C7. The following disc levels are specifically discussed: C2-C3: There is no uncovertebral joint osteoarthritis. There is mild right and moderate left facet joint osteoarthritis. There is no neural foraminal stenosis. There is no central canal stenosis. C3-C4: There is no uncovertebral joint osteoarthritis. There is moderate bilateral facet joint osteoarthritis. There is no neural foraminal stenosis. There is no central canal stenosis. C4-C5: There is severe right and mild left uncovertebral joint osteoarthritis. There is severe bilateral facet joint osteoarthritis. There is mild bilateral neural foraminal stenosis. There is mild central canal stenosis. C5-C6: There is severe bilateral uncovertebral joint osteoarthritis. There is severe bilateral facet joint osteoarthritis. There is mild bilateral neural foraminal stenosis. There is no central canal stenosis. C6-C7: There is mild right and moderate left uncovertebral joint osteoarthritis. There is severe bilateral facet joint osteoarthritis. There is mild bilateral neural foraminal stenosis. There is mild central canal stenosis. C7-T1: There is no uncovertebral joint osteoarthritis. There is moderate bilateral facet joint osteoarthritis. There is mild left neural foraminal stenosis. There is no central canal stenosis. IMPRESSION: 1. No fracture. 2. Severe cervical spondylosis. Reviewed, dictated and finalized at location A. [employer]ICE [employer]ATION ATTENDANT Chest x-ray: Radiologist's impression: XR chest 2V Ordering provider: Carrie John PA-C History: 83 years Female with . fall . Comparison: None. FINDINGS: MEDIASTINUM: The cardiac silhouette is not enlarged. Left bipolar pacemaker. LUNGS: No infiltrates, effusions or pneumothorax. OTHER: No free air under the diaphragm. Severe kyphosis. Levoscoliosis. Degenerative spine. Bilateral shoulder arthrop lasty. IMPRESSION: No acute cardiopulmonary pathology. Reviewed, dictated and finalized at location A. [employer] SERVICE [employer]ATION ATTENDANT Right knee x-ray: Radiologist's impression: EXAMINATION: XR knee RT min 4V DATE: 09/15/2024 14:52 INDICATION: Right knee pain post fall TECHNIQUE: Anteroposterior, 2 oblique and crosstable lateral views of the right knee were obtained COMPARISON: None. FINDINGS: Right total knee arthroplasty without patellar resurfacing which appears well seated in near anatomic alignment. No periprosthetic lucency to suggest loosening or infection. No fracture. Multiple more well-defined loose osteochondral bodies and more extensive and amorphous appearing calcific density in the soft tissues surrounding the knee suggestive of tumoral calcinosis. Scattered vascular calcifications. No definitive joint effusion. IMPRESSION: 1. Right total knee arthroplasty in near-anatomic alignment with no acute osseous abnormality. 2. Multiple loose osteochondral bodies and extensive more amorphous dystrophic calcification in the soft tissues surrounding the right knee suggestive of tumoral calcinosis. Reviewed, dictated and finalized at location B. [employer]ICE [employer]ATION ATTENDANT Left knee x-ray: Radiologist's impression: EXAMINATION: XR knee LT min 4V DATE: 09/15/2024 14:52 INDICATION: Fall TECHNIQUE: Anteroposterior, 2 oblique and crosstable lateral views of the left knee were obtained COMPARISON: None. FINDINGS: Alignment is normal. No fracture. Mild osteoarthritis at the medial and patellofemoral compartments of the left knee. Small left knee joint effusion. Vascular calcifications. IMPRESSION: 1. Mild medial and patellofemoral osteoarthritis. No acute osseous abnormality. 2. Small left knee joint effusion. Reviewed, dictated and finalized at location B. [employer] SERVICE [employer]ATION ATTENDANT Left hand x-ray: Radiologist's impression: XR hand LT min 3V Ordering provider: Carrie John History: . fall . Comparison: None. FINDINGS: BONES: No acute fracture or dislocation. Osteopenia of the bones. JOINT SPACES: Narrowing of the proximal and distal interphalangeal joints. Minimal medial subluxation at the level of the proximal interphalangeal joint of the little finger. Osteoarthritic changes of the first carpometacarpal joint. SOFT TISSUES: Unremarkable. IMPRESSION: No acute osseous abnormality left hand. Osteoarthritic changes of the proximal and distal interphalangeal joint. Minimal medial subluxation at the level of the proximal interphalangeal joint of the little finger. Reviewed, dictated and finalized at location A. NE SERVICE [employer]ATION ATTENDANT Pelvis x-ray: Radiologist's impression: ADDENDUMRadiopaque shadows in the upper abdomen most likely medications. Sclerotic changes in the right femoral head and right acetabulum. NE SERVICE [employer]ATION ATTENDANT Addendum Dictated By: Ed Marvin MD Addendum Signed By: <Electronically signed by Ed Marvin MD in [place]> 09/15/241514 Addendum Cosigned By: DD/ /27/1513 TD/TT: / SINGLE AP VIEW PELVIS Ordering provider: Carrie John History: . fall . Comparison: None. FINDINGS: BONES: No acute fracture or dislocation. Sclerotic changes seen in the right femoral head toward right acetabulum HIP JOINT SPACES: Normal. SACROILIAC JOINT SPACES/LUMBAR SPINE: The sacroiliac joint spaces are normal. Mild degenerative changes of the visualized lower lumbar spine. PUBIC SYMPHYSIS: Normal. SOFT TISSUES: Radiopaque shadows in the upper abdomen most likely indications. IMPRESSION: No acute osseous abnormality pelvis. Reviewed, dictated and finalized at location A. NE SERVICE STATION ATTENDANT Assessment and Plan Assessment and plan (1) Fall from ground level: Code(s): W18.30XA - Fall on same level, unspecified, initial encounter Status: Acute Assessment and Plan: * Ground level fall this morning, patient had had however unsure if she lost consciousness * Head CT showed stable moderate nonspecific cerebral white matter disease likely representing chronic small-vessel ischemic disease * C-spine CT was negative for fracture, severe cervical spondylosis * Chest x-ray was negative * Right knee x-ray showed right total knee arthroplasty in near anatomic alignment with no acute osseous abnormality, multiple loose osteochondral bodies and extensive amorphous is dystrophic calcification in the soft tissue surrounding the right knee 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 * Pelvis x-ray was negative for any acute osseous abnormalities however did show sclerotic changes in the right femoral head and right acetabulum. * Large laceration to right knee with smaller lacerations/skin tear to left knee. Continue wound care. * Continue neuro checks Q 4 hour * Obtain orthostatic blood pressure Q shift * PT and OT ordered * Case coordination consulted for potential rehab needs * Continue fall precautions * Continue pain control * UA negative for bacteria. No other signs and symptoms of infection at this time * Will check a TSH, has history of hypothyroidism * will obtain carotid Dopplers as we were unable to get a CTA of brain and neck due to allergy to iodine contrast * unable to get MRI of brain due to pacemaker to assess for any stroke or any other abnormality. * will obtain echo with bubble study (2) Open wound of foot: Code(s): S91.309A - Unspecified open wound, unspecified foot, initial encounter Status: Acute Assessment and Plan: * continue wound care * small wound to the top of her foot left foot, scabbed (3) Open wound of knee: Qualifiers: Encounter type: initial encounter Laterality: left Qualified Code(s): S81.002A - Unspecified open wound, left knee, initial encounter Code(s): S81.009A - Unspecified open wound, unspecified knee, initial encounter Status: Acute Assessment and Plan: * continue wound care * large area of skin tear with Steri-Strips (4) Hypo-osmolality and hyponatremia: Code(s): E87.1 - Hypo-osmolality and hyponatremia Status: Acute Assessment and Plan: * Sodium 133 * Appears to be chronic * Will check serum osmolarity, urine osmolarity, urine sodium * will start fluid restriction * nephrology consulted (5) Hypothyroidism: Code(s): E03.9 - Hypothyroidism, unspecified Status: Acute Assessment and Plan: * Continue Synthroid * will check thyroid levels (6) Thrombocytopenia: Code(s): D69.6 - Thrombocytopenia, unspecified Status: Acute Assessment and Plan: * Platelet count 77, appears to be new * Last platelet count was 221 on 04/14/2024 * patient reports that she has only been taking a baby aspirin and reports a vitamin B12 deficiency in the past however she is not taking any vitamin B12 on her home medication list * will go ahead and check vitamin B12 * will also get Hematology consult as she has had multiple bruising and hematomas that she states has been popping up on her legs, unsure if this is due to falls or a coagulation problem. she states she was at [facility] for 7 or 8 days and seems someone there but unsure if it was a buggy runner. * will check coags and fibrinogen as well (7) Hypertension: Code(s): I10 - Essential (primary) hypertension Status: Acute Assessment and Plan: * blood pressure ranging 158/80 to 170/76 * continue losartan, amlodipine, and Coreg (8) Hyperlipidemia: Code(s): E78.5 - Hyperlipidemia, unspecified Status: Acute Assessment and Plan: * continue aspirin and pravastatin (9) Diarrhea: Code(s): R19.7 - Diarrhea, unspecified Status: Acute Assessment and Plan: * recently on antibiotics for urinary tract infection * patient has had liquid stools and is incontinent * we will go ahead and send off for C diff * if C diff is negative we can go ahead and start her loperamide and budesonide Quality VTE Prophylaxis VTE prophylaxis: mechanical ordered
[2024-09-16] MEDS: POTASSIUM CHLORIDE 10 MEQ ER TABLET PO (12:27)
[2024-09-16 16:45] LABS: Sodium Urine Random 64 meq/L
--- NOTE | 2024-09-16 17:00 | PC.NURSE ---
RN was informed by family to call [facility] the pts private rn acute care to get the MRI consent and CT consent questioner completed. RN called [facility] at 1640. RN was informed that the pt has a PACEMAKER. RN informed Hospitalist Mel at 1645 about the Pacemaker so the MRI was cancelled.
[2024-09-16 17:04] LABS: Toxigenic C. Diff NEGATIVE (NEGATIVE)
[2024-09-16 17:54] LABS: Fibrinogen 251 mg/dl (215-510); INR 0.9; Prothrombin Time 12.8 Seconds (11.1-14.7)
[2024-09-16 19:44] LABS: Folic Acid 2.1 ng/mL (2.76->20); Vitamin B12 > 1000.0 pg/mL (239-931)
[2024-09-16] MEDS: LATANOPROST 0.005% OP SOLN 2.5 ML BTL 1 DROP EACH EYE (21:49)
[2024-09-17 05:31] VITALS: BP 146/85; PULSE 78; RESP 16; TEMP 36.4; O2SAT 99
[2024-09-17] MEDS: LEVOTHYROXINE SODIUM 75 MCG TABLET PO (06:09)
[2024-09-17 08:00] VITALS: BP 173/91; BP 176/88; PULSE 76; PULSE 78; RESP 18; TEMP 36.6; O2SAT 94
[2024-09-17 08:06] LABS: Basophils Percent Auto 0.3 % (0.2-1.2); Eosinophils Absolute Auto 0.1 K/mm3 (0-0.3); Eosinophils Percent Auto 1.4 % (0-4.4); Hematocrit 32.3 % (37.0-47.0); Hemoglobin 10.6 g/dL (12.0-15.0); Immature Granulocyte Absolute 0.08 K/mm3 (0.00-0.031); Immature Granulocyte Percent A 1.1 % (0-0.5); Lymphocytes Absolute Auto 0.79 K/mm3 (0.9-3.2); Lymphocytes Percent Auto 10.7 % (18.3-44.2); Mean Corpuscular HGB Conc 32.8 g/dl (32-36); Mean Corpuscular Hemoglobin 33.9 pg (26-34); Mean Corpuscular Volume 103.2 fl (80-100); Mean Platelet Volume 11.7 fl (7.4-10.4); Monocytes Absolute Auto 1.2 K/mm3 (0.1-0.6); Monocytes Percent Auto 15.9 % (2.6-8.5); Neutrophils Absolute Auto 5.2 K/mm3 (1.3-6.7); Neutrophils Percent Auto 70.6 % (45.5-73.1); Platelet Count Result 69 k/mm3 (150-375); Red Blood Count 3.13 M/mm3 (4.2-5.4); Red Cell Distribution Width 13.2 % (11.5-14.5); White Blood Count 7.4 K/mm3 (4.5-10.0)
[2024-09-17 10:00] VITALS: BP 169/82; PULSE 78; RESP 18; TEMP 36.6; O2SAT 94
--- NOTE | 2024-09-17 10:15 | P.CONNP_ITS ---
Assessment and Plan Assessment and plan (1) Hypo-osmolality and hyponatremia: Code(s): E87.1 - Hypo-osmolality and hyponatremia Status: Acute Assessment and Plan: * chronic issue since as far back as 2019 * sodium has been running anywhere from 121 - 135mmol/L * has been relatively stable since admission * risk factors for low sodium: * history of TIA * history of breast cancer * history of hypothyroidism * PRN lasix use * recent fall/injury * currently just on fluid restriction * follow-up on pending testing (serum urine osmo and protein electrophoresis) * TSH okay - check cortisol * follow trend of repeat sodium (2) Fall from ground level: Code(s): W18.30XA - Fall on same level, unspecified, initial encounter Status: Acute Assessment and Plan: * as noted by admission history * results on extensive imaging done to date noted... * PT/OT as tolerated (3) Hypertension: Code(s): I10 - Essential (primary) hypertension Status: Acute Assessment and Plan: * little elevated at this time * however, pain issues maybe playing a role * follow trend of hemodynamics I will continue to follow the patient with you while she remains hospitalized and make further recommendations as deemed necessary. Thank you for allowing me to participate in the care of this patient. History of Present Illness Reason for Consult Consult date: 09/17/24 Reason for consult: hyponatremia Chief Complaint Chief complaint: Frequent falls History of Present Illness Narrative: The patient is a 63-year-old female with an extensive past medical history as outlined below who presented to [facility] Emergency room af ter sustaining a ground level fall while in her bedroom. The patient was apparently in her better fluids where you in her closet when she apparently lost her balance and fell. She states that she hit her head but she is not sure if she lost consciousness. Apparently, this not the 1st fall the patient has had. She has had several falls recently as well. More concerning is the fact that each time she has a fall she develops significant hematomas thought to be related to her significant thrombocytopenia. In any case, given this most recent fall, she was brought to the ER for further assessment. Workup and evaluation in the emergency room demonstrated the patient to be hemodynamically stable and in no acute distress. The patient underwent numerous imaging studies to rule out any type of acute fractures which included a head CT which was negative, cervical spine CT which was negative except for severe cervical spondylosis, negative chest x-ray, right knee x-ray demonstrating a right total knee arthroplasty, left knee x-ray with mild medial and patellofemoral osteoarthritis and a small left knee effusion. Pelvis x-rays were also negative for any fracture. Routine blood test demonstrated a normal CBC with relative anemia but a platelet count of 77 and a sodium level of 133. UA was negative for any type of infection. The patient was given pain medications given her recent fall and subsequently admitted to the hospital for further evaluation and therapy. Renal consultation was requested due to her evidence of chronic hyponatremia. From review of her records, it would seem that she has had low sodium levels that date back as far as 2019 if not longer. however, despite the presence of her hyponatremia including on her recent hospitalizations here at [facility], he does not appeared as ever been fully worked up or evaluated. Her sodium level seems to fluctuate fluctuate to extremes anywhere from as low as 121 to as high as 135 millimoles per L. She reports that she thinks she was told in the past about her hyponatremia but she could not really L out rate any further. Her sodium levels actually stable both on admission and since her hospitalization here. Currently, the time my evaluation, she appears to be in no acute distress. Review of Systems Review of Systems: As per HPI. [facility] Past Medical History Medical History (Updated 09/17/24 @ 19:20 by Juliano Graham MD) Anxiety Cancer of right breast Status post mastectomy and chemoradiation. Chronic hyponatremia Collagenous colitis Depression Glaucoma Hematoma of leg Hyperlipidemia Hypertension Hypothyroidism Left bundle branch block Occult blood positive stool Osteoporosis Symptomatic anemia Surgical History Surgical History (Updated 09/17/24 @ 19:20 by Juliano Graham MD) History of arthroplasty of both shoulders History of arthroscopy of right knee History of cardiac catheterization History of dilation and curettage History of right knee joint replacement History of right mastectomy History of tonsillectomy History of umbilical hernia repair Presence of combination internal cardiac defibrillator (ICD) and pacemaker Family History Family History Mother Pancreatic cancer Father Heart disease Other Diabetes mellitus Hypertension Rheumatoid arthritis Social History Social History Social History: Healthcare power of orchid superintendent: Ankit Bass, son. Code status: Full code. Smoking status: Never smoker Alcohol intake: never Substance use: never Do You Feel Safe in your Home?: Yes Lack of Transportation: No Lack of Food: Never True Current Housing: I Have Housing Concerned About Future Housing: No Difficulty Paying Gas/Electric Bills: No Difficulty Paying for Meds: No Currently Unemployed: No Education: High School Diploma/GED Difficulty w/ Childcare or Family Care: No Additional living arrangements comments: Lives alone in [place]. Son lives out of state. Spiritual care concerns: No Meds Home Medications and Allergies Home Medications Medication Instructions Recorded Confirmed Type carvedilol 25 mg tablet 25 mg PO BID 04/27/22 09/15/24 History latanoprost 0.005 % eye drops 1 drp ophthalmic (eye) HS 04/27/22 09/15/24 History levothyroxine 75 mcg tablet 75 mcg PO DAILY 04/27/22 09/15/24 History (Euthyrox) losartan 100 mg tablet 100 mg PO DAILY 04/27/22 09/15/24 History potassium chloride 10 mEq 10 meq PO DAILY 04/27/22 09/15/24 History tablet,extended release pravastatin 40 mg tablet 40 mg PO DAILY 04/27/22 09/15/24 History lidocaine 5 % topical patch 1 patch transdermal DAILY 01/06/23 09/15/24 History aspirin 81 mg chewable tablet 81 mg PO DAILY@0800 #30 tabs 01/08/23 09/15/24 Rx (Children's Aspirin) cholecalciferol (vitamin D3) 50 2,000 unit PO DAILY 04/08/24 09/15/24 History mcg (2,000 unit) tablet furosemide 20 mg tablet (Lasix) 20 mg PO BID PRN edema 04/08/24 09/15/24 History loperamide 2 mg capsule 2 mg PO Q6H PRN Diarrhea 04/08/24 09/15/24 History psyllium 1 packet PO DAILY 04/08/24 09/15/24 History acetaminophen 500 mg tablet 1,000 mg PO TID 09/15/24 09/15/24 History amlodipine 2.5 mg tablet 2.5 mg PO DAILY 09/15/24 09/15/24 History betamethasone dipropionate 0.05 % 1 applic topical BID 09/15/24 09/15/24 History topical cream budesonide 3 mg 3 mg PO DAILY 09/15/24 09/16/24 History capsule,delayed,extended release calcium carb-vitamin D3 ER 600 mg 1 tablet PO DAILY 09/15/24 09/15/24 History (1,500 mg)-500 unit tablet,ER 24 hr diclofenac sodium 1 % topical gel 2 g topical QID 09/15/24 09/15/24 History epinephrine 0.3 mg/0.3 mL 0.3 mg IM PRN PRN Allergic Reaction 09/15/24 09/15/24 History injection, auto-injector tramadol 50 mg tablet 50 mg PO BID PRN pain 09/15/24 09/15/24 History triamcinolone acetonide 0.1 % 1 applic topical BID 09/15/24 09/15/24 History topical cream Allergies Allergy/AdvReac Type Severity Reaction Status Date / Time Penicillins Allergy Mild RASH Verified 05/21/24 11:46 RICK Inhibitors Allergy Unknown Cough Verified 05/21/24 11:46 blue dye Allergy Unknown Other Verified 05/21/24 11:46 cat dander Allergy Unknown Unknown Verified 05/21/24 11:46 cefuroxime Allergy Unknown Unknown Verified 05/21/24 11:46 chlorhexidine Allergy Unknown Unknown Verified 05/21/24 11:46 ciprofloxacin Allergy Unknown Other Verified 05/21/24 11:46 clindamycin Allergy Unknown Unknown Verified 05/21/24 11:46 cornflower Allergy Unknown Unknown Verified 05/21/24 11:46 egg Allergy Unknown Unknown Verified 05/21/24 11:46 gabapentin Allergy Unknown Unknown Verified 05/21/24 11:46 hydralazine Allergy Unknown Unknown Verified 05/21/24 11:46 hydroxyzine Allergy Unknown Unknown Verified 05/21/24 11:46 Iodinated Contrast Media Allergy Unknown Other Verified 05/21/24 11:46 Iodine and Iodide Containing Allergy Unknown Unknown Verified 05/21/24 11:46 Produc [Iodine and Iodide Containing Products] lactase Allergy Unknown Unknown Verified 05/21/24 11:46 mesalamine Allergy Unknown Other Verified 05/21/24 11:46 moxifloxacin Allergy Unknown Other Verified 05/21/24 11:46 nitrofurantoin Allergy Unknown Other Verified 05/21/24 11:46 NSAIDS (Non-Steroidal Allergy Unknown Other Verified 05/21/24 11:46 Anti-Inflamma piroxicam Allergy Unknown Other Verified 05/21/24 11:46 Sulfa (Sulfonamide Allergy Unknown Unknown Verified 05/21/24 11:46 Antibiotics) wheat Allergy Unknown Unknown Verified 05/21/24 11:46 Yeast Allergy Unknown Unknown Verified 05/21/24 11:46 lactose Allergy Unknown Verified 09/15/24 23:15 [id number] Allergy Unknown Unknown Uncoded 09/15/24 23:15 chlorine Allergy Unknown Unknown Uncoded 05/21/24 11:46 dairy Allergy Unknown Unknown Uncoded 05/21/24 11:46 Vital Signs Vital Signs Temp Pulse Resp BP Pulse Ox O2 Del Method 09/17/24 10:00 97.9 F 78 18 169/82 H 94 09/17/24 08:00 97.9 F 76 18 176/88 H 94 09/17/24 08:00 97.9 F 78 18 173/91 H 94 09/17/24 08:00 Room Air 09/17/24 10:56 Room Air 09/17/24 10:16 80 Exam Narrative: GENERAL APPEARANCE: elderly but well developed well nourished female in no acute distress HEENT: normocephalic, atraumatic, normal conjunctiva and sclera, nares patient NECK: no lymphadenopathy, thyromegaly, or JVD MOUTH: normal lips, teeth, and gums CARDIOVASCULAR: RRR, normal S1 and S2, no rub RESPIRATORY: clear to auscultation bilaterally ABDOMEN: soft, nontender, nondistended, positive bowel sounds present EXTREMITIES: no evidence of cyanosis, clubbing; right lower extremity knee immobilizer in place NEUROLOGICAL: alert and oriented x 2 - 3; no focal deficits noted Results Lab Results 09/21/24 08:20 09/21/24 08:20 Lab results: Most recent lab results Calcium 8.8 mg/dL (8.4-10.2) 09/17/24 09:45
[2024-09-17 10:16] VITALS: PULSE 80
[2024-09-17] MEDS: PRAVASTATIN SODIUM 20 MG TABLET 40 MG PO (10:16)
[2024-09-17] MEDS: carvediloL 25 MG TABLET PO ×2 (10:16→20:55)
[2024-09-17] MEDS: FOLIC ACID 1 MG TABLET PO (10:17)
[2024-09-17] MEDS: CHOLECALCIFEROL 1,000 UNITS TABLET 2000 UNITS PO (10:17)
[2024-09-17] MEDS: PSYLLIUM POWDER PACKET 1 PACKET PO (10:17)
[2024-09-17] MEDS: BUDESONIDE 3 MG CAP.SR.24H PO (10:17)
[2024-09-17] MEDS: LOSARTAN POTASSIUM 100 MG TABLET PO (10:17)
[2024-09-17] MEDS: ASPIRIN 81 MG CHEWABLE TABLET PO (10:17)
[2024-09-17] MEDS: CALCIUM/VITAMIN D 500 MG/5 MCG (200 I.U.) TABLET PO (10:17)
[2024-09-17 10:31] LABS: Alanine Aminotransferase 17 U/L (6-35); Albumin Level 3.6 g/dL (3.5-5.1); Alkaline Phosphatase 47 U/L (38-126); Anion Gap 7 mmol/L (4-12); Aspartate Amino Transferase 17 U/L (14-36); Bilirubin,Total 0.7 mg/dL (0.2-1.3); Blood Urea Nitrogen 13 mg/dL (7-17); Calcium 8.8 mg/dL (8.4-10.2); Carbon Dioxide 25 mmol/L (22-30); Chloride 96 mmol/L (98-107); Estimated CRCL calculation 43 ml/min; Estimated Glomerular Filt Rate > 60; Glucose 147 mg/dL (65-110); Potassium 3.7 mmol/L (3.4-5.0); Sodium 128 mmol/L (137-145)
--- NOTE | 2024-09-17 12:04 | P.PNIM_ITS ---
Progress Note: A&P Assessment and Plan (1) Fall from ground level: Code(s): W18.30XA - Fall on same level, unspecified, initial encounter Status: Acute Assessment and Plan: * Ground level fall this morning, patient had had however unsure if she lost consciousness * Head CT showed stable moderate nonspecific cerebral white matter disease likely representing chronic small-vessel ischemic disease * C-spine CT was negative for fracture, severe cervical spondylosis * Chest x-ray was negative * Right knee x-ray showed right total knee arthroplasty in near anatomic alignment with no acute osseous abnormality, multiple loose osteochondral bodies and extensive amorphous is dystrophic calcification in the soft tissue surrounding the right knee 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 * Pelvis x-ray was negative for any acute osseous abnormalities however did show sclerotic changes in the right femoral head and right acetabulum. * Large laceration to right knee with smaller lacerations/skin tear to left knee. Continue wound care. * Continue neuro checks Q 4 hour * Obtain orthostatic blood pressure Q shift * PT and OT ordered * Case coordination consulted and looking at rehab placement to * Continue fall precautions * Continue pain control * UA negative for bacteria. No other signs and symptoms of infection at this time * Will check a TSH, has history of hypothyroidism * will obtain carotid Dopplers as we were unable to get a CTA of brain and neck due to allergy to iodine contrast * unable to get MRI of brain due to pacemaker to assess for any stroke or any other abnormality. * echo with bubble study shown normal LV systolic function with an estimated EF of 60-65%, grade 1 diastolic dysfunction, negative bubble study. (2) Open wound of foot: Code(s): S91.309A - Unspecified open wound, unspecified foot, initial encounter Status: Acute Assessment and Plan: * continue wound care * small wound to the top of her foot left foot, scabbed (3) Open wound of knee: Qualifiers: Encounter type: initial encounter Laterality: left Qualified Code(s): S81.002A - Unspecified open wound, left knee, initial encounter Code(s): S81.009A - Unspecified open wound, unspecified knee, initial encounter Status: Acute Assessment and Plan: * continue wound care * large area of skin tear with Steri-Strips (4) Hypo-osmolality and hyponatremia: Code(s): E87.1 - Hypo-osmolality and hyponatremia Status: Acute Assessment and Plan: * Sodium 128 * Appears to be chronic * serum osmolarity, urine osmolarity, urine sodium is pending * will start fluid restriction * nephrology consulted (5) Hypothyroidism: Code(s): E03.9 - Hypothyroidism, unspecified Status: Acute Assessment and Plan: * Continue Synthroid * will check thyroid levels (6) Thrombocytopenia: Code(s): D69.6 - Thrombocytopenia, unspecified Status: Acute Assessment and Plan: * Platelet count 77>69, appears to be new * Last platelet count was 221 on 04/14/2024 * patient reports that she has only been taking a baby aspirin and reports a vitamin B12 deficiency in the past however she is not taking any vitamin B12 on her home medication list * Vitamin B 12 was > 1000 pg/ml * will also get Hematology consult as she has had multiple bruising and hematomas that she states has been popping up on her legs, unsure if this is due to falls or a coagulation problem. she states she was at [place] for 7 or 8 days and seems someone there but unsure if it was a non destructive tester. * Fibrinogen 251, INR 0.9 (7) Hypertension: Code(s): I10 - Essential (primary) hypertension Status: Acute Assessment and Plan: * blood pressure ranging 145/79-176/74 * continue losartan and Coreg * Will restart amlodipine today (8) Hyperlipidemia: Code(s): E78.5 - Hyperlipidemia, unspecified Status: Acute Assessment and Plan: * continue aspirin and pravastatin (9) Diarrhea: Code(s): R19.7 - Diarrhea, unspecified Status: Acute Assessment and Plan: * recently on antibiotics for urinary tract infection * patient has had liquid stools and is incontinent * C diff negative * Loperamide and budesonide restarted (10) Folate deficiency: Code(s): E53.8 - Deficiency of other specified B group vitamins Status: Acute Assessment and Plan: * Folate 2.1 * Folic acid ordered Time Spent With Patient Time with patient: Greater than 35 minutes Subjective Date/time seen: 09/17/24 12:04 Interval history: Interval history: This is an 83-year-old female with a significant past medical history of anxiety, breast cancer, depression, glaucoma, hyperlipidemia, hypertension, hypothyroidism, osteoporosis who presented to the hospital for evaluation after a ground level fall today while in her bedroom. Patient reports the following history of presenting illness. She states she was in her bedroom tried to put clothes away and her closet when she lost balance and fell. She reports she hit her head but was unsure if she lost consciousness. she reports this isn't the 1st fall and that she has had 4 other times where she has fallen recently. She normally ambulates with a walker and did have her walker with her at the time of her fall. The way she was describing where she was in the room and her trying to reach up to the closet it sounded she was not in a very good safe position. she does not remember if she was lightheaded or dizzy or if she tripped and fell. She also reports that she bruises very easily and that she has been developing these hematomas which she was seen over at [facility]. Unsure if she actually got worked up with Hematology. She does have thrombocytopenia on labs and is only on a baby aspirin. She did report at 1 time she you had vitamin B12 deficiency requiring injections and then was switched over to oral vitamin B12. After review of her medication list I do not see that she is on vitamin B12 anymore. When talking with her she would repeat herself constantly explaining over an over her falls not knowing that she is already explained her cells. when talking it was hard for her to find words and she seemed a little bit confused about timing as well. She also expressed that she was being held against her will and thought that her son was trying to keep her on bed rest and asked if this was legal or not. After explaining to her that she was in the hospital she agreed that she was there and then started in telling me the reason why she was there. She did have a large laceration to the anterior aspect of her right knee and several skin tears on her left knee and hand. She is up-to-date on her Tdap which she received last year in 2022. She denies Any fever, chills, nausea, vomiting, abdominal pain, chest pain, shortness a breath. She does report that she was recently on antibiotics for urinary tract infection and currently has diarrhea. Workup in the hospital included a head CT which showed stable moderate nonspecific cerebral white matter disease representing chronic small- vessel ischemic disease. Cervical spine CT was negative for fracture, showed severe cervical spondylosis. Chest x-ray was negative. Right knee x-ray showing a right total knee arthroplasty in near anatomic alignment with no acute osseous abnormality, multiple loose osteochondral bodies an extensive amorphous dystrophic calcification in the soft tissues surrounding the right knee suggestive of tumoral calcinosis. Left knee x-ray showed mild medial and patellofemoral osteoarthritis, no acute osseous abnormality, small left knee joint effusion. Pelvis x-ray was negative for any acute osseous abnormality. Initial labs showed a white blood cell count of 7.3, hemoglobin 11.0, platelet count 77, sodium 133. UA was obtained which showed a cloudy appearance otherwise negative. Patient was given Tylenol, Ultram, and morphine while in the ED. Subjective: Patient is alert and oriented x3 however she seems confused at times and states that she is being held against her will. She denies any other complaints today. Labs and testing reviewed. Review of Systems Review of Systems: All systems reviewed & are unremarkable except as noted in HPI and below Constitutional: Constitutional: Reports as per HPI and Reports no additional constitutional complaints Eyes: Eyes: Reports as per HPI and Reports no additional eye complaints ENT: Reports system reviewed and no additional complaints, except as documented and Reports as per HPI Cardiovascular: Cardiovascular: Reports as per HPI and Reports no additional cardiovascular complaints Respiratory: Respiratory: Reports as per HPI and Reports no additional respiratory complaints Gastrointestinal: Gastrointestinal: Reports as per HPI and Reports no additional gastrointestinal complaints Genitourinary: Genitourinary: Reports no additional female genitourinary complaints and Reports as per HPI Musculoskeletal: Musculoskeletal: Reports no additional musculoskeletal complaints and Reports as per HPI Integumentary/Breasts: Skin/Breast: Reports system reviewed and no additional complaints, except as docu and Reports as per HPI Neurologic: Reports system reviewed and no additional complaints, except as documented and Reports as per HPI Psychiatric: Psychiatric: Reports no additional psychiatric complaints and Reports as per HPI Exam Narrative: General: In no acute distress, well nourished Cardiac: Normal S1 and S2. Murmur noted. No gallops or friction rubs, peripheral pulses intact. Respiratory: Lungs clear to auscultation, no adventitious lung sounds, currently on room air Gastrointestinal: soft, non-distended, non-tender, normoactive bowel sounds. incontinent, liquid stools : Collins catheter in place, incontinent at baseline wears depends Extremities: right lower extremity knee immobilizer in place, mild ankle swelling, limited range of motion of right leg Skin: multiple areas of bruising with different variation of color, left arm and hand ecchymosis with skin tear on top of her left hand, left knee swelling lateral side below the knee left foot has a scabbed area on top, right ankle ecchymosis. Skin tear noted to the left knee with Steri-Strips on the medial side Neuro: Alert and oriented x3, seems off or a bit confused. She keeps stating she is being held against her will and talking about things that does not make sense. Objective Data Vital Signs Vital Signs: Vital Signs - 24 hr 09/16/24 16:00 09/16/24 20:12 09/16/24 21:48 Temperature 96.9 F L 97.7 F Pulse Rate 77 78 78 Respiratory Rate 12 16 Blood Pressure 176/74 H 145/79 H Pulse Oximetry 95 97 09/17/24 05:31 09/17/24 10:16 Temperature 97.6 F Pulse Rate 78 80 Respiratory Rate 16 Blood Pressure 146/85 H Pulse Oximetry 99 Intake/Output Intake/Output: Intake & Output 09/14/24 09/15/24 09/16/24 09/17/24 23:59 23:59 23:59 23:59 Intake Total 765 200 Output Total 1225 1200 Balance -460 -1000 Meds/Results Medications: Active Medications Generic Name Dose Route Start Last Admin Trade Name Dawsonq PRN Reason Stop Dose Admin Acetaminophen 650 mg 09/15/24 23:10 Acetaminophen 325 Mg Tablet PO Q4H PRN Mild Pain (1-3) or Fever Aspirin 81 mg 09/16/24 08:00 09/17/24 10:17 Aspirin 81 Mg Chewable Tablet PO 81 mg DAILY@0800 [facility] Administration Budesonide 3 mg 09/17/24 09:00 09/17/24 10:17 Budesonide 3 Mg Cap.Sr.24h PO 3 mg DAILY DEBRA Administration Calcium Carbonate 500 mg 09/16/24 09:00 09/17/24 10:17 Calcium/Vitamin D 500 Mg/5 Mcg (200 I.U.) Tablet PO 500 mg QAM DEB[facility] Administration Carvedilol 25 mg 09/16/24 09:00 09/17/24 10:16 Carvedilol 25 Mg Tablet PO 25 mg Q12HR DEB[facility] Administration Folic Acid 1 mg 09/17/24 09:00 09/17/24 10:17 Folic Acid 1 Mg Tablet PO 1 mg DAILY DEBRA Administration Latanoprost 1 drop 09/16/24 21:00 09/16/24 21:49 Latanoprost 0.005% Op Soln 2.5 Ml Btl EACH EYE 1 drop HS DEBRA Administration Levothyroxine Sodium 75 mcg 09/16/24 06:30 09/17/24 06:09 Levothyroxine Sodium 75 Mcg Tablet PO 75 mcg DAILY@0630 [facility] Administration Loperamide HCl 2 mg 09/17/24 07:26 Loperamide Hcl 2 Mg Capsule PO Q6H PRN Diarrhea Losartan Potassium 100 mg 09/16/24 09:00 09/17/24 10:17 Losartan Potassium 100 Mg Tablet PO 100 mg DAILY DEBRA Administration Morphine Sulfate 2 mg 09/15/24 23:10 Morphine Sulfate (*Crx) 2 Mg/Ml Inj IV PUSH Q2H PRN Pain Rated 7-10 Ondansetron HCl 4 mg 09/16/24 11:34 Ondansetron Inj 4 Mg/2 Ml Vial IV PUSH Q6H PRN Nausea And Vomiting Perflutren Lipid Microsphere 0 ml 09/16/24 14:45 Perflutren Lipid Microspheres 1.5 Ml Vial Diluted To 10 Ml Total Volume IV PUSH 09/19/24 14:46 ONCE PRN adequate visualization Protocol Potassium Chloride 10 meq 09/16/24 12:00 09/16/24 12:27 Potassium Chloride 10 Meq Er Tablet PO 10 meq DAILY@1200 [facility] Administration Pravastatin Sodium 40 mg 09/16/24 09:00 09/17/24 10:16 Pravastatin Sodium 20 Mg Tablet PO 40 mg DAILY [facility] Administration Psyllium Hydrophilic Mucilloid 1 packet 09/16/24 09:00 09/17/24 10:17 Psyllium Powder Packet PO 1 packet DAILY [facility] Administration Tramadol HCl 50 mg 09/16/24 02:32 Tramadol Hcl (*Crx) 50 Mg Tablet PO BID PRN pain 4-6 Vitamin D 2,000 units 09/16/24 09:00 09/17/24 10:17 Cholecalciferol 1,000 Units Tablet PO 2,000 units DAILY DEB[facility] Administration Radiology Results: ITS Impressions Head CT 09/15/24 14:38 IMPRESSION: 1. Stable moderate nonspecific cerebral white matter disease, which likely represents chronic small vessel ischemic disease. Cervical Spine CT 09/15/24 14:40 IMPRESSION: 1. No fracture. 2. Severe cervical spondylosis. Chest X-Ray 09/15/24 14:58 IMPRESSION: No acute cardiopulmonary pathology. Hand X-Ray 09/15/24 15:04 IMPRESSION: No acute osseous abnormality left hand. Osteoarthritic changes of the proximal and distal interphalangeal joint. Minimal medial subluxation at the level of the proximal interphalangeal joint of the little finger. Knee X-Ray 09/15/24 15:04 IMPRESSION: 1. Mild medial and patellofemoral osteoarthritis. No acute osseous abnormality. 2. Small left knee joint effusion. Pelvis X-Ray 09/15/24 15:06 IMPRESSION: No acute osseous abnormality pelvis. ADDENDUM: 09/15/24 1516 Radiopaque shadows in the upper abdomen most likely medications. Sclerotic changes in the right femoral head and right acetabulum. Labs Labs: Laboratory Results - last 24 hr 09/16/24 09/16/24 09/16/24 12:31 15:44 15:56 WBC RBC Hgb Hct MCV MCH MCHC RDW Plt Count MPV Immature Gran % (Auto) Neut % (Auto) Lymph % (Auto) [place] % (Auto) Eos % (Auto) Baso % (Auto) Lymph # (Auto) [place] # (Auto) Eos # (Auto) Baso # (Auto) Abs Immat Gran (auto) Absolute Neuts (auto) Absolute Nucleated RBC Nucleated RBC % % Immature Plt Fraction PT INR Fibrinogen Sodium Potassium Chloride Carbon Dioxide Anion Gap BUN Creatinine Estim Creat Clear Calc Estimated GFR Glucose Calcium Total Bilirubin AST ALT Alkaline Phosphatase Total Protein Albumin Vitamin B12 Folate TSH 2.130 Ur Random Sodium 64 C. difficile (PCR) Negative 09/16/24 09/17/24 09/17/24 17:34 07:56 09:45 WBC 7.4 RBC 3.13 L Hgb 10.6 L Hct 32.3 L MCV 103.2 H MCH 33.9 MCHC 32.8 RDW 13.2 Plt Count 69 L MPV 11.7 H Immature Gran % (Auto) 1.1 H Neut % (Auto) 70.6 Lymph % (Auto) 10.7 L [place] % (Auto) 15.9 H Eos % (Auto) 1.4 Baso % (Auto) 0.3 Lymph # (Auto) 0.79 L [place] # (Auto) 1.2 H Eos # (Auto) 0.1 Baso # (Auto) 0.0 Abs Immat Gran (auto) 0.08 H Absolute Neuts (auto) 5.2 Absolute Nucleated RBC 0.000 Nucleated RBC % 0.0 % Immature Plt Fraction 6.0 PT 12.8 INR 0.9 Fibrinogen 251 Sodium 128 L Potassium 3.7 Chloride 96 L Carbon Dioxide 25 Anion Gap 7 BUN 13 D Creatinine 0.60 L Estim Creat Clear Calc 43 Estimated GFR > 60 Glucose 147 H Calcium 8.8 Total Bilirubin 0.7 AST 17 ALT 17 Alkaline Phosphatase 47 Total Protein 6.0 L Albumin 3.6 Vitamin B12 > 1000.0 H Folate 2.1 L TSH Ur Random Sodium C. difficile (PCR) Quality VTE Prophylaxis VTE prophylaxis: mechanical ordered
[2024-09-17] MEDS: amLODIPine BESYLATE 2.5 MG TABLET PO (13:01)
[2024-09-17] MEDS: POTASSIUM CHLORIDE 10 MEQ ER TABLET PO (13:02)
[2024-09-17 16:00] VITALS: BP 120/45; PULSE 80; RESP 18; TEMP 36.1; O2SAT 96
--- NOTE | 2024-09-17 19:15 | PDONCCN ---
HPI - Date of Consult Date/Time: 09/17/24 19:15 Requesting Physician: Mel Florez APRN Primary Care Provider: Gokul Mujica, - Consult Narrative Reason for consult: Anemia and thrombocytopenia Narrative: Alice Bass is a 83 year old female with past medical history of breast cancer, glaucoma, hypertension, hyperlipidemia and osteoporosis came into the hospital status post fall in her bedroom. Patient developed left upper extremity bruising. She denies any bleeding. Her labs showed anemia with hemoglobin of 10.6 and platelet count [id number]. Creatinine was normal. According to patient she also received chemotherapy for her breast cancer more than 10 years ago. She is a poor historian. She denies any bleeding including melena hematochezia but has multiple hematomas and bruising in the upper and lower extremities. Review of Systems - Review of Systems All systems reviewed & are unremarkable except as noted in HPI and bel - Neurologic Reports system reviewed and no additional complaints, except as documented PMFSH Medical History: Medical History (Last Updated 09/16/24 @ 17:26 by Mel Florez APRN) Anxiety Cancer of right breast Status post mastectomy and chemoradiation. Chronic hyponatremia Collagenous colitis Depression Glaucoma Hematoma of leg Hyperlipidemia Hypertension Hypothyroidism Left bundle branch block Occult blood positive stool Osteoporosis Symptomatic anemia Surgical History: Surgical History (Last Reviewed 09/16/24 @ 17:17 by Mel Florez APRN) History of arthroplasty of both shoulders History of arthroscopy of right knee History of cardiac catheterization History of dilation and curettage History of right knee joint replacement History of right mastectomy History of tonsillectomy History of umbilical hernia repair Presence of combination internal cardiac defibrillator (ICD) and pacemaker Family History: Family History (Last Reviewed 09/16/24 @ 17:17 by Mel Florez APRN) Mother Pancreatic cancer Father Heart disease Other Diabetes mellitus Hypertension Rheumatoid arthritis - Social History Social History: Social History (Last Reviewed 09/16/24 @ 17:17 by Mel Florez APRN) Alcohol Use: Alcohol intake: never Substance Use: Substance use: never Others: Spiritual care concerns: No Smoking Status: Smoking status: Never smoker Social Determinants of Health: Do You Feel Safe in your Home?: Yes Has the Lack of Transportation Kept You From Medical Appointments or From Getting Medications?: No Within the Past 12 Months, Were You Worried Whether Your Food Would Run Out Before You Got Money to Buy More?: Never True What is Your Housing Situation Today?: I Have Housing Are You Worried That in the Next 2 Months, You May Not Have Your Own Housing to Live In?: No Do You Have Trouble Paying Your Heating Or Electricity Bill?: No Do You Have Trouble Paying For Medicines?: No Are You Currently Unemployed and Looking for Work?: No Highest Level of Education Completed: High School Diploma/GED Do You Have Trouble With Childcare or the Care of a Family Member?: No Exam - Vital Signs Vital Signs - 24 hr 09/16/24 20:12 09/16/24 21:48 09/17/24 05:31 Temperature 36.5 C 36.4 C Pulse Rate 78 78 78 Respiratory Rate 16 16 Blood Pressure 145/79 H 146/85 H Pulse Oximetry 97 99 Oxygen Delivery 09/17/24 10:16 09/17/24 10:56 09/17/24 08:00 Temperature Pulse Rate 80 Respiratory Rate Blood Pressure Pulse Oximetry Oxygen Delivery Room Air Room Air 09/17/24 08:00 09/17/24 08:00 09/17/24 10:00 Temperature 36.6 C 36.6 C 36.6 C Pulse Rate 78 76 78 Respiratory Rate 18 18 18 Blood Pressure 173/91 H 176/88 H 169/82 H Pulse Oximetry 94 94 94 Oxygen Delivery 09/17/24 16:00 Temperature 36.1 C L Pulse Rate 80 Respiratory Rate 18 Blood Pressure 120/45 L Pulse Oximetry 96 Oxygen Delivery - Exam HEENT: EOMI, PERRLA, mucous membranes moist and pink Neck: supple Lungs: clear to auscultation, normal air movement Heart: no murmurs, gallops, or rubs, regular rhythm, regular rate Abdomen: abdomen soft, non-distended, normal bowel sounds Extremities: normal pulses Integumentary: no abnormalities Neurological: normal speech Psychological: mental status NL, mood NL - Lab Results Laboratory Last Values WBC 7.4 K/mm3 (4.5-10.0) 09/17/24 07:56 RBC 3.13 M/mm3 (4.2-5.4) L 09/17/24 07:56 Hgb 10.6 g/dL (12.0-15.0) L 09/17/24 07:56 Hct 32.3 % (37.0-47.0) L 09/17/24 07:56 MCV 103.2 fl (80-100) H 09/17/24 07:56 MCH 33.9 pg (26-34) 09/17/24 07:56 MCHC 32.8 g/dl (32-36) 09/17/24 07:56 RDW 13.2 % (11.5-14.5) 09/17/24 07:56 Plt Count 69 k/mm3 (150-375) L 09/17/24 07:56 MPV 11.7 fl (7.4-10.4) H 09/17/24 07:56 Immature Gran % (Auto) 1.1 % (0-0.5) H 09/17/24 07:56 Neut % (Auto) 70.6 % (45.5-73.1) 09/17/24 07:56 Lymph % (Auto) 10.7 % (18.3-44.2) L 09/17/24 07:56 [place] % (Auto) 15.9 % (2.6-8.5) H 09/17/24 07:56 Eos % (Auto) 1.4 % (0-4.4) 09/17/24 07:56 Baso % (Auto) 0.3 % (0.2-1.2) 09/17/24 07:56 Lymph # (Auto) 0.79 K/mm3 (0.9-3.2) L 09/17/24 07:56 [place] # (Auto) 1.2 K/mm3 (0.1-0.6) H 09/17/24 07:56 Eos # (Auto) 0.1 K/mm3 (0-0.3) 09/17/24 07:56 Baso # (Auto) 0.0 K/mm3 (0.0-0.1) 09/17/24 07:56 Abs Immat Gran (auto) 0.08 K/mm3 (0.00-0.031) H 09/17/24 07:56 Absolute Neuts (auto) 5.2 K/mm3 (1.3-6.7) 09/17/24 07:56 Absolute Nucleated RBC 0.000 K/mm3 (0.0-0.012) 09/17/24 07:56 Nucleated RBC % 0.0 % (0.0-0.2) 09/17/24 07:56 Platelet Estimate Decreased (Adequate) 09/15/24 18:11 % Immature Plt Fraction 6.0 % (0.9-11.2) 09/17/24 07:56 Schistocytes None seen 09/15/24 18:11 PT 12.8 Seconds (11.1-14.7) 09/16/24 17:34 INR 0.9 09/16/24 17:34 Fibrinogen 251 mg/dl (215-510) 09/16/24 17:34 Sodium 128 mmol/L (137-145) L 09/17/24 09:45 Potassium 3.7 mmol/L (3.4-5.0) 09/17/24 09:45 Chloride 96 mmol/L (98-107) L 09/17/24 09:45 Carbon Dioxide 25 mmol/L (22-30) 09/17/24 09:45 Anion Gap 7 mmol/L (4-12) 09/17/24 09:45 BUN 13 mg/dL (7-17) D 09/17/24 09:45 Creatinine 0.60 mg/dL (0.7-1.0) L 09/17/24 09:45 Estim Creat Clear Calc 43 ml/min 09/17/24 09:45 Estimated GFR > 60 (59-) 09/17/24 09:45 Glucose 147 mg/dL (65-110) H 09/17/24 09:45 Calcium 8.8 mg/dL (8.4-10.2) 09/17/24 09:45 Total Bilirubin 0.7 mg/dL (0.2-1.3) 09/17/24 09:45 AST 17 U/L (14-36) 09/17/24 09:45 ALT 17 U/L (6-35) 09/17/24 09:45 Alkaline Phosphatase 47 U/L (38-126) 09/17/24 09:45 Total Protein 6.0 g/dL (6.3-8.2) L 09/17/24 09:45 Albumin 3.6 g/dL (3.5-5.1) 09/17/24 09:45 Vitamin B12 > 1000.0 pg/mL (239-931) H 09/16/24 17:34 Folate 2.1 ng/mL (2.76->20) L 09/16/24 17:34 TSH 2.130 uIU/mL (0.465-4.680) 09/16/24 12:31 Urine Color Yellow (Yellow) 09/15/24 21: Urine Appearance Cloudy (Clear) H 09/15/24 21: Urine pH 7.0 (5.0-9.0) 09/15/24 21: Ur Specific [place] 1.021 (1.001-1.035) 09/15/24 21: Urine Protein Negative mg/dL (Negative) 09/15/24 21: Urine Glucose (UA) Negative mg/dL (Negative) 09/15/24 21: Urine Ketones Negative mg/dL (Negative) 09/15/24 21: Ur Blood (Man) Negative (Negative) 09/15/24 21: Urine Nitrate Negative (Negative) 09/15/24: Urine Bilirubin Negative (Negative) 09/15/24 21: Urine Urobilinogen 1.0 mg/dL (<2.0) 09/15/24 21: Add Ur Microanalysis Reviewed 09/15/24 21: Leukocyte Esterase Rfl Negative LETICIA/UL (Negative) 09/15/24 21: Urine RBC 0-2 /hpf (0-2) 09/15/24 21: Urine WBC 0-5 /hpf (0-3) 09/15/24 21:26 Ur Squamous Epith Cells None seen /hpf (Few) 09/15/24 21: Calcium Oxalate Crystal Present /hpf (None) 09/15/24 21: Urine Bacteria None seen /hpf 09/15/24 21: Urine Casts 0-2 09/15/24 21: Ur Random Sodium 64 meq/L 09/16/24 15:56 C. difficile (PCR) Negative (NEGATIVE) 09/16/24 15:44 Meds Home Medications Medication Instructions Recorded Confirmed Type carvedilol 25 mg tablet 25 mg PO BID 04/27/22 09/15/24 History latanoprost 0.005 % eye drops 1 drp ophthalmic (eye) HS 04/27/22 09/15/24 History levothyroxine 75 mcg tablet 75 mcg PO DAILY 04/27/22 09/15/24 History (Euthyrox) losartan 100 mg tablet 100 mg PO DAILY 04/27/22 09/15/24 History potassium chloride 10 mEq 10 meq PO DAILY 04/27/22 09/15/24 History tablet,extended release pravastatin 40 mg tablet 40 mg PO DAILY 04/27/22 09/15/24 History lidocaine 5 % topical patch 1 patch transdermal DAILY 01/06/23 09/15/24 History aspirin 81 mg chewable tablet 81 mg PO DAILY@0800 #30 tabs 01/08/23 09/15/24 Rx (Children's Aspirin) cholecalciferol (vitamin D3) 50 2,000 unit PO DAILY 04/08/24 09/15/24 History mcg (2,000 unit) tablet furosemide 20 mg tablet (Lasix) 20 mg PO BID PRN edema 04/08/24 09/15/24 History loperamide 2 mg capsule 2 mg PO Q6H PRN Diarrhea 04/08/24 09/15/24 History psyllium 1 packet PO DAILY 04/08/24 09/15/24 History acetaminophen 500 mg tablet 1,000 mg PO TID 09/15/24 09/15/24 History amlodipine 2.5 mg tablet 2.5 mg PO DAILY 09/15/24 09/15/24 History betamethasone dipropionate 0.05 % 1 applic topical BID 09/15/24 09/15/24 History topical cream budesonide 3 mg 3 mg PO DAILY 09/15/24 09/16/24 History capsule,delayed,extended release calcium carb-vitamin D3 ER 600 mg 1 tablet PO DAILY 09/15/24 09/15/24 History (1,500 mg)-500 unit tablet,ER 24 hr diclofenac sodium 1 % topical gel 2 g topical QID 09/15/24 09/15/24 History epinephrine 0.3 mg/0.3 mL 0.3 mg IM PRN PRN Allergic Reaction 09/15/24 09/15/24 History injection, auto-injector tramadol 50 mg tablet 50 mg PO BID PRN pain 09/15/24 09/15/24 History triamcinolone acetonide 0.1 % 1 applic topical BID 09/15/24 09/15/24 History topical cream Allergies Allergy/AdvReac Type Severity Reaction Status Date / Time Penicillins Allergy Mild RASH Verified 05/21/24 11:46 RICK Inhibitors Allergy Unknown Cough Verified 05/21/24 11:46 blue dye Allergy Unknown Other Verified 05/21/24 11:46 cat dander Allergy Unknown Unknown Verified 05/21/24 11:46 cefuroxime Allergy Unknown Unknown Verified 05/21/24 11:46 chlorhexidine Allergy Unknown Unknown Verified 05/21/24 11:46 ciprofloxacin Allergy Unknown Other Verified 05/21/24 11:46 clindamycin Allergy Unknown Unknown Verified 05/21/24 11:46 cornflower Allergy Unknown Unknown Verified 05/21/24 11:46 egg Allergy Unknown Unknown Verified 05/21/24 11:46 gabapentin Allergy Unknown Unknown Verified 05/21/24 11:46 hydralazine Allergy Unknown Unknown Verified 05/21/24 11:46 hydroxyzine Allergy Unknown Unknown Verified 05/21/24 11:46 Iodinated Contrast Media Allergy Unknown Other Verified 05/21/24 11:46 Iodine and Iodide Containing Allergy Unknown Unknown Verified 05/21/24 11:46 Produc [Iodine and Iodide Containing Products] lactase Allergy Unknown Unknown Verified 05/21/24 11:46 mesalamine Allergy Unknown Other Verified 05/21/24 11:46 moxifloxacin Allergy Unknown Other Verified 05/21/24 11:46 nitrofurantoin Allergy Unknown Other Verified 05/21/24 11:46 NSAIDS (Non-Steroidal Allergy Unknown Other Verified 05/21/24 11:46 Anti-Inflamma piroxicam Allergy Unknown Other Verified 05/21/24 11:46 Sulfa (Sulfonamide Allergy Unknown Unknown Verified 05/21/24 11:46 Antibiotics) wheat Allergy Unknown Unknown Verified 05/21/24 11:46 Yeast Allergy Unknown Unknown Verified 05/21/24 11:46 lactose Allergy Unknown Verified 09/15/24 23:15 [id number] Allergy Unknown Unknown Uncoded 09/15/24 23:15 chlorine Allergy Unknown Unknown Uncoded 05/21/24 11:46 dairy Allergy Unknown Unknown Uncoded 05/21/24 11:46 Results - Labs CBC & Chem 7: 09/17/24 07:56 09/17/24 09:45 Labs: Short CBC 09/17/24 Range/Units 07:56 WBC 7.4 (4.5-10.0) K/mm3 Hgb 10.6 L (12.0-15.0) g/dL Hct 32.3 L (37.0-47.0) % Plt Count 69 L (150-375) k/mm3 BMP 09/17/24 09:45 Sodium 128 L Potassium 3.7 Chloride 96 L Carbon Dioxide 25 BUN 13 D Creatinine 0.60 L Glucose 147 H Calcium 8.8 Liver Function 09/17/24 Range/Units 09:45 Total Bilirubin 0.7 (0.2-1.3) mg/dL AST 17 (14-36) U/L ALT 17 (6-35) U/L Alkaline Phosphatase 47 (38-126) U/L Albumin 3.6 (3.5-5.1) g/dL Assessment and Plan - Additional Plan Thrombocytopenia and anemia. Patient is the 83-year-old female with history of breast cancer status post chemotherapy more than 10 years ago. Patient is a poor historian and came into the hospital status post fall. Labs showed mild thrombocytopenia and anemia. She has been dealing with upper and lower extremity bruising without any bleeding. I have discussed the differential diagnosis of thrombocytopenia that includes nutritional deficiencies, autoimmune thrombocytopenia, hepatosplenomegaly, and primary bone marrow disorders. I will order the workup that will include platelet antibodies, abdominal ultrasound. Her B12 level was more than 1000. I will check iron studies. No need for bone marrow biopsy at this time unless to become significantly thrombocytopenic or anemic. She will follow-up with me in the office. I have provided her my office information.
[2024-09-17 20:20] VITALS: BP 200/104; PULSE 80; RESP 18; TEMP 36.2; O2SAT 95
[2024-09-17 20:36] LABS: Iron 45 ug/dL (37-170)
[2024-09-17 20:45] LABS: Percent Iron Saturation 16 % (20-50)
[2024-09-17] MEDS: LATANOPROST 0.005% OP SOLN 2.5 ML BTL 1 DROP EACH EYE (21:03)
[2024-09-18 00:15] VITALS: BP 154/86; PULSE 73; RESP 18; TEMP 36.3; O2SAT 94
[2024-09-18 05:00] VITALS: BP 144/76; PULSE 73; RESP 18; TEMP 36.2; O2SAT 95
[2024-09-18 06:15] LABS: Basophils Percent Auto 0.3 % (0.2-1.2); Eosinophils Absolute Auto 0.1 K/mm3 (0-0.3); Eosinophils Percent Auto 0.8 % (0-4.4); Hematocrit 30.6 % (37.0-47.0); Immature Granulocyte Absolute 0.08 K/mm3 (0.00-0.031); Immature Platelet Fraction Pct 4.3 % (0.9-11.2); Lymphocytes Absolute Auto 0.67 K/mm3 (0.9-3.2); Lymphocytes Percent Auto 8.6 % (18.3-44.2); Mean Corpuscular HGB Conc 32.7 g/dl (32-36); Mean Corpuscular Hemoglobin 33.7 pg (26-34); Mean Platelet Volume 10.4 fl (7.4-10.4); Monocytes Absolute Auto 0.8 K/mm3 (0.1-0.6); Monocytes Percent Auto 10.2 % (2.6-8.5); Neutrophils Absolute Auto 6.2 K/mm3 (1.3-6.7); Neutrophils Percent Auto 79.1 % (45.5-73.1); Platelet Count Result 100 k/mm3 (150-375); Red Blood Count 2.97 M/mm3 (4.2-5.4); Red Cell Distribution Width 13.2 % (11.5-14.5); White Blood Count 7.8 K/mm3 (4.5-10.0)
[2024-09-18 08:11] LABS: Anion Gap 8 mmol/L (4-12); Blood Urea Nitrogen 14 mg/dL (7-17); Calcium 8.7 mg/dL (8.4-10.2); Carbon Dioxide 22 mmol/L (22-30); Chloride 100 mmol/L (98-107); Estimated CRCL calculation 43 ml/min; Estimated Glomerular Filt Rate > 60; Glucose 110 mg/dL (65-110); Potassium 3.9 mmol/L (3.4-5.0); Sodium 130 mmol/L (137-145)
--- NOTE | 2024-09-18 08:29 | PCPTNOTE ---
The patient treatment was not able to be completed at this time due to patient out of room for testing. Will plan to continue treatment per plan of care.
--- NOTE | 2024-09-18 08:32 | P.PNIM_ITS ---
Progress Note: A&P Assessment and Plan (1) Fall from ground level: Code(s): W18.30XA - Fall on same level, unspecified, initial encounter Status: Acute Assessment and Plan: * Ground level fall this morning, patient had had however unsure if she lost consciousness * Head CT showed stable moderate nonspecific cerebral white matter disease likely representing chronic small-vessel ischemic disease * C-spine CT was negative for fracture, severe cervical spondylosis * Chest x-ray was negative * Right knee x-ray showed right total knee arthroplasty in near anatomic alignment with no acute osseous abnormality, multiple loose osteochondral bodies and extensive amorphous is dystrophic calcification in the soft tissue surrounding the right knee 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 * Pelvis x-ray was negative for any acute osseous abnormalities however did show sclerotic changes in the right femoral head and right acetabulum. * Large laceration to right knee with smaller lacerations/skin tear to left knee. Continue wound care. * Continue neuro checks Q 4 hour * Obtain orthostatic blood pressure Q shift * PT and OT recommending SNF placement * Case coordination consulted and looking at rehab placement * Continue fall precautions * Continue pain control * UA negative for bacteria. No other signs and symptoms of infection at this time * Will check a TSH, has history of hypothyroidism * will obtain carotid Dopplers as we were unable to get a CTA of brain and neck due to allergy to iodine contrast * unable to get MRI of brain due to pacemaker to assess for any stroke or any other abnormality. * echo with bubble study shown normal LV systolic function with an estimated EF of 60-65%, grade 1 diastolic dysfunction, negative bubble study. (2) Open wound of foot: Code(s): S91.309A - Unspecified open wound, unspecified foot, initial encounter Status: Acute Assessment and Plan: * continue wound care * small wound to the top of her foot left foot, scabbed (3) Open wound of knee: Qualifiers: Encounter type: initial encounter Laterality: left Qualified Code(s): S81.002A - Unspecified open wound, left knee, initial encounter Code(s): S81.009A - Unspecified open wound, unspecified knee, initial encounter Status: Acute Assessment and Plan: * continue wound care * large area of skin tear with Steri-Strips (4) Hypo-osmolality and hyponatremia: Code(s): E87.1 - Hypo-osmolality and hyponatremia Status: Acute Assessment and Plan: * Sodium 130, improved * Appears to be chronic * serum osmolarity, urine osmolarity, urine sodium is pending * continue start fluid restriction * nephrology consulted and following (5) Hypothyroidism: Code(s): E03.9 - Hypothyroidism, unspecified Status: Acute Assessment and Plan: * Continue Synthroid * TSH 2.130 (6) Thrombocytopenia: Code(s): D69.6 - Thrombocytopenia, unspecified Status: Acute Assessment and Plan: * Platelet count 77>69> 100, appears to be new * Last platelet count was 221 on 04/14/2024 * patient reports that she has only been taking a baby aspirin and reports a vitamin B12 deficiency in the past however she is not taking any vitamin B12 on her home medication list * Vitamin B 12 was > 1000 pg/ml * hematology following and recommends follow up outpatient. Workup labs pending * Fibrinogen 251, INR 0.9 (7) Hypertension: Code(s): I10 - Essential (primary) hypertension Status: Acute Assessment and Plan: * blood pressure ranging 144/76-200/104 * continue losartan and Coreg * Amlodipine increased to 5 mg daily * Lasix 20mg daily started * Echo showing normal LV systolic function with an estimated EF of 60-65% with grade 1 diastolic function. (8) Hyperlipidemia: Code(s): E78.5 - Hyperlipidemia, unspecified Status: Acute Assessment and Plan: * continue aspirin and pravastatin (9) Diarrhea: Code(s): R19.7 - Diarrhea, unspecified Status: Acute Assessment and Plan: * recently on antibiotics for urinary tract infection * patient has had liquid stools and is incontinent * C diff negative * Loperamide and budesonide restarted (10) Folate deficiency: Code(s): E53.8 - Deficiency of other specified B group vitamins Status: Acute Assessment and Plan: * Folate 2.1 * Folic acid ordered Subjective Date/time seen: 09/18/24 08:32 Interval history: Interval history: This is an 83-year-old female with a significant past medical history of anxiety, breast cancer, depression, glaucoma, hyperlipidemia, hypertension, hypothyroidism, osteoporosis who presented to the hospital for evaluation after a ground level fall today while in her bedroom. Patient reports the following history of presenting illness. She states she was in her bedroom tried to put clothes away and her closet when she lost balance and fell. She reports she hit her head but was unsure if she lost consciousness. she reports this isn't the 1st fall and that she has had 4 other times where she has fallen recently. She normally ambulates with a walker and did have her walker with her at the time of her fall. The way she was describing where she was in the room and her trying to reach up to the closet it sounded she was not in a very good safe position. she does not remember if she was lightheaded or dizzy or if she tripped and fell. She also reports that she bruises very easily and that she has been developing these hematomas which she was seen over at [facility]. Unsure if she actually got worked up with Hematology. She does have thrombocytopenia on labs and is only on a baby aspirin. She did report at 1 time she you had vitamin B12 deficiency requiring injections and then was switched over to oral vitamin B12. After review of her medication list I do not see that she is on vitamin B12 anymore. When talking with her she would repeat herself constantly explaining over an over her falls not knowing that she is already explained her cells. when talking it was hard for her to find words and she seemed a little bit confused about timing as well. She also expressed that she was being held against her will and thought that her son was trying to keep her on bed rest and asked if this was legal or not. After explaining to her that she was in the hospital she agreed that she was there and then started in telling me the reason why she was there. She did have a large laceration to the anterior aspect of her right knee and several skin tears on her left knee and hand. She is up-to-date on her Tdap which she received last year in 2022. She denies Any fever, chills, nausea, vomiting, abdominal pain, chest pain, shortness a breath. She does report that she was recently on antibiotics for urinary tract infection and currently has diarrhea. Workup in the hospital included a head CT which showed stable moderate nonspecific cerebral white matter disease representing chronic small- vessel ischemic disease. Cervical spine CT was negative for fracture, showed severe cervical spondylosis. Chest x-ray was negative. Right knee x-ray showing a right total knee arthroplasty in near anatomic alignment with no acute osseous abnormality, multiple loose osteochondral bodies an extensive amorphous dystrophic calcification in the soft tissues surrounding the right knee suggestive of tumoral calcinosis. Left knee x-ray showed mild medial and patellofemoral osteoarthritis, no acute osseous abnormality, small left knee joint effusion. Pelvis x-ray was negative for any acute osseous abnormality. Initial labs showed a white blood cell count of 7.3, hemoglobin 11.0, platelet count 77, sodium 133. UA was obtained which showed a cloudy appearance otherw ise negative. Patient was given Tylenol, Ultram, and morphine while in the ED. Subjective: Patient denies any new complaints today. Labs reviewed. Review of Systems Review of Systems: All systems reviewed & are unremarkable except as noted in HPI and below Constitutional: Constitutional: Reports as per HPI and Reports no additional constitutional complaints Eyes: Eyes: Reports as per HPI and Reports no additional eye complaints ENT: Reports system reviewed and no additional complaints, except as documented and Reports as per HPI Cardiovascular: Cardiovascular: Reports as per HPI and Reports no additional cardiovascular complaints Respiratory: Respiratory: Reports as per HPI and Reports no additional respiratory complaints Gastrointestinal: Gastrointestinal: Reports as per HPI and Reports no additional gastrointestinal complaints Genitourinary: Genitourinary: Reports no additional female genitourinary complaints and Reports as per HPI Musculoskeletal: Musculoskeletal: Reports no additional musculoskeletal complaints and Reports as per HPI Integumentary/Breasts: Skin/Breast: Reports system reviewed and no additional complaints, except as docu and Reports as per HPI Neurologic: Reports system reviewed and no additional complaints, except as documented and Reports as per HPI Psychiatric: Psychiatric: Reports no additional psychiatric complaints and Reports as per HPI Exam Narrative: General: In no acute distress Cardiac: Normal S1 and S2. Murmur noted. No gallops or friction rubs, peripheral pulses intact. Respiratory: Lungs clear to auscultation, no adventitious lung sounds, currently on room air Gastrointestinal: soft, non-distended, non-tender, normoactive bowel sounds. incontinent, liquid stools : Collins catheter in place, incontinent at baseline wears depends Skin: multiple areas of bruising with different variation of color, left arm and hand ecchymosis with skin tear on top of her left hand, left knee swelling lateral side below the knee left foot has a scabbed area on top, right ankle ecchymosis. Skin tear noted to the left knee with Steri-Strips on the medial side Neuro: Alert and oriented x3 Objective Data Vital Signs Vital Signs: Vital Signs - 24 hr 09/17/24 10:16 09/17/24 10:56 09/17/24 10:00 Temperature 97.9 F Pulse Rate 80 78 Respiratory Rate 18 Blood Pressure 169/82 H Pulse Oximetry 94 Oxygen Delivery Room Air 09/17/24 16:00 09/17/24 20:20 09/17/24 20:00 Temperature 96.9 F L 97.1 F L Pulse Rate 80 80 Respiratory Rate 18 18 Blood Pressure 120/45 L 200/104 H Pulse Oximetry 96 95 Oxygen Delivery Room Air 09/18/24 00:15 09/18/24 05:00 Temperature 97.3 F L 97.1 F L Pulse Rate 73 73 Respiratory Rate 18 18 Blood Pressure 154/86 H 144/76 H Pulse Oximetry 94 95 Oxygen Delivery Intake/Output Intake/Output: Intake & Output 09/15/24 09/16/24 09/17/24 09/18/24 23:59 23:59 23:59 23:59 Intake Total 765 1710 200 Output Total 1225 1200 850 Balance -460 510 -650 Meds/Results Medications: Active Medications Generic Name Dose Route Start Last Admin Trade Name Freq PRN Reason Stop Dose Admin Acetaminophen 650 mg 09/15/24 23:10 Acetaminophen 325 Mg Tablet PO Q4H PRN Mild Pain (1-3) or Fever Amlodipine Besylate 2.5 mg 09/17/24 12:30 09/17/24 13:01 Amlodipine Besylate 2.5 Mg Tablet PO 2.5 mg DAILY DEBRA Administration Aspirin 81 mg 09/16/24 08:00 09/17/24 10:17 Aspirin 81 Mg Chewable Tablet PO 81 mg DAILY@0800 DEBRA Administration Budesonide 3 mg 09/17/24 09:00 09/17/24 10:17 Budesonide 3 Mg Cap.Sr.24h PO 3 mg DAILY DEBRA Administration Calcium Carbonate 500 mg 09/16/24 09:00 09/17/24 10:17 Calcium/Vitamin D 500 Mg/5 Mcg (200 I.U.) Tablet PO 500 mg QAM [facility] Administration Carvedilol 25 mg 09/16/24 09:00 09/17/24 20:55 Carvedilol 25 Mg Tablet PO 25 mg Q12HR DEBRA Administration Folic Acid 1 mg 09/17/24 09:00 09/17/24 10:17 Folic Acid 1 Mg Tablet PO 1 mg DAILY DEBRA Administration Latanoprost 1 drop 09/16/24 21:00 09/17/24 21:03 Latanoprost 0.005% Op Soln 2.5 Ml Btl EACH EYE 1 drop HS DEBRA Administration Levothyroxine Sodium 75 mcg 09/16/24 06:30 09/17/24 06:09 Levothyroxine Sodium 75 Mcg Tablet PO 75 mcg DAILY@0630 [facility] Administration Loperamide HCl 2 mg 09/17/24 07:26 Loperamide Hcl 2 Mg Capsule PO Q6H PRN Diarrhea Losartan Potassium 100 mg 09/16/24 09:00 09/17/24 10:17 Losartan Potassium 100 Mg Tablet PO 100 mg DAILY [facility] Administration Morphine Sulfate 2 mg 09/15/24 23:10 Morphine Sulfate (*Crx) 2 Mg/Ml Inj IV PUSH Q2H PRN Pain Rated 7-10 Ondansetron HCl 4 mg 09/16/24 11:34 Ondansetron Inj 4 Mg/2 Ml Vial IV PUSH Q6H PRN Nausea And Vomiting Perflutren Lipid Microsphere 0 ml 09/16/24 14:45 Perflutren Lipid Microspheres 1.5 Ml Vial Diluted To 10 Ml Total Volume IV PUSH 09/19/24 14:46 ONCE PRN adequate visualization Protocol Potassium Chloride 10 meq 09/16/24 12:00 09/17/24 13:02 Potassium Chloride 10 Meq Er Tablet PO 10 meq DAILY@1200 [facility] Administration Pravastatin Sodium 40 mg 09/16/24 09:00 09/17/24 10:16 Pravastatin Sodium 20 Mg Tablet PO 40 mg DAILY [facility] Administration Psyllium Hydrophilic Mucilloid 1 packet 09/16/24 09:00 09/17/24 10:17 Psyllium Powder Packet PO 1 packet DAILY [facility] Administration Tramadol HCl 50 mg 09/16/24 02:32 Tramadol Hcl (*Crx) 50 Mg Tablet PO BID PRN pain 4-6 Vitamin D 2,000 units 09/16/24 09:00 09/17/24 10:17 Cholecalciferol 1,000 Units Tablet PO 2,000 units DAILY DEBRA Administration Radiology Results: ITS Impressions Head CT 09/15/24 14:38 IMPRESSION: 1. Stable moderate nonspecific cerebral white matter disease, which likely represents chronic small vessel ischemic disease. Cervical Spine CT 09/15/24 14:40 IMPRESSION: 1. No fracture. 2. Severe cervical spondylosis. Chest X-Ray 09/15/24 14:58 IMPRESSION: No acute cardiopulmonary pathology. Hand X-Ray 09/15/24 15:04 IMPRESSION: No acute osseous abnormality left hand. Osteoarthritic changes of the proximal and distal interphalangeal joint. Minimal medial subluxation at the level of the proximal interphalangeal joint of the little finger. Knee X-Ray 09/15/24 15:04 IMPRESSION: 1. Mild medial and patellofemoral osteoarthritis. No acute osseous abnormality. 2. Small left knee joint effusion. Pelvis X-Ray 09/15/24 15:06 IMPRESSION: No acute osseous abnormality pelvis. ADDENDUM: 09/15/24 1516 Radiopaque shadows in the upper abdomen most likely medications. Sclerotic changes in the right femoral head and right acetabulum. Carotid Doppler Study 09/17/24 15:26 IMPRESSION: 1. <50% stenosis in the right internal carotid artery. 2. <50% stenosis in the left internal carotid artery. Labs Labs: Laboratory Results - last 24 hr 09/17/24 09/17/24 09/17/24 07:56 09:45 20:20 WBC 7.4 RBC 3.13 L Hgb 10.6 L Hct 32.3 L MCV 103.2 H MCH 33.9 MCHC 32.8 RDW 13.2 Plt Count 69 L MPV 11.7 H Immature Gran % (Auto) 1.1 H Neut % (Auto) 70.6 Lymph % (Auto) 10.7 L [place] % (Auto) 15.9 H Eos % (Auto) 1.4 Baso % (Auto) 0.3 Lymph # (Auto) 0.79 L [place] # (Auto) 1.2 H Eos # (Auto) 0.1 Baso # (Auto) 0.0 Abs Immat Gran (auto) 0.08 H Absolute Neuts (auto) 5.2 Absolute Nucleated RBC 0.000 Nucleated RBC % 0.0 % Immature Plt Fraction 6.0 Sodium 128 L Potassium 3.7 Chloride 96 L Carbon Dioxide 25 Anion Gap 7 BUN 13 D Creatinine 0.60 L Estim Creat Clear Calc 43 Estimated GFR > 60 Glucose 147 H Calcium 8.8 Iron 45 TIBC 287 % Saturation 16 L Ferritin 138.00 Total Bilirubin 0.7 AST 17 ALT 17 Alkaline Phosphatase 47 Total Protein 6.0 L Albumin 3.6 09/18/24 06:06 WBC 7.8 RBC 2.97 L Hgb 10.0 L Hct 30.6 L MCV 103.0 H MCH 33.7 MCHC 32.7 RDW 13.2 Plt Count 100 L MPV 10.4 Immature Gran % (Auto) 1.0 H Neut % (Auto) 79.1 H Lymph % (Auto) 8.6 L [place] % (Auto) 10.2 H Eos % (Auto) 0.8 Baso % (Auto) 0.3 Lymph # (Auto) 0.67 L [place] # (Auto) 0.8 H Eos # (Auto) 0.1 Baso # (Auto) 0.0 Abs Immat Gran (auto) 0.08 H Absolute Neuts (auto) 6.2 Absolute Nucleated RBC 0.000 Nucleated RBC % 0.0 % Immature Plt Fraction 4.3 Sodium 130 L Potassium 3.9 Chloride 100 Carbon Dioxide 22 Anion Gap 8 BUN 14 Creatinine 0.60 L Estim Creat Clear Calc 43 Estimated GFR > 60 Glucose 110 Calcium 8.7 Iron TIBC % Saturation Ferritin Total Bilirubin AST ALT Alkaline Phosphatase Total Protein Albumin Quality VTE Prophylaxis VTE prophylaxis: mechanical ordered
[2024-09-18 09:22] VITALS: PULSE 81
[2024-09-18] MEDS: carvediloL 25 MG TABLET PO ×2 (09:22→21:09)
[2024-09-18] MEDS: CALCIUM/VITAMIN D 500 MG/5 MCG (200 I.U.) TABLET PO (09:25)
[2024-09-18] MEDS: PSYLLIUM POWDER PACKET 1 PACKET PO (09:25)
[2024-09-18] MEDS: FOLIC ACID 1 MG TABLET PO (09:25)
[2024-09-18] MEDS: LEVOTHYROXINE SODIUM 75 MCG TABLET PO (09:25)
[2024-09-18] MEDS: amLODIPine BESYLATE 2.5 MG TABLET PO (09:25)
[2024-09-18] MEDS: BUDESONIDE 3 MG CAP.SR.24H PO (09:25)
[2024-09-18] MEDS: PRAVASTATIN SODIUM 20 MG TABLET 40 MG PO (09:25)
[2024-09-18] MEDS: LOSARTAN POTASSIUM 100 MG TABLET PO (09:25)
[2024-09-18] MEDS: ASPIRIN 81 MG CHEWABLE TABLET PO (09:26)
[2024-09-18] MEDS: CHOLECALCIFEROL 1,000 UNITS TABLET 2000 UNITS PO (09:26)
[2024-09-18] MEDS: POTASSIUM CHLORIDE 10 MEQ ER TABLET PO (10:58)
[2024-09-18] MEDS: FUROSEMIDE 20 MG TABLET PO (12:05)
--- NOTE | 2024-09-18 12:12 | PM.PNNEP ---
Progress Note: A&P Assessment and Plan (1) Hypo-osmolality and hyponatremia: Code(s): E87.1 - Hypo-osmolality and hyponatremia Status: Acute Assessment and Plan: chronic issue since as far back as 2018 sodium has been running anywhere from 121 - 135mmol/L has been relatively stable since admission risk factors for low sodium: history of TIA history of breast cancer history of hypothyroidism PRN lasix use recent fall/injury currently just on fluid restriction follow-up on pending testing (serum urine osmo and protein electrophoresis) TSH okay - check cortisol follow trend of repeat sodium (2) Fall from ground level: Code(s): W18.30XA - Fall on same level, unspecified, initial encounter Status: Acute Assessment and Plan: as noted by admission history results on extensive imaging done to date noted... PT/OT as tolerated (3) Hypertension: Code(s): I10 - Essential (primary) hypertension Status: Acute Assessment and Plan: little elevated at this time however, pain issues maybe playing a role follow trend of hemodynamics Will continue to follow. Subjective Date/time seen: 09/18/24 12:12 Interval history: Follow-up for chronic hyponatremia. No new specific complaints or concerns mentioned at the time of my visit; sodium appears relatively stable at this time with the only real intervention being fluid restriction; no other issues/events overnight or earlier this morning. Exam Narrative: General: elderly but WD/WN male/female in NAD Heart: normal S1 and S2; no rub Lungs: clear to auscultation Abdomen: soft, nontender, nondistended, positive bowel sounds Extremities: no cyanosis or clubbing; no edema Skin: warm and dry Objective Data Vital Signs Vital Signs: Vital Signs Temp Pulse Resp BP Pulse Ox O2 Del Method 09/18/24 10:00 Room Air 09/18/24 09:22 81 09/18/24 05:00 97.1 F L 73 18 144/76 H 95 09/18/24 00:15 97.3 F L 73 18 154/86 H 94 09/17/24 20:00 Room Air 09/17/24 20:20 97.1 F L 80 18 200/104 H 95 Intake/Output Intake/Output: Intake & Output 09/15/24 09/16/24 09/17/24 09/18/24 23:59 23:59 23:59 23:59 Intake Total 765 1710 1960 Output Total 1225 1200 1750 Balance -460 510 210 Meds/Results Medications: Active Medications Generic Name Dose Route Start Last Admin Trade Name Freq PRN Reason Stop Dose Admin Acetaminophen 650 mg 09/15/24 23:10 Acetaminophen 325 Mg Tablet PO Q4H PRN Mild Pain (1-3) or Fever Amlodipine Besylate 5 mg 09/19/24 09:00 Amlodipine Besylate 5 Mg Tablet PO DAILY [facility] Aspirin 81 mg 09/16/24 08:00 09/18/24 09:26 Aspirin 81 Mg Chewable Tablet PO 81 mg DAILY@0800 [facility] Administration Budesonide 3 mg 09/17/24 09:00 09/18/24 09:25 Budesonide 3 Mg Cap.Sr.24h PO 3 mg DAILY DEBRA Administration Calcium Carbonate 500 mg 09/16/24 09:00 09/18/24 09:25 Calcium/Vitamin D 500 Mg/5 Mcg (200 I.U.) Tablet PO 500 mg QAM [facility] Administration Carvedilol 25 mg 09/16/24 09:00 09/18/24 09:22 Carvedilol 25 Mg Tablet PO 25 mg Q12HR [facility] Administration Folic Acid 1 mg 09/17/24 09:00 09/18/24 09:25 Folic Acid 1 Mg Tablet PO 1 mg DAILY [facility] Administration Furosemide 20 mg 09/18/24 11:15 09/18/24 12:05 Furosemide 20 Mg Tablet PO 20 mg DAILY [facility] Administration Latanoprost 1 drop 09/16/24 21:00 09/17/24 21:03 Latanoprost 0.005% Op Soln 2.5 Ml Btl EACH EYE 1 drop HS [facility] Administration Levothyroxine Sodium 75 mcg 09/16/24 06:30 09/18/24 09:25 Levothyroxine Sodium 75 Mcg Tablet PO 75 mcg DAILY@0630 [facility] Administration Loperamide HCl 2 mg 09/17/24 07:26 Loperamide Hcl 2 Mg Capsule PO Q6H PRN Diarrhea Losartan Potassium 100 mg 09/16/24 09:00 09/18/24 09:25 Losartan Potassium 100 Mg Tablet PO 100 mg DAILY [facility] Administration Morphine Sulfate 2 mg 09/15/24 23:10 Morphine Sulfate (*Crx) 2 Mg/Ml Inj IV PUSH Q2H PRN Pain Rated 7-10 Ondansetron HCl 4 mg 09/16/24 11:34 Ondansetron Inj 4 Mg/2 Ml Vial IV PUSH Q6H PRN Nausea And Vomiting Perflutren Lipid Microsphere 0 ml 09/16/24 14:45 Perflutren Lipid Microspheres 1.5 Ml Vial Diluted To 10 Ml Total Volume IV PUSH 09/19/24 14:46 ONCE PRN adequate visualization Protocol Potassium Chloride 10 meq 09/16/24 12:00 09/18/24 10:58 Potassium Chloride 10 Meq Er Tablet PO 10 meq DAILY@1200 [facility] Administration Pravastatin Sodium 40 mg 09/16/24 09:00 09/18/24 09:25 Pravastatin Sodium 20 Mg Tablet PO 40 mg DAILY [facility] Administration Psyllium Hydrophilic Mucilloid 1 packet 09/16/24 09:00 09/18/24 09:25 Psyllium Powder Packet PO 1 packet DAILY [facility] Administration Tramadol HCl 50 mg 09/16/24 02:32 Tramadol Hcl (*Crx) 50 Mg Tablet PO BID PRN pain 4-6 Vitamin D 2,000 units 09/16/24 09:00 09/18/24 09:26 Cholecalciferol 1,000 Units Tablet PO 2,000 units DAILY DEBRA Administration Radiology Results: ITS Impressions Head CT 09/15/24 14:38 IMPRESSION: 1. Stable moderate nonspecific cerebral white matter disease, which likely represents chronic small vessel ischemic disease. Cervical Spine CT 09/15/24 14:40 IMPRESSION: 1. No fracture. 2. Severe cervical spondylosis. Chest X-Ray 09/15/24 14:58 IMPRESSION: No acute cardiopulmonary pathology. Hand X-Ray 09/15/24 15:04 IMPRESSION: No acute osseous abnormality left hand. Osteoarthritic changes of the proximal and distal interphalangeal joint. Minimal medial subluxation at the level of the proximal interphalangeal joint of the little finger. Knee X-Ray 09/15/24 15:04 IMPRESSION: 1. Mild medial and patellofemoral osteoarthritis. No acute osseous abnormality. 2. Small left knee joint effusion. Pelvis X-Ray 09/15/24 15:06 IMPRESSION: No acute osseous abnormality pelvis. ADDENDUM: 09/15/24 1516 Radiopaque shadows in the upper abdomen most likely medications. Sclerotic changes in the right femoral head and right acetabulum. Carotid Doppler Study 09/17/24 15:26 IMPRESSION: 1. <50% stenosis in the right internal carotid artery. 2. <50% stenosis in the left internal carotid artery. Abdomen Ultrasound 09/18/24 09:33 IMPRESSION: 1. Normal abdominal ultrasound. Specifically the spleen is normal in size and appearance. Labs Labs: Laboratory Tests 09/18/24 06:06 09/18/24 06:06
[2024-09-18 16:00] VITALS: BP 180/83; PULSE 78; RESP 18; TEMP 36.9; O2SAT 94
[2024-09-18 20:00] VITALS: BP 155/75; PULSE 77; RESP 14; TEMP 36.2; O2SAT 94
[2024-09-18] MEDS: LATANOPROST 0.005% OP SOLN 2.5 ML BTL 1 DROP EACH EYE (21:09)
[2024-09-18 23:55] VITALS: BP 156/71; PULSE 82; RESP 16; TEMP 36.4; O2SAT 97
[2024-09-19] VITALS (7 sets, daily range): BP systolic 154–193; BP diastolic 66–75; PULSE 71–108; RESP 12–20; TEMP 36.2–37.1; O2SAT 94–97
[2024-09-19] MEDS: LEVOTHYROXINE SODIUM 75 MCG TABLET PO (06:33)
[2024-09-19 06:58] LABS: Basophils Percent Auto 0.2 % (0.2-1.2); Eosinophils Absolute Auto 0.1 K/mm3 (0-0.3); Eosinophils Percent Auto 0.6 % (0-4.4); Hemoglobin 9.8 g/dL (12.0-15.0); Immature Granulocyte Absolute 0.09 K/mm3 (0.00-0.031); Immature Granulocyte Percent A 1.1 % (0-0.5); Lymphocytes Absolute Auto 0.68 K/mm3 (0.9-3.2); Lymphocytes Percent Auto 8.3 % (18.3-44.2); Mean Corpuscular HGB Conc 33.8 g/dl (32-36); Mean Corpuscular Hemoglobin 33.9 pg (26-34); Mean Corpuscular Volume 100.3 fl (80-100); Monocytes Absolute Auto 0.8 K/mm3 (0.1-0.6); Monocytes Percent Auto 10.2 % (2.6-8.5); Neutrophils Absolute Auto 6.5 K/mm3 (1.3-6.7); Neutrophils Percent Auto 79.6 % (45.5-73.1); Platelet Count Result 137 k/mm3 (150-375); Red Blood Count 2.89 M/mm3 (4.2-5.4); Red Cell Distribution Width 13.2 % (11.5-14.5); White Blood Count 8.2 K/mm3 (4.5-10.0)
[2024-09-19] MEDS: FOLIC ACID 1 MG TABLET PO (10:07)
[2024-09-19] MEDS: CHOLECALCIFEROL 1,000 UNITS TABLET 2000 UNITS PO (10:07)
[2024-09-19] MEDS: ASPIRIN 81 MG CHEWABLE TABLET PO (10:08)
[2024-09-19] MEDS: amLODIPine BESYLATE 5 MG TABLET PO (10:08)
[2024-09-19] MEDS: PRAVASTATIN SODIUM 20 MG TABLET 40 MG PO (10:08)
[2024-09-19] MEDS: CALCIUM/VITAMIN D 500 MG/5 MCG (200 I.U.) TABLET PO (10:08)
[2024-09-19] MEDS: carvediloL 25 MG TABLET PO ×2 (10:09→20:51)
[2024-09-19] MEDS: BUDESONIDE 3 MG CAP.SR.24H PO (10:09)
[2024-09-19] MEDS: FUROSEMIDE 20 MG TABLET PO (10:11)
[2024-09-19] MEDS: LOSARTAN POTASSIUM 100 MG TABLET PO (10:11)
[2024-09-19] MEDS: PSYLLIUM POWDER PACKET 1 PACKET PO (10:11)
[2024-09-19 11:30] LABS: Anion Gap 9 mmol/L (4-12); Blood Urea Nitrogen 19 mg/dL (7-17); Calcium 8.9 mg/dL (8.4-10.2); Carbon Dioxide 24 mmol/L (22-30); Chloride 99 mmol/L (98-107); Estimated CRCL calculation 43 ml/min; Estimated Glomerular Filt Rate > 60; Glucose 99 mg/dL (65-110); Potassium 3.9 mmol/L (3.4-5.0); Sodium 132 mmol/L (137-145)
--- NOTE | 2024-09-19 11:48 | P.PNIM_ITS ---
Progress Note: A&P Assessment and Plan (1) Fall from ground level: Code(s): W18.30XA - Fall on same level, unspecified, initial encounter Status: Acute Assessment and Plan: * Ground level fall this morning, patient had had however unsure if she lost consciousness * Head CT showed stable moderate nonspecific cerebral white matter disease likely representing chronic small-vessel ischemic disease * C-spine CT was negative for fracture, severe cervical spondylosis * Chest x-ray was negative * Right knee x-ray showed right total knee arthroplasty in near anatomic alignment with no acute osseous abnormality, multiple loose osteochondral bodies and extensive amorphous is dystrophic calcification in the soft tissue surrounding the right knee 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 * Pelvis x-ray was negative for any acute osseous abnormalities however did show sclerotic changes in the right femoral head and right acetabulum. * Large laceration to right knee with smaller lacerations/skin tear to left knee. Continue wound care. * Continue neuro checks Q 4 hour * Obtain orthostatic blood pressure Q shift * PT and OT recommending SNF placement * Case coordination consulted and looking at rehab placement * Continue fall precautions * Continue pain control * UA negative for bacteria. No other signs and symptoms of infection at this time * TSH normal, has history of hypothyroidism * will obtain carotid Dopplers as we were unable to get a CTA of brain and neck due to allergy to iodine contrast * unable to get MRI of brain due to pacemaker to assess for any stroke or any other abnormality. * echo with bubble study shown normal LV systolic function with an estimated EF of 60-65%, grade 1 diastolic dysfunction, negative bubble study. (2) Open wound of foot: Code(s): S91.309A - Unspecified open wound, unspecified foot, initial encounter Status: Acute Assessment and Plan: * continue wound care * small wound to the top of her foot left foot, scabbed (3) Open wound of knee: Qualifiers: Encounter type: initial encounter Laterality: left Qualified Code(s): S81.002A - Unspecified open wound, left knee, initial encounter Code(s): S81.009A - Unspecified open wound, unspecified knee, initial encounter Status: Acute Assessment and Plan: * continue wound care * large area of skin tear with Steri-Strips (4) Hypo-osmolality and hyponatremia: Code(s): E87.1 - Hypo-osmolality and hyponatremia Status: Acute Assessment and Plan: * Sodium 132, improved * Appears to be chronic * serum osmolarity, urine osmolarity, urine sodium is pending * continue fluid restriction * nephrology consulted and following (5) Hypothyroidism: Code(s): E03.9 - Hypothyroidism, unspecified Status: Acute Assessment and Plan: * Continue Synthroid * TSH 2.130 (6) Thrombocytopenia: Code(s): D69.6 - Thrombocytopenia, unspecified Status: Acute Assessment and Plan: * Platelet count 77>69> 100, 137 appears to be new * Last platelet count was 221 on 04/14/2024 * patient reports that she has only been taking a baby aspirin and reports a vitamin B12 deficiency in the past however she is not taking any vitamin B12 on her home medication list * Vitamin B 12 was > 1000 pg/ml * hematology following and recommends follow up outpatient. Workup labs pending * Fibrinogen 251, INR 0.9 (7) Hypertension: Code(s): I10 - Essential (primary) hypertension Status: Acute Assessment and Plan: * blood pressure ranging 158/66-193/75 * continue losartan and Coreg * Amlodipine increased to 7.5 mg daily * Lasix 20mg daily started * Echo showing normal LV systolic function with an estimated EF of 60-65% with grade 1 diastolic function. (8) Hyperlipidemia: Code(s): E78.5 - Hyperlipidemia, unspecified Status: Acute Assessment and Plan: * continue aspirin and pravastatin (9) Diarrhea: Code(s): R19.7 - Diarrhea, unspecified Status: Acute Assessment and Plan: * recently on antibiotics for urinary tract infection * has history of inflammatory bowel disease * patient has had liquid stools and is incontinent * C diff negative * Loperamide and budesonide restarted (10) Folate deficiency: Code(s): E53.8 - Deficiency of other specified B group vitamins Status: Acute Assessment and Plan: * Folate 2.1 * Folic acid ordered Time Spent With Patient Time with patient: 15 - 25 minutes Subjective Date/time seen: 09/19/24 11:48 Interval history: Interval history: This is an 83-year-old female with a significant past medical history of anxiety, breast cancer, depression, glaucoma, hyperlipidemia, hypertension, hy pothyroidism, osteoporosis who presented to the hospital for evaluation after a ground level fall today while in her bedroom. Patient reports the following history of presenting illness. She states she was in her bedroom tried to put clothes away and her closet when she lost balance and fell. She reports she hit her head but was unsure if she lost consciousness. she reports this isn't the 1st fall and that she has had 4 other times where she has fallen recently. She normally ambulates with a walker and did have her walker with her at the time of her fall. The way she was describing where she was in the room and her trying to reach up to the closet it sounded she was not in a very good safe position. she does not remember if she was lightheaded or dizzy or if she tripped and fell. She also reports that she bruises very easily and that she has been developing these hematomas which she was seen over at [facility]. Unsure if she actually got worked up with Hematology. She does have thrombocytopenia on labs and is only on a baby aspirin. She did report at 1 time she you had vitamin B12 deficiency requiring injections and then was switched over to oral vitamin B12. After review of her medication list I do not see that she is on vitamin B12 anymore. When talking with her she would repeat herself constantly explaining over an over her falls not knowing that she is already explained her cells. when talking it was hard for her to find words and she seemed a little bit confused about timing as well. She also expressed that she was being held against her will and thought that her son was trying to keep her on bed rest and asked if this was legal or not. After explaining to her that she was in the hospital she agreed that she was there and then started in telling me the reason why she was there. She did have a large laceration to the anterior aspect of her right knee and several skin tears on her left knee and hand. She is up-to-date on her Tdap which she received last year in 2022. She denies Any fever, chills, nausea, vomiting, abdominal pain, chest pain, shortness a breath. She does report that she was recently on antibiotics for urinary tract infection and currently has diarrhea. Workup in the hospital included a head CT which showed stable moderate nonspecific cerebral white matter disease representing chronic small- vessel ischemic disease. Cervical spine CT was negative for fracture, showed severe cervical spondylosis. Chest x-ray was negative. Right knee x-ray showing a right total knee arthroplasty in near anatomic alignment with no acute osseous abnormality, multiple loose osteochondral bodies an extensive amorphous dystrophic calcification in the soft tissues surrounding the right knee suggestive of tumoral calcinosis. Left knee x-ray showed mild medial and patellofemoral osteoarthritis, no acute osseous abnormality, small left knee joint effusion. Pelvis x-ray was negative for any acute osseous abnormality. Initial labs showed a white blood cell count of 7.3, hemoglobin 11.0, platelet count 77, sodium 133. UA was obtained which showed a cloudy appearance otherwise negative. Patient was given Tylenol, Ultram, and morphine while in the ED. Subjective: Patient denies any new complaints today. Labs reviewed. Review of Systems Review of Systems: All systems reviewed & are unremarkable except as noted in HPI and below Constitutional: Constitutional: Reports as per HPI and Reports no additional constitutional complaints Eyes: Eyes: Reports as per HPI and Reports no additional eye complaints ENT: Reports system reviewed and no additional complaints, except as documented and Reports as per HPI Cardiovascular: Cardiovascular: Reports as per HPI and Reports no additional cardiovascular complaints Respiratory: Respiratory: Reports as per HPI and Reports no additional respiratory complaints Gastrointestinal: Gastrointestinal: Reports as per HPI and Reports no additional gastrointestinal complaints Genitourinary: Genitourinary: Reports no additional female genitourinary complaints and Reports as per HPI Musculoskeletal: Musculoskeletal: Reports no additional musculoskeletal complaints and Reports as per HPI Integumentary/Breasts: Skin/Breast: Reports system reviewed and no additional complaints, except as docu and Reports as per HPI Neurologic: Reports system reviewed and no additional complaints, except as documented and Reports as per HPI Psychiatric: Psychiatric: Reports no additional psychiatric complaints and Reports as per HPI Exam Narrative: General: In no acute distress Cardiac: Normal S1 and S2. Murmur noted. No gallops or friction rubs, peripheral pulses intact. Respiratory: Lungs clear to auscultation, no adventitious lung sounds, currently on room air Gastrointestinal: soft, non-distended, non-tender, normoactive bowel sounds. incontinent, liquid stools : Collins catheter in place, incontinent at baseline wears depends Skin: multiple areas of bruising with different variation of color, left arm and hand ecchymosis with skin tear on top of her left hand, left knee swelling lateral side below the knee left foot has a scabbed area on top, right ankle ecchymosis. Skin tear noted to the left knee with Steri-Strips on the medial side Neuro: Alert and oriented x3 Objective Data Vital Signs Vital Signs: Vital Signs - 24 hr 09/18/24 16:00 09/18/24 20:00 09/18/24 20:00 Temperature 98.4 F 97.1 F L Pulse Rate 78 77 Respiratory Rate 18 14 Blood Pressure 180/83 H 155/75 H Pulse Oximetry 94 94 Oxygen Delivery Room Air 09/18/24 23:55 09/19/24 04:00 09/19/24 07:49 Temperature 97.6 F 97.1 F L 98.3 F Pulse Rate 82 71 72 Respiratory Rate 16 16 12 Blood Pressure 156/71 H 158/66 H 193/75 H Pulse Oximetry 97 95 94 Oxygen Delivery 09/19/24 10:09 Temperature Pulse Rate 108 H Respiratory Rate Blood Pressure Pulse Oximetry Oxygen Delivery Intake/Output Intake/Output: Intake & Output 09/16/24 09/17/24 09/18/24 09/19/24 23:59 23:59 23:59 23:59 Intake Total 765 1710 1960 430 Output Total 1225 1200 1750 1000 Balance -460 510 210 -570 Meds/Results Medications: Active Medications Generic Name Dose Route Start Last Admin Trade Name Freq PRN Reason Stop Dose Admin Acetaminophen 650 mg 09/15/24 23:10 Acetaminophen 325 Mg Tablet PO Q4H PRN Mild Pain (1-3) or Fever Amlodipine Besylate 5 mg 09/19/24 09:00 09/19/24 10:08 Amlodipine Besylate 5 Mg Tablet PO 5 mg DAILY DEBRA Administration Aspirin 81 mg 09/16/24 08:00 09/19/24 10:08 Aspirin 81 Mg Chewable Tablet PO 81 mg DAILY@0800 DEBRA Administration Budesonide 3 mg 09/17/24 09:00 09/19/24 10:09 Budesonide 3 Mg Cap.Sr.24h PO 3 mg DAILY DEBRA Administration Calcium Carbonate 500 mg 09/16/24 09:00 09/19/24 10:08 Calcium/Vitamin D 500 Mg/5 Mcg (200 I.U.) Tablet PO 500 mg QAM DEBRA Administration Carvedilol 25 mg 09/16/24 09:00 09/19/24 10:09 Carvedilol 25 Mg Tablet PO 25 mg Q12HR DEBRA Administration Folic Acid 1 mg 09/17/24 09:00 09/19/24 10:07 Folic Acid 1 Mg Tablet PO 1 mg DAILY DEBRA Administration Furosemide 20 mg 09/18/24 11:15 09/19/24 10:11 Furosemide 20 Mg Tablet PO 20 mg DAILY DEBRA Administration Latanoprost 1 drop 09/16/24 21:00 09/18/24 21:09 Latanoprost 0.005% Op Soln 2.5 Ml Btl EACH EYE 1 drop HS DEBRA Administration Levothyroxine Sodium 75 mcg 09/16/24 06:30 09/19/24 06:33 Levothyroxine Sodium 75 Mcg Tablet PO 75 mcg DAILY@0630 DEBRA Administration Loperamide HCl 2 mg 09/17/24 07:26 Loperamide Hcl 2 Mg Capsule PO Q6H PRN Diarrhea Losartan Potassium 100 mg 09/16/24 09:00 09/19/24 10:11 Losartan Potassium 100 Mg Tablet PO 100 mg DAILY DEBRA Administration Morphine Sulfate 2 mg 09/15/24 23:10 Morphine Sulfate (*Crx) 2 Mg/Ml Inj IV PUSH Q2H PRN Pain Rated 7-10 Ondansetron HCl 4 mg 09/16/24 11:34 Ondansetron Inj 4 Mg/2 Ml Vial IV PUSH Q6H PRN Nausea And Vomiting Perflutren Lipid Microsphere 0 ml 09/16/24 14:45 Perflutren Lipid Microspheres 1.5 Ml Vial Diluted To 10 Ml Total Volume IV PUSH 09/19/24 14:46 ONCE PRN adequate visualization Protocol Potassium Chloride 10 meq 09/16/24 12:00 09/18/24 10:58 Potassium Chloride 10 Meq Er Tablet PO 10 meq DAILY@1200 DEBRA Administration Pravastatin Sodium 40 mg 09/16/24 09:00 09/19/24 10:08 Pravastatin Sodium 20 Mg Tablet PO 40 mg DAILY DEBRA Administration Psyllium Hydrophilic Mucilloid 1 packet 09/16/24 09:00 09/19/24 10:11 Psyllium Powder Packet PO 1 packet DAILY DEBRA Administration Tramadol HCl 50 mg 09/16/24 02:32 Tramadol Hcl (*Crx) 50 Mg Tablet PO BID PRN pain 4-6 Vitamin D 2,000 units 09/16/24 09:00 09/19/24 10:07 Cholecalciferol 1,000 Units Tablet PO 2,000 units DAILY DEBRA Administration Radiology Results: ITS Impressions Head CT 09/15/24 14:38 IMPRESSION: 1. Stable moderate nonspecific cerebral white matter disease, which likely represents chronic small vessel ischemic disease. Cervical Spine CT 09/15/24 14:40 IMPRESSION: 1. No fracture. 2. Severe cervical spondylosis. Chest X-Ray 09/15/24 14:58 IMPRESSION: No acute cardiopulmonary pathology. Hand X-Ray 09/15/24 15:04 IMPRESSION: No acute osseous abnormality left hand. Osteoarthritic changes of the proximal and distal interphalangeal joint. Minimal medial subluxation at the level of the proximal interphalangeal joint of the little finger. Knee X-Ray 09/15/24 15:04 IMPRESSION: 1. Mild medial and patellofemoral osteoarthritis. No acute osseous abnormality. 2. Small left knee joint effusion. Pelvis X-Ray 09/15/24 15:06 IMPRESSION: No acute osseous abnormality pelvis. ADDENDUM: 09/15/24 1516 Radiopaque shadows in the upper abdomen most likely medications. Sclerotic changes in the right femoral head and right acetabulum. Carotid Doppler Study 09/17/24 15:26 IMPRESSION: 1. <50% stenosis in the right internal carotid artery. 2. <50% stenosis in the left internal carotid artery. Abdomen Ultrasound 09/18/24 09:33 IMPRESSION: 1. Normal abdominal ultrasound. Specifically the spleen is normal in size and appearance. Labs Labs: Laboratory Results - last 24 hr 09/16/24 09/19/24 09/19/24 17:34 05:55 06:01 WBC 8.2 RBC 2.89 L Hgb 9.8 L Hct 29.0 L MCV 100.3 H MCH 33.9 MCHC 33.8 RDW 13.2 Plt Count 137 L MPV 10.0 Immature Gran % (Auto) 1.1 H Neut % (Auto) 79.6 H Lymph % (Auto) 8.3 L [place] % (Auto) 10.2 H Eos % (Auto) 0.6 Baso % (Auto) 0.2 Lymph # (Auto) 0.68 L [place] # (Auto) 0.8 H Eos # (Auto) 0.1 Baso # (Auto) 0.0 Abs Immat Gran (auto) 0.09 H Absolute Neuts (auto) 6.5 Absolute Nucleated RBC 0.000 Nucleated RBC % 0.0 Sodium 132 L Potassium 3.9 Chloride 99 Carbon Dioxide 24 Anion Gap 9 BUN 19 H Creatinine 0.60 L Estim Creat Clear Calc 43 Estimated GFR > 60 Glucose 99 Serum Osmolality 276 L Calcium 8.9 Quality VTE Prophylaxis VTE prophylaxis: mechanical ordered
[2024-09-19] MEDS: amLODIPine BESYLATE 2.5 MG TABLET PO (12:35)
[2024-09-19] MEDS: POTASSIUM CHLORIDE 10 MEQ ER TABLET PO (12:35)
--- NOTE | 2024-09-19 12:35 | P.PNNP_ITS ---
Progress Note: A&P Assessment and Plan (1) Hypo-osmolality and hyponatremia: Code(s): E87.1 - Hypo-osmolality and hyponatremia Status: Acute Assessment and Plan: * chronic issue since as far back as 2019 * sodium has been running anywhere from 121 - 135mmol/L * has been relatively stable since admission * risk factors for low sodium: * history of TIA * history of breast cancer * history of hypothyroidism * PRN lasix use * recent fall/injury * currently just on fluid restriction * follow-up on pending testing (serum urine osmo and protein electrophoresis) * TSH okay - cortisol ordered * sodium level seemed to be relatively stable in the low 130s (2) Fall from ground level: Code(s): W18.30XA - Fall on same level, unspecified, initial encounter Status: Acute Assessment and Plan: * as noted by admission history * results on extensive imaging done to date noted... * PT/OT as tolerated (3) Hypertension: Code(s): I10 - Essential (primary) hypertension Status: Acute Assessment and Plan: * systolic 150-190 * indeed, pain issues maybe playing a role * the patient is on amlodipine, carvedilol, losartan, and diuretics. * Will change losartan to irbesartan. Subjective Date/time seen: 09/19/24 12:35 Interval history: Alice is feeling better. Still some pain in her knee Exam Narrative: General: elderly but WD/WN male/female in NAD Heart: normal S1 and S2; no rub or subQ nodules Lungs: clear to auscultation Abdomen: soft, nontender, nondistended, positive bowel sounds Extremities: no cyanosis or clubbing; no edema Skin: no rash Objective Data Vital Signs Vital Signs: Vital Signs - 24 hr 09/18/24 16:00 09/18/24 20:00 09/18/24 20:00 Temperature 98.4 F 97.1 F L Pulse Rate 78 77 Respiratory Rate 18 14 Blood Pressure 180/83 H 155/75 H Pulse Oximetry 94 94 Oxygen Delivery Room Air 09/18/24 23:55 09/19/24 04:00 09/19/24 07:49 Temperature 97.6 F 97.1 F L 98.3 F Pulse Rate 82 71 72 Respiratory Rate 16 16 12 Blood Pressure 156/71 H 158/66 H 193/75 H Pulse Oximetry 97 95 94 Oxygen Delivery 09/19/24 10:09 Temperature Pulse Rate 108 H Respiratory Rate Blood Pressure Pulse Oximetry Oxygen Delivery Intake/Output Intake/Output: Intake & Output 09/16/24 09/17/24 09/18/24 09/19/24 23:59 23:59 23:59 23:59 Intake Total 765 1710 1960 430 Output Total 1225 1200 1750 1000 Balance -460 510 210 -570 Meds/Results Medications: Active Medications Generic Name Dose Route Start Last Admin Trade Name Freq PRN Reason Stop Dose Admin Acetaminophen 650 mg 09/15/24 23:10 Acetaminophen 325 Mg Tablet PO Q4H PRN Mild Pain (1-3) or Fever Amlodipine Besylate 7.5 mg 09/20/24 09:00 Amlodipine Besylate 2.5 Mg Tablet PO DAILY [facility] Aspirin 81 mg 09/16/24 08:00 09/19/24 10:08 Aspirin 81 Mg Chewable Tablet PO 81 mg DAILY@0800 DEBRA Administration Budesonide 3 mg 09/17/24 09:00 09/19/24 10:09 Budesonide 3 Mg Cap.Sr.24h PO 3 mg DAILY DEBRA Administration Calcium Carbonate 500 mg 09/16/24 09:00 09/19/24 10:08 Calcium/Vitamin D 500 Mg/5 Mcg (200 I.U.) Tablet PO 500 mg QAM DEBRA Administration Carvedilol 25 mg 09/16/24 09:00 09/19/24 10:09 Carvedilol 25 Mg Tablet PO 25 mg Q12HR DEBRA Administration Folic Acid 1 mg 09/17/24 09:00 09/19/24 10:07 Folic Acid 1 Mg Tablet PO 1 mg DAILY DEBRA Administration Furosemide 20 mg 09/18/24 11:15 09/19/24 10:11 Furosemide 20 Mg Tablet PO 20 mg DAILY DEBRA Administration Latanoprost 1 drop 09/16/24 21:00 09/18/24 21:09 Latanoprost 0.005% Op Soln 2.5 Ml Btl EACH EYE 1 drop HS DEBRA Administration Levothyroxine Sodium 75 mcg 09/16/24 06:30 09/19/24 06:33 Levothyroxine Sodium 75 Mcg Tablet PO 75 mcg DAILY@0630 DEBRA Administration Loperamide HCl 2 mg 09/17/24 07:26 Loperamide Hcl 2 Mg Capsule PO Q6H PRN Diarrhea Losartan Potassium 100 mg 09/16/24 09:00 09/19/24 10:11 Losartan Potassium 100 Mg Tablet PO 100 mg DAILY DEBRA Administration Morphine Sulfate 2 mg 09/15/24 23:10 Morphine Sulfate (*Crx) 2 Mg/Ml Inj IV PUSH Q2H PRN Pain Rated 7-10 Ondansetron HCl 4 mg 09/16/24 11:34 Ondansetron Inj 4 Mg/2 Ml Vial IV PUSH Q6H PRN Nausea And Vomiting Perflutren Lipid Microsphere 0 ml 09/16/24 14:45 Perflutren Lipid Microspheres 1.5 Ml Vial Diluted To 10 Ml Total Volume IV PUSH 09/19/24 14:46 ONCE PRN adequate visualization Protocol Potassium Chloride 10 meq 09/16/24 12:00 09/18/24 10:58 Potassium Chloride 10 Meq Er Tablet PO 10 meq DAILY@1200 DEBRA Administration Pravastatin Sodium 40 mg 09/16/24 09:00 09/19/24 10:08 Pravastatin Sodium 20 Mg Tablet PO 40 mg DAILY DEBRA Administration Psyllium Hydrophilic Mucilloid 1 packet 09/16/24 09:00 09/19/24 10:11 Psyllium Powder Packet PO 1 packet DAILY DEBRA Administration Tramadol HCl 50 mg 09/16/24 02:32 Tramadol Hcl (*Crx) 50 Mg Tablet PO BID PRN pain 4-6 Vitamin D 2,000 units 09/16/24 09:00 09/19/24 10:07 Cholecalciferol 1,000 Units Tablet PO 2,000 units DAILY DEBRA Administration Radiology Results: ITS Impressions Head CT 09/15/24 14:38 IMPRESSION: 1. Stable moderate nonspecific cerebral white matter disease, which likely represents chronic small vessel ischemic disease. Cervical Spine CT 09/15/24 14:40 IMPRESSION: 1. No fracture. 2. Severe cervical spondylosis. Chest X-Ray 09/15/24 14:58 IMPRESSION: No acute cardiopulmonary pathology. Hand X-Ray 09/15/24 15:04 IMPRESSION: No acute osseous abnormality left hand. Osteoarthritic changes of the proximal and distal interphalangeal joint. Minimal medial subluxation at the level of the proximal interphalangeal joint of the little finger. Knee X-Ray 09/15/24 15:04 IMPRESSION: 1. Mild medial and patellofemoral osteoarthritis. No acute osseous abnormality. 2. Small left knee joint effusion. Pelvis X-Ray 09/15/24 15:06 IMPRESSION: No acute osseous abnormality pelvis. ADDENDUM: 09/15/24 1516 Radiopaque shadows in the upper abdomen most likely medications. Sclerotic changes in the right femoral head and right acetabulum. Carotid Doppler Study 09/17/24 15:26 IMPRESSION: 1. <50% stenosis in the right internal carotid artery. 2. <50% stenosis in the left internal carotid artery. Abdomen Ultrasound 09/18/24 09:33 IMPRESSION: 1. Normal abdominal ultrasound. Specifically the spleen is normal in size and appearance. Labs Labs: Laboratory Results - last 24 hr 09/16/24 09/19/24 09/19/24 17:34 05:55 06:01 WBC 8.2 RBC 2.89 L Hgb 9.8 L Hct 29.0 L MCV 100.3 H MCH 33.9 MCHC 33.8 RDW 13.2 Plt Count 137 L MPV 10.0 Immature Gran % (Auto) 1.1 H Neut % (Auto) 79.6 H Lymph % (Auto) 8.3 L [place] % (Auto) 10.2 H Eos % (Auto) 0.6 Baso % (Auto) 0.2 Lymph # (Auto) 0.68 L [place] # (Auto) 0.8 H Eos # (Auto) 0.1 Baso # (Auto) 0.0 Abs Immat Gran (auto) 0.09 H Absolute Neuts (auto) 6.5 Absolute Nucleated RBC 0.000 Nucleated RBC % 0.0 Sodium 132 L Potassium 3.9 Chloride 99 Carbon Dioxide 24 Anion Gap 9 BUN 19 H Creatinine 0.60 L Estim Creat Clear Calc 43 Estimated GFR > 60 Glucose 99 Serum Osmolality 276 L Calcium 8.9
[2024-09-19 15:45] LABS: Total Protein Urine Random 24 mg/dL
[2024-09-19 15:59] LABS: Urea Random Urine 410 MG/DL
[2024-09-19 16:03] LABS: Sodium Urine Random 50 meq/L
--- NOTE | 2024-09-19 19:39 | PC.NURSE ---
On 09/19/24, the INFRASTRUCTURE TECH, Ana Chandra, provided care and [facility]. I have reviewed the INFRASTRUCTURE TECH's documentation and agree with the findings.
[2024-09-19] MEDS: LATANOPROST 0.005% OP SOLN 2.5 ML BTL 1 DROP EACH EYE (20:54)
[2024-09-20] VITALS (9 sets, daily range): BP systolic 143–178; BP diastolic 62–87; PULSE 61–81; RESP 14–16; TEMP 36.3–37.1; O2SAT 93–96
[2024-09-20] MEDS: LEVOTHYROXINE SODIUM 75 MCG TABLET PO (06:05)
[2024-09-20 06:16] LABS: Basophils Percent Auto 0.1 % (0.2-1.2); Eosinophils Percent Auto 0.5 % (0-4.4); Hematocrit 31.1 % (37.0-47.0); Immature Granulocyte Absolute 0.09 K/mm3 (0.00-0.031); Immature Granulocyte Percent A 1.1 % (0-0.5); Lymphocytes Absolute Auto 0.63 K/mm3 (0.9-3.2); Lymphocytes Percent Auto 7.5 % (18.3-44.2); Mean Corpuscular HGB Conc 32.2 g/dl (32-36); Mean Corpuscular Hemoglobin 32.8 pg (26-34); Mean Platelet Volume 9.5 fl (7.4-10.4); Monocytes Absolute Auto 0.9 K/mm3 (0.1-0.6); Monocytes Percent Auto 10.3 % (2.6-8.5); Neutrophils Absolute Auto 6.8 K/mm3 (1.3-6.7); Neutrophils Percent Auto 80.5 % (45.5-73.1); Platelet Count Result 183 k/mm3 (150-375); Red Blood Count 3.05 M/mm3 (4.2-5.4); Red Cell Distribution Width 13.5 % (11.5-14.5); White Blood Count 8.4 K/mm3 (4.5-10.0)
[2024-09-20 06:27] LABS: Alanine Aminotransferase 15 U/L (6-35); Albumin Level 3.7 g/dL (3.5-5.1); Alkaline Phosphatase 55 U/L (38-126); Anion Gap 9 mmol/L (4-12); Aspartate Amino Transferase 15 U/L (14-36); Bilirubin,Total 0.6 mg/dL (0.2-1.3); Blood Urea Nitrogen 22 mg/dL (7-17); Carbon Dioxide 27 mmol/L (22-30); Chloride 98 mmol/L (98-107); Estimated CRCL calculation 38 ml/min; Estimated Glomerular Filt Rate > 60; Glucose 123 mg/dL (65-110); Potassium 3.6 mmol/L (3.4-5.0); Sodium 134 mmol/L (137-145)
[2024-09-20 07:10] LABS: Phosphorus 3.9 mg/dL (2.5-4.5)
[2024-09-20] MEDS: IRBESARTAN 150 MG TABLET PO (09:14)
[2024-09-20] MEDS: PRAVASTATIN SODIUM 20 MG TABLET 40 MG PO (09:14)
[2024-09-20] MEDS: CHOLECALCIFEROL 1,000 UNITS TABLET 2000 UNITS PO (09:14)
[2024-09-20] MEDS: CALCIUM/VITAMIN D 500 MG/5 MCG (200 I.U.) TABLET PO (09:14)
[2024-09-20] MEDS: BUDESONIDE 3 MG CAP.SR.24H PO (09:14)
[2024-09-20] MEDS: FOLIC ACID 1 MG TABLET PO (09:14)
[2024-09-20] MEDS: ASPIRIN 81 MG CHEWABLE TABLET PO (09:14)
[2024-09-20] MEDS: amLODIPine BESYLATE 2.5 MG TABLET 7.5 MG PO (09:15)
[2024-09-20] MEDS: FUROSEMIDE 20 MG TABLET PO (09:15)
[2024-09-20] MEDS: carvediloL 25 MG TABLET PO ×2 (09:17→20:17)
--- NOTE | 2024-09-20 10:00 | P.PNNP_ITS ---
Progress Note: A&P Assessment and Plan (1) Hypo-osmolality and hyponatremia: Code(s): E87.1 - Hypo-osmolality and hyponatremia Status: Acute Assessment and Plan: * chronic issue since as far back as 2019 * sodium has been running anywhere from 121 - 135mmol/L * has been relatively stable since admission * risk factors for low sodium: * history of TIA * history of breast cancer * history of hypothyroidism * PRN lasix use * recent fall/injury * currently just on fluid restriction * follow-up on pending testing (serum urine osmo and protein electrophoresis) * TSH okay - cortisol Pending as is SPEP * sodium level up to 134 (2) Fall from ground level: Code(s): W18.30XA - Fall on same level, unspecified, initial encounter Status: Acute Assessment and Plan: * as noted by admission history * results on extensive imaging done to date noted... * PT/OT as tolerated (3) Hypertension: Code(s): I10 - Essential (primary) hypertension Status: Acute Assessment and Plan: * systolic 150-190 * indeed, pain issues maybe playing a role * the patient is on amlodipine, carvedilol, losartan, and diuretics. * yesterday, I changed losartan to irbesartan. Subjective Date/time seen: 09/20/24 10:00 Interval history: Patient is feeling okay. she is eating what she wants. Exam Narrative: General: elderly but WD/WN male/female in NAD Heart: normal S1 and S2; no rub or subQ nodules Lungs: clear to auscultation Abdomen: soft, nontender, nondistended, positive bowel sounds Extremities: no cyanosis or clubbing; no edema Skin: no rash Objective Data Vital Signs Vital Signs: Vital Signs - 24 hr 09/19/24 10:09 09/19/24 15:25 09/19/24 17:05 Temperature 98.8 F 98.3 F Pulse Rate 108 H 80 75 Respiratory Rate 20 20 Blood Pressure 155/67 H 154/72 H Pulse Oximetry 95 95 Oxygen Delivery 09/19/24 20:00 09/19/24 20:00 09/19/24 23:33 Temperature 97.7 F 98.0 F Pulse Rate 77 79 Respiratory Rate 14 12 Blood Pressure 173/73 H 170/67 H Pulse Oximetry 94 97 Oxygen Delivery Room Air 09/20/24 04:00 09/20/24 07:50 09/20/24 07:50 Temperature 98.1 F 97.6 F 97.6 F Pulse Rate 67 70 70 Respiratory Rate 14 14 14 Blood Pressure 178/76 H 156/64 H 156/64 H Pulse Oximetry 95 93 93 Oxygen Delivery 09/20/24 09:17 Temperature Pulse Rate 81 Respiratory Rate Blood Pressure Pulse Oximetry Oxygen Delivery Intake/Output Intake/Output: Intake & Output 09/17/24 09/18/24 09/19/24 09/20/24 23:59 23:59 23:59 23:59 Intake Total 1710 1960 1050 300 Output Total 1200 1750 1475 700 Balance 510 414 -317 -157 Meds/Results Medications: Active Medications Generic Name Dose Route Start Last Admin Trade Name Freq PRN Reason Stop Dose Admin Acetaminophen 650 mg 09/15/24 23:10 Acetaminophen 325 Mg Tablet PO Q4H PRN Mild Pain (1-3) or Fever Amlodipine Besylate 7.5 mg 09/20/24 09:00 09/20/24 09:15 Amlodipine Besylate 2.5 Mg Tablet PO 7.5 mg DAILY DEBRA Administration Aspirin 81 mg 09/16/24 08:00 09/20/24 09:14 Aspirin 81 Mg Chewable Tablet PO 81 mg DAILY@0800 DEBRA Administration Budesonide 3 mg 09/17/24 09:00 09/20/24 09:14 Budesonide 3 Mg Cap.Sr.24h PO 3 mg DAILY DEBRA Administration Calcium Carbonate 500 mg 09/16/24 09:00 09/20/24 09:14 Calcium/Vitamin D 500 Mg/5 Mcg (200 I.U.) Tablet PO 500 mg QAM DEBRA Administration Carvedilol 25 mg 09/16/24 09:00 09/20/24 09:17 Carvedilol 25 Mg Tablet PO 25 mg Q12HR DEBRA Administration Folic Acid 1 mg 09/17/24 09:00 09/20/24 09:14 Folic Acid 1 Mg Tablet PO 1 mg DAILY DEBRA Administration Furosemide 20 mg 09/18/24 11:15 09/20/24 09:15 Furosemide 20 Mg Tablet PO 20 mg DAILY DEBRA Administration Irbesartan 150 mg 09/20/24 09:00 09/20/24 09:14 Irbesartan 150 Mg Tablet PO 150 mg QAM DEBRA Administration Latanoprost 1 drop 09/16/24 21:00 09/19/24 20:54 Latanoprost 0.005% Op Soln 2.5 Ml Btl EACH EYE 1 drop HS DEBRA Administration Levothyroxine Sodium 75 mcg 09/16/24 06:30 09/20/24 06:05 Levothyroxine Sodium 75 Mcg Tablet PO 75 mcg DAILY@0630 DEBRA Administration Loperamide HCl 2 mg 09/17/24 07:26 Loperamide Hcl 2 Mg Capsule PO Q6H PRN Diarrhea Morphine Sulfate 2 mg 09/15/24 23:10 Morphine Sulfate (*Crx) 2 Mg/Ml Inj IV PUSH Q2H PRN Pain Rated 7-10 Ondansetron HCl 4 mg 09/16/24 11:34 Ondansetron Inj 4 Mg/2 Ml Vial IV PUSH Q6H PRN Nausea And Vomiting Potassium Chloride 10 meq 09/16/24 12:00 09/19/24 12:35 Potassium Chloride 10 Meq Er Tablet PO 10 meq DAILY@1200 DEBRA Administration Pravastatin Sodium 40 mg 09/16/24 09:00 09/20/24 09:14 Pravastatin Sodium 20 Mg Tablet PO 40 mg DAILY DEBRA Administration Psyllium Hydrophilic Mucilloid 1 packet 09/16/24 09:00 09/20/24 09:17 Psyllium Powder Packet PO 1 packet DAILY DEBRA Administration Tramadol HCl 50 mg 09/16/24 02:32 Tramadol Hcl (*Crx) 50 Mg Tablet PO BID PRN pain 4-6 Vitamin D 2,000 units 09/16/24 09:00 09/20/24 09:14 Cholecalciferol 1,000 Units Tablet PO 2,000 units DAILY DEBRA Administration Radiology Results: ITS Impressions Head CT 09/15/24 14:38 IMPRESSION: 1. Stable moderate nonspecific cerebral white matter disease, which likely represents chronic small vessel ischemic disease. Cervical Spine CT 09/15/24 14:40 IMPRESSION: 1. No fracture. 2. Severe cervical spondylosis. Chest X-Ray 09/15/24 14:58 IMPRESSION: No acute cardiopulmonary pathology. Hand X-Ray 09/15/24 15:04 IMPRESSION: No acute osseous abnormality left hand. Osteoarthritic changes of the proximal and distal interphalangeal joint. Minimal medial subluxation at the level of the proximal interphalangeal joint of the little finger. Knee X-Ray 09/15/24 15:04 IMPRESSION: 1. Mild medial and patellofemoral osteoarthritis. No acute osseous abnormality. 2. Small left knee joint effusion. Pelvis X-Ray 09/15/24 15:06 IMPRESSION: No acute osseous abnormality pelvis. ADDENDUM: 09/15/24 1516 Radiopaque shadows in the upper abdomen most likely medications. Sclerotic changes in the right femoral head and right acetabulum. Carotid Doppler Study 09/17/24 15:26 IMPRESSION: 1. <50% stenosis in the right internal carotid artery. 2. <50% stenosis in the left internal carotid artery. Abdomen Ultrasound 09/18/24 09:33 IMPRESSION: 1. Normal abdominal ultrasound. Specifically the spleen is normal in size and appearance. Labs Labs: Laboratory Results - last 24 hr 09/19/24 09/19/24 09/19/24 05:55 15:25 15:26 WBC RBC Hgb Hct MCV MCH MCHC RDW Plt Count MPV Immature Gran % (Auto) Neut % (Auto) Lymph % (Auto) Worth % (Auto) Eos % (Auto) Baso % (Auto) Lymph # (Auto) Worth # (Auto) Eos # (Auto) Baso # (Auto) Abs Immat Gran (auto) Absolute Neuts (auto) Absolute Nucleated RBC Nucleated RBC % Sodium 132 L Potassium 3.9 Chloride 99 Carbon Dioxide 24 Anion Gap 9 BUN 19 H Creatinine 0.60 L Estim Creat Clear Calc 43 Estimated GFR > 60 Glucose 99 Calcium 8.9 Phosphorus Total Bilirubin AST ALT Alkaline Phosphatase Total Protein Albumin U Random Total Protein 24 Ur Random Sodium Ur Random Urea Urine Total Volume Urine Creatinine Cancelled Protein/Creat Ratio 2 09/19/24 09/20/24 15:26 05:46 WBC 8.4 RBC 3.05 L Hgb 10.0 L Hct 31.1 L MCV 102.0 H MCH 32.8 MCHC 32.2 RDW 13.5 Plt Count 183 MPV 9.5 Immature Gran % (Auto) 1.1 H Neut % (Auto) 80.5 H Lymph % (Auto) 7.5 L Worth % (Auto) 10.3 H Eos % (Auto) 0.5 Baso % (Auto) 0.1 L Lymph # (Auto) 0.63 L Worth # (Auto) 0.9 H Eos # (Auto) 0.0 Baso # (Auto) 0.0 Abs Immat Gran (auto) 0.09 H Absolute Neuts (auto) 6.8 H Absolute Nucleated RBC 0.000 Nucleated RBC % 0.0 Sodium 134 L Potassium 3.6 Chloride 98 Carbon Dioxide 27 Anion Gap 9 BUN 22 H Creatinine 0.70 Estim Creat Clear Calc 38 Estimated GFR > 60 Glucose 123 H Calcium 9.0 Phosphorus 3.9 Total Bilirubin 0.6 AST 15 ALT 15 Alkaline Phosphatase 55 Total Protein 6.0 L Albumin 3.7 U Random Total Protein Cancelled Ur Random Sodium 50 Ur Random Urea 410 Urine Total Volume Cancelled Urine Creatinine 40.0 Protein/Creat Ratio 2 0.60 H
[2024-09-20] MEDS: POTASSIUM CHLORIDE 10 MEQ ER TABLET PO (12:34)
--- NOTE | 2024-09-20 13:51 | P.PNIM_ITS ---
Progress Note: A&P Assessment and Plan (1) Fall from ground level: Code(s): W18.30XA - Fall on same level, unspecified, initial encounter Status: Acute Assessment and Plan: * Ground level fall this morning, patient had had however unsure if she lost consciousness * Head CT showed stable moderate nonspecific cerebral white matter disease likely representing chronic small-vessel ischemic disease * C-spine CT was negative for fracture, severe cervical spondylosis * Chest x-ray was negative * Right knee x-ray showed right total knee arthroplasty in near anatomic alignment with no acute osseous abnormality, multiple loose osteochondral bodies and extensive amorphous is dystrophic calcification in the soft tissue surrounding the right knee 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 * Pelvis x-ray was negative for any acute osseous abnormalities however did show sclerotic changes in the right femoral head and right acetabulum. * Large laceration to right knee with smaller lacerations/skin tear to left knee. Continue wound care. * Continue neuro checks Q 4 hour * Obtain orthostatic blood pressure Q shift * PT and OT recommending SNF placement * Case coordination consulted and looking at rehab placement * Continue fall precautions * Continue pain control * UA negative for bacteria. No other signs and symptoms of infection at this time * TSH normal, has history of hypothyroidism * will obtain carotid Dopplers as we were unable to get a CTA of brain and neck due to allergy to iodine contrast * unable to get MRI of brain due to pacemaker to assess for any stroke or any other abnormality. * echo with bubble study shown normal LV systolic function with an estimated EF of 60-65%, grade 1 diastolic dysfunction, negative bubble study. (2) Open wound of foot: Code(s): S91.309A - Unspecified open wound, unspecified foot, initial encounter Status: Acute Assessment and Plan: * continue wound care * small wound to the top of her foot left foot, scabbed (3) Open wound of knee: Qualifiers: Encounter type: initial encounter Laterality: left Qualified Code(s): S81.002A - Unspecified open wound, left knee, initial encounter Code(s): S81.009A - Unspecified open wound, unspecified knee, initial encounter Status: Acute Assessment and Plan: * continue wound care * large area of skin tear with Steri-Strips (4) Hypo-osmolality and hyponatremia: Code(s): E87.1 - Hypo-osmolality and hyponatremia Status: Acute Assessment and Plan: * Sodium 134,continues to improve * Appears to be chronic * serum osmolarity, urine osmolarity, urine sodium is pending * continue fluid restriction * nephrology consulted and following (5) Hypothyroidism: Code(s): E03.9 - Hypothyroidism, unspecified Status: Acute Assessment and Plan: * Continue Synthroid * TSH 2.130 (6) Thrombocytopenia: Code(s): D69.6 - Thrombocytopenia, unspecified Status: Acute Assessment and Plan: * Platelet count 77>69> 100>137>187 today * Last platelet count was 221 on 04/14/2024 * patient reports that she has only been taking a baby aspirin and reports a vitamin B12 deficiency in the past however she is not taking any vitamin B12 on her home medication list * Vitamin B 12 was > 1000 pg/ml * hematology following and recommends follow up outpatient. Workup labs pending * Fibrinogen 251, INR 0.9 (7) Hypertension: Code(s): I10 - Essential (primary) hypertension Status: Acute Assessment and Plan: * blood pressure ranging 158/66-193/75 * continue losartan and Coreg * Amlodipine increased to 7.5 mg daily * Lasix 20mg daily started * Echo showing normal LV systolic function with an estimated EF of 60-65% with grade 1 diastolic function. (8) Hyperlipidemia: Code(s): E78.5 - Hyperlipidemia, unspecified Status: Acute Assessment and Plan: * continue aspirin and pravastatin (9) Diarrhea: Code(s): R19.7 - Diarrhea, unspecified Status: Acute Assessment and Plan: * recently on antibiotics for urinary tract infection * has history of inflammatory bowel disease * patient has had liquid stools and is incontinent * C diff negative * Loperamide and budesonide restarted (10) Folate deficiency: Code(s): E53.8 - Deficiency of other specified B group vitamins Status: Acute Assessment and Plan: * Folate 2.1 * Folic acid ordered Subjective Date/time seen: 09/20/24 13:51 Interval history: Interval history: This is an 83-year-old female with a significant past medical history of anxiety, breast cancer, depression, glaucoma, hyperlipidemia, hypertension, hypothyroidism, osteoporosis who presented to the hospital for evaluation after a ground level fall today while in her bedroom. Patient reports the following history of presenting illness. She states she was in her bedroom tried to put clothes away and her closet when she lost balance and fell. She reports she hit her head but was unsure if she lost consciousness. she reports this isn't the 1st fall and that she has had 4 other times where she has fallen recently. She normally ambulates with a walker and did have her walker with her at the time of her fall. The way she was describing where she was in the room and her trying to reach up to the closet it sounded she was not in a very good safe position. she does not remember if she was lightheaded or dizzy or if she tripped and fell. She also reports that she bruises very easily and that she has been developing these hematomas which she was seen over at [facility]. Unsure if she actually got worked up with Hematology. She does have thrombocytopenia on labs and is only on a baby aspirin. She did report at 1 time she you had vitamin B12 deficiency requiring injections and then was switched over to oral vitamin B12. After review of her medication list I do not see that she is on vitamin B12 anymore. When talking with her she would repeat herself constantly explaining over an over her falls not knowing that she is already explained her cells. when talking it was hard for her to find words and she seemed a little bit confused a bout timing as well. She also expressed that she was being held against her will and thought that her son was trying to keep her on bed rest and asked if this was legal or not. After explaining to her that she was in the hospital she agreed that she was there and then started in telling me the reason why she was there. She did have a large laceration to the anterior aspect of her right knee and several skin tears on her left knee and hand. She is up-to-date on her Tdap which she received last year in 2022. She denies Any fever, chills, nausea, vomiting, abdominal pain, chest pain, shortness a breath. She does report that she was recently on antibiotics for urinary tract infection and currently has diarrhea. Workup in the hospital included a head CT which showed stable moderate nonspecific cerebral white matter disease representing chronic small- vessel ischemic disease. Cervical spine CT was negative for fracture, showed severe cervical spondylosis. Chest x-ray was negative. Right knee x-ray showing a right total knee arthroplasty in near anatomic alignment with no acute osseous abnormality, multiple loose osteochondral bodies an extensive amorphous dystrophic calcification in the soft tissues surrounding the right knee suggestive of tumoral calcinosis. Left knee x-ray showed mild medial and patellofemoral osteoarthritis, no acute osseous abnormality, small left knee joint effusion. Pelvis x-ray was negative for any acute osseous abnormality. Initial labs showed a white blood cell count of 7.3, hemoglobin 11.0, platelet count 77, sodium 133. UA was obtained which showed a cloudy appearance otherwise negative. Patient was given Tylenol, Ultram, and morphine while in the ED. Subjective: Patient denies any new complaints today. Labs reviewed. Review of Systems Review of Systems: All systems reviewed & are unremarkable except as noted in HPI and below Constitutional: Constitutional: Reports as per HPI and Reports no additional constitutional complaints Eyes: Eyes: Reports as per HPI and Reports no additional eye complaints ENT: Reports system reviewed and no additional complaints, except as documented and Reports as per HPI Cardiovascular: Cardiovascular: Reports as per HPI and Reports no additional cardiovascular complaints Respiratory: Respiratory: Reports as per HPI and Reports no additional respiratory complaints Gastrointestinal: Gastrointestinal: Reports as per HPI and Reports no additional gastrointestinal complaints Genitourinary: Genitourinary: Reports no additional female genitourinary complaints and Reports as per HPI Musculoskeletal: Musculoskeletal: Reports no additional musculoskeletal complaints and Reports as per HPI Integumentary/Breasts: Skin/Breast: Reports system reviewed and no additional complaints, except as docu and Reports as per HPI Neurologic: Reports system reviewed and no additional complaints, except as documented and Reports as per HPI Psychiatric: Psychiatric: Reports no additional psychiatric complaints and Reports as per HPI Exam Narrative: General: In no acute distress Cardiac: Normal S1 and S2. Murmur noted. No gallops or friction rubs, peripheral pulses intact. Respiratory: Lungs clear to auscultation, no adventitious lung sounds, currently on room air Gastrointestinal: soft, non-distended, non-tender, normoactive bowel sounds. incontinent, liquid stools : Collins catheter in place, incontinent at baseline wears depends Skin: multiple areas of bruising with different variation of color, left arm and hand ecchymosis with skin tear on top of her left hand, left knee swelling lateral side below the knee left foot has a scabbed area on top, right ankle ecchymosis. Skin tear noted to the left knee with Steri-Strips on the medial side Neuro: Alert and oriented x3 Objective Data Vital Signs Vital Signs: Vital Signs - 24 hr 09/19/24 15:25 09/19/24 17:05 09/19/24 20:00 Temperature 98.8 F 98.3 F 97.7 F Pulse Rate 80 75 77 Respiratory Rate 20 20 14 Blood Pressure 155/67 H 154/72 H 173/73 H Pulse Oximetry 95 95 94 Oxygen Delivery 09/19/24 20:00 09/19/24 23:33 09/20/24 04:00 Temperature 98.0 F 98.1 F Pulse Rate 79 67 Respiratory Rate 12 14 Blood Pressure 170/67 H 178/76 H Pulse Oximetry 97 95 Oxygen Delivery Room Air 09/20/24 07:50 09/20/24 07:50 09/20/24 09:17 Temperature 97.6 F 97.6 F Pulse Rate 70 70 81 Respiratory Rate 14 14 Blood Pressure 156/64 H 156/64 H Pulse Oximetry 93 93 Oxygen Delivery 09/20/24 11:40 09/20/24 09:15 09/20/24 09:15 Temperature 97.7 F Pulse Rate 72 81 Respiratory Rate 14 Blood Pressure 150/70 H 149/62 H Pulse Oximetry 96 94 Oxygen Delivery Room Air Intake/Output Intake/Output: Intake & Output 09/17/24 09/18/24 09/19/24 09/20/24 23:59 23:59 23:59 23:59 Intake Total 1710 1960 1050 418 Output Total 1200 1750 1475 700 Balance 510 076 -499 -006 Meds/Results Medications: Active Medications Generic Name Dose Route Start Last Admin Trade Name Freq PRN Reason Stop Dose Admin Acetaminophen 650 mg 09/15/24 23:10 Acetaminophen 325 Mg Tablet PO Q4H PRN Mild Pain (1-3) or Fever Amlodipine Besylate 7.5 mg 09/20/24 09:00 09/20/24 09:15 Amlodipine Besylate 2.5 Mg Tablet PO 7.5 mg DAILY [facility] Administration Aspirin 81 mg 09/16/24 08:00 11/17/24 09:14 Aspirin 81 Mg Chewable Tablet PO 81 mg DAILY@0800 [facility] Administration Budesonide 3 mg 09/17/24 09:00 09/20/24 09:14 Budesonide 3 Mg Cap.Sr.24h PO 3 mg DAILY [facility] Administration Calcium Carbonate 500 mg 09/16/24 09:00 09/20/24 09:14 Calcium/Vitamin D 500 Mg/5 Mcg (200 I.U.) Tablet PO 500 mg QAM [facility] Administration Carvedilol 25 mg 09/16/24 09:00 09/20/24 09:17 Carvedilol 25 Mg Tablet PO 25 mg Q12HR [facility] Administration Folic Acid 1 mg 09/17/24 09:00 09/20/24 09:14 Folic Acid 1 Mg Tablet PO 1 mg DAILY [facility] Administration Furosemide 20 mg 09/18/24 11:15 09/20/24 09:15 Furosemide 20 Mg Tablet PO 20 mg DAILY [facility] Administration Irbesartan 150 mg 09/20/24 09:00 09/20/24 09:14 Irbesartan 150 Mg Tablet PO 150 mg QAM [facility] Administration Latanoprost 1 drop 09/16/24 21:00 09/19/24 20:54 Latanoprost 0.005% Op Soln 2.5 Ml Btl EACH EYE 1 drop HS [facility] Administration Levothyroxine Sodium 75 mcg 09/16/24 06:30 09/20/24 06:05 Levothyroxine Sodium 75 Mcg Tablet PO 75 mcg DAILY@0630 [facility] Administration Loperamide HCl 2 mg 09/17/24 07:26 Loperamide Hcl 2 Mg Capsule PO Q6H PRN Diarrhea Morphine Sulfate 2 mg 09/15/24 23:10 Morphine Sulfate (*Crx) 2 Mg/Ml Inj IV PUSH Q2H PRN Pain Rated 7-10 Ondansetron HCl 4 mg 09/16/24 11:34 Ondansetron Inj 4 Mg/2 Ml Vial IV PUSH Q6H PRN Nausea And Vomiting Potassium Chloride 10 meq 09/16/24 12:00 09/20/24 12:34 Potassium Chloride 10 Meq Er Tablet PO 10 meq DAILY@1200 [facility] Administration Pravastatin Sodium 40 mg 09/16/24 09:00 09/20/24 09:14 Pravastatin Sodium 20 Mg Tablet PO 40 mg DAILY [facility] Administration Psyllium Hydrophilic Mucilloid 1 packet 09/16/24 09:00 09/20/24 09:17 Psyllium Powder Packet PO 1 packet DAILY [facility] Administration Tramadol HCl 50 mg 09/16/24 02:32 Tramadol Hcl (*Crx) 50 Mg Tablet PO BID PRN pain 4-6 Vitamin D 2,000 units 09/16/24 09:00 09/20/24 09:14 Cholecalciferol 1,000 Units Tablet PO 2,000 units DAILY [facility] Administration Radiology Results: ITS Impressions Head CT 09/15/24 14:38 IMPRESSION: 1. Stable moderate nonspecific cerebral white matter disease, which likely represents chronic small vessel ischemic disease. Cervical Spine CT 09/15/24 14:40 IMPRESSION: 1. No fracture. 2. Severe cervical spondylosis. Chest X-Ray 09/15/24 14:58 IMPRESSION: No acute cardiopulmonary pathology. Hand X-Ray 09/15/24 15:04 IMPRESSION: No acute osseous abnormality left hand. Osteoarthritic changes of the proximal and distal interphalangeal joint. Minimal medial subluxation at the level of the proximal interphalangeal joint of the little finger. Knee X-Ray 09/15/24 15:04 IMPRESSION: 1. Mild medial and patellofemoral osteoarthritis. No acute osseous abnormality. 2. Small left knee joint effusion. Pelvis X-Ray 09/15/24 15:06 IMPRESSION: No acute osseous abnormality pelvis. ADDENDUM: 09/15/24 1516 Radiopaque shadows in the upper abdomen most likely medications. Sclerotic changes in the right femoral head and right acetabulum. Carotid Doppler Study 09/17/24 15:26 IMPRESSION: 1. <50% stenosis in the right internal carotid artery. 2. <50% stenosis in the left internal carotid artery. Abdomen Ultrasound 09/18/24 09:33 IMPRESSION: 1. Normal abdominal ultrasound. Specifically the spleen is normal in size and appearance. Labs Labs: Laboratory Results - last 24 hr 09/19/24 09/19/24 09/19/24 15:25 15:26 15:26 WBC RBC Hgb Hct MCV MCH MCHC RDW Plt Count MPV Immature Gran % (Auto) Neut % (Auto) Lymph % (Auto) Tillman % (Auto) Eos % (Auto) Baso % (Auto) Lymph # (Auto) Tillman # (Auto) Eos # (Auto) Baso # (Auto) Abs Immat Gran (auto) Absolute Neuts (auto) Absolute Nucleated RBC Nucleated RBC % Sodium Potassium Chloride Carbon Dioxide Anion Gap BUN Creatinine Estim Creat Clear Calc Estimated GFR Glucose Calcium Phosphorus Total Bilirubin AST ALT Alkaline Phosphatase Total Protein Albumin U Random Total Protein 24 Cancelled Ur Random Sodium 50 Ur Random Urea 410 Urine Total Volume Cancelled Urine Creatinine Cancelled 40.0 Protein/Creat Ratio 2 0.60 H 09/20/24 05:46 WBC 8.4 RBC 3.05 L Hgb 10.0 L Hct 31.1 L MCV 102.0 H MCH 32.8 MCHC 32.2 RDW 13.5 Plt Count 183 MPV 9.5 Immature Gran % (Auto) 1.1 H Neut % (Auto) 80.5 H Lymph % (Auto) 7.5 L Tillman % (Auto) 10.3 H Eos % (Auto) 0.5 Baso % (Auto) 0.1 L Lymph # (Auto) 0.63 L Tillman # (Auto) 0.9 H Eos # (Auto) 0.0 Baso # (Auto) 0.0 Abs Immat Gran (auto) 0.09 H Absolute Neuts (auto) 6.8 H Absolute Nucleated RBC 0.000 Nucleated RBC % 0.0 Sodium 134 L Potassium 3.6 Chloride 98 Carbon Dioxide 27 Anion Gap 9 BUN 22 H Creatinine 0.70 Estim Creat Clear Calc 38 Estimated GFR > 60 Glucose 123 H Calcium 9.0 Phosphorus 3.9 Total Bilirubin 0.6 AST 15 ALT 15 Alkaline Phosphatase 55 Total Protein 6.0 L Albumin 3.7 U Random Total Protein Ur Random Sodium Ur Random Urea Urine Total Volume Urine Creatinine Protein/Creat Ratio 2 Quality VTE Prophylaxis VTE prophylaxis: mechanical ordered
[2024-09-20] MEDS: LATANOPROST 0.005% OP SOLN 2.5 ML BTL 1 DROP EACH EYE (20:17)
[2024-09-20] MEDS: ACETAMINOPHEN 325 MG TABLET 650 MG PO (20:23)
[2024-09-21] VITALS (7 sets, daily range): BP systolic 138–177; BP diastolic 66–79; PULSE 70–87; RESP 16–20; TEMP 36.4–36.5; O2SAT 92–98
[2024-09-21] MEDS: LEVOTHYROXINE SODIUM 75 MCG TABLET PO (05:57)
[2024-09-21 08:25] LABS: Basophils Percent Auto 0.1 % (0.2-1.2); Eosinophils Percent Auto 0.4 % (0-4.4); Hematocrit 29.9 % (37.0-47.0); Hemoglobin 9.9 g/dL (12.0-15.0); Immature Granulocyte Absolute 0.11 K/mm3 (0.00-0.031); Immature Granulocyte Percent A 1.1 % (0-0.5); Lymphocytes Absolute Auto 0.57 K/mm3 (0.9-3.2); Lymphocytes Percent Auto 5.6 % (18.3-44.2); Mean Corpuscular HGB Conc 33.1 g/dl (32-36); Mean Corpuscular Hemoglobin 33.2 pg (26-34); Mean Corpuscular Volume 100.3 fl (80-100); Monocytes Absolute Auto 0.8 K/mm3 (0.1-0.6); Monocytes Percent Auto 7.5 % (2.6-8.5); Neutrophils Absolute Auto 8.8 K/mm3 (1.3-6.7); Neutrophils Percent Auto 85.3 % (45.5-73.1); Platelet Count Result 204 k/mm3 (150-375); Red Blood Count 2.98 M/mm3 (4.2-5.4); Red Cell Distribution Width 13.9 % (11.5-14.5); White Blood Count 10.3 K/mm3 (4.5-10.0)
[2024-09-21] MEDS: CHOLECALCIFEROL 1,000 UNITS TABLET 2000 UNITS PO (08:41)
[2024-09-21] MEDS: BUDESONIDE 3 MG CAP.SR.24H PO (08:41)
[2024-09-21] MEDS: IRBESARTAN 150 MG TABLET PO (08:41)
[2024-09-21] MEDS: ASPIRIN 81 MG CHEWABLE TABLET PO (08:41)
[2024-09-21] MEDS: amLODIPine BESYLATE 2.5 MG TABLET 7.5 MG PO (08:41)
[2024-09-21] MEDS: PRAVASTATIN SODIUM 20 MG TABLET 40 MG PO (08:41)
[2024-09-21] MEDS: FUROSEMIDE 20 MG TABLET PO (08:41)
[2024-09-21] MEDS: carvediloL 25 MG TABLET PO ×2 (08:42→21:20)
[2024-09-21] MEDS: CALCIUM/VITAMIN D 500 MG/5 MCG (200 I.U.) TABLET PO (08:44)
[2024-09-21] MEDS: FOLIC ACID 1 MG TABLET PO (08:44)
[2024-09-21] MEDS: PSYLLIUM POWDER PACKET 1 PACKET PO (08:45)
[2024-09-21 09:30] LABS: Alanine Aminotransferase 15 U/L (6-35); Albumin Level 3.5 g/dL (3.5-5.1); Alkaline Phosphatase 56 U/L (38-126); Anion Gap 6 mmol/L (4-12); Aspartate Amino Transferase 17 U/L (14-36); Bilirubin,Total 0.8 mg/dL (0.2-1.3); Blood Urea Nitrogen 20 mg/dL (7-17); Calcium 8.7 mg/dL (8.4-10.2); Carbon Dioxide 26 mmol/L (22-30); Chloride 99 mmol/L (98-107); Estimated CRCL calculation 43 ml/min; Estimated Glomerular Filt Rate > 60; Glucose 109 mg/dL (65-110); Sodium 131 mmol/L (137-145)
--- NOTE | 2024-09-21 10:20 | PM.PNNEP ---
Progress Note: A&P Assessment and Plan (1) Hypo-osmolality and hyponatremia: Code(s): E87.1 - Hypo-osmolality and hyponatremia Status: Acute Assessment and Plan: chronic issue since as far back as 2018 sodium has been running anywhere from 121 - 135mmol/L has been relatively stable since admission risk factors for low sodium: history of TIA history of breast cancer history of hypothyroidism PRN lasix use recent fall/injury currently just on fluid restriction follow-up on pending testing (serum/urine osmo and protein electrophoresis) TSH okay - cortisol pending still (?) follow trend of sodium level (2) Fall from ground level: Code(s): W18.30XA - Fall on same level, unspecified, initial encounter Status: Acute Assessment and Plan: as noted by admission history results on extensive imaging done to date noted... PT/OT as tolerated (3) Hypertension: Code(s): I10 - Essential (primary) hypertension Status: Acute Assessment and Plan: doing a bit better indeed, pain issues maybe playing a role the patient is on amlodipine, carvedilol, ribesartan, and diuretics. Not much else to add -- will continue to follow from a distance. Subjective Date/time seen: 09/21/24 10:20 Interval history: Follow-up for chronic hyponatremia. Chart reviewed since last seen; no apparent distress voiced at this time; sodium level appears relatively stable as well; no apparent distress when seen; no other issues/events overnight or earlier this morning to report. Exam Narrative: General: elderly but WD/WN female in NAD Heart: normal S1 and S2; no rub Lungs: clear to auscultation Abdomen: soft, nontender, nondistended, positive bowel sounds Extremities: no cyanosis or clubbing; no edema Skin: no nodules Objective Data Vital Signs Vital Signs: Vital Signs Temp Pulse Resp BP Pulse Ox O2 Del Method 09/21/24 09:42 97.6 F 87 16 139/79 98 09/21/24 08:42 81 09/21/24 07:35 97.7 F 71 16 177/79 H 92 09/21/24 04:00 97.5 F L 70 18 171/75 H 98 09/20/24 23:44 98.7 F 68 16 166/87 H 95 09/20/24 20:00 Room Air 09/20/24 21:15 98.8 F 71 16 143/75 H 95 09/20/24 20:00 98.8 F 71 16 143/75 H 95 09/20/24 16:00 97.3 F L 61 16 147/74 H 94 Intake/Output Intake/Output: Intake & Output 09/18/24 09/19/24 09/20/24 09/21/24 23:59 23:59 23:59 23:59 Intake Total 1960 1050 2398 476 Output Total 1750 1475 1100 Balance 210 -425 1298 476 Meds/Results Medications: Active Medications Generic Name Dose Route Start Last Admin Trade Name Freq PRN Reason Stop Dose Admin Acetaminophen 650 mg 09/15/24 23:10 09/20/24 20:23 Acetaminophen 325 Mg Tablet PO 650 mg Q4H PRN Administration Mild Pain (1-3) or Fever Amlodipine Besylate 7.5 mg 09/20/24 09:00 09/21/24 08:41 Amlodipine Besylate 2.5 Mg Tablet PO 7.5 mg DAILY [facility] Administration Aspirin 81 mg 09/16/24 08:00 09/21/24 08:41 Aspirin 81 Mg Chewable Tablet PO 81 mg DAILY@0800 [facility] Administration Budesonide 3 mg 09/17/24 09:00 09/21/24 08:41 Budesonide 3 Mg Cap.Sr.24h PO 3 mg DAILY [facility] Administration Calcium Carbonate 500 mg 09/16/24 09:00 09/21/24 08:44 Calcium/Vitamin D 500 Mg/5 Mcg (200 I.U.) Tablet PO 500 mg QAM [facility] Administration Carvedilol 25 mg 09/16/24 09:00 09/21/24 08:42 Carvedilol 25 Mg Tablet PO 25 mg Q12HR [facility] Administration Folic Acid 1 mg 09/17/24 09:00 09/21/24 08:44 Folic Acid 1 Mg Tablet PO 1 mg DAILY [facility] Administration Furosemide 20 mg 09/18/24 11:15 09/21/24 08:41 Furosemide 20 Mg Tablet PO 20 mg DAILY [facility] Administration Irbesartan 150 mg 09/20/24 09:00 09/21/24 08:41 Irbesartan 150 Mg Tablet PO 150 mg QAM [facility] Administration Latanoprost 1 drop 09/16/24 21:00 09/20/24 20:17 Latanoprost 0.005% Op Soln 2.5 Ml Btl EACH EYE 1 drop HS [facility] Administration Levothyroxine Sodium 75 mcg 09/16/24 06:30 09/21/24 05:57 Levothyroxine Sodium 75 Mcg Tablet PO 75 mcg DAILY@0630 [facility] Administration Loperamide HCl 2 mg 09/17/24 07:26 Loperamide Hcl 2 Mg Capsule PO Q6H PRN Diarrhea Morphine Sulfate 2 mg 09/15/24 23:10 Morphine Sulfate (*Crx) 2 Mg/Ml Inj IV PUSH Q2H PRN Pain Rated 7-10 Ondansetron HCl 4 mg 09/16/24 11:34 Ondansetron Inj 4 Mg/2 Ml Vial IV PUSH Q6H PRN Nausea And Vomiting Potassium Chloride 10 meq 09/16/24 12:00 09/21/24 11:07 Potassium Chloride 10 Meq Er Tablet PO 10 meq DAILY@1200 [facility] Administration Pravastatin Sodium 40 mg 09/16/24 09:00 09/21/24 08:41 Pravastatin Sodium 20 Mg Tablet PO 40 mg DAILY [facility] Administration Psyllium Hydrophilic Mucilloid 1 packet 09/16/24 09:00 09/21/24 08:45 Psyllium Powder Packet PO 1 packet DAILY [facility] Administration Tramadol HCl 50 mg 09/16/24 02:32 Tramadol Hcl (*Crx) 50 Mg Tablet PO BID PRN pain 4-6 Vitamin D 2,000 units 09/16/24 09:00 09/21/24 08:41 Cholecalciferol 1,000 Units Tablet PO 2,000 units DAILY [facility] Administration Radiology Results: ITS Impressions Head CT 09/15/24 14:38 IMPRESSION: 1. Stable moderate nonspecific cerebral white matter disease, which likely represents chronic small vessel ischemic disease. Cervical Spine CT 09/15/24 14:40 IMPRESSION: 1. No fracture. 2. Severe cervical spondylosis. Chest X-Ray 09/15/24 14:58 IMPRESSION: No acute cardiopulmonary pathology. Hand X-Ray 09/15/24 15:04 IMPRESSION: No acute osseous abnormality left hand. Osteoarthritic changes of the proximal and distal interphalangeal joint. Minimal medial subluxation at the level of the proximal interphalangeal joint of the little finger. Knee X-Ray 09/15/24 15:04 IMPRESSION: 1. Mild medial and patellofemoral osteoarthritis. No acute osseous abnormality. 2. Small left knee joint effusion. Pelvis X-Ray 09/15/24 15:06 IMPRESSION: No acute osseous abnormality pelvis. ADDENDUM: 09/15/24 1516 Radiopaque shadows in the upper abdomen most likely medications. Sclerotic changes in the right femoral head and right acetabulum. Carotid Doppler Study 09/17/24 15:26 IMPRESSION: 1. <50% stenosis in the right internal carotid artery. 2. <50% stenosis in the left internal carotid artery. Abdomen Ultrasound 09/18/24 09:33 IMPRESSION: 1. Normal abdominal ultrasound. Specifically the spleen is normal in size and appearance. Labs Labs: Laboratory Tests 09/21/24 08:20 09/21/24 08:20 Calcium 8.7 Total Bilirubin 0.8 AST 17 ALT 15 Alkaline Phosphatase 56 Total Protein 6.0 L Albumin 3.5
[2024-09-21] MEDS: POTASSIUM CHLORIDE 10 MEQ ER TABLET PO (11:07)
--- NOTE | 2024-09-21 14:01 | P.PNIM_ITS ---
Progress Note: A&P Assessment and Plan (1) Fall from ground level: Code(s): W18.30XA - Fall on same level, unspecified, initial encounter Status: Acute Assessment and Plan: * Ground level fall this morning, patient had had however unsure if she lost consciousness * Head CT showed stable moderate nonspecific cerebral white matter disease likely representing chronic small-vessel ischemic disease * C-spine CT was negative for fracture, severe cervical spondylosis * Chest x-ray was negative * Right knee x-ray showed right total knee arthroplasty in near anatomic alignment with no acute osseous abnormality, multiple loose osteochondral bodies and extensive amorphous is dystrophic calcification in the soft tissue surrounding the right knee 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 * Pelvis x-ray was negative for any acute osseous abnormalities however did show sclerotic changes in the right femoral head and right acetabulum. * Large laceration to right knee with smaller lacerations/skin tear to left knee. Continue wound care. * Continue neuro checks Q 4 hour * Obtain orthostatic blood pressure Q shift * PT and OT recommending SNF placement * Case coordination consulted and looking at rehab placement * Continue fall precautions * Continue pain control * UA negative for bacteria. No other signs and symptoms of infection at this time * TSH normal, has history of hypothyroidism * will obtain carotid Dopplers as we were unable to get a CTA of brain and neck due to allergy to iodine contrast * unable to get MRI of brain due to pacemaker to assess for any stroke or any other abnormality. * echo with bubble study shown normal LV systolic function with an estimated EF of 60-65%, grade 1 diastolic dysfunction, negative bubble study. * D/C haynes today (2) Open wound of foot: Code(s): S91.309A - Unspecified open wound, unspecified foot, initial encounter Status: Acute Assessment and Plan: * continue wound care * small wound to the top of her foot left foot, scabbed (3) Open wound of knee: Qualifiers: Encounter type: initial encounter Laterality: left Qualified Code(s): S81.002A - Unspecified open wound, left knee, initial encounter Code(s): S81.009A - Unspecified open wound, unspecified knee, initial encounter Status: Acute Assessment and Plan: * continue wound care * large area of skin tear with Steri-Strips (4) Hypo-osmolality and hyponatremia: Code(s): E87.1 - Hypo-osmolality and hyponatremia Status: Acute Assessment and Plan: * Sodium 134,continues to improve * Appears to be chronic * serum osmolarity, urine osmolarity, urine sodium is pending * continue fluid restriction * nephrology consulted and following * Will start sodium tabs today (5) Hypothyroidism: Code(s): E03.9 - Hypothyroidism, unspecified Status: Acute Assessment and Plan: * Continue Synthroid * TSH 2.130 (6) Thrombocytopenia: Code(s): D69.6 - Thrombocytopenia, unspecified Status: Acute Assessment and Plan: * Platelet count 77>69> 100>137>187 today * Last platelet count was 221 on 04/14/2024 * patient reports that she has only been taking a baby aspirin and reports a vi tamin B12 deficiency in the past however she is not taking any vitamin B12 on her home medication list * Vitamin B 12 was > 1000 pg/ml * hematology following and recommends follow up outpatient. Workup labs pending * Fibrinogen 251, INR 0.9 (7) Hypertension: Code(s): I10 - Essential (primary) hypertension Status: Acute Assessment and Plan: * blood pressure ranging 158/66-193/75 * continue losartan and Coreg * Amlodipine increased to 7.5 mg daily * DC lasix * Echo showing normal LV systolic function with an estimated EF of 60-65% with grade 1 diastolic function. (8) Hyperlipidemia: Code(s): E78.5 - Hyperlipidemia, unspecified Status: Acute Assessment and Plan: * continue aspirin and pravastatin (9) Diarrhea: Code(s): R19.7 - Diarrhea, unspecified Status: Acute Assessment and Plan: * recently on antibiotics for urinary tract infection * has history of inflammatory bowel disease * patient has had liquid stools and is incontinent * C diff negative * Loperamide and budesonide restarted (10) Folate deficiency: Code(s): E53.8 - Deficiency of other specified B group vitamins Status: Acute Assessment and Plan: * Folate 2.1 * Folic acid ordered Time Spent With Patient Time with patient: 25 - 35 minutes Subjective Date/time seen: 09/21/24 14:01 Interval history: Interval history: This is an 83-year-old female with a significant past medical history of anxiety, breast cancer, depression, glaucoma, hyperlipidemia, hypertension, hypothyroidism, osteoporosis who presented to the hospital for evaluation after a ground level fall today while in her bedroom. Patient reports the following history of presenting illness. She states she was in her bedroom tried to put clothes away and her closet when she lost balance and fell. She reports she hit her head but was unsure if she lost consciousness. she reports this isn't the 1st fall and that she has had 4 other times where she has fallen recently. She normally ambulates with a walker and did have her walker with her at the time of her fall. The way she was describing where she was in the room and her trying to reach up to the closet it sounded she was not in a very good safe position. she does not remember if she was lightheaded or dizzy or if she tripped and fell. She also reports that she bruises very easily and that she has been developing these hematomas which she was seen over at [facility]. Unsure if she actually got worked up with Hematology. She does have thrombocytopenia on labs and is only on a baby aspirin. She did report at 1 time she you had vitamin B12 deficiency requiring injections and then was switched over to oral vitamin B12. After review of her medication list I do not see that she is on vitamin B12 anymore. When talking with her she would repeat herself constantly explaining over an over her falls not knowing that she is already explained her cells. when talking it was hard for her to find words and she seemed a little bit confused about timing as well. She also expressed that she was being held against her will and thought that her son was trying to keep her on bed rest and asked if this was legal or not. After explaining to her that she was in the hospital she agreed that she was there and then started in telling me the reason why she was there. She did have a large laceration to the anterior aspect of her right knee and several skin tears on her left knee and hand. She is up-to-date on her Tdap which she received last year in 2022. She denies Any fever, chills, nausea, vomiting, abdominal pain, chest pain, shortness a breath. She does report that she was recently on antibiotics for urinary tract infection and currently has diarrhea. Workup in the hospital included a head CT which showed stable moderate nonspecific cerebral white matter disease representing chronic small- vessel ischemic disease. Cervical spine CT was negative for fracture, showed severe cervical spondylosis. Chest x-ray was negative. Right knee x-ray showing a right total knee arthroplasty in near anatomic alignment with no acute osseous abnormality, multiple loose osteochondral bodies an extensive amorphous dystrophic calcification in the soft tissues surrounding the right knee suggestive of tumoral calcinosis. Left knee x-ray showed mild medial and patellofemoral osteoarthritis, no acute osseous abnormality, small left knee joint effusion. Pelvis x-ray was negative for any acute osseous abnormality. Initial labs showed a white blood cell count of 7.3, hemoglobin 11.0, platelet count 77, sodium 133. UA was obtained which showed a cloudy appearance otherwise negative. Patient was given Tylenol, Ultram, and morphine while in the ED. Subjective: Patient denies any new complaints today. Labs reviewed. Review of Systems Review of Systems: All systems reviewed & are unremarkable except as noted in HPI and below Constitutional: Constitutional: Reports as per HPI and Reports no additional constitutional complaints Eyes: Eyes: Reports as per HPI and Reports no additional eye complaints ENT: Reports system reviewed and no additional complaints, except as documented and Reports as per HPI Cardiovascular: Cardiovascular: Reports as per HPI and Reports no additional cardiovascular complaints Respiratory: Respiratory: Reports as per HPI and Reports no additional respiratory complaints Gastrointestinal: Gastrointestinal: Reports as per HPI and Reports no additional gastrointestinal complaints Genitourinary: Genitourinary: Reports no additional female genitourinary complaints and Reports as per HPI Musculoskeletal: Musculoskeletal: Reports no additional musculoskeletal complaints and Reports as per HPI Integumentary/Breasts: Skin/Breast: Reports system reviewed and no additional complaints, except as docu and Reports as per HPI Neurologic: Reports system reviewed and no additional complaints, except as documented and Reports as per HPI Psychiatric: Psychiatric: Reports no additional psychiatric complaints and Reports as per HPI Exam Narrative: General: In no acute distress Cardiac: Normal S1 and S2. Murmur noted. No gallops or friction rubs, peripheral pulses intact. Respiratory: Lungs clear to auscultation, no adventitious lung sounds, currently on room air Gastrointestinal: soft, non-distended, non-tender, normoactive bowel sounds. incontinent, liquid stools : Haynes catheter in place, incontinent at baseline wears depends Skin: multiple areas of bruising with different variation of color, left arm and hand ecchymosis with skin tear on top of her left hand, left knee swelling lateral side below the knee left foot has a scabbed area on top, right ankle ecchymosis. Skin tear noted to the left knee with Steri-Strips on the medial side Neuro: Alert and oriented x3 Objective Data Vital Signs Vital Signs: Vital Signs - 24 hr 09/20/24 16:00 09/20/24 20:00 09/20/24 21:15 Temperature 97.3 F L 98.8 F 98.8 F Pulse Rate 61 71 71 Respiratory Rate 16 16 16 Blood Pressure 147/74 H 143/75 H 143/75 H Pulse Oximetry 94 95 95 Oxygen Delivery 09/20/24 20:00 09/20/24 23:44 09/21/24 04:00 Temperature 98.7 F 97.5 F L Pulse Rate 68 70 Respiratory Rate 16 18 Blood Pressure 166/87 H 171/75 H Pulse Oximetry 95 98 Oxygen Delivery Room Air 09/21/24 07:35 09/21/24 08:42 09/21/24 11:42 Temperature 97.7 F 97.6 F Pulse Rate 71 81 87 Respiratory Rate 16 16 Blood Pressure 177/79 H 139/79 Pulse Oximetry 92 98 Oxygen Delivery 09/21/24 08:00 Temperature Pulse Rate Respiratory Rate Blood Pressure Pulse Oximetry Oxygen Delivery Room Air Intake/Output Intake/Output: Intake & Output 09/18/24 09/19/24 09/20/24 09/21/24 23:59 23:59 23:59 23:59 Intake Total 1960 1050 2398 476 Output Total 9580 1475 1100 Balance 210 -425 1298 476 Meds/Results Medications: Active Medications Generic Name Dose Route Start Last Admin Trade Name Freq PRN Reason Stop Dose Admin Acetaminophen 650 mg 09/15/24 23:10 09/20/24 20:23 Acetaminophen 325 Mg Tablet PO 650 mg Q4H PRN Administration Mild Pain (1-3) or Fever Amlodipine Besylate 7.5 mg 09/20/24 09:00 09/21/24 08:41 Amlodipine Besylate 2.5 Mg Tablet PO 7.5 mg DAILY DEBRA Administration Aspirin 81 mg 09/16/24 08:00 09/21/24 08:41 Aspirin 81 Mg Chewable Tablet PO 81 mg DAILY@0800 [facility] Administration Budesonide 3 mg 09/17/24 09:00 09/21/24 08:41 Budesonide 3 Mg Cap.Sr.24h PO 3 mg DAILY DEBRA Administration Calcium Carbonate 500 mg 09/16/24 09:00 09/21/24 08:44 Calcium/Vitamin D 500 Mg/5 Mcg (200 I.U.) Tablet PO 500 mg QAM [facility] Administration Carvedilol 25 mg 09/16/24 09:00 09/21/24 08:42 Carvedilol 25 Mg Tablet PO 25 mg Q12HR DEBRA Administration Folic Acid 1 mg 09/17/24 09:00 09/21/24 08:44 Folic Acid 1 Mg Tablet PO 1 mg DAILY DEBRA Administration Furosemide 20 mg 09/18/24 11:15 09/21/24 08:41 Furosemide 20 Mg Tablet PO 20 mg DAILY DEBRA Administration Irbesartan 150 mg 09/20/24 09:00 09/21/24 08:41 Irbesartan 150 Mg Tablet PO 150 mg QAM [facility] Administration Latanoprost 1 drop 09/16/24 21:00 09/20/24 20:17 Latanoprost 0.005% Op Soln 2.5 Ml Btl EACH EYE 1 drop HS [facility] Administration Levothyroxine Sodium 75 mcg 09/16/24 06:30 09/21/24 05:57 Levothyroxine Sodium 75 Mcg Tablet PO 75 mcg DAILY@0630 [facility] Administration Loperamide HCl 2 mg 09/17/24 07:26 Loperamide Hcl 2 Mg Capsule PO Q6H PRN Diarrhea Morphine Sulfate 2 mg 09/15/24 23:10 Morphine Sulfate (*Crx) 2 Mg/Ml Inj IV PUSH Q2H PRN Pain Rated 7-10 Ondansetron HCl 4 mg 09/16/24 11:34 Ondansetron Inj 4 Mg/2 Ml Vial IV PUSH Q6H PRN Nausea And Vomiting Potassium Chloride 10 meq 09/16/24 12:00 09/21/24 11:07 Potassium Chloride 10 Meq Er Tablet PO 10 meq DAILY@1200 [facility] Administration Pravastatin Sodium 40 mg 09/16/24 09:00 09/21/24 08:41 Pravastatin Sodium 20 Mg Tablet PO 40 mg DAILY [facility] Administration Psyllium Hydrophilic Mucilloid 1 packet 09/16/24 09:00 09/21/24 08:45 Psyllium Powder Packet PO 1 packet DAILY [facility] Administration Tramadol HCl 50 mg 09/16/24 02:32 Tramadol Hcl (*Crx) 50 Mg Tablet PO BID PRN pain 4-6 Vitamin D 2,000 units 09/16/24 09:00 09/21/24 08:41 Cholecalciferol 1,000 Units Tablet PO 2,000 units DAILY DEBRA Administration Radiology Results: ITS Impressions Head CT 09/15/24 14:38 IMPRESSION: 1. Stable moderate nonspecific cerebral white matter disease, which likely represents chronic small vessel ischemic disease. Cervical Spine CT 09/15/24 14:40 IMPRESSION: 1. No fracture. 2. Severe cervical spondylosis. Chest X-Ray 09/15/24 14:58 IMPRESSION: No acute cardiopulmonary pathology. Hand X-Ray 09/15/24 15:04 IMPRESSION: No acute osseous abnormality left hand. Osteoarthritic changes of the proximal and distal interphalangeal joint. Minimal medial subluxation at the level of the proximal interphalangeal joint of the little finger. Knee X-Ray 09/15/24 15:04 IMPRESSION: 1. Mild medial and patellofemoral osteoarthritis. No acute osseous abnormality. 2. Small left knee joint effusion. Pelvis X-Ray 09/15/24 15:06 IMPRESSION: No acute osseous abnormality pelvis. ADDENDUM: 09/15/24 1516 Radiopaque shadows in the upper abdomen most likely medications. Sclerotic changes in the right femoral head and right acetabulum. Carotid Doppler Study 09/17/24 15:26 IMPRESSION: 1. <50% stenosis in the right internal carotid artery. 2. <50% stenosis in the left internal carotid artery. Abdomen Ultrasound 09/18/24 09:33 IMPRESSION: 1. Normal abdominal ultrasound. Specifically the spleen is normal in size and appearance. Labs Labs: Laboratory Results - last 24 hr 09/21/24 08:20 WBC 10.3 H RBC 2.98 L Hgb 9.9 L Hct 29.9 L MCV 100.3 H MCH 33.2 MCHC 33.1 RDW 13.9 Plt Count 204 MPV 9.0 Immature Gran % (Auto) 1.1 H Neut % (Auto) 85.3 H Lymph % (Auto) 5.6 L [place] % (Auto) 7.5 Eos % (Auto) 0.4 Baso % (Auto) 0.1 L Lymph # (Auto) 0.57 L [place] # (Auto) 0.8 H Eos # (Auto) 0.0 Baso # (Auto) 0.0 Abs Immat Gran (auto) 0.11 H Absolute Neuts (auto) 8.8 H Absolute Nucleated RBC 0.000 Nucleated RBC % 0.0 Sodium 131 L Potassium 4.0 Chloride 99 Carbon Dioxide 26 Anion Gap 6 BUN 20 H Creatinine 0.60 L Estim Creat Clear Calc 43 Estimated GFR > 60 Glucose 109 Calcium 8.7 Total Bilirubin 0.8 AST 17 ALT 15 Alkaline Phosphatase 56 Total Protein 6.0 L Albumin 3.5 Quality VTE Prophylaxis VTE prophylaxis: mechanical ordered
[2024-09-21] MEDS: ACETAMINOPHEN 325 MG TABLET 650 MG PO (14:10)
[2024-09-21] MEDS: SODIUM CHLORIDE 500 MG TABLET PO (16:13)
[2024-09-21 17:37] LABS: Cortisol Random 2.08 ug/dL
[2024-09-21] MEDS: LATANOPROST 0.005% OP SOLN 2.5 ML BTL 1 DROP EACH EYE (21:20)
[2024-09-22] VITALS (12 sets, daily range): BP systolic 112–197; BP diastolic 53–102; PULSE 63–93; RESP 14–20; TEMP 35.8–37.3; O2SAT 94–100; BMI 22.3
[2024-09-22 06:03] LABS: Protein, Total 5.5 g/dL (6.1-8.1)
[2024-09-22] MEDS: LEVOTHYROXINE SODIUM 75 MCG TABLET PO (06:39)
[2024-09-22 06:53] LABS: Basophils Percent Auto 0.1 % (0.2-1.2); Eosinophils Percent Auto 0.4 % (0-4.4); Hematocrit 28.2 % (37.0-47.0); Hemoglobin 9.5 g/dL (12.0-15.0); Immature Granulocyte Absolute 0.12 K/mm3 (0.00-0.031); Immature Granulocyte Percent A 1.3 % (0-0.5); Lymphocytes Absolute Auto 0.53 K/mm3 (0.9-3.2); Lymphocytes Percent Auto 5.6 % (18.3-44.2); Mean Corpuscular HGB Conc 33.7 g/dl (32-36); Mean Corpuscular Hemoglobin 33.9 pg (26-34); Mean Corpuscular Volume 100.7 fl (80-100); Mean Platelet Volume 9.3 fl (7.4-10.4); Monocytes Percent Auto 10.6 % (2.6-8.5); Neutrophils Absolute Auto 7.8 K/mm3 (1.3-6.7); Platelet Count Result 240 k/mm3 (150-375); Red Cell Distribution Width 13.9 % (11.5-14.5); White Blood Count 9.5 K/mm3 (4.5-10.0)
[2024-09-22 07:06] LABS: Alanine Aminotransferase 15 U/L (6-35); Albumin Level 3.5 g/dL (3.5-5.1); Alkaline Phosphatase 54 U/L (38-126); Anion Gap 5 mmol/L (4-12); Aspartate Amino Transferase 16 U/L (14-36); Bilirubin,Total 0.8 mg/dL (0.2-1.3); Blood Urea Nitrogen 21 mg/dL (7-17); Calcium 8.4 mg/dL (8.4-10.2); Carbon Dioxide 26 mmol/L (22-30); Chloride 101 mmol/L (98-107); Estimated CRCL calculation 43 ml/min; Estimated Glomerular Filt Rate > 60; Glucose 107 mg/dL (65-110); Potassium 3.7 mmol/L (3.4-5.0); Sodium 132 mmol/L (137-145)
[2024-09-22] MEDS: CALCIUM/VITAMIN D 500 MG/5 MCG (200 I.U.) TABLET PO (08:42)
[2024-09-22] MEDS: PRAVASTATIN SODIUM 20 MG TABLET 40 MG PO (08:42)
[2024-09-22] MEDS: BUDESONIDE 3 MG CAP.SR.24H PO (08:42)
[2024-09-22] MEDS: IRBESARTAN 150 MG TABLET PO (08:42)
[2024-09-22] MEDS: FOLIC ACID 1 MG TABLET PO (08:42)
[2024-09-22] MEDS: amLODIPine BESYLATE 2.5 MG TABLET 7.5 MG PO (08:42)
[2024-09-22] MEDS: CHOLECALCIFEROL 1,000 UNITS TABLET 2000 UNITS PO (08:42)
[2024-09-22] MEDS: carvediloL 25 MG TABLET PO ×2 (08:42→20:08)
[2024-09-22] MEDS: SODIUM CHLORIDE 500 MG TABLET PO ×2 (08:42→16:01)
[2024-09-22] MEDS: ASPIRIN 81 MG CHEWABLE TABLET PO (08:42)
[2024-09-22] MEDS: PSYLLIUM POWDER PACKET 1 PACKET PO (08:43)
[2024-09-22] MEDS: POTASSIUM CHLORIDE 10 MEQ ER TABLET PO (11:56)
[2024-09-22 11:57] LABS: Glucose Point of Care 129 mg/dl (65-105)
[2024-09-22 15:17] LABS: Albumin 3.3 g/dL (3.8-4.8); Alpha 1 Globulin 0.4 g/dL (0.2-0.3); Alpha 2 Globulin 0.8 g/dL (0.5-0.9); Beta 1 Globulin 0.4 g/dL (0.4-0.6); Gamma Globulin 0.4 g/dL (0.8-1.7)
--- NOTE | 2024-09-22 16:08 | P.PNIM_ITS ---
Progress Note: A&P Assessment and Plan (1) Fall from ground level: Code(s): W18.30XA - Fall on same level, unspecified, initial encounter Status: Acute Assessment and Plan: * Ground level fall this morning, patient had had however unsure if she lost consciousness * Head CT showed stable moderate nonspecific cerebral white matter disease likely representing chronic small-vessel ischemic disease * C-spine CT was negative for fracture, severe cervical spondylosis * Chest x-ray was negative * Right knee x-ray showed right total knee arthroplasty in near anatomic alignment with no acute osseous abnormality, multiple loose osteochondral bodies and extensive amorphous is dystrophic calcification in the soft tissue surrounding the right knee 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 * Pelvis x-ray was negative for any acute osseous abnormalities however did show sclerotic changes in the right femoral head and right acetabulum. * Large laceration to right knee with smaller lacerations/skin tear to left knee. Continue wound care. * Continue neuro checks Q 4 hour * Obtain orthostatic blood pressure Q shift * PT and OT recommending SNF placement * Case coordination consulted and looking at rehab placement * Continue fall precautions * Continue pain control * UA negative for bacteria. No other signs and symptoms of infection at this time * TSH normal, has history of hypothyroidism * will obtain carotid Dopplers as we were unable to get a CTA of brain and neck due to allergy to iodine contrast * unable to get MRI of brain due to pacemaker to assess for any stroke or any other abnormality. * echo with bubble study shown normal LV systolic function with an estimated EF of 60-65%, grade 1 diastolic dysfunction, negative bubble study. (2) Open wound of foot: Code(s): S91.309A - Unspecified open wound, unspecified foot, initial encounter Status: Acute Assessment and Plan: * continue wound care * small wound to the top of her foot left foot, scabbed (3) Open wound of knee: Qualifiers: Encounter type: initial encounter Laterality: left Qualified Code(s): S81.002A - Unspecified open wound, left knee, initial encounter Code(s): S81.009A - Unspecified open wound, unspecified knee, initial encounter Status: Acute Assessment and Plan: * continue wound care * large area of skin tear with Steri-Strips (4) Hypo-osmolality and hyponatremia: Code(s): E87.1 - Hypo-osmolality and hyponatremia Status: Acute Assessment and Plan: * Sodium 132,continues to improve * Appears to be chronic * serum osmolarity 276, urine sodium 50, protein/creatinine ratio 0.60 * continue fluid restriction * nephrology consulted and following * Will start sodium tabs today (5) Hypothyroidism: Code(s): E03.9 - Hypothyroidism, unspecified Status: Acute Assessment and Plan: * Continue Synthroid * TSH 2.130 (6) Thrombocytopenia: Code(s): D69.6 - Thrombocytopenia, unspecified Status: Acute Assessment and Plan: * Platelet count 77>69> 100>137>187> 240 today, back to baseline * Last platelet count was 221 on 04/14/2024 * patient reports that she has only been taking a baby aspirin and reports a vitamin B12 deficiency in the past however she is not taking any vitamin B12 on her home medication list * Vitamin B 12 was > 1000 pg/ml * hematology following and recommends follow up outpatient. Workup labs pending * Fibrinogen 251, INR 0.9 (7) Hypertension: Code(s): I10 - Essential (primary) hypertension Status: Acute Assessment and Plan: * blood pressure ranging 158/66-193/75 * continue losartan and Coreg * Amlodipine increased to 7.5 mg daily * DC lasix * Echo showing normal LV systolic function with an estimated EF of 60-65% with grade 1 diastolic function. (8) Hyperlipidemia: Code(s): E78.5 - Hyperlipidemia, unspecified Status: Acute Assessment and Plan: * continue aspirin and pravastatin (9) Diarrhea: Code(s): R19.7 - Diarrhea, unspecified Status: Acute Assessment and Plan: * recently on antibiotics for urinary tract infection * has history of inflammatory bowel disease * patient has had liquid stools and is incontinent * C diff negative * Loperamide and budesonide restarted (10) Folate deficiency: Code(s): E53.8 - Deficiency of other specified B group vitamins Status: Acute Assessment and Plan: * Folate 2.1 * Folic acid ordered Time Spent With Patient Time with patient: 25 - 35 minutes Subjective Date/time seen: 09/22/24 16:08 Interval history: Interval history: This is an 83-year-old female with a significant past medical history of anxiety, breast cancer, depression, glaucoma, hyperlipidemia, hypertension, hypothyroidism, osteoporosis who presented to the hospital for evaluation after a ground level fall today while in her bedroom. Patient reports the following history of presenting illness. She states she was in her bedroom tried to put clothes away and her closet when she lost balance and fell. She reports she hit her head but was unsure if she lost consciousness. she reports this isn't the 1st fall and that she has had 4 other times where she has fallen recently. She normally ambulates with a walker and did have her walker with her at the time of her fall. The way she was describing where she was in the room and her trying to reach up to the closet it sounded she was not in a very good safe position. she does not remember if she was lightheaded or dizzy or if she tripped and fell. She also reports that she bruises very easily and that she has been developing these hematomas which she was seen over at [facility]. Unsure if she actually got worked up with Hematology. She does have thrombocytopenia on labs and is only on a baby aspirin. She did report at 1 time she you had vitamin B12 deficiency requiring injections and then was switched over to oral vitamin B12. After review of her medication list I do not see that she is on vitamin B12 anymore. When talking with her she would repeat herself constantly explaining over an over her falls not knowing that she is already explained her cells. when talking it was hard for her to find words and she seemed a little bit confused about timing as well. She also expressed that she was being held against her will and thought that her son was trying to keep her on bed rest and asked if this was legal or not. After explaining to her that she was in the hospital she agreed that she was there and then started in telling me the reason why she was there. She did have a large laceration to the anterior aspect of her right knee and several skin tears on her left knee and hand. She is up-to-date on her Tdap which she received last year in 2022. She denies Any fever, chills, nausea, vomiting, abdominal pain, chest pain, shortness a breath. She does report that she was recently on antibiotics for urinary tract infection and currently has diarrhea. Workup in the hospital included a head CT which showed stable moderate nonspecific cerebral white matter disease representing chronic small- vessel ischemic disease. Cervical spine CT was negative for fracture, showed severe cervical spondylosis. Chest x-ray was negative. Right knee x-ray showing a right total knee arthroplasty in near anatomic alignment with no acute osseous abnormality, multiple loose osteochondral bodies an extensive amorphous dystrophic calcification in the soft tissues surrounding the right knee suggestive of tumoral calcinosis. Left knee x-ray showed mild medial and patellofemoral osteoarthritis, no acute osseous abnormality, small left knee joint effusion. Pelvis x-ray was negative for any acute osseous abnormality. Initial labs showed a white blood cell count of 7.3, hemoglobin 11.0, platelet count 77, sodium 133. UA was obtained which showed a cloudy appearance otherwise negative. Patient was given Tylenol, Ultram, and morphine while in the ED. Subjective: Patient denies any new complaints today. Labs reviewed. Review of Systems Review of Systems: All systems reviewed & are unremarkable except as noted in HPI and below Constitutional: Constitutional: Reports as per HPI and Reports no additional constitutional complaints Eyes: Eyes: Reports as per HPI and Reports no additional eye complaints ENT: Reports system reviewed and no additional complaints, except as documented and Reports as per HPI Cardiovascular: Cardiovascular: Reports as per HPI and Reports no additional cardiovascular complaints Respiratory: Respiratory: Reports as per HPI and Reports no additional respiratory complaints Gastrointestinal: Gastrointestinal: Reports as per HPI and Reports no additional gastrointestinal complaints Genitourinary: Genitourinary: Reports no additional female genitourinary complaints and Reports as per HPI Musculoskeletal: Musculoskeletal: Reports no additional musculoskeletal complaints and Reports as per HPI Integumentary/Breasts: Skin/Breast: Reports system reviewed and no additional complaints, except as docu and Reports as per HPI Neurologic: Reports system reviewed and no additional complaints, except as documented and Reports as per HPI Psychiatric: Psychiatric: Reports no additional psychiatric complaints and Reports as per HPI Exam Narrative: General: In no acute distress Cardiac: Normal S1 and S2. Murmur noted. No gallops or friction rubs, peripheral pulses intact. Respiratory: Lungs clear to auscultation, no adventitious lung sounds, currently on room air Gastrointestinal: soft, non-distended, non-tender, normoactive bowel sounds. incontinent, liquid stools : Collins catheter in place, incontinent at baseline wears depends Skin: multiple areas of bruising with different variation of color, left arm and hand ecchymosis with skin tear on top of her left hand, left knee swelling lateral side below the knee left foot has a scabbed area on top, right ankle ecchymosis. Skin tear noted to the left knee with Steri-Strips on the medial side healing Neuro: Alert and oriented x3 Objective Data Vital Signs Vital Signs: Vital Signs - 24 hr 09/21/24 21:20 09/21/24 20:45 09/21/24 20:00 Temperature 97.6 F Pulse Rate 78 78 Respiratory Rate 20 Blood Pressure 138/78 Pulse Oximetry 95 Oxygen Delivery Room Air 09/22/24 00:30 09/22/24 04:00 09/22/24 04:00 Temperature 97.2 F L 99.1 F 99.1 F Pulse Rate 63 71 82 Respiratory Rate 20 20 20 Blood Pressure 138/59 L 147/68 H 160/102 H Pulse Oximetry 95 96 95 Oxygen Delivery 09/22/24 04:00 09/22/24 07:55 09/22/24 07:56 Temperature 99.1 F 96.5 F L 96.5 F L Pulse Rate 93 77 77 Respiratory Rate 20 14 14 Blood Pressure 150/89 H 160/77 H 197/66 H Pulse Oximetry 97 98 98 Oxygen Delivery 09/22/24 07:56 09/22/24 07:56 09/22/24 08:42 Temperature Pulse Rate 77 Respiratory Rate Blood Pressure 160/77 H 164/85 H Pulse Oximetry Oxygen Delivery 09/22/24 12:00 09/22/24 08:00 Temperature 97.8 F Pulse Rate 66 Respiratory Rate 16 Blood Pressure 112/59 L Pulse Oximetry 97 97 Oxygen Delivery Room Air Intake/Output Intake/Output: Intake & Output 09/19/24 09/20/24 09/21/24 09/22/24 23:59 23:59 23:59 23:59 Intake Total 1050 2398 1956 555 Output Total 1475 1100 450 Balance -425 1298 1506 555 Meds/Results Medications: Active Medications Generic Name Dose Route Start Last Admin Trade Name Freq PRN Reason Stop Dose Admin Acetaminophen 650 mg 09/15/24 23:10 09/21/24 14:10 Acetaminophen 325 Mg Tablet PO 650 mg Q4H PRN Administration Mild Pain (1-3) or Fever Amlodipine Besylate 7.5 mg 09/20/24 09:00 09/22/24 08:42 Amlodipine Besylate 2.5 Mg Tablet PO 7.5 mg DAILY DEBRA Administration Aspirin 81 mg 09/16/24 08:00 09/22/24 08:42 Aspirin 81 Mg Chewable Tablet PO 81 mg DAILY@0800 DEBRA Administration Budesonide 3 mg 09/17/24 09:00 09/22/24 08:42 Budesonide 3 Mg Cap.Sr.24h PO 3 mg DAILY DEBRA Administration Calcium Carbonate 500 mg 09/16/24 09:00 09/22/24 08:42 Calcium/Vitamin D 500 Mg/5 Mcg (200 I.U.) Tablet PO 500 mg QAM [facility] Administration Carvedilol 25 mg 09/16/24 09:00 09/22/24 08:42 Carvedilol 25 Mg Tablet PO 25 mg Q12HR DEBRA Administration Folic Acid 1 mg 09/17/24 09:00 09/22/24 08:42 Folic Acid 1 Mg Tablet PO 1 mg DAILY [facility] Administration Irbesartan 150 mg 09/20/24 09:00 09/22/24 08:42 Irbesartan 150 Mg Tablet PO 150 mg QAM [facility] Administration Latanoprost 1 drop 09/16/24 21:00 09/21/24 21:20 Latanoprost 0.005% Op Soln 2.5 Ml Btl EACH EYE 1 drop HS [facility] Administration Levothyroxine Sodium 75 mcg 09/16/24 06:30 09/22/24 06:39 Levothyroxine Sodium 75 Mcg Tablet PO 75 mcg DAILY@0630 [facility] Administration Loperamide HCl 2 mg 09/17/24 07:26 Loperamide Hcl 2 Mg Capsule PO Q6H PRN Diarrhea Morphine Sulfate 2 mg 09/15/24 23:10 Morphine Sulfate (*Crx) 2 Mg/Ml Inj IV PUSH Q2H PRN Pain Rated 7-10 Ondansetron HCl 4 mg 09/16/24 11:34 Ondansetron Inj 4 Mg/2 Ml Vial IV PUSH Q6H PRN Nausea And Vomiting Potassium Chloride 10 meq 09/16/24 12:00 09/22/24 11:56 Potassium Chloride 10 Meq Er Tablet PO 10 meq DAILY@1200 [facility] Administration Pravastatin Sodium 40 mg 09/16/24 09:00 09/22/24 08:42 Pravastatin Sodium 20 Mg Tablet PO 40 mg DAILY DEBRA Administration Psyllium Hydrophilic Mucilloid 1 packet 09/16/24 09:00 09/22/24 08:43 Psyllium Powder Packet PO 1 packet DAILY DEBRA Administration Sodium Chloride 500 mg 09/21/24 17:00 09/22/24 16:01 Sodium Chloride 500 Mg Tablet PO 500 mg BID DEBRA Administration Tramadol HCl 50 mg 09/16/24 02:32 Tramadol Hcl (*Crx) 50 Mg Tablet PO BID PRN pain 4-6 Vitamin D 2,000 units 09/16/24 09:00 09/22/24 08:42 Cholecalciferol 1,000 Units Tablet PO 2,000 units DAILY DEBRA Administration Radiology Results: ITS Impressions Head CT 09/15/24 14:38 IMPRESSION: 1. Stable moderate nonspecific cerebral white matter disease, which likely r epresents chronic small vessel ischemic disease. Cervical Spine CT 09/15/24 14:40 IMPRESSION: 1. No fracture. 2. Severe cervical spondylosis. Chest X-Ray 09/15/24 14:58 IMPRESSION: No acute cardiopulmonary pathology. Hand X-Ray 09/15/24 15:04 IMPRESSION: No acute osseous abnormality left hand. Osteoarthritic changes of the proximal and distal interphalangeal joint. Minimal medial subluxation at the level of the proximal interphalangeal joint of the little finger. Knee X-Ray 09/15/24 15:04 IMPRESSION: 1. Mild medial and patellofemoral osteoarthritis. No acute osseous abnormality. 2. Small left knee joint effusion. Pelvis X-Ray 09/15/24 15:06 IMPRESSION: No acute osseous abnormality pelvis. ADDENDUM: 09/15/24 1516 Radiopaque shadows in the upper abdomen most likely medications. Sclerotic changes in the right femoral head and right acetabulum. Carotid Doppler Study 09/17/24 15:26 IMPRESSION: 1. <50% stenosis in the right internal carotid artery. 2. <50% stenosis in the left internal carotid artery. Abdomen Ultrasound 09/18/24 09:33 IMPRESSION: 1. Normal abdominal ultrasound. Specifically the spleen is normal in size and appearance. Labs Labs: Laboratory Results - last 24 hr 09/20/24 09/22/24 09/22/24 05:46 06:36 11:55 WBC 9.5 RBC 2.80 L Hgb 9.5 L Hct 28.2 L MCV 100.7 H MCH 33.9 MCHC 33.7 RDW 13.9 Plt Count 240 MPV 9.3 Immature Gran % (Auto) 1.3 H Neut % (Auto) 82.0 H Lymph % (Auto) 5.6 L Upton % (Auto) 10.6 H Eos % (Auto) 0.4 Baso % (Auto) 0.1 L Lymph # (Auto) 0.53 L [place]pton # (Auto) 1.0 H Eos # (Auto) 0.0 Baso # (Auto) 0.0 Abs Immat Gran (auto) 0.12 H Absolute Neuts (auto) 7.8 H Absolute Nucleated RBC 0.000 Nucleated RBC % 0.0 Sodium 132 L Potassium 3.7 Chloride 101 Carbon Dioxide 26 Anion Gap 5 BUN 21 H Creatinine 0.60 L Estim Creat Clear Calc 43 Estimated GFR > 60 Glucose 107 POC Capillary Glucose 129 H Calcium 8.4 Total Bilirubin 0.8 AST 16 ALT 15 Alkaline Phosphatase 54 Total Protein 5.5 L 6.0 L Albumin 3.3 L 3.5 Vpqvs-6-Lcsmlkacr 0.4 H Oewet-8-Vhnkfsvzo 0.8 Vzsg-3-Uvaxucmy 0.4 Swgq-0-Luthdmil 0.2 Gamma Globulins 0.4 L PEP Interpretation See note Random Cortisol 2.08 Quality VTE Prophylaxis VTE prophylaxis: mechanical ordered
[2024-09-22] MEDS: LATANOPROST 0.005% OP SOLN 2.5 ML BTL 1 DROP EACH EYE (20:08)
[2024-09-23 04:53] VITALS: BP 196/82; PULSE 65; RESP 16; TEMP 36.4; O2SAT 95
[2024-09-23] MEDS: LEVOTHYROXINE SODIUM 75 MCG TABLET PO (05:34)
[2024-09-23] MEDS: amLODIPine BESYLATE 2.5 MG TABLET 7.5 MG PO (06:07)
[2024-09-23 06:49] LABS: Basophils Percent Auto 0.2 % (0.2-1.2); Eosinophils Percent Auto 0.3 % (0-4.4); Hematocrit 30.6 % (37.0-47.0); Hemoglobin 9.8 g/dL (12.0-15.0); Immature Granulocyte Absolute 0.11 K/mm3 (0.00-0.031); Immature Granulocyte Percent A 1.2 % (0-0.5); Lymphocytes Absolute Auto 0.52 K/mm3 (0.9-3.2); Lymphocytes Percent Auto 5.9 % (18.3-44.2); Mean Platelet Volume 9.2 fl (7.4-10.4); Monocytes Absolute Auto 0.8 K/mm3 (0.1-0.6); Monocytes Percent Auto 8.8 % (2.6-8.5); Neutrophils Absolute Auto 7.4 K/mm3 (1.3-6.7); Neutrophils Percent Auto 83.6 % (45.5-73.1); Platelet Count Result 281 k/mm3 (150-375); Red Blood Count 2.97 M/mm3 (4.2-5.4); Red Cell Distribution Width 14.3 % (11.5-14.5); White Blood Count 8.8 K/mm3 (4.5-10.0)
[2024-09-23 07:04] LABS: Alanine Aminotransferase 15 U/L (6-35); Albumin Level 3.5 g/dL (3.5-5.1); Alkaline Phosphatase 53 U/L (38-126); Anion Gap 6 mmol/L (4-12); Aspartate Amino Transferase 16 U/L (14-36); Bilirubin,Total 0.6 mg/dL (0.2-1.3); Blood Urea Nitrogen 20 mg/dL (7-17); Calcium 8.4 mg/dL (8.4-10.2); Carbon Dioxide 27 mmol/L (22-30); Chloride 101 mmol/L (98-107); Estimated CRCL calculation 43 ml/min; Estimated Glomerular Filt Rate > 60; Glucose 105 mg/dL (65-110); Potassium 4.1 mmol/L (3.4-5.0); Sodium 134 mmol/L (137-145)
[2024-09-23 08:00] VITALS: BP 157/62; PULSE 71; RESP 16; TEMP 36.4; O2SAT 99
[2024-09-23] MEDS: PRAVASTATIN SODIUM 20 MG TABLET 40 MG PO (09:00)
[2024-09-23] MEDS: CHOLECALCIFEROL 1,000 UNITS TABLET 2000 UNITS PO (09:00)
[2024-09-23] MEDS: IRBESARTAN 150 MG TABLET PO (09:00)
[2024-09-23] MEDS: CALCIUM/VITAMIN D 500 MG/5 MCG (200 I.U.) TABLET PO (09:00)
[2024-09-23] MEDS: ASPIRIN 81 MG CHEWABLE TABLET PO (09:00)
[2024-09-23] MEDS: SODIUM CHLORIDE 500 MG TABLET PO (09:00)
[2024-09-23] MEDS: BUDESONIDE 3 MG CAP.SR.24H PO (09:00)
[2024-09-23] MEDS: carvediloL 25 MG TABLET PO (09:00)
[2024-09-23] MEDS: PSYLLIUM POWDER PACKET 1 PACKET PO (09:01)
[2024-09-23] MEDS: FOLIC ACID 1 MG TABLET PO (09:02)
[2024-09-23] MEDS: ACETAMINOPHEN 325 MG TABLET 650 MG PO (09:09)
--- NOTE | 2024-09-23 09:31 | P.DS_ITS ---
DS: Admitting Diagnosis Discharge Date 09/23 Admitting Diagnosis fall DS: Discharge Diagnosis Discharge Diagnosis (1) Fall from ground level: Code(s): W18.30XA - Fall on same level, unspecified, initial encounter Status: Acute (2) Open wound of foot: Code(s): S91.309A - Unspecified open wound, unspecified foot, initial encounter Status: Acute (3) Open wound of knee: Qualifiers: Encounter type: initial encounter Laterality: left Qualified Code(s): S81.002A - Unspecified open wound, left knee, initial encounter Code(s): S81.009A - Unspecified open wound, unspecified knee, initial encounter Status: Acute (4) Hypo-osmolality and hyponatremia: Code(s): E87.1 - Hypo-osmolality and hyponatremia Status: Acute (5) Hypothyroidism: Code(s): E03.9 - Hypothyroidism, unspecified Status: Acute (6) Thrombocytopenia: Code(s): D69.6 - Thrombocytopenia, unspecified Status: Acute (7) Hypertension: Code(s): I10 - Essential (primary) hypertension Status: Acute (8) Hyperlipidemia: Code(s): E78.5 - Hyperlipidemia, unspecified Status: Acute (9) Diarrhea: Code(s): R19.7 - Diarrhea, unspecified Status: Acute (10) Folate deficiency: Code(s): E53.8 - Deficiency of other specified B group vitamins Status: Acute DS: Summary Hospital Course Hospital Course: This is an 83-year-old female with a significant past medical history of anxiety, breast cancer, depression, glaucoma, hyperlipidemia, hypertension, hypothyroidism, osteoporosis who presented to the hospital for evaluation after a ground level fall today while in her bedroom. 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 * Pelvis x-ray was negative for any acute osseous abnormalities however did show sclerotic changes in the right femoral head and right acetabulum. * Large laceration to right knee with smaller lacerations/skin tear to left knee. Continue wound care. * worked with PT and OT * Continue fall precautions * UA negative for bacteria. No other signs and symptoms of infection at this time * TSH normal, has history of hypothyroidism * unable to get MRI of brain due to pacemaker to assess for any stroke or any other abnormality. * echo with bubble study shown normal LV systolic function with an estimated EF of 60-65%, grade 1 diastolic dysfunction, negative bubble study. She also reports that she bruises very easily and that she has been developing these hematomas which she was seen over at [facility]. She has thrombocytopenia on labs and is only on a baby aspirin. * Platelet count 77>69> 100>137>187> 240 today, back to baseline * Last platelet count was 221 on 04/14/2024 * patient reports that she has only been taking a baby aspirin and reports a vitamin B12 deficiency in the past however she is not taking any vitamin B12 on her home medication list- will need to f/u with PCP for further monitoring * Vitamin B 12 was > 1000 pg/ml in the hospital- so stable for now * hematology following and recommends follow up outpatient * Fibrinogen 251, INR 0.9 # Hypo-osmolality and hyponatremia: * Sodium 132,continues to improve * Appears to be chronic * serum osmolarity 276, urine sodium 50, protein/creatinine ratio 0.60 * continue fluid restriction * lasix was stopped * started sodium tabs -will continue for now- but need follow up on BMP in 2 weeks or so to determine if Na needs to be continued # HTN * blood pressure ranging 158/66-193/75 * continue losartan and Coreg * Amlodipine increased to 7.5 mg daily * Lasix was discontinued * Echo showing normal LV systolic function with an estimated EF of 60-65% with grade 1 diastolic function. # diarrhea - c diff neg resolved Status at Discharge Functional status at discharge: uses cane/walker Overall status at discharge: patient is progressing back to baseline Time Spent with Patient Time attestation: Total time spent providing and/or coordinating discharge services: Time spent: Greater than 30 minutes Exam Narrative: General: In no acute distress Cardiac: Normal S1 and S2. Murmur noted. No gallops or friction rubs, peripheral pulses intact. Respiratory: Lungs clear to auscultation, no adventitious lung sounds, currently on room air Gastrointestinal: soft, non-distended, non-tender, normoactive bowel sounds. incontinent, liquid stools : Collins catheter in place, incontinent at baseline wears depends Skin: multiple areas of bruising with different variation of color, left arm and hand ecchymosis with skin tear on top of her left hand, left knee swelling lateral side below the knee left foot has a scabbed area on top, right ankle ecchymosis. Skin tear noted to the left knee with Steri-Strips on the medial side healing Neuro: Alert and oriented x3 Const: General: comfortable DS: Data Data Completed and Pending Completed studies during hospitalization: multiple xray, carotid doppler, abd ultrasound Labs on day of discharge: Labs from last 24 hours 09/23/24 09/22/24 09/20/24 05:54 11:55 05:46 WBC 8.8 RBC 2.97 L Hgb 9.8 L Hct 30.6 L MCV 103.0 H MCH 33.0 MCHC 32.0 RDW 14.3 Plt Count 281 MPV 9.2 Immature Gran % (Auto) 1.2 H Neut % (Auto) 83.6 H Lymph % (Auto) 5.9 L [place] % (Auto) 8.8 H Eos % (Auto) 0.3 Baso % (Auto) 0.2 Lymph # (Auto) 0.52 L [place] # (Auto) 0.8 H Eos # (Auto) 0.0 Baso # (Auto) 0.0 Abs Immat Gran (auto) 0.11 H Absolute Neuts (auto) 7.4 H Absolute Nucleated RBC 0.000 Nucleated RBC % 0.0 Sodium 134 L Potassium 4.1 Chloride 101 Carbon Dioxide 27 Anion Gap 6 BUN 20 H Creatinine 0.60 L Estim Creat Clear Calc 43 Estimated GFR > 60 Glucose 105 POC Capillary Glucose 129 H Calcium 8.4 Total Bilirubin 0.6 AST 16 ALT 15 Alkaline Phosphatase 53 Total Protein 6.0 L Albumin 3.5 3.3 L Qcuyd-1-Rzpzdjbec 0.4 H Negrt-8-Oqmrpfyoc 0.8 Mbak-7-Juvjnzsq 0.4 Zznx-4-Lgixatzn 0.2 Gamma Globulins 0.4 L PEP Interpretation See note Discharge Plan Discharge Attending physician on discharge: Dedrick Duron Consulting providers: Michelle Pollock; Juliano Graham Discharging Clinician: Eloina Lane Patient Disposition: SNF Activity: may shower Diet: heart healthy Discharge Instructions: see discharge summary Patient Instructions: Heart Failure (DC), Pain Management (DC) Stand Alone Forms: General Discharge Information Discharge Medications: New amlodipine 2.5 mg Tablet 7.5 mg PO DAILY Qty: 90 0RF Continued latanoprost 0.005 % drops 1 drp ophthalmic (eye) HS Rx Instructions: one drop in both eyes carvedilol 25 mg tablet 25 mg PO BID pravastatin 40 mg tablet 40 mg PO DAILY potassium chloride 10 mEq tablet extended release 10 meq PO DAILY Rx Instructions: Takes @ 1200 levothyroxine [Euthyrox] 75 mcg tablet 75 mcg PO DAILY losartan 100 mg tablet 100 mg PO DAILY loperamide 2 mg Capsule 2 mg PO Q6H PRN (Reason: Diarrhea) psyllium Packet 1 packet PO DAILY cholecalciferol (vitamin D3) 50 mcg (2,000 unit) Tablet 2,000 unit PO DAILY triamcinolone acetonide [Kenalog] 0.1 % Cream 1 applic TOPICAL BID Rx Instructions: apply to itchy skin; do not apply to face or genitals. betamethasone dipropionate 0.05 % Cream 1 applic TOPICAL BID Rx Instructions: apply to handrash budesonide 3 mg capsule,delayed,extend.release 3 mg PO DAILY epinephrine 0.3 mg/0.3 mL auto-injector 0.3 mg IM PRN PRN (Reason: Allergic Reaction) Rx Instructions: inject 1 syringe daily as needed diclofenac sodium 1 % Gel 2 g TOPICAL QID Rx Instructions: apply to single elbow, wrist or hand; for hand includes palm/fingers/back of hand All Day Calcium 600 mg(1,500mg) -500 unit Tablet Extended Release 24 Hr 1 tablet PO DAILY acetaminophen 500 mg tablet 1,000 mg PO TID lidocaine 5 % adhesive patch,medicated 1 patch transdermal DAILY Rx Instructions: apply to lower back aspirin [Children's Aspirin] 81 mg Tablet,Chewable 81 mg PO DAILY@0800 Qty: 30 0RF Changed tramadol 50 mg tablet 50 mg PO BID PRN (Reason: pain) Qty: 10 0RF Discontinued furosemide [Lasix] 20 mg Tablet 20 mg PO BID PRN (Reason: edema) amlodipine 2.5 mg tablet 2.5 mg PO DAILY Date of admission: 09/15/24 23:11 Primary Care Provider: SilGokul Admitting Provider: Leslie King Attending physician on admission: Mel Florez Condition: Stable Quality VTE Prophylaxis VTE prophylaxis: mechanical ordered Hospitalist MIPS Heart Failure (Exclusion) Patient has history of Heart Transplant or Left Ventricular Assistive Device?: No IF YES, STOP HERE Heart Failure (Qualifier) Patient has current or prior documentation of LVEF less than or equal to 40%, or mod/servere depressed LVSF?: No IF NO, STOP HERE
[2024-09-23 12:00] VITALS: BP 116/57; PULSE 74; RESP 16; TEMP 36.8; O2SAT 95
[2024-09-23 14:33] LABS: Creatinine, Random Urine 43 mg/dL (20-275); Total Prot/Creat ratio mg/mg 0.233 (0.024-0.184); Total Protein/Creatinine Ratio 233 mg/g creat (24-184)
[2024-09-23 14:58] LABS: Kappa\\Lambda Light Chains 1.07 (0.26-1.65); Lambda Light Chain 10.7 mg/L (5.7-26.3)
[2024-09-23 17:53] LABS: Immunofixation, Serum Normal pattern.
== END 2024-09-23 12:00 ==
LOC: ANHED 23:10 → ANH3MEDSUR 09-16
PROVIDERS: Internal Medicine Hematology & Oncology; Internal Medicine Nephrology; Admitting Provider Internal Medicine; Emergency Provider Physician Assistant; PCP Internal Medicine; Visit Provider Nurse Practitioner Acute Care
DX: S81.011A Laceration without foreign body, right knee, initial encounter (principal); S91.302A Unspecified open wound, left foot, initial encounter; S81.012A Laceration without foreign body, left knee, initial encounter; S61.412A Laceration without foreign body of left hand, initial encounter; W18.39XA Other fall on same level, initial encounter; R29.6 Repeated falls; E87.1 Hypo-osmolality and hyponatremia; E03.9 Hypothyroidism, unspecified; D69.6 Thrombocytopenia, unspecified; I10 Essential (primary) hypertension; E78.5 Hyperlipidemia, unspecified; R19.7 Diarrhea, unspecified; D52.9 Folate deficiency anemia, unspecified; M25.462 Effusion, left knee; M17.12 Unilateral primary osteoarthritis, left knee; F41.9 Anxiety disorder, unspecified; K52.831 Collagenous colitis; F32.A Depression, unspecified; I44.7 Left bundle-branch block, unspecified; M81.0 Age-related osteoporosis without current pathological fracture; H40.9 Unspecified glaucoma; M47.892 Other spondylosis, cervical region; F03.90 Unspecified dementia, unspecified severity, without behavioral disturbance, psychotic disturbance, mood disturbance, and anxiety; R55 Syncope and collapse; Z75.1 Person awaiting admission to adequate facility elsewhere; Z79.82 Long term (current) use of aspirin; Z79.899 Other long term (current) drug therapy; Z86.73 Personal history of transient ischemic attack (TIA), and cerebral infarction without residual deficits; Z85.3 Personal history of malignant neoplasm of breast; Z90.11 Acquired absence of right breast and nipple; Z92.21 Personal history of antineoplastic chemotherapy; Z95.810 Presence of automatic (implantable) cardiac defibrillator; Z96.651 Presence of right artificial knee joint; Z88.0 Allergy status to penicillin; Z88.2 Allergy status to sulfonamides; Z88.8 Allergy status to other drugs, medicaments and biological substances; Z91.041 Radiographic dye allergy status
CPT/HCPCS: 12004; 36415; 70450; 71046; 72125; 72170; 73130; 73564; 76700; 80048; 80053; 81001; 82533; 82570; 82607; 82728; 82746; 82948; 83540; 83550; 83883; 83930; 84100; 84155; 84156; 84165; 84166; 84300; 84443; 84540; 85025; 85055; 85384; 85610; 86023; 86334; 86335; 87493; 93306; 93880; 96374; 96375; 97110; 97116; 97161; 97165; 97530; 97535; 99285; A9270; G0378; J2004; L1830